=== PATIENT | female | born 1960 | race Caucasian/White ===

== ENCOUNTER 2020-12-02 10:13 | Outpatient (REF) | payer OTHER, SELFPAY ==
[2020-12-02 11:16] LABS: MANUAL DIFF FLAG NO
[2020-12-02 11:21] LABS: Basophils Percent Auto 0.8 % (0-2); Eosinophils Absolute Auto 0.1 X10*3/uL (0.0-0.4); Eosinophils Percent Auto 3.8 % (0-4); Hematocrit 44.9 % (37-47); Hemoglobin 15.1 g/dl (12.0-16.0); Imm Gran Abs Auto 0.01 X10*3/uL (0.00-0.03); Imm Gran Pct Auto 0.3 % (0.0-0.4); Lymphocytes Absolute Auto 1.6 X10*3/uL (1.2-4.9); Lymphocytes Percent Auto 44.1 % (20-40); Mean Corpuscular HGB Conc 33.6 g/dl (31.0-35.0); Mean Corpuscular Volume 95.1 fL (80-98); Mean Platelet Volume 11.2 fL (9.4-12.3); Monocytes Absolute Auto 0.4 X10*3/uL (0.1-1.2); Monocytes Percent Auto 10.8 % (2-11); Neutrophils Absolute Auto 1.5 X10*3/uL (2.0-8.3); Neutrophils Percent Auto 40.2 % (45-73); Platelet Count 206 X10*3/uL (160-400); Red Blood Count 4.72 X10*6/uL (4.20-5.50); Red Cell Distribution Width 13.2 % (11.0-16.0); White Blood Count 3.7 X10*3/uL (4.8-10.8)
[2020-12-02 11:55] LABS: Alanine Aminotransferase 20 U/L (0-31); Albumin Level 4.8 g/dL (3.5-5.0); Alkaline Phosphatase 81 U/L (39-117); Anion Gap 15 (12-20); Aspartate Amino Transferase 20 U/L (5-31); Bilirubin Total 0.3 mg/dL (0.0-1.0); Blood Urea Nitrogen 8 mg/dL (9-16); Calcium 9.4 mg/dL (8.4-10.2); Carbon Dioxide 27 mmol/L (22-29); Chloride 101 mmol/L (96-108); Cholesterol 287 mg/dL; Estimated Glomerular Filt Rate > 60; Glucose Fasting 109 mg/dL (60-99); HDL Cholesterol 95 mg/dL; LDL Cholesterol Calculated 169 mg/dl; Potassium 4.4 mmol/l (3.3-5.1); Sodium 139 mmol/L (135-145); Total Protein 7.6 g/dL (6.5-8.0); Triglycerides 116 mg/dL
== END 2020-12-02 10:14 | disposition home or self-care (01) ==
LOC: HO.HMGCLDS 10:13
PROVIDERS: PCP Internal Medicine Medical Oncology; Visit Provider Internal Medicine Medical Oncology
DX: E78.00 Pure hypercholesterolemia, unspecified (principal); E66.9 Obesity, unspecified
CPT/HCPCS: 36415; 80053; 80061; 85025

== ENCOUNTER 2021-03-20 09:17 | Outpatient (REF) | payer OTHER, SELFPAY ==
[2021-03-20 11:30] LABS: MANUAL DIFF FLAG NO
[2021-03-20 11:43] LABS: Basophils Percent Auto 0.6 % (0-2); Hematocrit 41.9 % (37-47); Hemoglobin 13.8 g/dl (12.0-16.0); Imm Gran Abs Auto 0.01 X10*3/uL (0.00-0.03); Imm Gran Pct Auto 0.3 % (0.0-0.4); Lymphocytes Absolute Auto 1.3 X10*3/uL (1.2-4.9); Lymphocytes Percent Auto 39.2 % (20-40); Mean Corpuscular HGB Conc 32.9 g/dl (31.0-35.0); Mean Corpuscular Hemoglobin 31.5 pg (27.0-33.0); Mean Corpuscular Volume 95.7 fL (80-98); Mean Platelet Volume 10.8 fL (9.4-12.3); Monocytes Absolute Auto 0.3 X10*3/uL (0.1-1.2); Monocytes Percent Auto 9.2 % (2-11); Neutrophils Absolute Auto 1.7 X10*3/uL (2.0-8.3); Neutrophils Percent Auto 50.7 % (45-73); Platelet Count 182 X10*3/uL (160-400); Red Blood Count 4.38 X10*6/uL (4.20-5.50); Red Cell Distribution Width 13.5 % (11.0-16.0); White Blood Count 3.4 X10*3/uL (4.8-10.8)
[2021-03-20 12:08] LABS: Alanine Aminotransferase 20 U/L (0-31); Albumin Level 4.1 g/dL (3.5-5.0); Alkaline Phosphatase 72 U/L (39-117); Anion Gap 15 (12-20); Aspartate Amino Transferase 19 U/L (5-31); Bilirubin Total 0.6 mg/dL (0.0-1.0); Blood Urea Nitrogen 11 mg/dL (9-16); Calcium 8.7 mg/dL (8.4-10.2); Carbon Dioxide 28 mmol/L (22-29); Chloride 101 mmol/L (96-108); Estimated Glomerular Filt Rate > 60; Glucose Fasting 94 mg/dL (60-99); Potassium 3.8 mmol/L (3.3-5.1); Sodium 140 mmol/L (135-145); Total Protein 6.8 g/dL (6.5-8.0)
== END 2021-03-20 09:18 | disposition home or self-care (01) ==
LOC: HO.HMGCLDS 09:17
PROVIDERS: PCP Internal Medicine Medical Oncology; Visit Provider Internal Medicine Medical Oncology
DX: E78.00 Pure hypercholesterolemia, unspecified (principal); I10 Essential (primary) hypertension
CPT/HCPCS: 36415; 80053; 85025

== ENCOUNTER 2021-03-26 10:29 | Outpatient (REF) | payer OTHER, SELFPAY ==
[2021-03-26 14:38] LABS: Cholesterol 267 mg/dL; HDL Cholesterol 83 mg/dL; LDL Cholesterol Calculated 163 mg/dl; Triglycerides 106 mg/dL
[2021-03-26 14:45] LABS: Free T4 (Free Thyroxine) 1.02 ng/dL (0.71-1.85); Thyroid Stimulating Hormone 1.39 uIU/mL (0.32-4.0)
== END 2021-03-26 10:30 | disposition home or self-care (01) ==
LOC: HO.10HDL 10:29
PROVIDERS: Visit Provider Internal Medicine Medical Oncology
DX: E78.00 Pure hypercholesterolemia, unspecified (principal); I10 Essential (primary) hypertension; E03.9 Hypothyroidism, unspecified; E66.9 Obesity, unspecified
CPT/HCPCS: 36415; 80061; 84439; 84443

== ENCOUNTER 2021-04-10 09:29 | Outpatient (REF) | payer OTHER, SELFPAY ==
[2021-04-10 10:59] LABS: Glucose Urine UA NEG (NEG); Leukocyte Esterase Urine TRACE (NEG); Nitrite Urine NEG (NEG); PH 6.5 (5.0-8.0); Urine Blood 1+ (NEG); Urine Ketones NEG (NEG); Urine Protein NEG (NEG-TRACE)
[2021-04-10 11:01] LABS: Appearance Urine CLEAR; Color Urine YELLOW
[2021-04-10 11:14] LABS: Bacteria Urine TRACE /LPF; Squamous Epithelial Cell Urine 2+ /LPF
== END 2021-04-10 09:30 | disposition home or self-care (01) ==
LOC: HO.LNP 09:29
PROVIDERS: Visit Provider Internal Medicine Medical Oncology
DX: N39.0 Urinary tract infection, site not specified (principal)
CPT/HCPCS: 81001; 81003; 87086

== ENCOUNTER 2021-06-27 08:48 | Outpatient (REF) | payer OTHER, SELFPAY ==
[2021-06-27 11:31] LABS: MANUAL DIFF FLAG NO
[2021-06-27 11:41] LABS: Basophils Percent Auto 0.6 % (0-2); Hematocrit 40.6 % (37-47); Hemoglobin 13.6 g/dl (12.0-16.0); Lymphocytes Absolute Auto 1.5 X10*3/uL (1.2-4.9); Lymphocytes Percent Auto 47.4 % (20-40); Mean Corpuscular HGB Conc 33.5 g/dl (31.0-35.0); Mean Corpuscular Hemoglobin 31.6 pg (27.0-33.0); Mean Corpuscular Volume 94.4 fL (80-98); Mean Platelet Volume 10.7 fL (9.4-12.3); Monocytes Absolute Auto 0.4 X10*3/uL (0.1-1.2); Monocytes Percent Auto 12.3 % (2-11); Neutrophils Absolute Auto 1.2 X10*3/uL (2.0-8.3); Neutrophils Percent Auto 39.7 % (45-73); Platelet Count 164 X10*3/uL (160-400); Red Cell Distribution Width 13.6 % (11.0-16.0); White Blood Count 3.1 X10*3/uL (4.8-10.8)
[2021-06-27 12:02] LABS: Alanine Aminotransferase 18 U/L (0-31); Albumin Level 4.1 g/dL (3.5-5.0); Alkaline Phosphatase 63 U/L (39-117); Anion Gap 13 (12-20); Aspartate Amino Transferase 17 U/L (5-31); Bilirubin Total 0.4 mg/dL (0.0-1.0); Blood Urea Nitrogen 11 mg/dL (9-16); Carbon Dioxide 27 mmol/L (22-29); Chloride 106 mmol/L (96-108); Cholesterol 249 mg/dL; Estimated Glomerular Filt Rate > 60; Glucose Fasting 99 mg/dL (60-99); HDL Cholesterol 90 mg/dL; LDL Cholesterol Calculated 144 mg/dl; Potassium 4.1 mmol/L (3.3-5.1); Sodium 142 mmol/L (135-145); Total Protein 6.6 g/dL (6.5-8.0); Triglycerides 77 mg/dL
[2021-06-27 12:12] LABS: Free T4 (Free Thyroxine) 0.89 ng/dL (0.71-1.85); Thyroid Stimulating Hormone 1.33 uIU/mL (0.32-4.0)
== END 2021-06-27 08:49 | disposition home or self-care (01) ==
LOC: HO.HMGCLDS 08:48
PROVIDERS: PCP Internal Medicine Medical Oncology; Visit Provider Internal Medicine Medical Oncology
DX: E78.00 Pure hypercholesterolemia, unspecified (principal); I10 Essential (primary) hypertension; E03.9 Hypothyroidism, unspecified; E66.9 Obesity, unspecified
CPT/HCPCS: 36415; 80053; 80061; 84439; 84443; 85025

== ENCOUNTER 2021-07-10 12:40 | Outpatient (REF) | payer OTHER, SELFPAY ==
--- NOTE | ~2021-07-10 | MM_ITS ---
EXAMINATION: MM SCREENING DIGITAL BREAST TOMOSYNTHESIS, BILATERAL CLINICAL INFORMATION: Screening. Asymptomatic. The lifetime risk of breast cancer based on the Tyrer-Cuzick Model is 16%. COMPARISON: Outside mammography: 06/29/2019, 06/27/2018, 12/07/2016 ([facility]) TECHNIQUE: Digital breast tomosynthesis is performed in both the craniocaudal and mediolateral oblique views along with computer-aided detection (CAD). Synthesized 2D images are generated from the tomosynthesis. FINDINGS: There are scattered areas of fibroglandular density (ACR BI-RADS breast composition Category b). There are no significant masses, abnormal calcifications, or other abnormalities. Parenchymal pattern is similar to prior studies. No developing density. The axilla and skin contours are unremarkable. MM/MM tomosynthesis screening BI IMPRESSION: There are no significant changes from prior study. ASSESSMENT: BI-RADS 1: Negative RECOMMENDATION: Routine annual mammography screening. This patient's information was entered into a reminder system with a target due date for their next mammogram.
== END 2021-07-10 12:41 | disposition home or self-care (01) ==
LOC: HO.MAMMO 12:40
PROVIDERS: Visit Provider Internal Medicine Medical Oncology
DX: Z12.31 Encounter for screening mammogram for malignant neoplasm of breast (principal)
CPT/HCPCS: 77063; 77067

== ENCOUNTER 2021-10-14 10:51 | Outpatient (REF) | payer OTHER, SELFPAY ==
[2021-10-14 11:45] LABS: MANUAL DIFF FLAG NO
[2021-10-14 11:52] LABS: Basophils Percent Auto 0.6 % (0-2); Hematocrit 38.9 % (37.0-47.0); Hemoglobin 12.9 g/dl (12.0-16.0); Imm Gran Abs Auto 0.01 X10*3/uL (0.00-0.03); Imm Gran Pct Auto 0.2 % (0.0-0.4); Lymphocytes Absolute Auto 1.7 X10*3/uL (1.2-4.9); Lymphocytes Percent Auto 32.3 % (20-40); Mean Corpuscular HGB Conc 33.2 g/dl (31.0-35.0); Mean Corpuscular Volume 96.5 fL (80.0-98.0); Mean Platelet Volume 9.9 fL (9.4-12.3); Monocytes Absolute Auto 0.5 X10*3/uL (0.1-1.2); Monocytes Percent Auto 9.3 % (2-11); Neutrophils Absolute Auto 3.1 x10*3/uL (2.0-8.3); Neutrophils Percent Auto 57.6 % (45-73); Platelet Count 161 X10*3/uL (160-400); Red Blood Count 4.03 X10*6/uL (4.20-5.50); Red Cell Distribution Width 13.3 % (11.0-16.0); White Blood Count 5.4 X10*3/uL (4.8-10.8)
[2021-10-14 12:28] LABS: Erythrocyte Sedimentation Rate 7 MM/HR (0-20)
== END 2021-10-14 10:52 | disposition home or self-care (01) ==
LOC: HO.10HDL 10:51
PROVIDERS: Visit Provider Internal Medicine Medical Oncology
DX: E78.00 Pure hypercholesterolemia, unspecified (principal); D72.819 Decreased white blood cell count, unspecified
CPT/HCPCS: 36415; 85025; 85652

== ENCOUNTER 2021-10-27 08:02 | Outpatient (REF) | payer OTHER, SELFPAY ==
[2021-10-27 10:06] LABS: MANUAL DIFF FLAG NO
[2021-10-27 10:08] LABS: Basophils Absolute Auto 0.1 X10*3/uL (0.0-0.2); Basophils Percent Auto 1.5 % (0-2); Hematocrit 38.7 % (37.0-47.0); Hemoglobin 12.8 g/dl (12.0-16.0); Imm Gran Abs Auto 0.01 X10*3/uL (0.00-0.03); Imm Gran Pct Auto 0.3 % (0.0-0.4); Lymphocytes Absolute Auto 1.3 X10*3/uL (1.2-4.9); Lymphocytes Percent Auto 38.3 % (20-40); Mean Corpuscular HGB Conc 33.1 g/dl (31.0-35.0); Mean Corpuscular Hemoglobin 31.8 pg (27.0-33.0); Mean Corpuscular Volume 96.3 fL (80.0-98.0); Mean Platelet Volume 10.9 fL (9.4-12.3); Monocytes Absolute Auto 0.4 X10*3/uL (0.1-1.2); Monocytes Percent Auto 11.2 % (2-11); Neutrophils Absolute Auto 1.6 x10*3/uL (2.0-8.3); Neutrophils Percent Auto 48.7 % (45-73); Platelet Count 231 X10*3/uL (160-400); Red Blood Count 4.02 X10*6/uL (4.20-5.50); Red Cell Distribution Width 13.2 % (11.0-16.0); White Blood Count 3.3 X10*3/uL (4.8-10.8)
[2021-10-27 10:24] LABS: Alanine Aminotransferase 16 U/L (0-31); Alkaline Phosphatase 69 U/L (39-117); Anion Gap 13 (12-20); Aspartate Amino Transferase 17 U/L (5-31); Bilirubin Total 0.4 mg/dL (0.0-1.0); Blood Urea Nitrogen 13 mg/dL (9-16); Carbon Dioxide 27 mmol/L (22-29); Chloride 105 mmol/L (96-108); Cholesterol 244 mg/dL; Estimated Glomerular Filt Rate > 60; Glucose Fasting 99 mg/dL (60-99); HDL Cholesterol 78 mg/dL; LDL Cholesterol Calculated 150 mg/dl; Sodium 141 mmol/L (135-145); Total Protein 6.6 g/dL (6.5-8.0); Triglycerides 84 mg/dL
[2021-10-27 10:49] LABS: Free T4 (Free Thyroxine) 0.97 ng/dL (0.71-1.85); Thyroid Stimulating Hormone 1.57 uIU/mL (0.32-4.0)
== END 2021-10-27 08:03 | disposition home or self-care (01) ==
LOC: HO.10HDL 08:02
PROVIDERS: Visit Provider Internal Medicine Medical Oncology
DX: E78.00 Pure hypercholesterolemia, unspecified (principal); E03.9 Hypothyroidism, unspecified; E66.9 Obesity, unspecified
CPT/HCPCS: 36415; 80053; 80061; 84439; 84443; 85025

== ENCOUNTER 2022-03-04 08:51 | Outpatient (REF) | payer OTHER, SELFPAY ==
[2022-03-04 10:31] LABS: MANUAL DIFF FLAG NO
[2022-03-04 10:36] LABS: Basophils Percent Auto 0.8 % (0-2); Hematocrit 40.8 % (37.0-47.0); Hemoglobin 13.5 g/dl (12.0-16.0); Imm Gran Abs Auto 0.01 X10*3/uL (0.00-0.03); Imm Gran Pct Auto 0.3 % (0.0-0.4); Lymphocytes Absolute Auto 1.3 X10*3/uL (1.2-4.9); Lymphocytes Percent Auto 36.1 % (20-40); Mean Corpuscular HGB Conc 33.1 g/dl (31.0-35.0); Mean Corpuscular Hemoglobin 31.7 pg (27.0-33.0); Mean Corpuscular Volume 95.8 fL (80.0-98.0); Mean Platelet Volume 10.9 fL (9.4-12.3); Monocytes Absolute Auto 0.4 X10*3/uL (0.1-1.2); Monocytes Percent Auto 11.8 % (2-11); Neutrophils Absolute Auto 1.9 x10*3/uL (2.0-8.3); Platelet Count 177 X10*3/uL (160-400); Red Blood Count 4.26 X10*6/uL (4.20-5.50); Red Cell Distribution Width 13.8 % (11.0-16.0); White Blood Count 3.6 X10*3/uL (4.8-10.8)
[2022-03-04 10:51] LABS: Alanine Aminotransferase 25 U/L (0-31); Albumin Level 4.2 g/dL (3.5-5.0); Alkaline Phosphatase 70 U/L (39-117); Anion Gap 11 (12-20); Aspartate Amino Transferase 21 U/L (5-31); Bilirubin Total 0.4 mg/dL (0.0-1.0); Blood Urea Nitrogen 16 mg/dL (9-16); Calcium 9.1 mg/dL (8.4-10.2); Carbon Dioxide 29 mmol/L (22-29); Chloride 105 mmol/L (96-108); Cholesterol 272 mg/dL; Estimated Glomerular Filt Rate > 60; Glucose Fasting 111 mg/dL (60-99); HDL Cholesterol 91 mg/dL; LDL Cholesterol Calculated 167 mg/dl; Potassium 4.7 mmol/L (3.3-5.1); Sodium 140 mmol/L (135-145); Total Protein 6.9 g/dL (6.5-8.0); Triglycerides 73 mg/dL
[2022-03-04 11:11] LABS: Free T4 (Free Thyroxine) 0.89 ng/dL (0.71-1.85); Thyroid Stimulating Hormone 1.77 uIU/mL (0.32-4.0)
== END 2022-03-04 08:52 | disposition home or self-care (01) ==
LOC: HO.10HDL 08:51
PROVIDERS: PCP Internal Medicine Medical Oncology; Visit Provider Internal Medicine Medical Oncology
DX: E78.00 Pure hypercholesterolemia, unspecified (principal); I10 Essential (primary) hypertension
CPT/HCPCS: 36415; 80053; 80061; 84439; 84443; 85025

== ENCOUNTER 2022-07-03 08:25 | Outpatient (REF) | payer OTHER, SELFPAY ==
[2022-07-03 11:28] LABS: MANUAL DIFF FLAG NO
[2022-07-03 11:31] LABS: Basophils Percent Auto 1.1 % (0-2); Hematocrit 41.7 % (37.0-47.0); Hemoglobin 14.4 g/dl (12.0-16.0); Imm Gran Abs Auto 0.01 X10*3/uL (0.00-0.03); Imm Gran Pct Auto 0.4 % (0.0-0.4); Lymphocytes Absolute Auto 1.3 X10*3/uL (1.2-4.9); Lymphocytes Percent Auto 47.2 % (20-40); Mean Corpuscular HGB Conc 34.5 g/dl (31.0-35.0); Mean Corpuscular Hemoglobin 32.3 pg (27.0-33.0); Mean Corpuscular Volume 93.5 fL (80.0-98.0); Monocytes Absolute Auto 0.4 X10*3/uL (0.1-1.2); Monocytes Percent Auto 13.9 % (2-11); Neutrophils Percent Auto 37.4 % (45-73); Platelet Count 174 X10*3/uL (160-400); Red Blood Count 4.46 X10*6/uL (4.20-5.50); Red Cell Distribution Width 12.9 % (11.0-16.0); White Blood Count 2.7 X10*3/uL (4.8-10.8)
[2022-07-03 12:08] LABS: Alanine Aminotransferase 22 U/L (0-31); Albumin Level 4.3 g/dL (3.5-5.0); Alkaline Phosphatase 70 U/L (39-117); Anion Gap 16 (12-20); Aspartate Amino Transferase 25 U/L (5-31); Bilirubin Total 0.5 mg/dL (0.0-1.0); Blood Urea Nitrogen 10 mg/dL (9-16); Calcium 9.2 mg/dL (8.4-10.2); Carbon Dioxide 26 mmol/L (22-29); Chloride 102 mmol/L (96-108); Cholesterol 269 mg/dL; Estimated Glomerular Filt Rate > 60; Glucose Fasting 113 mg/dL (60-99); HDL Cholesterol 82 mg/dL; LDL Cholesterol Calculated 167 mg/dl; Potassium 4.6 mmol/L (3.3-5.1); Sodium 139 mmol/L (135-145); Triglycerides 104 mg/dL
[2022-07-03 12:30] LABS: Free T4 (Free Thyroxine) 1.11 ng/dL (0.71-1.85); Thyroid Stimulating Hormone 1.25 uIU/mL (0.32-4.0)
[2022-07-03 13:08] LABS: Phenytoin Dilantin 7.2 ug/mL (10.0-20.0)
== END 2022-07-03 08:26 | disposition home or self-care (01) ==
LOC: HO.HMGCLDS 08:25
PROVIDERS: PCP Internal Medicine Medical Oncology; Visit Provider Internal Medicine Medical Oncology
DX: E78.00 Pure hypercholesterolemia, unspecified (principal); E03.9 Hypothyroidism, unspecified; I10 Essential (primary) hypertension; Z79.899 Other long term (current) drug therapy
CPT/HCPCS: 36415; 80053; 80061; 80185; 84439; 84443; 85025

== ENCOUNTER 2022-07-14 15:38 | Outpatient (REF) | payer OTHER, SELFPAY ==
--- NOTE | ~2022-07-14 | MM_ITS ---
EXAMINATION: MM SCREENING DIGITAL BREAST TOMOSYNTHESIS, BILATERAL CLINICAL INFORMATION: Screening. Asymptomatic. The lifetime risk of breast cancer based on the Tyrer-Cuzick Model is 13.2%. COMPARISON: Mammography: July 10, 2021 and studies dating back to December 07, 2016 TECHNIQUE: Digital breast tomosynthesis is performed in both the craniocaudal and mediolateral oblique views along with computer-aided detection (CAD). Synthesized 2D images are generated from the tomosynthesis. FINDINGS: There are scattered areas of fibroglandular density (ACR BI-RADS breast composition Category b). There are no significant masses, abnormal calcifications, or other abnormalities. MM/MM tomosynthesis screening BI IMPRESSION: No significant changes from prior exam. ASSESSMENT: BI-RADS 1: Negative RECOMMENDATION: Routine annual mammography screening. This patient's information was entered into a reminder system with a target due date for their next mammogram.
== END 2022-07-14 15:39 | disposition home or self-care (01) ==
LOC: HO.MAMMO 15:38
PROVIDERS: PCP Internal Medicine Medical Oncology; Visit Provider Internal Medicine Medical Oncology
DX: Z12.31 Encounter for screening mammogram for malignant neoplasm of breast (principal)
CPT/HCPCS: 77063; 77067

== ENCOUNTER 2022-08-17 08:47 | Outpatient (REF) | payer OTHER, SELFPAY ==
[2022-08-17 12:56] LABS: Phenytoin Dilantin 13.1 ug/mL (10.0-20.0); Valproate 52.1 mcg/mL (50.0-100.0)
== END 2022-08-17 08:48 | disposition home or self-care (01) ==
LOC: HO.HMGCLDS 08:47
PROVIDERS: PCP Internal Medicine Medical Oncology; Visit Provider Psychiatry & Neurology Neurology
DX: G40.909 Epilepsy, unspecified, not intractable, without status epilepticus (principal); Z79.899 Other long term (current) drug therapy
CPT/HCPCS: 36415; 80164; 80185

== ENCOUNTER 2022-09-10 08:38 | Outpatient (REF) | payer OTHER, SELFPAY ==
[2022-09-10 11:12] LABS: MANUAL DIFF FLAG NO
[2022-09-10 11:20] LABS: Basophils Percent Auto 0.7 % (0-2); Hematocrit 41.2 % (37.0-47.0); Hemoglobin 13.8 g/dl (12.0-16.0); Lymphocytes Absolute Auto 1.4 X10*3/uL (1.2-4.9); Lymphocytes Percent Auto 46.4 % (20-40); Mean Corpuscular HGB Conc 33.5 g/dl (31.0-35.0); Mean Corpuscular Hemoglobin 32.2 pg (27.0-33.0); Mean Platelet Volume 11.5 fL (9.4-12.3); Monocytes Absolute Auto 0.4 X10*3/uL (0.1-1.2); Monocytes Percent Auto 12.6 % (2-11); Neutrophils Absolute Auto 1.2 x10*3/uL (2.0-8.3); Neutrophils Percent Auto 40.3 % (45-73); Platelet Count 166 X10*3/uL (160-400); Red Blood Count 4.29 X10*6/uL (4.20-5.50); Red Cell Distribution Width 13.3 % (11.0-16.0)
[2022-09-10 11:32] LABS: Alanine Aminotransferase 21 U/L (0-31); Albumin Level 4.4 g/dL (3.5-5.0); Alkaline Phosphatase 62 U/L (39-117); Anion Gap 15 (12-20); Aspartate Amino Transferase 20 U/L (5-31); Bilirubin Total 0.4 mg/dL (0.0-1.0); Blood Urea Nitrogen 11 mg/dL (9-16); Calcium 9.2 mg/dL (8.4-10.2); Carbon Dioxide 27 mmol/L (22-29); Chloride 105 mmol/L (96-108); Estimated Glomerular Filt Rate > 60; Glucose Fasting 117 mg/dL (60-99); Potassium 4.3 mmol/L (3.3-5.1); Sodium 143 mmol/L (135-145); Total Protein 6.8 g/dL (6.5-8.0)
[2022-09-10 12:41] LABS: Phenytoin Dilantin 13.3 ug/mL (10.0-20.0)
== END 2022-09-10 08:39 | disposition home or self-care (01) ==
LOC: HO.HMGCLDS 08:38
PROVIDERS: PCP Internal Medicine Medical Oncology; Visit Provider Internal Medicine Medical Oncology
DX: Z00.00 Encounter for general adult medical examination without abnormal findings (principal); E78.00 Pure hypercholesterolemia, unspecified; G40.309 Generalized idiopathic epilepsy and epileptic syndromes, not intractable, without status epilepticus
CPT/HCPCS: 36415; 80053; 80185; 85025

== ENCOUNTER 2022-09-11 06:32 | Day surgery (SDC) | payer OTHER, SELFPAY ==
--- NOTE | 2022-09-10 12:14 | P.CONAN_ITS ---
Documented by User: Kayla Munguia NP 09/10/22 12:15 HPI - Anesthesia Eval Consult details Narrative: 62yo F for Colonoscopy FORMERLY [facility], [facility] Past Medical History Medical History Endometrial carcinoma Hypothyroidism Seizure disorder Surgical History Surgical History (Updated 09/11/22 @ 07:11 by Elidia Johnson RN) H/O: hysterectomy Hx of cholecystectomy Hx of colonoscopy Social History Social History Patient Tobacco Use Status: Never used Tobacco Are you DNR?: No Advance Directives: No Advance Directives Information Provided: Yes Nutrition Risks: No Nutritional Risk Meds Allergies Allergy/AdvReac Type Severity Reaction Status Date / Time codeine AdvReac Gastrointestinal Verified 09/11/22 07:09 Upset levetiracetam [From [facility]] AdvReac Unknown Verified 09/11/22 07:10 Home Medications Medication Instructions Recorded Confirmed Last Taken Type divalproex 500 mg tablet,extended 1 tab PO TID 09/10/22 09/10/22 09/11/22 History release 24 hr levothyroxine 100 mcg tablet 1 tab PO DAILY 09/10/22 09/10/22 Unknown History phenytoin sodium extended 100 mg cap PO 09/10/22 09/11/22 History capsule Exam Exam Date and Time: September 10, 2022 1214 Pertinent Lab Results Pertinent Lab Results: Laboratory Tests 09/10/22 09/10/22 08:44 08:44 WBC 3.0 L Hgb 13.8 Hct 41.2 Plt Count 166 Sodium 143 Potassium 4.3 Chloride 105 Carbon Dioxide 27 BUN 11 Creatinine 0.76 Assessment and Plan Assessment Anesthesia Assessment: Chart Reviewed Documented by User: Jcarlos Olguin MD 09/13/22 23:33 HPI - Anesthesia Eval Consult details Narrative: 62yo F for Colonoscopy last seizure 10 years ago FORMERLY [facility], [facility] Past Medical History Medical History Endometrial carcinoma Hypothyroidism Seizure disorder Family History Family history of problems with anesthesia: No Surgical History Surgical History (Updated 09/11/22 @ 07:11 by Elidia Johnson RN) H/O: hysterectomy Hx of cholecystectomy Hx of colonoscopy History of Problems with Anesthesia: No Social History Social History Patient Tobacco Use Status: Never used Tobacco Are you DNR?: No Advance Directives: No Advance Directives Information Provided: Yes Nutrition Risks: No Nutritional Risk Meds Allergies Allergy/AdvReac Type Severity Reaction Status Date / Time codeine AdvReac Gastrointestinal Verified 09/11/22 07:09 Upset levetiracetam [From [facility]] AdvReac Unknown Verified 09/11/22 07:10 Home Medications Medication Instructions Recorded Confirmed Last Taken Type divalproex 500 mg tablet,extended 1 tab PO TID 09/10/22 09/10/22 09/11/22 History release 24 hr levothyroxine 100 mcg tablet 1 tab PO DAILY 09/10/22 09/10/22 Unknown History phenytoin sodium extended 100 mg cap PO 09/10/22 09/11/22 History capsule Exam Airway Mallampati Class: IV TM Dist: >3cm Neck ROM: Full Loose/Missing/Broken Teeth: Yes (Fillings , front crowns ) Heart: S1,S2 Lungs: b/l breath sounds Assessment and Plan Assessment Anesthesia Assessment: Anesthesia Plan Discussed Final Anesthetic Review Family History of Problems with Anesthesia: No History of Problems with Anesthesia: No NPO: Yes ASA Class: III Final Preanesthetic Review: Meds/Allgs Chart Reviewed, Consent Obtained/Reviewed and Anes Risks/Benef Reviewed Patient Risk: Intermediate Procedure Risk: Intermediate Anesthetic Plan Anesthetic Plan: MAC: Disposition: Standard PACU
[2022-09-11 06:35] VITALS: BMI 41.8
[2022-09-11] MEDS: Lactated Ringers 1,000 ML 100 ML IVCONT (06:50)
[2022-09-11 07:02] VITALS: BP 139/70; PULSE 67; RESP 18; TEMP 36.6; O2SAT 100
[2022-09-11 08:37] VITALS: BP 90/58; PULSE 69; RESP 15; TEMP 36.4; O2SAT 97
--- NOTE | 2022-09-11 08:38 | PM.OP ---
Brief Operative Note Date of Service: 09/11/22 Pre-op diagnosis: Screening Post-op diagnosis: other (Colon polyp) Procedure: Colonoscopy to the cecum and TI with bx/removal of polyp Surgeon: Filemon Shepherd Anesthesia: MAC Was an Base Wad Operator Adjuster used for this Procedure?: No Estimated blood loss (mL): 2.0 Pathology: other (A. Polyp at 60cm) Condition: stable Disposition: PACU
[2022-09-11 08:52] VITALS: BP 126/52; PULSE 59; RESP 16; TEMP 36.2; O2SAT 99
--- NOTE | 2022-09-12 06:04 | OP_ITS ---
SURGEON: Filemon Shepherd MD INDICATIONS: The patient presents for evaluation of colorectal cancer screening. Full consent has been obtained from her for this, including risks of bleeding and perforation. PREOPERATIVE DIAGNOSIS: Colorectal cancer screening. POSTOPERATIVE DIAGNOSIS: PROCEDURE PERFORMED: Colonoscopy to the cecum and terminal ileum with biopsy and removal of polyp. ESTIMATED BLOOD LOSS: COMPLICATIONS: ANESTHESIA: Monitored anesthesia care. ASSISTANTS: SPECIMENS: POSTOPERATIVE DIAGNOSES: Colorectal cancer screening, colon polyp, diverticulosis, and internal hemorrhoids. DESCRIPTION OF PROCEDURE: The patient was placed in the left lateral decubitus position. The digital rectal exam revealed no abnormalities. The Olympus video pediatric colonoscope was entered into the rectum and advanced easily to the cecum. Once in the cecum, I did identify a normal-appearing cecal pouch with appendiceal orifice and a normal-appearing ileocecal valve. The terminal ileum was cannulated and appeared normal. The scope was withdrawn back in the colon. The entire cecum and ileocecal valve appeared normal. The scope was slowly withdrawn assessing all mucosal surfaces carefully. Preparation was excellent. At 60 cm was an approximately 4 mm polyp, which was biopsied and completely removed with a cold biopsy forceps. I did not visualize any other polyps, colitis, nor angiodysplasia. There was a mild amount of sigmoid diverticulosis. In the rectum, scope was retroflexed visualizing internal hemorrhoids, but no other pathology. The rectal mucosa appeared normal. The scope was straightened and withdrawn from the patient. She tolerated the procedure well and was returned to the recovery area in stable condition. IMPRESSION: 1. Small colon polyp. 2. Diverticulosis. 3. Internal hemorrhoids. PLAN: The results of the pathology will be checked. She will undergo a followup colonoscopy for screening in 5-10 years depending upon the pathology results. She will otherwise see me on a p.r.n. basis. MD WILLAM Hubbard/ADY / [id number]
== END 2022-09-11 10:26 | disposition home or self-care (01) ==
PROVIDERS: PCP Internal Medicine Medical Oncology; Visit Provider Internal Medicine
PROC: 0DJD8ZZ Inspection of Lower Intestinal Tract, Via Natural or Artificial Opening Endoscopic (ICD-10-PCS; CPT 45378; principal; 2022-09-11 07:30)
DX: Z12.11 Encounter for screening for malignant neoplasm of colon (principal); K63.5 Polyp of colon; K57.30 Diverticulosis of large intestine without perforation or abscess without bleeding; K64.8 Other hemorrhoids; G40.909 Epilepsy, unspecified, not intractable, without status epilepticus; E03.9 Hypothyroidism, unspecified; Z90.49 Acquired absence of other specified parts of digestive tract; Z85.42 Personal history of malignant neoplasm of other parts of uterus; Z90.710 Acquired absence of both cervix and uterus; Z79.899 Other long term (current) drug therapy
CPT/HCPCS: 45380; 88305

== ENCOUNTER 2022-12-10 14:27 | Outpatient (REF) | payer OTHER, SELFPAY | END 2022-12-10 14:28 | disposition home or self-care (01) | LOC: HO.HMGCLDS 14:27 | PROVIDERS: PCP Internal Medicine Medical Oncology; Visit Provider Internal Medicine Medical Oncology | DX: N39.0 Urinary tract infection, site not specified (principal) | CPT/HCPCS: 87086 ==

== ENCOUNTER 2022-12-25 09:16 | Outpatient (REF) | payer OTHER, SELFPAY ==
[2022-12-25 11:53] LABS: Phenytoin Dilantin 15.9 ug/mL (10.0-20.0)
[2022-12-25 12:13] LABS: Alanine Aminotransferase 20 U/L (0-31); Albumin Level 4.1 g/dL (3.5-5.0); Alkaline Phosphatase 64 U/L (39-117); Anion Gap 13 (12-20); Aspartate Amino Transferase 20 U/L (5-31); Bilirubin Total 0.5 mg/dL (0.0-1.0); Blood Urea Nitrogen 9 mg/dL (9-16); Calcium 9.1 mg/dL (8.4-10.2); Carbon Dioxide 27 mmol/L (22-29); Chloride 107 mmol/L (96-108); Cholesterol 253 mg/dL; Estimated Glomerular Filt Rate > 60; Glucose Fasting 115 mg/dL (60-99); HDL Cholesterol 81 mg/dL; LDL Cholesterol Calculated 156 mg/dl; Potassium 4.4 mmol/L (3.3-5.1); Sodium 143 mmol/L (135-145); Total Protein 6.5 g/dL (6.5-8.0); Triglycerides 84 mg/dL
[2022-12-25 12:33] LABS: Free T4 (Free Thyroxine) 0.79 ng/dL (0.71-1.85); Thyroid Stimulating Hormone 1.03 uIU/mL (0.32-4.0)
== END 2022-12-25 09:17 | disposition home or self-care (01) ==
LOC: HO.HMGCLDS 09:16
PROVIDERS: PCP Internal Medicine Medical Oncology; Visit Provider Internal Medicine Medical Oncology
DX: E03.9 Hypothyroidism, unspecified (principal); I10 Essential (primary) hypertension; K21.9 Gastro-esophageal reflux disease without esophagitis; D72.819 Decreased white blood cell count, unspecified; E66.01 Morbid (severe) obesity due to excess calories; G40.309 Generalized idiopathic epilepsy and epileptic syndromes, not intractable, without status epilepticus; Z79.899 Other long term (current) drug therapy
CPT/HCPCS: 36415; 80053; 80061; 80185; 84439; 84443

== ENCOUNTER 2023-04-24 14:34 | Outpatient (REF) | payer OTHER, SELFPAY ==
[2023-04-24 15:30] LABS: Appearance Urine Clear; Color Urine Yellow; Glucose Urine UA Negative (Negative); Leukocyte Esterase Urine Moderate (2+) (Negative); Nitrite Urine Negative (Negative); Specific Gravity - Urine 1.015 (1.005-1.025); UMIC TRIGGER UACC YES; Urine Blood Trace (Negative); Urine Ketones Negative (Negative); Urine Protein Negative (Neg-Trace)
[2023-04-24 15:35] LABS: Bacteria Urine None Seen (None Seen); Hyaline Casts Urine 0-2 /LPF (0-2); Squamous Epithelial Cell Urine 0-2 /HPF (0-2); UACC Culture Trigger YES; WBC Urine >50 /HPF (0-5)
== END 2023-04-24 14:35 | disposition home or self-care (01) ==
LOC: HO.LAB 14:34
PROVIDERS: Visit Provider Nurse Practitioner Acute Care
DX: N39.0 Urinary tract infection, site not specified (principal)
CPT/HCPCS: 81001; 87086

== ENCOUNTER 2023-07-31 09:11 | Outpatient (REF) | payer OTHER, SELFPAY ==
--- NOTE | ~2023-07-31 | MM_ITS ---
EXAMINATION: MM SCREENING DIGITAL BREAST TOMOSYNTHESIS, BILATERAL CLINICAL INFORMATION: Screening. Asymptomatic. COMPARISON: Mammography: This is a baseline examination. TECHNIQUE: Digital breast tomosynthesis is performed in both the craniocaudal and mediolateral oblique views along with computer-aided detection (CAD). Synthesized 2D images are generated from the tomosynthesis. FINDINGS: The breasts are almost entirely fatty (ACR BI-RADS breast composition Category a). There are no significant masses, abnormal calcifications, or other abnormalities. MM/MM tomosynthesis screening BI IMPRESSION: No mammographic evidence of malignancy. ASSESSMENT: BI-RADS BI-RADS 1 - Negative RECOMMENDATION: Routine annual mammography screening. 1 year F/U This examination should not preclude the clinical evaluation of a suspicious palpable abnormality. This patient's information was entered into a reminder system with a target due date for their next mammogram.
== END 2023-07-31 09:12 | disposition home or self-care (01) ==
LOC: HO.MAMMO 09:11
PROVIDERS: PCP Internal Medicine Medical Oncology; Visit Provider Internal Medicine Medical Oncology
DX: Z12.31 Encounter for screening mammogram for malignant neoplasm of breast (principal)
CPT/HCPCS: 77063; 77067

== ENCOUNTER → 2023-07-31 09:15 | Outpatient (BNV) | payer OTHER, SELFPAY | PROVIDERS: PCP Internal Medicine Medical Oncology; Visit Provider Radiology Diagnostic Radiology | DX: Z12.31 Encounter for screening mammogram for malignant neoplasm of breast (principal) | CPT/HCPCS: 77063; 77067 ==

== ENCOUNTER 2023-11-22 09:16 | Outpatient (REF) | payer OTHER, SELFPAY | END 2023-11-22 09:17 | disposition home or self-care (01) | LOC: HO.HMGCLDS 09:16 | PROVIDERS: PCP Internal Medicine Medical Oncology; Visit Provider Internal Medicine Medical Oncology | DX: E03.9 Hypothyroidism, unspecified (principal); I10 Essential (primary) hypertension; E78.00 Pure hypercholesterolemia, unspecified; E66.9 Obesity, unspecified | CPT/HCPCS: 36415; 80053; 80061; 84439; 84443; 85025 ==

== ENCOUNTER 2024-01-24 08:43 | Outpatient (REF) | payer OTHER, SELFPAY ==
[2024-01-24 11:21] LABS: MANUAL DIFF FLAG NO
[2024-01-24 11:48] LABS: Eosinophils Absolute Auto 0.2 X10*3/uL (0.0-0.4); Eosinophils Percent Auto 4.9 % (0-4); Hematocrit 42.5 % (37.0-47.0); Hemoglobin 14.2 g/dl (12.0-16.0); Imm Gran Abs Auto 0.01 X10*3/uL (0.00-0.03); Imm Gran Pct Auto 0.3 % (0.0-0.4); Lymphocytes Absolute Auto 1.7 X10*3/uL (1.2-4.9); Lymphocytes Percent Auto 43.6 % (20-40); Mean Corpuscular HGB Conc 33.4 g/dl (31.0-35.0); Mean Corpuscular Hemoglobin 31.8 pg (27.0-33.0); Mean Corpuscular Volume 95.3 fL (80.0-98.0); Mean Platelet Volume 11.1 fL (9.4-12.3); Monocytes Absolute Auto 0.4 X10*3/uL (0.1-1.2); Monocytes Percent Auto 10.8 % (2-11); Neutrophils Absolute Auto 1.5 x10*3/uL (2.0-8.3); Neutrophils Percent Auto 39.4 % (45-73); Platelet Count 162 X10*3/uL (160-400); Red Blood Count 4.46 X10*6/uL (4.20-5.50); Red Cell Distribution Width 13.4 % (11.0-16.0); White Blood Count 3.9 X10*3/uL (4.8-10.8)
[2024-01-24 13:12] LABS: Alanine Aminotransferase 19 U/L (0-31); Albumin Level 4.3 g/dL (3.5-5.0); Alkaline Phosphatase 73 U/L (39-117); Anion Gap 13 (12-20); Aspartate Amino Transferase 19 U/L (5-31); Bilirubin Total 0.4 mg/dL (0.0-1.0); Blood Urea Nitrogen 10 mg/dL (9-16); Calcium 9.3 mg/dL (8.4-10.2); Carbon Dioxide 27 mmol/L (22-29); Chloride 108 mmol/L (96-108); Cholesterol 235 mg/dL (<200); Estimated Glomerular Filt Rate > 60; Glucose Fasting 110 mg/dL (60-99); HDL Cholesterol 91 mg/dL (>40); LDL Cholesterol Calculated 127 mg/dL (<100); Potassium 4.3 mmol/L (3.3-5.1); Sodium 144 mmol/L (135-145); Total Protein 7.1 g/dL (6.5-8.0); Triglycerides 87 mg/dL (<150)
== END 2024-01-24 08:44 | disposition home or self-care (01) ==
LOC: HO.HMGCLDS 08:43
PROVIDERS: PCP Internal Medicine Medical Oncology; Visit Provider Internal Medicine Medical Oncology
DX: I10 Essential (primary) hypertension (principal); E78.00 Pure hypercholesterolemia, unspecified; D72.819 Decreased white blood cell count, unspecified
CPT/HCPCS: 36415; 80053; 80061; 85025

== ENCOUNTER 2024-04-17 09:17 | Outpatient (REF) | payer OTHER, SELFPAY ==
[2024-04-17 10:25] LABS: MANUAL DIFF FLAG NO
[2024-04-17 10:41] LABS: Basophils Percent Auto 0.8 % (0-2); Eosinophils Absolute Auto 0.3 X10*3/uL (0.0-0.4); Eosinophils Percent Auto 7.2 % (0-4); Hematocrit 40.1 % (37.0-47.0); Hemoglobin 13.5 g/dl (12.0-16.0); Imm Gran Abs Auto 0.01 X10*3/uL (0.00-0.03); Imm Gran Pct Auto 0.3 % (0.0-0.4); Lymphocytes Absolute Auto 1.4 X10*3/uL (1.2-4.9); Lymphocytes Percent Auto 37.1 % (20-40); Mean Corpuscular HGB Conc 33.7 g/dl (31.0-35.0); Mean Corpuscular Hemoglobin 32.1 pg (27.0-33.0); Mean Corpuscular Volume 95.2 fL (80.0-98.0); Mean Platelet Volume 10.8 fL (9.4-12.3); Monocytes Absolute Auto 0.5 X10*3/uL (0.1-1.2); Monocytes Percent Auto 13.1 % (2-11); Neutrophils Absolute Auto 1.6 x10*3/uL (2.0-8.3); Neutrophils Percent Auto 41.5 % (45-73); Platelet Count 167 X10*3/uL (160-400); Red Blood Count 4.21 X10*6/uL (4.20-5.50); Red Cell Distribution Width 14.6 % (11.0-16.0); White Blood Count 3.8 X10*3/uL (4.8-10.8)
[2024-04-17 11:10] LABS: Alanine Aminotransferase 25 U/L (0-31); Albumin Level 4.1 g/dL (3.5-5.0); Alkaline Phosphatase 65 U/L (39-117); Anion Gap 11 (12-20); Aspartate Amino Transferase 24 U/L (5-31); Bilirubin Total 0.2 mg/dL (0.0-1.0); Blood Urea Nitrogen 12 mg/dL (9-16); Calcium 9.4 mg/dL (8.4-10.2); Carbon Dioxide 26 mmol/L (22-29); Chloride 109 mmol/L (96-108); Cholesterol 206 mg/dL (<200); Estimated Glomerular Filt Rate > 60; Glucose Fasting 110 mg/dL (60-99); HDL Cholesterol 88 mg/dL (>40); LDL Cholesterol Calculated 103 mg/dL (<100); Potassium 4.4 mmol/L (3.3-5.1); Sodium 142 mmol/L (135-145); Total Protein 6.7 g/dL (6.5-8.0); Triglycerides 75 mg/dL (<150)
== END 2024-04-17 09:18 | disposition home or self-care (01) ==
LOC: HO.HMGCLDS 09:17
PROVIDERS: PCP Internal Medicine Medical Oncology; Visit Provider Internal Medicine Medical Oncology
DX: I10 Essential (primary) hypertension (principal); E78.00 Pure hypercholesterolemia, unspecified; D72.819 Decreased white blood cell count, unspecified
CPT/HCPCS: 36415; 80053; 80061; 85025

== ENCOUNTER 2024-05-25 11:09 | Outpatient (AMB) | payer OTHER, SELFPAY ==
[2024-05-25 11:14] VITALS: BP 122/82; PULSE 71; O2SAT 98; BMI 37.4
--- NOTE | 2024-05-25 11:14 | MHC.OFFVIS ---
Vital Signs 05/25/24 11:14 Height 5 ft 6 in Weight 232 lb BMI 37.4 BP 122/82 Blood Pressure Location Lt brachial Position Sitting Pulse 71 Pulse Source Pulse Oximeter Pulse Oximetry (%) 98 Oxygen Delivery Method Room Air Intake Visit Reasons: sleep apnea Intake Note: pt is here as a new patient for possible sleep apnea, pt did notice on her watch that her oxygen was low upon waking up. hx of covid in December 15, 2020. Producer Director Required: No Allergies nitrofurantoin [From Macrobid] Allergy (Intermediate, Verified 05/25/24 11:50) Redness of Skin codeine Adverse Reaction (Verified 05/25/24 11:50) Gastrointestinal Upset levetiracetam [From Keppra] Adverse Reaction (Verified 05/25/24 11:50) Unknown Medication List - Last Reconciled 05/25/24 by Bertin El MD atorvastatin 20 mg PO BEDTIME divalproex ER 1 tab PO TID levothyroxine 1 tab PO DAILY methenamine hippurate 1 g PO BID phenytoin sodium extended caps PO Do you need a note to return to daycare/school/sports/work: No HPI HPI sleep apnea: Details: 64 years old female is being seen for the 1st time, referred by her primary care physician, to be evaluated for sleep apnea. She is obese, her weight has been fluctuating, in the past year or so she has lost about 30 lb of weight but still remains grossly obese. She has history of loud snoring, Many members of her family also have history of snoring and have been worked up for sleep apnea. She up a few times during the night mainly to go to the bathroom, not aware of any air hunger or gasping like feeling. 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 Her wrist watch, has indicated that she has low O2 sats during the night. But she does not have any chronic pulmonary disease. This patient has history of seizure disorder diagnosed about 10-12 years ago, and is on antiepileptic agents including divalproex ER and Phentoin sodium. She also has hypothyroidism which is being treated with levothyroxine She is known to have overbite of her teeth, and has used mouth guard off and on. [facility] Medical History (Updated 05/25/24 @ 12:10 by Bertin El MD) Obesity (BMI 30-39.9) Loud snoring Hypersomnolence Endometrial carcinoma Seizure disorder Hypothyroidism Surgical History Hx of colonoscopy Hx of cholecystectomy H/O: hysterectomy Social History Patient Tobacco Use Status: Never used Tobacco Review of Systems Const All systems reviewed & are unremarkable except as noted in HPI and below Reports snoring Eyes Reports no additional complaints ENT Reports no additional complaints Card Denies chest pain, Denies syncope, Denies irregular heart rhythm and Denies leg edema Resp Reports as per HPI, Reports snoring and Denies wheezing GI Reports no additional complaints Reports other (Frequent urinary tract infection) Musc Reports no additional complaints Skin/Breast Reports system reviewed and no additional complaints, except as documented Neuro Denies syncope and Reports other (Known case of seizure disorder controlled with meds) Endo Reports other (Hypothyroidism) Robson/Lymph Reports no additional complaints Aller/Immun Reports no additional complaints and Denies wheezing Physical Exam Vital Signs: Last Vital Signs Pulse 71 05/25/24 11:14 BP 122/82 05/25/24 11:14 Pulse Ox 98 05/25/24 11:14 Oxygen Delivery Method Room Air 05/25/24 11:14 BMI result Body Mass Index 37.4 Const General: healthy appearing (Except for being overweight), comfortable, no acute distress, alert and awake Orientation/consciousness: patient oriented x3 HEENT Head: Yes normal to inspection General nose exam: No nasal polyps present and No nasal discharge present Face and sinus: Yes sinuses nontender Mouth: oropharynx abnormals (Oropharynx is narrow, Mallampati class 3) Teeth and gingiva: other (Retroganthia of the lower jaw) Throat: Yes posterior oropharynx normal Eyes General: appearance normal, both eyes and all related structures Neck Neck: Yes normal visual inspection, Yes no lymphadenopathy, Yes trachea midline and Yes no JVD Thyroid: Thyroid normal Chest Chest palpation & inspection: normal inspection of the chest, normal palpation of entire chest wall and no tenderness Resp Effort & Inspection: normal respiratory effort Auscultation: clear to auscultation bilaterally, no crackles and no wheezes Cardio Palpation: normal PMI Rate: regular rate Rhythm: regular rhythm Heart sounds: no gallops and no murmurs Peripheral pulses: Peripheral pulses 2+ throughout GI Palpation (GI): Soft to palpation, nontender, No hepatosplenomegaly present and no masses Auscultation: normal bowel sounds Back/Spine/Pelvis Thoracic/Lumbar Spine: thoracic and lumbar spine normal to inspection Skin General skin exam: no rashes or lesions noted Neuro General: patient oriented x3 and no focal motor deficits Cranial nerves: Yes CN's II-XII intact bilaterally Extrem General: Yes normal to inspection, Yes no clubbing, cyanosis or edema and Yes no calf tenderness Psych Appearance: grossly normal and well kempt Speech and movement: Normal speech and movement present Assessment & Plan Assessment & Plan (1) Hypersomnolence: Comment: This patient does have moderate degree of daytime hyper somnolence, ESS=10 Code(s): G47.10 - Hypersomnia, unspecified Category: Medical Plan: Needs to be worked up for sleep apnea After good discussion we have decided to order HOME BASED SLEEP STUDY . (2) Loud snoring: Comment: Longstanding history snoring at night, There is also family history of snoring. Code(s): R06.83 - Snoring Category: Medical Plan: Patient has used a mouth guard in the past without much improvement Explained to the patient that it is related to her obesity, retroganthia of the lower jaw and also possible obstructive sleep apnea. She would need to have screening for sleep apnea . (3) Seizure disorder: Comment: Diagnosed to have chronic seizure disorder since 10-12 years ago, Controlled with combination of Depakote and Dilantin Code(s): G40.909 - Epilepsy, unspecified, not intractable, without status epilepticus Category: Medical Plan: Continue regular follow-ups with neurologist (4) Obesity (BMI 30-39.9): Comment: Patient is grossly obese BMI37.4 This is after she has lost some weight during the past 1 and half year. Again this is a definite risk factor for obstructive sleep apnea Code(s): E66.9 - Obesity, unspecified Category: Medical Plan: She was advised to join a weight management program. Needs to reduce the calories intake. Also needs to join an exercise program. A home-based sleep study is planned Orders: Orders RT home sleep study Today E66.9 - Obesity, unspecified, G47.10 - Hypersomnia, unspecified, R06.83 - Snoring Coding Level of Care Code New Pt Level 3 (37337) Diagnoses Hypersomnolence G47.10 Loud snoring R06.83 Seizure disorder G40.909 Obesity (BMI 30-39.9) E66.9
== END 2024-05-25 11:51 | disposition home or self-care (01) ==
PROVIDERS: PCP Internal Medicine Medical Oncology; Visit Provider Internal Medicine
DX: G47.10 Hypersomnia, unspecified (principal); R06.83 Snoring; G40.909 Epilepsy, unspecified, not intractable, without status epilepticus; E66.9 Obesity, unspecified
CPT/HCPCS: 99203

== ENCOUNTER → 2024-05-25 11:09 | Outpatient (BNVA) | payer OTHER, SELFPAY | PROVIDERS: PCP Internal Medicine Medical Oncology; Visit Provider Internal Medicine ==

== ENCOUNTER → 2024-07-11 10:48 | Outpatient (REF) | payer OTHER, SELFPAY | LOC: HO.SL 10:48 | PROVIDERS: PCP Internal Medicine Medical Oncology; Visit Provider Internal Medicine | DX: E66.9 Obesity, unspecified (principal); R06.83 Snoring; G47.10 Hypersomnia, unspecified | CPT/HCPCS: 95806 ==

== ENCOUNTER → 2024-07-12 11:01 | Outpatient (BNV) | payer OTHER, SELFPAY | PROVIDERS: PCP Internal Medicine Medical Oncology; Visit Provider Internal Medicine | DX: G47.33 Obstructive sleep apnea (adult) (pediatric) (principal) | CPT/HCPCS: 95806 ==

== ENCOUNTER 2024-07-27 10:47 | Outpatient (AMB) | payer OTHER, SELFPAY ==
[2024-07-27 10:54] VITALS: BP 132/82; PULSE 61; O2SAT 100; BMI 38.9
--- NOTE | 2024-07-27 10:54 | A.OFFVIS_ITS ---
Vital Signs 07/27/24 10:54 Height 5 ft 6 in Weight 241 lb BMI 38.9 BP 132/82 Blood Pressure Location Lt brachial Position Sitting Pulse 61 Pulse Source Pulse Oximeter Pulse Oximetry (%) 100 Oxygen Delivery Method Room Air Intake Visit Reasons: Sleep apnea Intake Note: pt is here for follow up of sleep study results, she feels fine. Atlassian Administrator Required: No Allergies nitrofurantoin [From Macrobid] Allergy (Intermediate, Verified 07/27/24 11:16) Redness of Skin codeine Adverse Reaction (Verified 07/27/24 11:16) Gastrointestinal Upset levetiracetam [From Keppra] Adverse Reaction (Verified 07/27/24 11:16) Unknown Medication List - Last Reconciled 07/27/24 by Bertin El MD atorvastatin 20 mg PO BEDTIME divalproex ER 1 tab PO TID levothyroxine 1 tab PO DAILY methenamine hippurate 1 g PO BID phenytoin sodium extended caps PO Do you need a note to return to daycare/school/sports/work: No HPI HPI Sleep apnea: Details: 64 years old female, grossly obese, with symptoms of obstructive sleep apnea, comes after having a home-based sleep study. She still snores excessively, wakes up a few times during the night. Wakes up with a dry mouth. Remains tired and sleepy during the daytime. The sleep study is positive for moderately severe obstructive sleep apnea. [facility] Medical History (Updated 07/27/24 @ 11:21 by Bertin El MD) KATIE (obstructive sleep apnea) Obesity (BMI 30-39.9) Loud snoring Hypersomnolence Endometrial carcinoma Seizure disorder Hypothyroidism Surgical History Hx of colonoscopy Hx of cholecystectomy H/O: hysterectomy Social History Patient Tobacco Use Status: Never used Tobacco Review of Systems Const All systems reviewed & are unremarkable except as noted in HPI and below Reports snoring Eyes Reports no additional complaints ENT Reports no additional complaints Card Denies chest pain, Denies syncope, Denies irregular heart rhythm and Denies leg edema Resp Reports as per HPI, Reports snoring and Denies wheezing GI Reports no additional complaints Reports other (Frequent urinary tract infection) Musc Reports no additional complaints Skin/Breast Reports system reviewed and no additional complaints, except as documented Neuro Denies syncope and Reports other (Known case of seizure disorder controlled with meds) Endo Reports other (Hypothyroidism) Robson/Lymph Reports no additional complaints Aller/Immun Reports no additional complaints and Denies wheezing Physical Exam Vital Signs: Last Vital Signs Pulse 61 07/27/24 10:54 BP 132/82 07/27/24 10:54 Pulse Ox 100 07/27/24 10:54 Oxygen Delivery Method Room Air 07/27/24 10:54 BMI result Body Mass Index 38.9 Const General: healthy appearing (Except for being overweight), comfortable, no acute distress, alert and awake Orientation/consciousness: patient oriented x3 HEENT Head: Yes normal to inspection General nose exam: No nasal polyps present and No nasal discharge present Face and sinus: Yes sinuses nontender Mouth: oropharynx abnormals (Oropharynx is narrow, Mallampati class 3) Teeth and gingiva: other (Retroganthia of the lower jaw) Throat: Yes posterior oropharynx normal Eyes General: appearance normal, both eyes and all related structures Neck Neck: Yes normal visual inspection, Yes no lymphadenopathy, Yes trachea midline and Yes no JVD Thyroid: Thyroid normal Chest Chest palpation & inspection: normal inspection of the chest, normal palpation of entire chest wall and no tenderness Resp Effort & Inspection: normal respiratory effort Auscultation: clear to auscultation bilaterally, no crackles and no wheezes Cardio Palpation: normal PMI Rate: regular rate Rhythm: regular rhythm Heart sounds: no gallops and no murmurs Peripheral pulses: Peripheral pulses 2+ throughout GI Palpation (GI): Soft to palpation, nontender, No hepatosplenomegaly present and no masses Auscultation: normal bowel sounds Back/Spine/Pelvis Thoracic/Lumbar Spine: thoracic and lumbar spine normal to inspection Skin General skin exam: no rashes or lesions noted Neuro General: patient oriented x3 and no focal motor deficits Cranial nerves: Yes CN's II-XII intact bilaterally Extrem General: Yes normal to inspection, Yes no clubbing, cyanosis or edema and Yes no calf tenderness Psych Appearance: grossly normal and well kempt Speech and movement: Normal speech and movement present Results Reviewed Results Reviewed: Home-based sleep study. Total sleep time AHI 20.6 snoring for 56% of the sleep time. O2 sat average 92 below 88% for 10 minutes ( she claims that when she went to the bathroom the O2 sat probe did come off for a few minutes ) Assessment & Plan Assessment & Plan (1) Obesity (BMI 30-39.9): Comment: Patient is grossly obese BMI38.4 Code(s): E66.9 - Obesity, unspecified Category: Medical Plan: Discussed with patient she is fully aware of her being overweight. She plans to get on a weight reduction diet , and walk daily. (2) Loud snoring: Comment: Longstanding history snoring at night, There is also family history of snoring. Is confirmed by the sleep study that she was snoring for about 56% of the sleep time. Code(s): R06.83 - Snoring Category: Medical Plan: This should be taken care of by using the CPAP. (3) KATIE (obstructive sleep apnea): Comment: Sleep study positive for moderately severe obstructive sleep apnea with total sleep time AHI 20.6. Patient would benefit from using the CPAP. Had a good conversation with her and he is ready to start using the CPAP. Code(s): G47.33 - Obstructive sleep apnea (adult) (pediatric) Category: Medical Plan: CPAP with auto Pap mode pressure setting 6-20 cm, using a fullface mask, and heated humidification. Is ordered. Explained to the patient in detail about the usage of CPAP. It will be followed closely for compliance and benefits. Coding Level of Care Code Est Pt Level 3 (86212) Diagnoses Obesity (BMI 30-39.9) E66.9 Loud snoring R06.83 KATIE (obstructive sleep apnea) G47.33
== END 2024-07-27 11:15 | disposition home or self-care (01) ==
PROVIDERS: PCP Internal Medicine Medical Oncology; Visit Provider Internal Medicine
DX: E66.9 Obesity, unspecified (principal); R06.83 Snoring; G47.33 Obstructive sleep apnea (adult) (pediatric)
CPT/HCPCS: 99213

== ENCOUNTER → 2024-07-27 10:47 | Outpatient (BNVA) | payer OTHER, SELFPAY | PROVIDERS: PCP Internal Medicine Medical Oncology; Visit Provider Internal Medicine ==

== ENCOUNTER 2024-08-05 09:44 | Outpatient (REF) | payer OTHER, SELFPAY ==
--- NOTE | ~2024-08-05 | MM_ITS ---
EXAMINATION: MM SCREENING DIGITAL BREAST TOMOSYNTHESIS, BILATERAL CLINICAL INFORMATION: Screening. Asymptomatic. COMPARISON: Mammography: Comparison is made with available priors TECHNIQUE: Digital breast mammography with tomosynthesis is performed in both the craniocaudal and mediolateral oblique views along with computer-aided detection (CAD). FINDINGS: There are scattered areas of fibroglandular density (ACR BI-RADS breast composition Category b). There are no significant masses, abnormal calcifications, or other abnormalities. MM/MM tomosynthesis screening BI IMPRESSION: No mammographic evidence of malignancy. ASSESSMENT: BI-RADS BI-RADS 1 - Negative RECOMMENDATION: Routine annual mammography screening. 1 year F/U This examination should not preclude the clinical evaluation of a suspicious palpable abnormality. This patient's information was entered into a reminder system with a target due date for their next mammogram. Electronically signed by: Nila Jang DO 08/17/2024 11:08 AM EDT
== END 2024-08-05 09:45 | disposition home or self-care (01) ==
LOC: HO.MAMMO 09:44
PROVIDERS: PCP Internal Medicine Medical Oncology; Visit Provider Internal Medicine Medical Oncology
DX: Z12.31 Encounter for screening mammogram for malignant neoplasm of breast (principal)
CPT/HCPCS: 77063; 77067

== ENCOUNTER → 2024-08-05 09:45 | Outpatient (BNV) | payer OTHER, SELFPAY | PROVIDERS: PCP Internal Medicine Medical Oncology; Visit Provider Internal Medicine | DX: Z12.31 Encounter for screening mammogram for malignant neoplasm of breast (principal) | CPT/HCPCS: 77063; 77067 ==

== ENCOUNTER 2024-09-14 15:44 | Outpatient (AMB) | payer OTHER, SELFPAY ==
[2024-09-14 15:48] VITALS: BP 142/86; PULSE 69; O2SAT 100; BMI 39.3
--- NOTE | 2024-09-14 15:48 | MHC.OFFVIS ---
Vital Signs 09/14/24 15:48 Height 5 ft 6 in Weight 243 lb 9.773 oz BMI 39.3 BP 142/86 H Blood Pressure Location Rt brachial Position Sitting Pulse 69 Pulse Source Pulse Oximeter Pulse Oximetry (%) 100 Oxygen Delivery Method Room Air Intake Visit Reasons: sleep apnea Allergies nitrofurantoin [From Macrobid] Allergy (Intermediate, Verified 09/14/24 15:55) Redness of Skin codeine Adverse Reaction (Verified 09/14/24 15:55) Gastrointestinal Upset levetiracetam [From Keppra] Adverse Reaction (Verified 09/14/24 15:55) Unknown Medication List - Last Reconciled 09/14/24 by Bertin El MD atorvastatin 20 mg PO BEDTIME divalproex ER 1 tab PO TID levothyroxine 1 tab PO DAILY methenamine hippurate 1 g PO BID phenytoin sodium extended caps PO Do you need a note to return to daycare/school/sports/work: No HPI HPI sleep apnea: Details: Meghan, 64 years old female, grossly obese, is a case of obstructive sleep apnea. She just started using the CPAP in the last few weeks. And since she started using it on August 23 she has been using it every night. Some issues with the air leak or almost fixed now. She is able to use the CPAP at least for 5 hours every night and sleeps better. By now she has become quite exposure to in using CPAP. The mask does slip off during the night and there is the air leak but only minimal. She is remaining quite active and alert during the daytime. [facility] Medical History KATIE (obstructive sleep apnea) Obesity (BMI 30-39.9) Loud snoring Hypersomnolence Endometrial carcinoma Seizure disorder Hypothyroidism Surgical History Hx of colonoscopy Hx of cholecystectomy H/O: hysterectomy Social History Patient Tobacco Use Status: Never used Tobacco Review of Systems Const All systems reviewed & are unremarkable except as noted in HPI and below Reports snoring Eyes Reports no additional complaints ENT Reports no additional complaints Card Denies chest pain, Denies syncope, Denies irregular heart rhythm and Denies leg edema Resp Reports as per HPI, Reports snoring and Denies wheezing GI Reports no additional complaints Reports other (Frequent urinary tract infection) Musc Reports no additional complaints Skin/Breast Reports system reviewed and no additional complaints, except as documented Neuro Denies syncope and Reports other (Known case of seizure disorder controlled with meds) Endo Reports other (Hypothyroidism) Robson/Lymph Reports no additional complaints Aller/Immun Reports no additional complaints and Denies wheezing Physical Exam Vital Signs: Last Vital Signs Pulse 69 09/14/24 15:48 BP 142/86 H 09/14/24 15:48 Pulse Ox 100 09/14/24 15:48 Oxygen Delivery Method Room Air 09/14/24 15:48 BMI result Body Mass Index 39.3 Const General: healthy appearing (Except for being overweight), comfortable, no acute distress, alert and awake Orientation/consciousness: patient oriented x3 HEENT Head: Yes normal to inspection General nose exam: No nasal polyps present and No nasal discharge present Face and sinus: Yes sinuses nontender Mouth: oropharynx abnormals (Oropharynx is narrow, Mallampati class 3) Teeth and gingiva: other (Retroganthia of the lower jaw) Throat: Yes posterior oropharynx normal Eyes General: appearance normal, both eyes and all related structures Neck Neck: Yes normal visual inspection, Yes no lymphadenopathy, Yes trachea midline and Yes no JVD Thyroid: Thyroid normal Chest Chest palpation & inspection: normal inspection of the chest, normal palpation of entire chest wall and no tenderness Resp Effort & Inspection: normal respiratory effort Auscultation: clear to auscultation bilaterally, no crackles and no wheezes Cardio Palpation: normal PMI Rate: regular rate Rhythm: regular rhythm Heart sounds: no gallops and no murmurs Peripheral pulses: Peripheral pulses 2+ throughout GI Palpation (GI): Soft to palpation, nontender, No hepatosplenomegaly present and no masses Auscultation: normal bowel sounds Back/Spine/Pelvis Thoracic/Lumbar Spine: thoracic and lumbar spine normal to inspection Skin General skin exam: no rashes or lesions noted Neuro General: patient oriented x3 and no focal motor deficits Cranial nerves: Yes CN's II-XII intact bilaterally Extrem General: Yes normal to inspection, Yes no clubbing, cyanosis or edema and Yes no calf tenderness Psych Appearance: grossly normal and well kempt Speech and movement: Normal speech and movement present Results Reviewed Results Reviewed: Compliance report reviewed. She started using it on August 23 and since then has been using every night, 100%. Average use it per night 5 hours 11 minutes. Pressure used is 13-15 cm. .No significant air leak Residual AHI 3.6 Assessment & Plan Assessment & Plan (1) Obesity (BMI 30-39.9): Comment: Patient is grossly obese BMI 39.3 Code(s): E66.9 - Obesity, unspecified Category: Medical Plan: We had good conversation about the weight. She is aware of the fact that she has to lose weight. She is going to try to cut down the intake of calories. She is also motivated to do exercise daily and walk up to 2 miles daily. (2) KATIE (obstructive sleep apnea): Comment: Sleep study positive for moderately severe obstructive sleep apnea with total sleep time AHI 20.6. Patient is using the CPAP very regularly and is benefiting. Sleep quality much improved. She remains well motivated to use the CPAP. Code(s): G47.33 - Obstructive sleep apnea (adult) (pediatric) Category: Medical Plan: Continue using CPAP, with fullface mask, daily for at least 6 hours per night. Some questions about the air leak and humidity etc. were discussed and taken care of. Will revisit after 3 months Coding Level of Care Code Est Pt Level 3 (74831) Diagnoses Obesity (BMI 30-39.9) E66.9 KATIE (obstructive sleep apnea) G47.33
== END 2024-09-14 16:08 | disposition home or self-care (01) ==
LOC: HO.HPS 15:44
PROVIDERS: PCP Internal Medicine Medical Oncology; Visit Provider Internal Medicine
DX: E66.9 Obesity, unspecified (principal); G47.33 Obstructive sleep apnea (adult) (pediatric)
CPT/HCPCS: 99213

== ENCOUNTER → 2024-09-14 15:44 | Outpatient (BNVA) | payer OTHER, SELFPAY | PROVIDERS: PCP Internal Medicine Medical Oncology; Visit Provider Internal Medicine ==

== ENCOUNTER 2024-11-24 10:22 | Outpatient (REF) | payer OTHER, SELFPAY ==
--- OUTSIDE RECORDS SUMMARY | 2024-11-24 10:41 | XMS_ITS | Patient Health Record ---
Author Organization [facility] Address [address] [place] [address] Care Team Providers Care Chemical Analyst Name Role Phone Filemon Steward MD Primary Care Provider UnavailArtur Moreira Unavailable [phone] Allergies Allergen (clinical drug ingredient) Drug/Non Drug Allergy documented on EMR Reaction Allergy Type Onset Date Status codeine Codeine nausea Drug Allergy Active Reason For Referral No Information Medications Medication SIG (Take, Route, Frequency, Duration) Notes Start Date End Date Status clonazePAM 0.5 MG 1 tablet at bedtime Orally Once a day Active Levothyroxine Sodium 100 MCG as directed Orally Once a day Active Depakote 500 MG 3 tablet Orally once a day Active Cephalexin 500 MG 1 capsule Orally vel ry 6 hrs for 5 day(s) Not-Taking Levothyroxine Sodium 100 MCG 1 tablet in the morning on an empty stomach Orally Once a day for 30 day(s) Active Dilantin Active clonazePAM 0.5 MG 1 tablet at bedtime Orally Once a day Active Divalproex Sodium 500 MG 1 tablet Orally Twice a day for 30 day(s) Active Phenytoin 100 MG/4ML 2 ml Orally every 8 hrs for 30 day(s) Active Immunizations Vaccine Route Administration Date Status Comme nts COVID-19 Moderna Vaccine Unknown 10/18/2021 Administere d 1st 01/29/21 Social History Tobacco Use: Social History Observation Description Date Details (start date - stop date) Never Smoker NA - NA Tobacco Use/Smoking Question Answer Notes Are you a: nonsmoker Additional Findings: Tobacco Non-User Current no n-smoker Alcohol Screen Question Answer Notes Did you have a drink containing alcohol in the p ast year? No Points 0 Interpretation Negative Tobacco use other than smoking: Question Answer Notes Are you an other tobacco user? No Plan Of Treatment Pending Test Test Name Order Date 89547- Debride <25 sq cm 06/03/2021 61912 I&D ABSCESS- SIMPLE,SINGLE 021 Insurance Providers Payer Name Payer Address Payer Phone Subscriber Number Group Number Insured Name Patient Relationship to Insured Coverage Start Date Coverage End Date [facility]-[id number] [address] [address] [place] [address] [id number] Nikolay Moreno Spouse - patient is the spouse of the insured Medical (General) History Medical History History ICD Code Back,Hip,and Knee pain Broken bones Cancer Epilepsy Gall bladder problems High blood pressure thyroid Measles Mumps Chicken pox Surgical History Surgery Date(Month/Year) gall bladder 12/1984 hysterectomy 03/2016
--- OUTSIDE RECORDS SUMMARY | 2024-11-24 10:41 | XMS_ITS ---
Author Organization Filemon Steward III, MD Address [address] [address] Care Team Providers Care Bus Transportation Manager Name Role Phone Filemon Steward Primary Care Provider [phone] Allergies Allergen (clinical drug ingredient) Drug/Non Drug Allergy documented on EMR Reaction Allergy Type Onset Date Status nitrofurantoin, macrocrystals / nitrofurantoin, monohydrate Macrobid Unknown Drug Allergy Active codeine Codeine Sulfate Unknown Drug Allergy A ctive REASON FOR VISIT Nocturnal bradycardia, Leukopenia, Hypothyroid, Hypertension, Epilepsy, Arthritis left knee, GERD, Hyperlipidemia, History of endometrial cancer, Obesity Medications Medication SIG (Take, Route, Frequency, Duration) Notes Start Date End Date Status Omeprazole 20 MG 2 capsule Orally Onc e a day As needed Active Depakote 500 MG Orally Acti ve Dilantin 100 MG 3 capsule on odd day s and take 4 caps on even days Orally once a day Active Levothyroxine Sodium 100 MCG TAKE 1 TABLET BY MOUTH DAILY Active Atorvastatin Calcium 20 MG 1 tablet Oral ly Once a day 01/27/2024 Active Methenamine Hippurate 1 GM 1 tablet Oral ly Twice a day Active Social History Tobacco Use: Social History Observation Description Date Details (start date - stop date) Never Smoker NA - NA Sex Assigned At : Social History Observation Description Sex Assigned At Female Tobacco Use/Smoking Question Answer Notes Patient is a nonsmoker Additional Findings: Tobacco Non-User Aggressive non-smoker Vital Signs Temperature 96.8 degrees Fahrenheit 07/27/20 24 Blood pressure systolic 136 mm Hg 07/27/20 24 Blood pressure diastolic 78 mm Hg 024 Heart Rate 66 /min 07/27/2024 Height 67 in 07/27/2024 Weight 240 lbs 07/27/2024 BMI 37.59 kg/m2 07/27/2024 Encounters Encounter Location Date Provider Diagnosis Filemon Steward III, MD [address] [place] [address] [address], [place] [id number] 07/27/2024 Filemon Steward Hypothyroidism, unspecified type E03.9 ; Hypertension, unspecified type I10 ; Nonintractable generalized 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 She is euthyroid at this time. Current medication was continued. Her recent thyroid function test2 are in the normal ranges. No change in dosages is required. 07/27/2024 Hypertension, unspecified type (ICD-10 - I10) Her blood pressure is currently acceptable. She is going to try to lose weight and restrict sodium. 07/27/2024 Nonintractable generalized idiopathic epilepsy without status epilepticus (ICD-10 - G40.309) She is taking phenytoin and Depakote for her seizures. She has had no recent seizure activity. 07/27/2024 Leukopenia, unspecified type (ICD-10 - D72.819) A CBC is pending to evaluate the white blood cell count. She has had no recent infections or bleeding. 07/27/2024 Obesity (BMI 30-39.9 ) (ICD-10 - E66.9) She has gained 7 pounds since her last visit. We have reviewed her diet and nutrition. We made a plan to lose weight at a rate of one half of a pound per week through a diet restricted in calories fat and sodium combined with regular physical activity. 07/27/2024 Sleep apnea, unspecified (ICD-10 - G47.30) Plan Of Treatment Medication Medication Name Sig Start Date Stop Date Notes Omeprazole 20 MG 2 capsule Orally Onc e a day As needed Depakote 500 MG Orally Dilantin 100 MG 3 capsule on odd day s and take 4 caps on even days Orally once a day Levothyroxine Sodium 100 MCG TAKE 1 TABL ET BY MOUTH DAILY Atorvastatin Calcium 20 MG 1 tablet Oral ly Once a day 01/27/2024 Methenamine Hippurate 1 GM 1 tablet Oral ly Twice a day Pending Test Test Name Order Date PROFILE, FASTING (COMPREHENSIVE METABOLI C) 07/27/2024 TSH (THYROID STIMULATING HORMONE) 2023 VALPROIC ACID (VPA, DEPAKOTE) 07/27/2024 CBC w DIFF 07/27/2024 Lipid Panel 07/27/2024 Free T4 (Free Thyroxine) 07/27/2024 Phenytoin Dilantin 07/27/2024 Next Appt Details Follow Up: as scheduled , Re ason: annual exam review labs Provider Name:Filemon Steward, 11/27/2024 02:00:00 PM, [address] [place] [address] , [place] [address], [place], [address], Progress Notes * TSERING MORENO FDOB:[birth year] (64 yo F)Acc No.[id number]:07/27/2024 Progress Notes Patient:?TSERING MORENO Provider:?Filemon Steward MD :1960???Age:64 Y???Sex:Female D ate:07/27/2024 Address:[address] [place], [place] [id number] Subjective: * Chief Complaints: * ???Nocturnal bradycardiaLeuk openiaHypothyroidHypertensionEpilepsyArthritis left kneeGERDHyperlipidemiaHistory of endometrial cancerObesity * HPI: ???COVID-19 Screening:? She returns for medical management. She is seeing a rn documentation specialist for the sleep apnea and will be using CPAP. She sees a neurologist who has her on 2 separate medications for epilepsy. Her main complaint today is postnasal drip and clearing her throat. She is attending [employer] meetings. She is taking her medications properly. She seemed healthy and well today. ?Questions?Have you experienced fever, chills, cough, sore throat, shortness of breath, difficulty breathing, muscle aches, loss of taste or smell??No ?Have you been exposed to the virus within the last 10 days??No ?Have you travelled internationally in the last 10 days??No ?Have you been exposed to COVID-19 in the past??Yes * ROS:?General/Constitutional:?pain?Left knee, otherwise only normal aches and pains.?Chills?denies.?Fatigue?admits.?Fever?denies.?ENT:?Decreased hearing?denies.?Respiratory:?Cough?denies.?Cardiovascular:?Chest pain with exertion?denies.?Dyspnea on exertion?denies.?Shortness of breath?denies.?Gastrointestinal:?Constipation?occasional.?Decreased appetite?denies.?Diarrhea?denies.?Heartburn?denies.?Nausea?denies.?Rectal bleeding?denies.?Vomiting?denies.?Hematology:?bruising?denies.?petechiae?denies.?Swollen glands?none have been noted.?Genitourinary:?Frequent urination?at night.?Musculoskeletal:?Muscle aches?denies.?Painful joints?denies.?Sciatica?denies.?Weakness?denies.?Skin:?Itching?denies.?Rash?denies.?Skin lesion(s)?denies.?Neurologic:?Difficulty speaking?denies.?Dizziness?denies.?Headache?denies.?Low back pain?denies.?Psychiatric:?Depressed mood?denies.? * Medical History:? * Surgical History:?cholecyste ctomy 1985TAH/BSO Dr. Renae Gee, endometrial cancer 2016colonoscopy, [facility], Dr. Filemon Shepherd, no findings 2009colonoscopy, [facility], Dr. Filemon Shepherd, no findings 2017[place] [facility] [place] * Hospitalization/Major Diagno stic Procedure:?Denies Past Hospitalization * Family History:?Father: dece ased, Hypertension, diabetes, chronic kidney disease, prostate cancer, diagnosed with DM, Cancer, HTN.?Mother: , Hypertension, diabetes mellitus, colon cancer, endometrial cancer, diagnosed with DM, Cancer, HTN.?Paternal Grand Mother: , diagnosed with Cancer.?Maternal uncle: alive, diagnosed with CVD.?Maternal aunt: alive, diagnosed with CVD.? Her paternal grandmother had breast cancer and a maternal uncle had heart disease and stroke. A maternal aunt had a stroke and heart disease. Her mother had colon cancer. * Social History:?Tobacco Use:?Tobacco Use/Smoking?Patient is a?nonsmoker ?Additional Findings: Tobacco Non-User?Aggressive non-smoker ???She lives at home with her , Nikolay, and 2 cats . She works at a [employer], which she finds stressful. She has no children. * Medications:?TakingOmeprazol e 20 MG Capsule Delayed Release 2 capsule Orally Once a day, Notes: As neededDepakote 500 MG Tablet Delayed Release Orally Dilantin 100 MG Capsule 3 capsule on odd days and take 4 caps on even days Orally once a dayMethenamine Hippurate 1 GM Tablet 1 tablet Orally Twice a dayAtorvastatin Calcium 20 MG Tablet 1 tablet Orally Once a dayLevothyroxine Sodium 100 MCG Tablet TAKE 1 TABLET BY MOUTH DAILY Taking Omeprazole 20 MG Capsule Delayed Release 2 capsule Orally Once a day, Notes: As neededTaking Depakote 500 MG Tablet Delayed Release Orally Taking Dilantin 100 MG Capsule 3 capsule on odd days and take 4 caps on even days Orally once a dayTaking Methenamine Hippurate 1 GM Tablet 1 tablet Orally Twice a dayTaking Atorvastatin Calcium 20 MG Tablet 1 tablet Orally Once a dayTaking Levothyroxine Sodium 100 MCG Tablet TAKE 1 TABLET BY MOUTH DAILY DiscontinuedAtorvastatin Calcium 10 MG Tablet 1 tablet Orally Once a dayMedication List reviewed and reconciled with the patientDiscontinued Atorvastatin Calcium 10 MG Tablet 1 tablet Orally Once a dayMedication List reviewed and reconciled with the patient * Allergies:?Codeine SulfateMa crobidno[Allergies Verified] Objective: * Vitals:?Ht: 67, Wt: 240, BMI :37.59, BP: 136/78, HR: 66, Temp: 96.8, Wt-k.86. * Examination: ???General Examination: ?GENERAL APPEARANCE:?pleasant, well nourished, well developed, in no acute distress, calm and relaxed , obese , woman.?HEAD:?atraumatic, normocephalic.?EYES:?eomi, perrla, anicteric, conjugate.?EARS:?normal.?NOSE:?septum intact.?ORAL CAVITY:?normal, unremarkable.?NECK/THYROID:?no jugular venous distention, no carotid bruit, thyroid normal.?LYMPH NODES:?no enlarged lymph nodes,spleen normal.?SKIN:?no suspicious lesions, anicteric.?HEART:?no clicks, gallops, murmurs, or rubs, regular rhythm, S1, S2 normal, no s3, or vascular bruits.?LUNGS:?clear to auscultation .?BREASTS:?not examined.?ABDOMEN:?bowel sounds normal, no ascites, no organomegaly, no mass , centripital obesity.?RECTAL EXAM:?not examined.?MUSCULOSKELETAL:?extremities unremarkable, no clubbing, cyanosis or edema.?PERIPHERAL PULSES:?normal.?NEUROLOGIC:?alert and oriented, cranial nerves 2-12 grossly intact, deep tendon reflexes 2+ symmetrical, motor strength normal upper and lower extremities, sensory exam intact.?PSYCH:?alert, oriented.? Assessment: * Assessment: 1.?Hypothyroidism, unspecifi ed type - E03.9 (Primary), She has been compliant with her medications. She is euthyroid at this time. Current medication was continued. Her recent thyroid function test2 are in the normal ranges. No change in dosages is required.?2.?Hypertension, unspecified type - I10, Her blood pressure is currently acceptable. She is going to try to lose weight and restrict sodium.?3.?Nonintractable generalized idiopathic epilepsy without status epilepticus - G40.309, She is taking phenytoin and Depakote for her seizures. She has had no recent seizure activity.?4.?Leukopenia, unspecified type - D72.819, A CBC is pending to evaluate the white blood cell count. She has had no recent infections or bleeding.?5.?Obesity (BMI 30-39.9) - E66.9, She has gained 7 pounds since her last visit. We have reviewed her diet and nutrition. We made a plan to lose weight at a rate of one half of a pound per week through a diet restricted in calories fat and sodium combined with regular physical activity.?6.?Sleep apnea, unspecified - G47.30? Plan: * Treatment: 2.?Hypertension, unspecified type?LAB: PROFILE, FASTING (COMPREHENSIVE METABOLIC) ?LAB: TSH (THYROID STIMULATING HORMONE) ?LAB: VALPROIC ACID (VPA, DEPAKOTE) ?LAB: CBC w DIFF ?LAB: Lipid Panel ?LAB: Free T4 (Free Thyroxine) ?LAB: Phenytoin Dilantin 3.?Nonintractable generalize d idiopathic epilepsy without status epilepticus?LAB: PROFILE, FASTING (COMPREHENSIVE METABOLIC) ?LAB: TSH (THYROID STIMULATING HORMONE) ?LAB: VALPROIC ACID (VPA, DEPAKOTE) ?LAB: CBC w DIFF ?LAB: Lipid Panel ?LAB: Free T4 (Free Thyroxine) ?LAB: Phenytoin Dilantin 4.?Leukopenia, unspecified t ype?LAB: PROFILE, FASTING (COMPREHENSIVE METABOLIC) ?LAB: TSH (THYROID STIMULATING HORMONE) ?LAB: VALPROIC ACID (VPA, DEPAKOTE) ?LAB: CBC w DIFF ?LAB: Lipid Panel ?LAB: Free T4 (Free Thyroxine) ?LAB: Phenytoin Dilantin 5.?Obesity (BMI 30-39.9)?LAB: PROFILE, FASTING (COMPREHENSIVE METABOLIC) ?LAB: TSH (THYROID STIMULATING HORMONE) ?LAB: VALPROIC ACID (VPA, DEPAKOTE) ?LAB: CBC w DIFF ?LAB: Lipid Panel ?LAB: Free T4 (Free Thyroxine) ?LAB: Phenytoin Dilantin 6.?Sleep apnea, unspecified?LAB: PROFILE, FASTING (COMPREHENSIVE METABOLIC) ?LAB: TSH (THYROID STIMULATING HORMONE) ?LAB: VALPROIC ACID (VPA, DEPAKOTE) ?LAB: CBC w DIFF ?LAB: Lipid Panel ?LAB: Free T4 (Free Thyroxine) ?LAB: Phenytoin Dilantin 7.?Others? Continue Levothyroxine Sodium Tablet, 100 MCG, TAKE 1 TABLET BY MOUTH DAILY.?? * Procedure Codes:? * Preventive Medicine:? ??Counseling:?Care goal follow-up plan:?Counseling for abnormal BMI given?Yes ?Above Normal BMI Follow-up?Dietary management education, guidance, and counseling, Dietary needs education, Exercise promotion: strength training, Exercise promotion: stretching, Feeding regime, Giving encouragement to exercise, Lifestyle education regarding diet, Nutrition / feeding management, Nutrition therapy, Prescribed activity/exercise education, Prescribed diet education, Prescribed dietary intake, Special diet education, Weight monitoring , Intervention, Order not done: Medical or Other reason not done * Follow Up:?as scheduled (Noemy son: annual exam review labs ) * Images: * Sign off status: Completed true * Provider:?Filemon Steward MD Date:?07/16 Generated for Ofeliakathryn simms/Joseph/eTransmitting on:?11/24/2024 10:41 AM EST History and Physical Notes * HPI (History of Present Illness) Category Sub-Category Detail Notes COVID-19 Screening Questions Have you had any new onset fever, chills, cough, congestion, sore throat, shortness of breath, muscle aches?: No Have you been exposed to the virus withi n the last 10 days?: No Have you travelled internationally in [facility] last 10 days?: No Have you been exposed to COVID-19 in the past?: Yes Examination Category Sub-Category Detail Notes General Examination GENERAL APPEARANCE: pleasant , well nourished, well developed, in no acute distress, calm and relaxed , obese , woman HEAD: atraumatic, normocep halic EYES: eomi, perrla, anicte gerard, conjugate EARS: normal NOSE: septum intact NECK/THYROID: no jugular venous di stention, no carotid bruit, thyroid normal HEART: no clicks, gallops, murmurs, or rubs, regular rhythm, S1, S2 normal, no s3, or vascular bruits LUNGS: clear to auscultatio n ABDOMEN: bowel sounds normal, no ascites, no organomegaly, no mass , centripital obesity NEUROLOGIC: alert and oriented, cranial nerves 2-12 grossly intact, deep tendon reflexes 2+ symmetrical, motor strength normal upper and lower extremities, sensory exam intact SKIN: no suspicious lesion s, anicteric PERIPHERAL PULSES: normal BREASTS: not examined MUSCULOSKELETAL: extremities unremark able, no clubbing, cyanosis or edema LYMPH NODES: no enlarged lymph no erlinda,spleen normal RECTAL EXAM: not examined PSYCH: alert, oriented ORAL CAVITY: normal, unremarkable
--- OUTSIDE RECORDS SUMMARY | 2024-11-24 10:41 | XMS_ITS | Patient Health Record ---
Author Organization Filemon tSeward III, MD Address [address] [place] [address] Care Team Providers Care Clay Caster Name Role Phone Filemon Steward Primary Care Provider Allergies Allergen (clinical drug ingredient) Drug/Non Drug Allergy documented on EMR Reaction Allergy Type Onset Date Status nitrofurantoin, macrocrystals / nitrofurantoin, monohydrate Macrobid Unknown Drug Allergy Active codeine Codeine Sulfate Unknown Drug Allergy A ctive Results Component Value Reference Range Notes GUAIAC, SINGLE SPECIMEN Reviewed date:11/25/2023 10:28:05 AM Interpretation:Negative Performing Lab: Notes/Report: Negative GUAIAC Negative URINE DIP STICK Reviewed date:11/25/2023 11:20:41 AM Interpretation: Performing Lab: Notes/Report: SG 1.025 1.005 - 1.025 pH 5.0 5.0 - 9.0 BELKIS 70 Negative - NIT Negative Negative - PRO 30 Negative - Trace GLU Negative Negative - KET 5 Negative - UBG 0.2 0.1 - 1.8 MAYKEL Negative 0.2 - 1.3 BLD Positive Negative - Menstrating No Complete Blood Count Auto Di ff Reviewed date:01/27/2024 09:14:00 AM Interpretation: Performing Lab:[facility], [address] [place] [id number] Notes/Report: White Blood Count 3.9 4.8-10.8 X10*3/uL Red Blood Count 4.46 4.20-5.50 X10*6/uL Hemoglobin 14.2 12.0-16.0 g/dl Hematocrit 42.5 37.0-47.0 % Mean Corpuscular Volume 95.3 80.0-98.0 fL Mean Corpuscular Hemoglobin 31.8 27.0-33.0 pg Mean Corpuscular HGB Conc 33.4 31.0-35.0 g/dl Red Cell Distribution Width 13.4 11.0-16.0 % Platelet Count 162 160-400 X10*3/uL Mean Platelet Volume 11.1 9.4-12.3 fL Neutrophils Percent Auto 39.4 45-73 % Imm Gran Pct Auto 0.3 0.0-0.4 % Lymphocytes Percent Auto 43.6 20-40 % Monocytes Percent Auto 10.8 2-11 % Eosinophils Percent Auto 4.9 0-4 % Basophils Percent Auto 1.0 0-2 % NRBC Pct Auto 0.0 0.0-0.2 /100WBC Neutrophils Absolute Auto 1.5 2.0-8.3 x10*3/u L Imm Gran Abs Auto 0.01 0.00-0.03 X10*3/uL Lymphocytes Absolute Auto 1.7 1.2-4.9 X10*3/u L Monocytes Absolute Auto 0.4 0.1-1.2 X10*3/uL Eosinophils Absolute Auto 0.2 0.0-0.4 X10*3/u L Basophils Absolute Auto 0.0 0.0-0.2 X10*3/uL NRBC Abs Auto 0.000 0.0-0.012 X10*3/uL Comprehensive [place]. Panel Fa st Reviewed date:01/27/2024 09:14:00 AM Interpretation: Performing Lab:[facility], [address] [place] [phone] Notes/Report: Sodium 144 135-145 mmol/L Potassium 4.3 3.3-5.1 mmol/L Chloride 108 96-108 mmol/L Carbon Dioxide 27 22-29 mmol/L Anion Gap 13 12-20 Blood Urea Nitrogen 10 9-16 mg/dL Creatinine 0.77 0.5-1.4 mg/dL Estimated Glomerular Filt Rate > 60 NOTE: For -Danish individuals, multiply the result by 1.210. Chronic Kidney Disease: Estimated GFR < 60 mL/min/1.73m2 Severe Kidney Disease: Estimated GFR < 15 mL/min/1.73m2 Glucose Fasting 110 60-99 mg/dL A fasting glucose from 100-125 mg/dl is considered impaired (pre-diabetes). Calcium 9.3 8.4-10.2 mg/dL Bilirubin Total 0.4 0.0-1.0 mg/dL Aspartate Amino Transferase 19 5-31 U/L Alanine Aminotransferase 19 0-31 U/L Total Protein 7.1 6.5-8.0 g/dL Albumin Level 4.3 3.5-5.0 g/dL Alkaline Phosphatase 73 39-117 U/L Lipid Panel Reviewed date:01/27/2024 09:14:01 AM Interpretation: Performing Lab:[facility], [address] [place] [phone] Notes/Report: Triglycerides 87 <150 mg/dL Desirable Triglyceride: less than 150 mg/dL Borderline High Triglyceride 150-199 mg/dL High Triglyceride: 200-499 mg/dL Very High Triglyceride: greater than or equal to 5OO mg/dL Cholesterol 235 <200 mg/dL Desirable Cholesterol: less than 200 mg/dL Borderline High Cholesterol: 200-239 mg/dL High Cholesterol: greater than 239 mg/dL LDL Cholesterol Calculated 127 <100 mg/dL Desirable LDL: less than 100 mg/dL Near Optimal/Above Optimal LDL: 110-129 mg/dL Borderline High LDL: 130-159 mg/dL High LDL: 160-189 mg/dL Very High LDL: greater than or equal to 190 mg/dL HDL Cholesterol 91 >40 mg/dL Desirable HDL: greater than 40 mg/dL Note: This HDL assay may give artificially low results in patients with liver disease. Complete Blood Count Auto Di ff Reviewed date:04/20/2024 10:37:37 AM Interpretation: Performing Lab:[facility], [address] [place] [phone] Notes/Report: White Blood Count 3.8 4.8-10.8 X10*3/uL Red Blood Count 4.21 4.20-5.50 X10*6/uL Hemoglobin 13.5 12.0-16.0 g/dl Hematocrit 40.1 37.0-47.0 % Mean Corpuscular Volume 95.2 80.0-98.0 fL Mean Corpuscular Hemoglobin 32.1 27.0-33.0 pg Mean Corpuscular HGB Conc 33.7 31.0-35.0 g/dl Red Cell Distribution Width 14.6 11.0-16.0 % Platelet Count 167 160-400 X10*3/uL Mean Platelet Volume 10.8 9.4-12.3 fL Neutrophils Percent Auto 41.5 45-73 % Imm Gran Pct Auto 0.3 0.0-0.4 % Lymphocytes Percent Auto 37.1 20-40 % Monocytes Percent Auto 13.1 2-11 % Eosinophils Percent Auto 7.2 0-4 % Basophils Percent Auto 0.8 0-2 % NRBC Pct Auto 0.0 0.0-0.2 /100WBC Neutrophils Absolute Auto 1.6 2.0-8.3 x10*3/u L Imm Gran Abs Auto 0.01 0.00-0.03 X10*3/uL Lymphocytes Absolute Auto 1.4 1.2-4.9 X10*3/u L Monocytes Absolute Auto 0.5 0.1-1.2 X10*3/uL Eosinophils Absolute Auto 0.3 0.0-0.4 X10*3/u L Basophils Absolute Auto 0.0 0.0-0.2 X10*3/uL NRBC Abs Auto 0.000 0.0-0.012 X10*3/uL Comprehensive [place]. Panel Fa st Reviewed date:04/20/2024 10:37:37 AM Interpretation: Performing Lab:[facility], [address] [place] [phone] Notes/Report: Sodium 142 135-145 mmol/L Potassium 4.4 3.3-5.1 mmol/L Chloride 109 96-108 mmol/L Carbon Dioxide 26 22-29 mmol/L Anion Gap 11 12-20 Blood Urea Nitrogen 12 9-16 mg/dL Creatinine 0.76 0.5-1.4 mg/dL Estimated Glomerular Filt Rate > 60 NOTE: For -Danish individuals, multiply the result by 1.210. Chronic Kidney Disease: Estimated GFR < 60 mL/min/1.73m2 Severe Kidney Disease: Estimated GFR < 15 mL/min/1.73m2 Glucose Fasting 110 60-99 mg/dL A fasting glucose from 100-125 mg/dl is considered impaired (pre-diabetes). Calcium 9.4 8.4-10.2 mg/dL Bilirubin Total 0.2 0.0-1.0 mg/dL Aspartate Amino Transferase 24 5-31 U/L Alanine Aminotransferase 25 0-31 U/L Total Protein 6.7 6.5-8.0 g/dL Albumin Level 4.1 3.5-5.0 g/dL Alkaline Phosphatase 65 39-117 U/L Lipid Panel Reviewed date:04/20/2024 10:37:37 AM Interpretation: Performing Lab:[facility], [address] [place] [phone] Notes/Report: Triglycerides 75 <150 mg/dL Desirable Triglyceride: less than 150 mg/dL Borderline High Triglyceride 150-199 mg/dL High Triglyceride: 200-499 mg/dL Very High Triglyceride: greater than or equal to 5OO mg/dL Cholesterol 206 <200 mg/dL Desirable Cholesterol: less than 200 mg/dL Borderline High Cholesterol: 200-239 mg/dL High Cholesterol: greater than 239 mg/dL LDL Cholesterol Calculated 103 <100 mg/dL Desirable LDL: less than 100 mg/dL Near Optimal/Above Optimal LDL: 110-129 mg/dL Borderline High LDL: 130-159 mg/dL High LDL: 160-189 mg/dL Very High LDL: greater than or equal to 190 mg/dL HDL Cholesterol 88 >40 mg/dL Desirable HDL: greater than 40 mg/dL Note: This HDL assay may give artificially low results in patients with liver disease. MM tomosynthesis screening B I Reviewed date:08/28/2024 07:54:30 AM Interpretation: Performing Lab: Notes/Report: [address] [place] [address] Mammography Report Signed Patient: Tsering Moreno MR#: [id number] 2 : 1960 Acct:[id number] Age/Sex: 64 / F ADM Date: 08/05/24 Loc: HO.MAMMO Attending Dr: Filemon Steward MD Ordering Physician: Filemon Steward MD Results: 1Negativ e Date of Service: 08/05/24 Follow Up: 1 Year From Orig inal Mammogram Procedure(s): MM tomosynthesis screening BI Accession Number(s): [id number] cc: Filemon Steward MD EXAMINATION: MM SCREENING DIGITAL BREAST TOMOSYNTHESIS, BILATERAL CLINICAL INFORMATION: Screening. Asymptomatic. COMPARISON: Mammography: Comparison is made with available priors TECHNIQUE: Digital breast mammography with tomosynthesis is performed in both the craniocaudal and mediolateral oblique views along with computer-aided detection (CAD). FINDINGS: There are scattered areas of fibroglandular density (ACR BI-RADS breast composition Category b). There are no significant masses, abnormal calcifications, or other abnormalities. MM/MM tomosynthesis screening BI IMPRESSION: No mammographic evidence of malignancy. ASSESSMENT: BI-RADS BI-RADS 1 - Negative RECOMMENDATION: Routine annual mammography screening. 1 year F/U This examination should not preclude the clinical evaluation of a suspicious palpable abnormality. This patient's information was entered into a reminder system with a target due date for their next mammogram. Electronically signed by: Nila Jang DO 08/17/2024 11:08 AM EDT RP Dictated By: Nila Jang DO Signed By: <Electronically signed by Nila Jang DO in OV> 08/17/24 1108 DD/ 0947 TD/TT: 08/05/24 1001 Channeler: [facility] [address] [place] [address] Mammography Report Signed Patient: Augustine Moreno MR#: [id number] 2 : 1960 Acct:[id number] Age/Sex: 64 / F ADM Date: 08/05/24 Loc: HO.MAMMO Attending Dr: Filemon Steward MD Ordering Physician: Filemon Steward MD Results: 1Negativ e Date of Service: 08/05/24 Follow Up: 1 Year From [facility] Mammogram Procedure(s): MM tomosynthesis screening BI Accession Number(s): [id number] cc: Filemon Steward MD EXAMINATION: MM SCREENING DIGITAL BREAST TOMOSYNTHESIS, BILATERAL CLINICAL INFORMATION: Screening. Asymptomatic. COMPARISON: Mammography: Compari son is made with available priors TECHNIQUE: Digital breast mammography with tomosynthesis is performed in both the craniocaudal and mediolateral oblique views along with computer-aided detection (CAD). FINDINGS: There are scattered areas of fibroglandular density (ACR BI-RADS breast composition Category b). There are no significant masses, abnormal calcifications, or other abnormalities. MM/MM tomosynthesis screening BI IMPRESSION: No mammographic evidence of malignancy. ASSESSMENT: BI-RADS BI-RADS 1 - Negative RECOMMENDATION: Routine annual mammography screening. 1 year F/U This examination samira uld not preclude the clinical evaluation of a suspicious palpable abnormality. This patient's information was entered into a reminder system with a target due date for their next mammogram. Electronically mirza d by: Nila Jang DO 08/17/2024 11:08 AM EDT RP Dictated By: Nila Jang DO Signed By: <Electronically signed by Nila Jang DO in OV> 08/17/24 1108 DD/ 0947 TD/TT: 08/05/24 1001 Channeler: Reason For Referral Reason Consult and Treatmen t for Sleep Apnea Needs Sleep Study Desaturation to 88% at night Diagnosis 1 Sleep apnea, unspeci fied (G47.30) Diagnosis 2 Snoring (R06.83) Referral Organization Filemon Steward III, MD Referring Provider First Name Filemon Referring Provider Last Name Bin Referring Provider Speciality Internal M edicine Referred Provider DARIEN NERI Referred Provider Specialty Pulmonary Di seases General Notes Stacey Brown 2023 03:30:38 PM EDT > Referral faxed with progress note Referral Priority Routine Referral Appointment Date 05/25/2024 Medications Medication SIG (Take, Route, Frequency, Duration) Notes Start Date End Date Status Atorvastatin Calcium 20 MG TAKE 1 TABLET BY MOUTH ONCE DAILY for 90 Active Atorvastatin Calcium 20 MG 1 tablet Oral ly Once a day for 90 days 11/23/2024 Active Omeprazole 20 MG 2 capsule Orally Onc e a day As needed Active Depakote 500 MG Orally Acti ve Dilantin 100 MG 3 capsule on odd day s and take 4 caps on even days Orally once a day Active Methenamine Hippurate 1 GM 1 tablet Oral ly Twice a day Active Levothyroxine Sodium 100 MCG TAKE 1 TABLET BY MOUTH DAILY Active Atorvastatin Calcium 20 MG 1 tablet Oral ly Once a day 01/27/2024 Active Immunizations Vaccine Route Administration Date Status Comme nts Influenza no Preserv 3 and > Unknown 08/19/2020 Adminis tered COVID- 19 Vaccine Unknown 01/29/2021 Administered COVID- 19 Vaccine Unknown 02/26/2021 Administered COVID 19 Moderna Unknown 10/18/2021 Administered COVID-19 Moderna SPIKEVAX Unknown 10/15/2023 Administer ed COVID Moderna Bivalent Unknown 08/23/2022 Administered Influenza, quad Unknown 10/15/2023 Administered Influenza no Preserv 3 and > Unknown 09/15/2017 Adminis tered Influenza, quad Unknown 09/18/2022 Administered Influenza, quad Unknown 08/14/2021 Administered Influenza no Preserv 3 and > Unknown 09/19/2014 Adminis tered Social History Tobacco Use: Social History Observation Description Date Details (start date - stop date) Never Smoker NA - NA Sex Assigned At : Social History Observation Description Sex Assigned At Female Tobacco Use/Smoking Question Answer Notes Patient is a nonsmoker Additional Findings: Tobacco Non-User Aggressive non-smoker Problems Problem Type SNOMED Code ICD Code Onset Dates Problem Status W/U Status Risk Notes Problem Sleep apnea (13988303) Sleep apnea, unspecified (G47.30) Active confirmed He has been snoring and having episodes of apnea and bradycardia. Sleep study will be done to see if this entity is present. Problem 655202723 GERD without esophagitis (K21.9) Active confirmed Occasional heartburn is well-controlled with her current regimen and no changes necessary. Problem 965387840 Obesity (BMI 30-39.9) (E66.9) Active confirmed She has gained 7 pounds since her last visit. We have reviewed her diet and nutrition. We made a plan to lose weight at a rate of one half of a pound per week through a diet restricted in calories fat and sodium combined with regular physical activity. Problem 94991918 Leukopenia, unspecified type (D72.819) Active confirmed A CBC is pend ing to evaluate the white blood cell count. She has had no recent infections or bleeding. Problem 622090133 History of endometrial cancer (Z85.42) Active confirmed There is no sign of recurrent endometrial cancer today. Problem 888515546 Pure hypercholestero lemia (E78.00) Active confirmed Her total cholesterol has dropped from 270-235. On her last visit the atrial lovastatin was increased from 10 mg daily to 20 mg daily. Will continue her efforts at weight loss. If necessary Z atorvastatin will be increased to 40 mg. Problem Essential hypertension (39439359) Hypertension, unspecified type (I10) Active confirmed Her blood pressure is currently acceptable. She is going to try to lose weight and restrict sodium. Problem Hypothyroidism (54246868) Hypothyroidism, unspecified type (E03.9) Active confirmed She has been compliant with her medications. She is euthyroid at this time. Current medication was continued. Her recent thyroid function test2 are in the normal ranges. No change in dosages is required. Problem [id number] Arthritis of left knee (M17.12) Active confirmed She will continue on her current regimen without change. There is no contraindication to ibuprofen or naproxen. Problem 28272080523970445 Bilateral carpal tunnel syndrome (G56.03) Active confirmed This discomfort has resolved and she will be observed at this time. Problem 22229368 Nonintractable generalized idiopathic epilepsy without status epilepticus (G40.309) Active confirmed She is taking phenytoin and Depakote for her seizures. She has had no recent seizure activity. Vital Signs Heart Rate 66 /min 07/27/2024 Temperature 96.8 degrees Fahrenheit 07/27/2024 Blood pressure diastolic 78 mm Hg 07/27/2024 Height 67 in 07/27/2024 Blood pressure systolic 136 mm Hg 07/27/2024 Weight 240 lbs 07/27/2024 BMI 37.59 kg/m2 07/27/2024 Encounters Encounter Location Date Provider Diagnosis Filemon Steward III, MD [address] [place] [address] [place] [phone] 11/25/2023 Filemon Steward Hypothyroidism, unsp ecified type E03.9 ; Colon cancer screening Z12.11 ; Hypertension, unspecified type I10 ; Pure hypercholesterolemia E78.00 and Leukopenia, unspecified type D72.819 Filemon Steward III, MD [address] [place] [address] [place] [phone] 01/27/2024 Filemon Steward Hypothyroidism, unsp ecified type E03.9 ; Hypertension, unspecified type I10 ; Pure hypercholesterolemia E78.00 ; Leukopenia, unspecified type D72.819 ; Nonintractable generalized idiopathic epilepsy without status epilepticus G40.309 ; Bilateral carpal tunnel syndrome G56.03 ; Arthritis of left knee M17.12 ; GERD without esophagitis K21.9 and History of endometrial cancer Z85.42 Filemon Steward III, MD [address] [place] [address] [place] [phone] 04/20/2024 Filemon Steward Hypothyroidism, unsp ecified type E03.9 ; Sleep apnea, unspecified G47.30 ; Nonintractable generalized idiopathic epilepsy without status epilepticus G40.309 ; Hypertension, unspecified type I10 ; Arthritis of left knee M17.12 ; History of endometrial cancer Z85.42 ; GERD without esophagitis K21.9 and Pure hypercholesterolemia E78.00 Filemon Steward III, MD [address] [place] [address] [place] [address] 07/27/2024 Filemon Steward Hypothyroidism, unsp ecified type E03.9 ; Hypertension, unspecified type I10 ; Nonintractable generalized idiopathic epilepsy without status epilepticus G40.309 ; Leukopenia, unspecified type D72.819 ; Obesity (BMI 30-39.9) E66.9 and Sleep apnea, unspecified G47.30 Filemon Steward III, MD [address] [place] [address] [place] [address] 11/23/2024 Filemon Steward Assessments Encounter Date Diagnosis (ICD Code) Assessment Notes T reatment Notes Treatment Clinical Notes 11/25/2023 Hypothyroidism, unspecified type (ICD-10 - E03.9) She has been compliant with her medications. She is euthyroid at this time. Current medication was continued. Her recent thyroid function test2 are in the normal ranges. No change in dosages is required. 11/25/2023 Colon cancer screeni ng (ICD-10 - Z12.11) She is not due for a colonoscopy. A rectal examination was unremarkable today and her stool was guaiac negative. 01/27/2024 Hypertension, unspec ified type (ICD-10 - I10) Her blood pressure today is 136/74. No change in her regimen was necessary. 01/27/2024 Hypothyroidism, unspecified type (ICD-10 - E03.9) She has been compliant with her medications. She is euthyroid at this time. Current medication was continued. Her recent thyroid function test2 are in the normal ranges. No change in dosages is required. 04/20/2024 Sleep apnea, unspeci fied (ICD-10 - G47.30) He has been snoring and having episodes of apnea and bradycardia. Sleep study will be done to see if this entity is present. 04/20/2024 Hypothyroidism, unspecified type (ICD-10 - E03.9) She has been compliant with her medications. She is euthyroid at this time. Current medication was continued. Her recent thyroid function test2 are in the normal ranges. No change in dosages is required. 07/27/2024 Hypertension, unspec ified type (ICD-10 - I10) Her blood pressure is currently acceptable. She is going to try to lose weight and restrict sodium. 07/27/2024 Hypothyroidism, unspecified type (ICD-10 - E03.9) She has been compliant with her medications. She is euthyroid at this time. Current medication was continued. Her recent thyroid function test2 are in the normal ranges. No change in dosages is required. 11/25/2023 Hypertension, unspec ified type (ICD-10 - I10) Her blood pressure is normal at 130/80. No change in her regimen was needed. I recommended aggressive weight loss and sodium restriction. 01/27/2024 Pure hypercholestero lemia (ICD-10 - E78.00) Her total cholesterol has dropped from 270-235. On her last visit the atrial lovastatin was increased from 10 mg daily to 20 mg daily. Will continue her efforts at weight loss. If necessary Z atorvastatin will be increased to 40 mg. 04/20/2024 Nonintractable generalized idiopathic epilepsy without status epilepticus (ICD-10 - G40.309) She has had no seizures since her last visit in current therapy was continued. Her Dilantin level is in the therapeutic range and no change in her dose was needed. 07/27/2024 Nonintractable generalized idiopathic epilepsy without status epilepticus (ICD-10 - G40.309) She is taking phenytoin and Depakote for her seizures. She has had no recent seizure activity. 11/25/2023 Pure hypercholestero lemia (ICD-10 - E78.00) Her triglycerides are normal. The total cholesterol is 270 with an ACL of 161. The HDL is 91. He agreed to a trial of 10 mg of atorvastatin today,, which was prescribed. 01/27/2024 Leukopenia, unspecif ied type (ICD-10 - D72.819) Her white blood cell count recently was again 3900. There were 39% nneutrophils and 44% lymphocytes.. She had 1500 total neutrophils within normal being 2000 or greater. 04/20/2024 Hypertension, unspec ified type (ICD-10 - I10) Her blood pressure today is normal today.. No change in her regimen was necessary. 07/27/2024 Leukopenia, unspecif ied type (ICD-10 - D72.819) A CBC is pending to evaluate the white blood cell count. She has had no recent infections or bleeding. 11/25/2023 Leukopenia, unspecif ied type (ICD-10 - D72.819) Her white blood cell count has increased from 8052-1700. She has had no infections. This value will be observed. 01/27/2024 Nonintractable generalized idiopathic epilepsy without status epilepticus (ICD-10 - G40.309) She has had no seizures since her last visit in current therapy was continued. Her Dilantin level is in the therapeutic range and no change in her dose was needed. 04/20/2024 Arthritis of left kn ee (ICD-10 - M17.12) She will continue on her current regimen without change. There is no contraindication to ibuprofen or naproxen. 07/27/2024 Obesity (BMI 30-39.9 ) (ICD-10 - E66.9) She has gained 7 pounds since her last visit. We have reviewed her diet and nutrition. We made a plan to lose weight at a rate of one half of a pound per week through a diet restricted in calories fat and sodium combined with regular physical activity. 01/27/2024 Bilateral carpal mary kate dhruv syndrome (ICD-10 - G56.03) This discomfort has resolved and she will be observed at this time. 04/20/2024 History of endometri al cancer (ICD-10 - Z85.42) There is no sign of recurrent endometrial cancer today. 07/27/2024 Sleep apnea, unspeci fied (ICD-10 - G47.30) 01/27/2024 Arthritis of left kn ee (ICD-10 - M17.12) She will continue on her current regimen without change. There is no contraindication to ibuprofen or naproxen. 04/20/2024 GERD without esophag itis (ICD-10 - K21.9) Occasional heartburn is well-controlled with her current regimen and no changes necessary. 01/27/2024 GERD without esophag itis (ICD-10 - K21.9) Occasional heartburn is well-controlled with her current regimen and no changes necessary. 04/20/2024 Pure hypercholestero lemia (ICD-10 - E78.00) Her total cholesterol has dropped from 270-235. On her last visit the atrial lovastatin was increased from 10 mg daily to 20 mg daily. Will continue her efforts at weight loss. If necessary Z atorvastatin will be increased to 40 mg. 01/27/2024 History of endometri al cancer (ICD-10 - Z85.42) There is no sign of recurrent endometrial cancer today. Plan Of Treatment Pending Test Test Name Order Date URINE DIP STICK 07/06/2022 PROFILE, FASTING (COMPREHENSIVE METABOLI C) 12/14/2018 PROFILE, FASTING (COMPREHENSIVE METABOLI C) 03/26/2021 PROFILE, FASTING (COMPREHENSIVE METABOLI C) 10/25/2020 PROFILE, FASTING (COMPREHENSIVE METABOLI C) 07/06/2022 PROFILE, FASTING (COMPREHENSIVE METABOLI C) 06/14/2018 PROFILE, FASTING (COMPREHENSIVE METABOLI C) 07/01/2021 PROFILE, FASTING (COMPREHENSIVE METABOLI C) 09/14/2022 PROFILE, FASTING (COMPREHENSIVE METABOLI C) 12/06/2020 PROFILE, FASTING (COMPREHENSIVE METABOLI C) 07/27/2024 PROFILE, FASTING (COMPREHENSIVE METABOLI C) 03/16/2023 PROFILE, FASTING (COMPREHENSIVE METABOLI C) 03/09/2022 PROFILE, FASTING (COMPREHENSIVE METABOLI C) 09/26/2018 PROFILE, FASTING (COMPREHENSIVE METABOLI C) 07/03/2019 PROFILE, FASTING (COMPREHENSIVE METABOLI C) 10/31/2021 PROFILE, RANDOM (COMPREHENSIVE METABOLIC ) 12/26/2019 LIPID PANEL 03/16/2023 LIPID PANEL 12/26/2019 LIPID PANEL 09/26/2018 LIPID PANEL 07/03/2019 LIPID PANEL 10/31/2021 LIPID PANEL 12/14/2018 LIPID PANEL 03/26/2021 LIPID PANEL 10/25/2020 LIPID PANEL 06/14/2018 LIPID PANEL 07/01/2021 LIPID PANEL 09/14/2022 FREE T4 (FT4) 03/09/2022 FREE T4 (FT4) 09/14/2022 FREE T4 (FT4) 03/16/2023 FREE T4 (FT4) 12/26/2019 FREE T4 (FT4) 09/26/2018 FREE T4 (FT4) 07/03/2019 FREE T4 (FT4) 12/14/2018 FREE T4 (FT4) 03/26/2021 FREE T4 (FT4) 12/29/2021 FREE T4 (FT4) 06/14/2018 FREE T4 (FT4) 07/01/2021 TSH (THYROID STIMULATING HORMONE) 2023 TSH (THYROID STIMULATING HORMONE) 2020 TSH (THYROID STIMULATING HORMONE) 2021 TSH (THYROID STIMULATING HORMONE) 2021 TSH (THYROID STIMULATING HORMONE) 2022 TSH (THYROID STIMULATING HORMONE) 2019 TSH (THYROID STIMULATING HORMONE) 2017 TSH (THYROID STIMULATING HORMONE) 2018 TSH (THYROID STIMULATING HORMONE) 2018 TSH (THYROID STIMULATING HORMONE) 2020 TSH (THYROID STIMULATING HORMONE) 2021 TSH (THYROID STIMULATING HORMONE) 2017 DILANTIN (PHENYTOIN) 07/06/2022 DILANTIN (PHENYTOIN) 09/14/2022 DILANTIN (PHENYTOIN) 12/26/2019 VALPROIC ACID (VPA, DEPAKOTE) 07/27/2024 VALPROIC ACID (VPA, DEPAKOTE) 12/26/2019 CBC w DIFF 12/26/2019 CBC w DIFF 06/14/2018 CBC w DIFF 07/01/2021 CBC w DIFF 07/27/2024 CBC w DIFF 10/31/2021 CBC w DIFF 03/09/2022 CBC w DIFF 07/06/2022 CBC w DIFF 10/25/2020 CBC w DIFF 10/14/2021 CBC w DIFF 03/16/2023 CBC w DIFF 09/26/2018 CBC w DIFF 09/14/2022 CBC w DIFF 07/03/2019 CBC w DIFF 12/14/2018 CBC w DIFF 03/26/2021 CBC w DIFF 12/06/2020 SED RATE (ESR) 10/14/2021 SED RATE (ESR) 09/26/2018 URINALYSIS (UA) 04/10/2021 URINALYSIS (UA) 06/14/2018 URINALYSIS (UA) 12/10/2022 URINE CULTURE 04/10/2021 URINE CULTURE 06/14/2018 URINE CULTURE 12/10/2022 MAMMOGRAM DIGITAL BILATERAL SCREEN 05/23 MAMMOGRAM DIGITAL BILATERAL SCREEN 07/01 MAMMOGRAM DIGITAL BILATERAL SCREEN 06/14 Echocardiogram 05/23/2019 Lipid Panel 07/27/2024 Lipid Panel 03/09/2022 Free T4 (Free Thyroxine) 07/27/2024 Phenytoin Dilantin 07/27/2024 Phenytoin Dilantin 03/09/2022 Next Appt Details Provider Name:Filemon Bin, 11/27/2024 02:00:00 PM, [address] [place] [address] [address], [place], [address], Insurance Providers Payer Name Payer Address Payer Phone Subscriber Number Group Number Insured Name Patient Relationship to Insured Coverage Start Date Coverage End Date [facility] [address] [place] [phone] [id number] MORENO TSERING Self - patient is the insured 2 Medical (General) History Medical History History ICD Code Bilateral carpal tunnel syndrome G56.03 Hypothyroidism, unspecified type E03.9 Hypertension, unspecified type I10 Obesity, unspecified E66.9 seizure disorder, Dr. Andrade arthritis left knee history of TMJ syndrome cholecystitis, 1985 endometrial cancer. 2016 aleksandr ated surgically in remission, FREDY/BSO, Dr. Huy Arroyo M.D. GERD compression fracture at L1 by CT scan Fe bruary 2016 hemorrhoids 2005 normal bone density right arm medial epicondylitis environmental allergies Surgical History Surgery Date(Month/Year) [place] [facility] [place]oscopy, [facility], Dr. Filemon Shepherd, no findings 2016 colonoscopy, [facility], Dr. Filemon Shepherd, no findings 2008 FREDY/BSO Dr. Renae Gee, endometrial c ancer 2016 cholecystectomy 1985
--- OUTSIDE RECORDS SUMMARY | 2024-11-24 10:41 | XMS_ITS ---
Author Organization Filemon Steward III, MD Address [address] [place] [address] Care Team Providers Care Hydro Mechanic Name Role Phone Filemon Steward Primary Care Provider [phone] Allergies Allergen (clinical drug ingredient) Drug/Non Drug Allergy documented on EMR Reaction Allergy Type Onset Date Status nitrofurantoin, macrocrystals / nitrofurantoin, monohydrate Macrobid Unknown Drug Allergy Active codeine Codeine Sulfate Unknown Drug Allergy A ctive Reason For Referral Reason Consult and Treatmen t for Sleep Apnea Needs Sleep Study Desaturation to 88% at night Diagnosis 1 Sleep apnea, unspeci fied (G47.30) Diagnosis 2 Snoring (R06.83) Referral Organization Filemon Steward III, MD Referring Provider First Name Filemon Referring Provider Last Name Bin Referring Provider Speciality Internal M edicine Referred Provider DARIEN NERI Referred Provider Specialty Pulmonary Di seas General Notes Stacey Brown 2023 03:30:38 PM EDT > Referral faxed with progress note Referral Priority Routine Referral Appointment Date 05/25/2024 REASON FOR VISIT low heart rate, Hypertension, Hypothyroidism, Epilepsy, History of endometrial cancer, Obesity Medications Medication SIG (Take, Route, Frequency, Duration) Notes Start Date End Date Status Levothyroxine Sodium 100 MCG TAKE 1 TABLET BY MOUTH DAILY Active Depakote 500 MG Orally Acti ve Omeprazole 20 MG 2 capsule Orally Onc e a day As needed Active Atorvastatin Calcium 20 MG 1 tablet Oral ly Once a day 01/27/2024 Active Methenamine Hippurate 1 GM 1 tablet Oral ly Twice a day Active Dilantin 100 MG 3 capsule on odd day s and take 4 caps on even days Orally once a day Active Atorvastatin Calcium 10 MG 1 tablet Oral ly Once a day 11/25/2023 Active Social History Tobacco Use: Social History [...] W/U Status Risk Notes Problem Sleep apnea (09614187) Sleep apnea, unspecified (G47.30) Active confirmed He has been snoring and having episodes of apnea and bradycardia. Sleep study will be done to see if this entity is present. Vital Signs Temperature 97.8 degrees Fahrenheit 04/20/20 24 Blood pressure systolic 128 mm Hg 04/20/20 24 Blood pressure diastolic 78 mm Hg 024 Heart Rate 73 /min 04/20/2024 Height 67 in 04/20/2024 Weight 233 lbs 04/20/2024 BMI 36.49 kg/m2 04/20/2024 Encounters Encounter Location Date Provider Diagnosis Filemon Steward III, MD [address] [place] [address] [place] [address] 04/20/2024 Filemon Steward Hypothyroidism, unsp ecified type E03.9 ; Sleep apnea, unspecified G47.30 ; Nonintractable generalized idiopathic epilepsy without status epilepticus G40.309 ; Hypertension, unspecified type I10 ; Arthritis of left knee M17.12 ; History of endometrial cancer Z85.42 ; GERD without esophagitis K21.9 and Pure hypercholesterolemia E78.00 Assessments Encounter Date Diagnosis (ICD Code) Assessment Notes T reatment Notes Treatment Clinical Notes 04/20/2024 Hypothyroidism, unspecified type (ICD-10 - E03.9) [...] see if this entity is present. 04/20/2024 Nonintractable generalized idiopathic epilepsy without status epilepticus (ICD-10 - G40.309) She has had no seizures since her last visit in current therapy was continued. Her Dilantin level is in the therapeutic range and no change in her dose was needed. 04/20/2024 Hypertension, unspec ified type (ICD-10 - I10) Her blood pressure today is normal today.. No change in her regimen was necessary. 04/20/2024 Arthritis of left kn ee (ICD-10 - M17.12) She will continue on her current regimen without change. There is no contraindication to ibuprofen or naproxen. 04/20/2024 History of endometri al cancer (ICD-10 - Z85.42) There is no sign of recurrent endometrial cancer today. 04/20/2024 GERD without esophag itis (ICD-10 - [...] atorvastatin will be increased to 40 mg. Plan Of Treatment Medication Medication Name Sig Start Date Stop Date Notes Levothyroxine Sodium 100 MCG TAKE 1 TABL ET BY MOUTH DAILY Depakote 500 MG Orally Omeprazole 20 MG 2 capsule Orally Onc e a day As needed Atorvastatin Calcium 20 MG 1 tablet Oral ly Once a day 01/27/2024 Methenamine Hippurate 1 GM 1 tablet Oral ly Twice a day Dilantin 100 MG 3 capsule on odd day s and take 4 caps on even days Orally once a day Atorvastatin Calcium 10 MG 1 tablet Oral ly Once a day 11/25/2023 Referrals Referral Date Details 04/20/2024 04/20/2024, Consult and Treatment for Sleep Apnea Needs Sleep Study Desaturation to 88% at night, DARIEN NERI Next Appt Details Follow Up: 3 Months, Reason: OV Provider Name:Filemon Steward, 11/27/2024 02:00:00 PM, [address] [place] [address] , [address], [place], [address], Progress Notes * TSERING MORENO FDOB:[birth year] (64 yo F)Acc No.[id number]:04/20/2024 Progress Notes Patient:TSERING DURAN Provider:?Filemon Setward MD :1960???Age:64 Y???Sex:Female D ate:04/20/2024 Address:[address] [place] [address] [id number] Subjective: * Chief Complaints: * ???Low heart rateHypertensio nHypothyroidismEpilepsyHistory of endometrial cancerObesity * HPI: ???COVID-19 Screening:? She returns to the office for a scheduled visit to manage her numerous metabolic issues. A new problem is that her smart watch his telling her that she is bradycardic at night and has apnea. I have ordered a sleep study for her to assess this problem and we have discussed the entity of sleep apnea at length today. She is trying to lose weight. Her heartburn is well controlled. Arthritis in her left knee is unchanged. She has had no seizures. Her blood pressure was well controlled today. ?Questions?Have you experienced fever, chills, cough, sore throat, shortness of breath, difficulty breathing, muscle aches, loss of taste or smell??No ?Have you been exposed to the virus within the last 10 days??No ?Have you travelled internationally in the last 10 days??No ?Have you been exposed to COVID-19 in the past??Yes * ROS:?General/Constitutional:?pain?only normal aches and pains.?Chills?denies.?Fatigue?admits.?Fever?denies.?ENT:?Decreased hearing?denies.?Respiratory:?Cough?denies.?Cardiovascular:?Chest pain with exertion?denies.?Dyspnea on exertion?denies.?Shortness of breath?denies.?Gastrointestinal:?Constipation?occasional.?Decreased appetite?denies.?Diarrhea?denies.?Heartburn?denies.?Nausea?denies.?Rectal bleeding?denies.?Vomiting?denies.?Hematology:?bruising?denies.?petechiae?denies.?Swollen glands?none have been noted.?Genitourinary:?Frequent urination?at night.?Musculoskeletal:?Muscle aches?denies.?Painful joints?denies.?Sciatica?denies.?Weakness?denies.?Skin:?Itching?denies.?Rash?denies.?Skin lesion(s)?denies.?Neurologic:?Difficulty speaking?denies.?Dizziness?denies.?Headache?denies.?Low back pain?denies.?Psychiatric:?Depressed mood?denies.? * Medical History:? * Surgical History:?cholecyste ctomy 1985TAH/BSO Dr. Renae Gee, endometrial cancer 2015colonoscopy, [facility], Dr. Filemon Shepherd, no findings 2008colonoscopy, [facility], Dr. Filemon Shepherd, no findings 2017Colonoscopy [facility] [place]/2022 * Hospitalization/Major Diagno stic Procedure:?Denies Past Hospitalization * Family History:?Father: dece ased, Hypertension, diabetes, chronic kidney disease, prostate cancer, diagnosed with Cancer, HTN, DM.?Mother: , Hypertension, diabetes mellitus, colon cancer, endometrial [...] 2 cats . She works at a local [employer], which she finds stressful. She has no children. * Medications:?TakingLevothyro xine Sodium 100 MCG Tablet TAKE 1 TABLET BY MOUTH DAILY Omeprazole 20 MG Capsule Delayed Release 2 [...] MG Tablet 1 tablet Orally Once a dayDiscontinuedAtorvastatin Calcium 10 MG Tablet 1 tablet Orally Once a dayMedication List reviewed and reconciled with the patientDiscontinued Atorvastatin Calcium 10 MG Tablet 1 tablet Orally Once a dayMedication List reviewed and reconciled with the patient * Allergies:?Codeine SulfateMa crobidno[Allergies Verified] Objective: * Vitals:?Ht: 67, Wt: 233, BMI :36.49, BP: 128/78, HR: 73, Temp: 97.8, Wt-k.69. * ???Past Orders: Lab:Lipid Panel * Order Date 04/17/2024 01/24/2024 11/22/2023 12/25/2022 Triglycerides 75 (Ref Range: <150 mg/dL) 87 (Ref Range: <150 mg/dL) 93 (Ref Range: <150 mg/dL) 84 (Ref Range: mg/dL) Cholesterol 206?H (Ref Range: <200 mg/dL) 235?H (Ref Range: <200 mg/dL) 270?H (Ref Range: <200 mg/dL) 253 (Ref Range: mg/dL) LDL Cholesterol Calculated 103?H (Ref Range: <100 mg/dL) 127?H (Ref Range: <100 mg/dL) 161?H (Ref Range: <100 mg/dL) 156 (Ref Range: mg/dl) HDL Cholesterol 88 (Ref Range: >40 mg/dL) 91 (Ref Range: >40 mg/dL) 91 (Ref Range: >40 mg/dL) 81 (Ref Range: mg/dL) * Lab:Complete Blood Count Aut o Diff * Order Date 04/17/2024 01/24/2024 11/22/2023 09/10/2022 White Blood Count 3.8?L (Ref Range: 4.8-10.8 X10*3/uL) 3.9?L (Ref Range: 4.8-10.8 X10*3/uL) 3.9?L (Ref Range: 4.8-10.8 X10*3/uL) 3.0?L (Ref Range: 4.8-10.8 X10*3/uL) Red Blood Count 4.21 (Ref Range: 4.20-5.50 X10*6/uL) 4.46 (Ref Range: 4.20-5.50 X10*6/uL) 4.30 (Ref Range: 4.20-5.50 X10*6/uL) 4.29 (Ref Range: 4.20-5.50 X10*6/uL) Hemoglobin 13.5 (Ref Range: 12.0-16.0 g/dl) 14.2 (Ref Range: 12.0-16.0 g/dl) 13.6 (Ref Range: 12.0-16.0 g/dl) 13.8 (Ref Range: 12.0-16.0 g/dl) Hematocrit 40.1 (Ref Range: 37.0-47.0 %) 42.5 (Ref Range: 37.0-47.0 %) 40.7 (Ref Range: 37.0-47.0 %) 41.2 (Ref Range: 37.0-47.0 %) Mean Corpuscular Volume 95.2 (Ref Range: 80.0-98.0 fL) 95.3 (Ref Range: 80.0-98.0 fL) 94.7 (Ref Range: 80.0-98.0 fL) 96.0 (Ref Range: 80.0-98.0 fL) Mean Corpuscular Hemoglobin 32.1 (Ref Range: 27.0-33.0 pg) 31.8 (Ref Range: 27.0-33.0 pg) 31.6 (Ref Range: 27.0-33.0 pg) 32.2 (Ref Range: 27.0-33.0 pg) Mean Corpuscular HGB Conc 33.7 (Ref Range: 31.0-35.0 g/dl) 33.4 (Ref Range: 31.0-35.0 g/dl) 33.4 (Ref Range: 31.0-35.0 g/dl) 33.5 (Ref Range: 31.0-35.0 g/dl) Red Cell Distribution Width 14.6 (Ref Range: 11.0-16.0 %) 13.4 (Ref Range: 11.0-16.0 %) 13.5 (Ref Range: 11.0-16.0 %) 13.3 (Ref Range: 11.0-16.0 %) Platelet Count 167 (Ref Range: 160-400 X10*3/uL) 162 (Ref Range: 160-400 X10*3/uL) 180 (Ref Range: 160-400 X10*3/uL) 166 (Ref Range: 160-400 X10*3/uL) Mean Platelet Volume 10.8 (Ref Range: 9.4-12.3 fL) 11.1 (Ref Range: 9.4-12.3 fL) 10.9 (Ref Range: 9.4-12.3 fL) 11.5 (Ref Range: 9.4-12.3 fL) Neutrophils Percent Auto 41.5?L (Ref Range: 45-73 %) 39.4?L (Ref Range: 45-73 %) 53.0 (Ref Range: 45-73 %) 40.3?L (Ref Range: 45-73 %) Imm Gran Pct Auto 0.3 (Ref Range: 0.0-0.4 %) 0.3 (Ref Range: 0.0-0.4 %) 0.3 (Ref Range: 0.0-0.4 %) 0.0 (Ref Range: 0.0-0.4 %) Lymphocytes Percent Auto 37.1 (Ref Range: 20-40 %) 43.6?H (Ref Range: 20-40 %) 34.5 (Ref Range: 20-40 %) 46.4?H (Ref Range: 20-40 %) Monocytes Percent Auto 13.1?H (Ref Range: 2-11 %) 10.8 (Ref Range: 2-11 %) 9.4 (Ref Range: 2-11 %) 12.6?H (Ref Range: 2-11 %) Eosinophils Percent Auto 7.2?H (Ref Range: 0-4 %) 4.9?H (Ref Range: 0-4 %) 1.8 (Ref Range: 0-4 %) 0.0 (Ref Range: 0-4 %) Basophils Percent Auto 0.8 (Ref Range: 0-2 %) 1.0 (Ref Range: 0-2 %) 1.0 (Ref Range: 0-2 %) 0.7 (Ref Range: 0-2 %) NRBC Pct Auto 0.0 (Ref Range: 0.0-0.2 /100WBC) 0.0 (Ref Range: 0.0-0.2 /100WBC) 0.0 (Ref Range: 0.0-0.2 /100WBC) 0.0 (Ref Range: 0.0-0.2 /100WBC) Neutrophils Absolute Auto 1.6?L (Ref Range: 2.0-8.3 x10*3/uL) 1.5?L (Ref Range: 2.0-8.3 x10*3/uL) 2.1 (Ref Range: 2.0-8.3 x10*3/uL) 1.2?L (Ref Range: 2.0-8.3 x10*3/uL) Imm Gran Abs Auto 0.01 (Ref Range: 0.00-0.03 X10*3/uL) 0.01 (Ref Range: 0.00-0.03 X10*3/uL) 0.01 (Ref Range: 0.00-0.03 X10*3/uL) 0.00 (Ref Range: 0.00-0.03 X10*3/uL) Lymphocytes Absolute Auto 1.4 (Ref Range: 1.2-4.9 X10*3/uL) 1.7 (Ref Range: 1.2-4.9 X10*3/uL) 1.4 (Ref Range: 1.2-4.9 X10*3/uL) 1.4 (Ref Range: 1.2-4.9 X10*3/uL) Monocytes Absolute Auto 0.5 (Ref Range: 0.1-1.2 X10*3/uL) 0.4 (Ref Range: 0.1-1.2 X10*3/uL) 0.4 (Ref Range: 0.1-1.2 X10*3/uL) 0.4 (Ref Range: 0.1-1.2 X10*3/uL) Eosinophils Absolute Auto 0.3 (Ref Range: 0.0-0.4 X10*3/uL) 0.2 (Ref Range: 0.0-0.4 X10*3/uL) 0.1 (Ref Range: 0.0-0.4 X10*3/uL) 0.0 (Ref Range: 0.0-0.4 X10*3/uL) Basophils Absolute Auto 0.0 (Ref Range: 0.0-0.2 X10*3/uL) 0.0 (Ref Range: 0.0-0.2 X10*3/uL) 0.0 (Ref Range: 0.0-0.2 X10*3/uL) 0.0 (Ref Range: 0.0-0.2 X10*3/uL) NRBC Abs Auto 0.000 (Ref Range: 0.0-0.012 X10*3/uL) 0.000 (Ref Range: 0.0-0.012 X10*3/uL) 0.000 (Ref Range: 0.0-0.012 X10*3/uL) 0.000 (Ref Range: 0.0-0.012 X10*3/uL) * Lab:[facility]. Hussein l Fast * Order Date 04/17/2024 01/24/2024 11/22/2023 12/25/2022 Sodium 142 (Ref Range: 135-145 mmol/L) 144 (Ref Range: 135-145 mmol/L) 144 (Ref Range: 135-145 mmol/L) 143 (Ref Range: 135-145 mmol/L) Bilirubin Total 0.2 (Ref Range: 0.0-1.0 mg/dL) 0.4 (Ref Range: 0.0-1.0 mg/dL) 0.4 (Ref Range: 0.0-1.0 mg/dL) 0.5 (Ref Range: 0.0-1.0 mg/dL) Aspartate Amino Transferase 24 (Ref Range: 5-31 U/L) 19 (Ref Range: 5-31 U/L) 20 (Ref Range: 5-31 U/L) 20 (Ref Range: 5-31 U/L) Alanine Aminotransferase 25 (Ref Range: 0-31 U/L) 19 (Ref Range: 0-31 U/L) 24 (Ref Range: 0-31 U/L) 20 (Ref Range: 0-31 U/L) Total Protein 6.7 (Ref Range: 6.5-8.0 g/dL) 7.1 (Ref Range: 6.5-8.0 g/dL) 6.9 (Ref Range: 6.5-8.0 g/dL) 6.5 (Ref Range: 6.5-8.0 g/dL) Albumin Level 4.1 (Ref Range: 3.5-5.0 g/dL) 4.3 (Ref Range: 3.5-5.0 g/dL) 4.1 (Ref Range: 3.5-5.0 g/dL) 4.1 (Ref Range: 3.5-5.0 g/dL) Alkaline Phosphatase 65 (Ref Range: 39-117 U/L) 73 (Ref Range: 39-117 U/L) 68 (Ref Range: 39-117 U/L) 64 (Ref Range: 39-117 U/L) Potassium 4.4 (Ref Range: 3.3-5.1 mmol/L) 4.3 (Ref Range: 3.3-5.1 mmol/L) 4.0 (Ref Range: 3.3-5.1 mmol/L) 4.4 (Ref Range: 3.3-5.1 mmol/L) Chloride 109?H (Ref Range: 96-108 mmol/L) 108 (Ref Range: 96-108 mmol/L) 106 (Ref Range: 96-108 mmol/L) 107 (Ref Range: 96-108 mmol/L) Carbon Dioxide 26 (Ref Range: 22-29 mmol/L) 27 (Ref Range: 22-29 mmol/L) 24 (Ref Range: 22-29 mmol/L) 27 (Ref Range: 22-29 mmol/L) Anion Gap 11?L (Ref Range: 12-20) 13 (Ref Range: 12-20) 18 (Ref Range: 12-20) 13 (Ref Range: 12-20) Blood Urea Nitrogen 12 (Ref Range: 9-16 mg/dL) 10 (Ref Range: 9-16 mg/dL) 14 (Ref Range: 9-16 mg/dL) 9 (Ref Range: 9-16 mg/dL) Creatinine 0.76 (Ref Range: 0.5-1.4 mg/dL) 0.77 (Ref Range: 0.5-1.4 mg/dL) 0.83 (Ref Range: 0.5-1.4 mg/dL) 0.72 (Ref Range: 0.5-1.4 mg/dL) Estimated Glomerular Filt Rate > 60 > 60 > 60 > 60 Glucose Fasting 110?H (Ref Range: 60-99 mg/dL) 110?H (Ref Range: 60-99 mg/dL) 105?H (Ref Range: 60-99 mg/dL) 115?H (Ref Range: 60-99 mg/dL) Calcium 9.4 (Ref Range: 8.4-10.2 mg/dL) 9.3 (Ref Range: 8.4-10.2 mg/dL) 9.1 (Ref Range: 8.4-10.2 mg/dL) 9.1 (Ref Range: 8.4-10.2 mg/dL) * Examination: ???General Examination: ?GENERAL APPEARANCE:?pleasant, well [...] normal ranges. No change in dosages is required.?2.?Sleep apnea, unspecified - G47.30, He has been snoring and having episodes of apnea and bradycardia. Sleep study will be done to see if this entity is present.?3.?Nonintractable generalized idiopathic epilepsy without status epilepticus - G40.309, She has had no seizures since her last visit in current therapy was continued. Her Dilantin level is in the therapeutic range and no change in her dose was needed.?4.?Hypertension, unspecified type - I10, Her blood pressure today is normal today.. No change in her regimen was necessary.?5.?Arthritis of left knee - M17.12, She will continue on her current regimen without change. There is no contraindication to ibuprofen or naproxen.?6. History of endometrial cancer - Z85.42, There is no sign of recurrent endometrial cancer today.?7.?GERD without esophagitis - K21.9, Occasional heartburn is well-controlled with her current regimen and no changes necessary.?8.?Pure hypercholesterolemia - E78.00, Her total cholesterol has dropped from 270-235. On her last visit the atrial lovastatin was increased from 10 mg daily to 20 mg daily. Will continue her efforts at weight loss. If necessary Z atorvastatin will be increased to 40 mg.? Plan: * Treatment: 2.?Sleep apnea, unspecified? Referral To:DARIEN NERI??Pulmonary Diseases ?Reason:Consult and Treatment for Sleep Apnea ? Sleep Study Desaturation to 88% at night 3.?Others? Continue Levothyroxine Sodium Tablet, 100 MCG, TAKE 1 TABLET BY MOUTH DAILY.? Referral To:DARIEN NERI??Pulmonary Diseases ?Reason:Consult and Treatment for Sleep Apnea ? Sleep Study Desaturation to 88% at night * Procedure Codes:? * Preventive Medicine:? ??Counseling:?Care [...] or Other reason not done * Follow Up:?3 Months (Reason: OV) * Images: * Sign off status: Completed true * Provider:?Filemon Steward MD Date:?04/2024 Generated for Printi ng/Farandyg/eTransmitting on:?11/24/2024 10:41 AM EST History and Physical Notes * HPI (History of Present Illness) Category Sub-Category Detail Notes COVID-19 Screening Questions Have you had any new onset fever, chills, cough, congestion, sore throat, shortness of breath, muscle aches?: No Have you been exposed to the virus withi n the last 10 days?: No Have you travelled internationally in [facility] last 10 days?: No Have you been [...] PSYCH: alert, oriented ORAL CAVITY: normal, unremarkable Consultation Request Notes Referral Date Referring Provider Referred Provider Not es 04/20/2024 Filemon Steward MIGUEL Consult a nd Treatment for Sleep Apnea Needs Sleep Study Desaturation to 88% at night
--- OUTSIDE RECORDS SUMMARY | 2024-11-24 10:41 | XMS_ITS ---
Author Organization Filemon Steward III, MD Address [address] [place] [address] [address] [facility] [address] [place] [address] Care Team Providers Care Nurse Advocate Name Role Phone Filemon Steward Primary Care Provider [phone] Medications Medication SIG (Take, Route, Frequency, Duration) Notes Start Date End Date Status Atorvastatin Calcium 20 MG 1 tablet Oral ly Once a day for 90 days 11/23/2024 Active Social History Sex Assigned At : Social History Observation Description Sex Assigned At Female Encounters Encounter Location Date Provider Diagnosis Filemon Steward III, MD [address] [place] [address] [place] [address] 11/23/2024 Filemon Steward Plan Of Treatment Medication Medication Name Sig Start Date Stop Date Notes Atorvastatin Calcium 20 MG 1 tablet Oral ly Once a day for 90 days 11/23/2024 Next Appt Details Provider Name:Filemon Steward, 11/27/2024 02:00:00 PM, [address] [place] [address] [place], [address], Progress Notes * TSERING MORENO FDOB:[birth year] (64 yo F)Acc No.[id number]:11/23/2024 Patient:?TSERING MORENO :1960???Age:64 Y???Sex:Female Address:[address] [place], [place] [address], * Refills? Start Atorvastatin Calcium Tablet, 20 MG, Orally, 90 Tablet, 1 tablet, Once a day, 90 days, Refills=3 * true * Date:? Generated for Kamron simms/Joseph/Elmo on:?11/24/2024 10:40 AM EST
--- OUTSIDE RECORDS SUMMARY | 2024-11-24 10:42 | XMS_ITS | Patient Health Record ---
Author Organization [facility] Address [address] [place] [address] Care Team Providers Care Office Services Associate Name Role Phone Filemon Steward MD Primary Care Provider Unavailab Filemon Cruz Unavailable [phone] ALLERGIES Allergen (clinical drug ingredient) Drug/Non Drug Allergy documented on EMR Reaction Allergy Type Onset Date Status Codeine Phosphate Unknown Drug Allergy Active REASON FOR REFERRAL No Information MEDICATIONS Medication SIG (Take, Route, Frequency, Duration) Notes Start Date End Date Status Dilantin 100 MG 1 capsule Orally every 6 hrs Active Depakote 500 MG 1 tablet Orally three a day Active Levoxyl 100 MCG Orally Acti ve Omeprazole 20 MG 1 capsule Orally Once a day prn GI upset from Depakote as needed-uses infrequently Active IMMUNIZATIONS Vaccine Route Administration Date Status Comme nts Influenza Unknown 10/07/2021 Administered SOCIAL HISTORY Sex Assigned At : Social History Observation Description Sex Assigned At Unknown PROBLEMS Problem Type ICD Code Onset Dates Problem Status W/U Status Risk SNOMED Code Notes Problem Encounter for screening for malignant neoplasm of colon (Z12.11) Active confirmed 828449364 Problem Encounter for screening for malignant neoplasm of rectum (Z12.12) Active confirmed Screening fo r malignant neoplasm of rectum (746823940) Problem Family history of colon cancer (Z80.0) Active confirmed 880402807 Problem Preprocedural examination (Z01.818) Active confirmed 12032390 Problem Colon cancer screening (Z12.11) Active confirmed Colon cancer screening (747051282) Problem Diverticulosis of sigmoid colon (K57.30) Active confirmed Diverticulosis of sigmoid colon (312624552) PLAN OF TREATMENT Pending Test Test Name Order Date Pathology 09/11/2022 Future Test Test Name Order Date COLONOSCOPY 11/17/2016 COLONOSCOPY 07/15/2022 Insurance Providers Payer Name Payer Address Payer Phone Subscriber Number Group Number Insured Name Patient Relationship to Insured Coverage Start Date Coverage End Date [facility] [address] [place] [address] [id number] TSERING MORENO Self - patient is the insured MEDICAL (GENERAL) HISTORY Medical History History ICD Code 7-14-2008 colonoscopy--no polyps, small internal hemorrhoids Denies MT,DM,CVA,Lung disease,renal dise ase Hypothyroidism Seizure disorder Endometrial carcinoma stage one-hysterec mike as below--2015 Negative colonoscopy in 03/2017 Surgical History Surgery Date(Month/Year) Cholecystectomy FREDY 03/2016
[2024-11-24 12:58] LABS: MANUAL DIFF FLAG NO
[2024-11-24 13:02] LABS: Eosinophils Absolute Auto 0.2 X10*3/uL (0.0-0.4); Eosinophils Percent Auto 4.9 % (0-4); Hematocrit 41.7 % (37.0-47.0); Hemoglobin 14.1 g/dl (12.0-16.0); Imm Gran Abs Auto 0.01 X10*3/uL (0.00-0.03); Imm Gran Pct Auto 0.3 % (0.0-0.4); Lymphocytes Absolute Auto 1.2 X10*3/uL (1.2-4.9); Lymphocytes Percent Auto 39.3 % (20-40); Mean Corpuscular HGB Conc 33.8 g/dl (31.0-35.0); Mean Corpuscular Hemoglobin 32.3 pg (27.0-33.0); Mean Corpuscular Volume 95.6 fL (80.0-98.0); Mean Platelet Volume 10.8 fL (9.4-12.3); Monocytes Absolute Auto 0.4 X10*3/uL (0.1-1.2); Neutrophils Absolute Auto 1.3 x10*3/uL (2.0-8.3); Neutrophils Percent Auto 42.5 % (45-73); Platelet Count 161 X10*3/uL (160-400); Red Blood Count 4.36 X10*6/uL (4.20-5.50); Red Cell Distribution Width 13.6 % (11.0-16.0); White Blood Count 3.1 X10*3/uL (4.8-10.8)
[2024-11-24 13:29] LABS: Alanine Aminotransferase 34 U/L (0-31); Albumin Level 4.3 g/dL (3.5-5.0); Alkaline Phosphatase 68 U/L (39-117); Anion Gap 12 (12-20); Aspartate Amino Transferase 29 U/L (5-31); Bilirubin Total 0.4 mg/dL (0.0-1.0); Blood Urea Nitrogen 10 mg/dL (9-16); Carbon Dioxide 29 mmol/L (22-29); Chloride 107 mmol/L (96-108); Cholesterol 229 mg/dL (<200); Estimated Glomerular Filt Rate > 60; Glucose Fasting 103 mg/dL (60-99); HDL Cholesterol 89 mg/dL (>40); LDL Cholesterol Calculated 124 mg/dL (<100); Potassium 4.5 mmol/L (3.3-5.1); Sodium 143 mmol/L (135-145); Triglycerides 80 mg/dL (<150)
[2024-11-24 13:46] LABS: Thyroid Stimulating Hormone 0.81 uIU/mL (0.32-4.0)
[2024-11-24 14:01] LABS: Phenytoin Dilantin 21.2 ug/mL (10.0-20.0)
== END 2024-11-24 10:23 | disposition home or self-care (01) ==
LOC: HO.HMGCLDS 10:22
PROVIDERS: PCP Internal Medicine Medical Oncology; Visit Provider Internal Medicine Medical Oncology
DX: E03.9 Hypothyroidism, unspecified (principal); I11.0 Hypertensive heart disease with heart failure; G40.309 Generalized idiopathic epilepsy and epileptic syndromes, not intractable, without status epilepticus; D72.819 Decreased white blood cell count, unspecified; E66.9 Obesity, unspecified; G47.30 Sleep apnea, unspecified
CPT/HCPCS: 36415; 80053; 80061; 80164; 80185; 84439; 84443; 85025

== ENCOUNTER 2024-12-14 13:39 | Outpatient (AMB) | payer OTHER, SELFPAY ==
[2024-12-14 13:40] VITALS: BP 148/76; PULSE 62; O2SAT 100; BMI 39.3
--- NOTE | 2024-12-14 13:40 | MHC.OFFVIS ---
Vital Signs 12/14/24 13:40 Height 5 ft 6 in Weight 243 lb 9.773 oz BMI 39.3 BP 148/76 H Blood Pressure Location Rt brachial Position Sitting Pulse 62 Pulse Source Pulse Oximeter Pulse Oximetry (%) 100 Oxygen Delivery Method Room Air Intake Visit Reasons: sleep apnea Allergies nitrofurantoin [From Macrobid] Allergy (Intermediate, Verified 12/14/24 14:09) Redness of Skin codeine Adverse Reaction (Verified 12/14/24 14:09) Gastrointestinal Upset levetiracetam [From Keppra] Adverse Reaction (Verified 12/14/24 14:09) Unknown Medication List - Last Reconciled 12/14/24 by Bertin El MD atorvastatin 20 mg PO BEDTIME divalproex ER 1 tab PO TID levothyroxine 1 tab PO DAILY methenamine hippurate 1 g PO BID phenytoin sodium extended caps PO Do you need a note to return to daycare/school/sports/work: No HPI HPI sleep apnea: Details: This 64 years old female is here for follow-up for her sleep apnea and use of CPAP. She has been using her CPAP very regularly every night, at least for 6 hours per night. She has been sleeping better, She does have a few issues related to the mask and humidification. She is using a fullface mask ( dream wear ) which fits well. The humidity sometime builds up at night, and the temperature in the tube goes up to 76. Then towards the morning hours she feels somewhat dry in the throat . She also feels that at times the pressure builds up little more than usual. In spite of all these minor issues she has been able to use the CPAP regularly every night. Her sleep quality has definitely improved. [facility] Medical History KATIE (obstructive sleep apnea) Obesity (BMI 30-39.9) Loud snoring Hypersomnolence Endometrial carcinoma Seizure disorder Hypothyroidism Surgical History Hx of colonoscopy Hx of cholecystectomy H/O: hysterectomy Social History Patient Tobacco Use Status: Never used Tobacco Review of Systems Const All systems reviewed & are unremarkable except as noted in HPI and below Reports snoring Eyes Reports no additional complaints ENT Reports no additional complaints Card Denies chest pain, Denies syncope, Denies irregular heart rhythm and Denies leg edema Resp Reports as per HPI, Reports snoring and Denies wheezing GI Reports no additional complaints Reports other (Frequent urinary tract infection) Musc Reports no additional complaints Skin/Breast Reports system reviewed and no additional complaints, except as documented Neuro Denies syncope and Reports other (Known case of seizure disorder controlled with meds) Endo Reports other (Hypothyroidism) Robson/Lymph Reports no additional complaints Aller/Immun Reports no additional complaints and Denies wheezing Physical Exam Vital Signs: Last Vital Signs Pulse 62 12/14/24 13:40 BP 148/76 H 12/14/24 13:40 Pulse Ox 100 12/14/24 13:40 Oxygen Delivery Method Room Air 12/14/24 13:40 BMI result Body Mass Index 39.3 Const General: healthy appearing (Except for being overweight), comfortable, no acute distress, alert and awake Orientation/consciousness: patient oriented x3 HEENT Head: Yes normal to inspection General nose exam: No nasal polyps present and No nasal discharge present Face and sinus: Yes sinuses nontender Mouth: oropharynx abnormals (Oropharynx is narrow, Mallampati class 3) Teeth and gingiva: other (Retroganthia of the lower jaw) Throat: Yes posterior oropharynx normal Eyes General: appearance normal, both eyes and all related structures Neck Neck: Yes normal visual inspection, Yes no lymphadenopathy, Yes trachea midline and Yes no JVD Thyroid: Thyroid normal Chest Chest palpation & inspection: normal inspection of the chest, normal palpation of entire chest wall and no tenderness Resp Effort & Inspection: normal respiratory effort Auscultation: clear to auscultation bilaterally, no crackles and no wheezes Cardio Palpation: normal PMI Rate: regular rate Rhythm: regular rhythm Heart sounds: no gallops and no murmurs Peripheral pulses: Peripheral pulses 2+ throughout GI Palpation (GI): Soft to palpation, nontender, No hepatosplenomegaly present and no masses Auscultation: normal bowel sounds Back/Spine/Pelvis Thoracic/Lumbar Spine: thoracic and lumbar spine normal to inspection Skin General skin exam: no rashes or lesions noted Neuro General: patient oriented x3 and no focal motor deficits Cranial nerves: Yes CN's II-XII intact bilaterally Extrem General: Yes normal to inspection, Yes no clubbing, cyanosis or edema and Yes no calf tenderness Psych Appearance: grossly normal and well kempt Speech and movement: Normal speech and movement present Results Reviewed Results Reviewed: Compliance report is reviewed and she has used 30/30 nights., 100% average use it per night, 6 hours 53 minutes which is much improved Pressure used mostly 8-14 cm. No air leak noted. Residual AHI 2.1 Assessment & Plan Assessment & Plan (1) Obesity (BMI 30-39.9): Comment: Patient is grossly obese BMI 39.3 She has not lost much weight. Code(s): E66.9 - Obesity, unspecified Category: Medical Plan: Again talked to her about the weight reduction, By restricting calories intake and by increasing the amount of daily exercise/activity. (2) KATIE (obstructive sleep apnea): Comment: Sleep study positive for moderately severe obstructive sleep apnea with total sleep time AHI 20.6. Patient is using the CPAP very regularly and is benefiting. Sleep quality much improved. She remains well motivated to use the CPAP. Has minor issues related to humidification, and mucus in her throat. Code(s): G47.33 - Obstructive sleep apnea (adult) (pediatric) Category: Medical Plan: Commended for good compliance and advised to continue using the CPAP. Discussed about the optimal level of humidification. Discussed about need to lose about 5-10 lb of weight. Plan * patient would be traveling to [place] in [place], where she has her house , just for 1 week vacation. Note is given to her to carry the CPAP with her when she goes. Coding Level of Care Code Est Pt Level 3 (95393) Diagnoses Obesity (BMI 30-39.9) E66.9 KATIE (obstructive sleep apnea) G47.33
--- OUTSIDE RECORDS SUMMARY | 2024-12-14 17:31 | XMS_ITS | Patient Health Record ---
Author Organization Filemon Steward III, MD Address [address] [place] [address] Care Team Providers Care Rn Documentation Specialist Name Role Phone Filemon Steward Primary Care Provider Allergies Allergen (clinical drug ingredient) Drug/Non Drug Allergy documented on EMR Reaction Allergy Type Onset Date Status nitrofurantoin, macrocrystals / nitrofurantoin, monohydrate Macrobid Unknown Drug Allergy Active codeine Codeine Sulfate Unknown Drug Allergy A ctive Results Component Value Reference Range Notes Complete Blood Count Auto Di ff Reviewed date:01/27/2024 09:14:00 AM Interpretation: Performing Lab:[facility], [address] [place] [phone] Notes/Report: White Blood Count 3.9 4.8-10.8 X10*3/uL [...] NRBC Abs Auto 0.000 0.0-0.012 X10*3/uL Comprehensive Darby. Panel Fa st Reviewed date:01/27/2024 09:14:00 AM Interpretation: Performing Lab:[facility], [address] [place] [phone] Notes/Report: Sodium 144 135-145 mmol/L Potassium 4.3 3.3-5.1 mmol/L Chloride 108 96-108 mmol/L Carbon Dioxide 27 22-29 mmol/L Anion Gap 13 12-20 Blood Urea Nitrogen 10 9-16 mg/dL Creatinine 0.77 0.5-1.4 mg/dL Estimated Glomerular Filt Rate > 60 NOTE: For -Maltese individuals, multiply the result by 1.210. Chronic [...] Panel Reviewed date:01/27/2024 09:14:01 AM Interpretation: Performing Lab:[facility], [address] [place] [phone] Notes/Report: Triglycerides 87 <150 mg/dL Desirable Triglyceride: [...] ff Reviewed date:04/20/2024 10:37:37 AM Interpretation: Performing Lab:[facility], [address] [place] [phone] Notes/Report: White Blood Count 3.8 4.8-10.8 X10*3/uL [...] NRBC Abs Auto 0.000 0.0-0.012 X10*3/uL Comprehensive Darby. Panel Fa st Reviewed date:04/20/2024 10:37:37 AM Interpretation: Performing Lab:[facility], [address] [place] [phone] Notes/Report: Sodium 142 135-145 mmol/L Potassium 4.4 3.3-5.1 mmol/L Chloride 109 96-108 mmol/L Carbon Dioxide 26 22-29 mmol/L Anion Gap 11 12-20 Blood Urea Nitrogen 12 9-16 mg/dL Creatinine 0.76 0.5-1.4 mg/dL Estimated Glomerular Filt Rate > 60 NOTE: For -Maltese individuals, multiply the result by 1.210. Chronic [...] Panel Reviewed date:04/20/2024 10:37:37 AM Interpretation: Performing Lab:[facility], [address] [place] [phone] Notes/Report: Triglycerides 75 <150 mg/dL Desirable Triglyceride: [...] date:08/28/2024 07:54:30 AM Interpretation: Performing Lab: Notes/Report: [address] [place] [address] Mammography Report Signed Patient: Tsering Moreno MR#: [id number] 2 : 1960 Acct:[id number] Age/Sex: 64 / F ADM Date: 08/05/24 Loc: HO.MAMMO Attending Dr: Filemon Steward MD Ordering Physician: Filemon Steward MD Results: 1Negativ e Date of Service: 08/05/24 Follow Up: 1 Year From [facility] Mammogram Procedure(s): MM tomosynthesis screening BI Accession Number(s): [id number] cc: Filemon Steward MD EXAMINATION: MM SCREENING [...] Nila Jang DO 08/17/2024 11:08 AM EDT Dictated By: Nila Jang DO Signed By: <Electronically signed by Nila Jang DO in OV> 08/17/24 1108 DD/ 0947 TD/TT: 08/05/24 1001 [employer]: [facility] [address] [place] [address] Dr. Christensen, [place] [address] Mammography Report Signed Patient: Augustine Moreno MR#: [id number] 2 : 1960 Acct:[id number] Age/Sex: 64 / F ADM Date: 08/05/24 Loc: HO.MAMMO Attending Dr: Filemon Steward MD Ordering Physician: Filemon Steward MD Results: 1Negativ e Date of Service: 08/05/24 Follow Up: 1 Year From Orig ina Mammogram Procedure(s): MM tomosynthesis screening BI Accession Number(s): [id number] cc: Filemon Steward MD EXAMINATION: MM SCREENING [...] 08/17/24 1108 DD/ 0947 TD/TT: 08/05/24 1001 [employer]: Complete Blood Count Auto Di ff Reviewed date:11/25/2024 08:40:28 PM Interpretation: Performing Lab:[facility], [address] [place] [phone] Notes/Report: White Blood Count 3.1 4.8-10.8 X10*3/uL Red Blood Count 4.36 4.20-5.50 X10*6/uL Hemoglobin 14.1 12.0-16.0 g/dl Hematocrit 41.7 37.0-47.0 % Mean Corpuscular Volume 95.6 80.0-98.0 fL Mean Corpuscular Hemoglobin 32.3 27.0-33.0 pg Mean Corpuscular HGB Conc 33.8 31.0-35.0 g/dl Red Cell Distribution Width 13.6 11.0-16.0 % Platelet Count 161 160-400 X10*3/uL Mean Platelet Volume 10.8 9.4-12.3 fL Neutrophils Percent Auto 42.5 45-73 % Imm Gran Pct Auto 0.3 0.0-0.4 % Lymphocytes Percent Auto 39.3 20-40 % Monocytes Percent Auto 12.0 2-11 % Eosinophils Percent Auto 4.9 0-4 % Basophils Percent Auto 1.0 0-2 % NRBC Pct Auto 0.0 0.0-0.2 /100WBC Neutrophils Absolute Auto 1.3 2.0-8.3 x10*3/u L Imm Gran Abs Auto 0.01 0.00-0.03 X10*3/uL Lymphocytes Absolute Auto 1.2 1.2-4.9 X10*3/u L Monocytes Absolute Auto 0.4 0.1-1.2 X10*3/uL Eosinophils Absolute Auto 0.2 0.0-0.4 X10*3/u L Basophils Absolute Auto 0.0 0.0-0.2 X10*3/uL NRBC Abs Auto 0.000 0.0-0.012 X10*3/uL Comprehensive Darby. Panel Fa Reviewed date:11/25/2024 08:40:28 PM Interpretation: Performing Lab:[facility], [address] [place] [phone] Notes/Report: Sodium 143 135-145 mmol/L Potassium 4.5 3.3-5.1 mmol/L Chloride 107 96-108 mmol/L Carbon Dioxide 29 22-29 mmol/L Anion Gap 12 12-20 Blood Urea Nitrogen 10 9-16 mg/dL Creatinine 0.75 0.5-1.4 mg/dL Estimated Glomerular Filt Rate > 60 Chronic Kidney Disease: Estimated GFR < 60 mL/min/1.73m2 Severe Kidney Disease: Estimated GFR < 15 mL/min/1.73m2 Glucose Fasting 103 60-99 mg/dL A fasting glucose from 100-125 mg/dl is considered impaired (pre-diabetes). Calcium 9.0 8.4-10.2 mg/dL Bilirubin Total 0.4 0.0-1.0 mg/dL Aspartate Amino Transferase 29 5-31 U/L Alanine Aminotransferase 34 0-31 U/L Total Protein 7.0 6.5-8.0 g/dL Albumin Level 4.3 3.5-5.0 g/dL Alkaline Phosphatase 68 39-117 U/L Lipid Panel Reviewed date:11/25/2024 08:40:28 PM Interpretation: Performing Lab:[facility], [address] [place] [phone] Notes/Report: Triglycerides 80 <150 mg/dL Desirable Triglyceride: less than 150 mg/dL Borderline High Triglyceride 150-199 mg/dL High Triglyceride: 200-499 mg/dL Very High Triglyceride: greater than or equal to 5OO mg/dL Cholesterol 229 <200 mg/dL Desirable Cholesterol: less than 200 mg/dL Borderline High Cholesterol: 200-239 mg/dL High Cholesterol: greater than 239 mg/dL LDL Cholesterol Calculated 124 <100 mg/dL Desirable LDL: less than 100 mg/dL Near Optimal/Above Optimal LDL: 110-129 mg/dL Borderline High LDL: 130-159 mg/dL High LDL: 160-189 mg/dL Very High LDL: greater than or equal to 190 mg/dL HDL Cholesterol 89 >40 mg/dL Desirable HDL: greater than 40 mg/dL Note: This HDL assay may give artificially low results in patients with liver disease. Free T4 (Free Thyroxine) Reviewed date:11/25/2024 08:40:28 PM Interpretation: Performing Lab:[facility], [address] [place] [phone] Notes/Report: Free T4 (Free Thyroxine) 0.90 0.71-1.85 ng/dL Thyroid Stimulating Hormone Reviewed date:11/25/2024 08:40:28 PM Interpretation: Performing Lab:[facility], [address] [place] [phone] Notes/Report: Thyroid Stimulating Hormone 0.81 0.32-4.0 uIU/mL TSH 3rd Generation ([facility]) Phenytoin Dilantin Reviewed date:11/25/2024 08:40:28 PM Interpretation: Performing Lab:[address] [phone] Notes/Report: Phenytoin Dilantin 21.2 10.0-20.0 ug/mL Valproate Reviewed date:11/25/2024 08:40:28 PM Interpretation: Performing Lab:[facility], [address] [place] [phone] Notes/Report: Valproate 49.0 50.0-100.0 mcg/mL Reason For Referral Reason Consult and Treatmen [...] Date End Date Status Dilantin 100 MG 3 capsule on odd day s and take 4 caps on even days Orally once a day Active Methenamine Hippurate 1 GM 1 tablet Oral ly Twice a day Active Levothyroxine Sodium 100 MCG TAKE 1 TABLET BY MOUTH DAILY Active Omeprazole 20 MG 2 capsule Orally Onc e a day As needed Active Depakote 500 MG Orally Acti ve Atorvastatin Calcium 20 MG 1 tablet Oral ly Once a day 01/27/2024 Active Atorvastatin Calcium 20 MG 1 tablet Oral ly Once a day 11/23/2024 Active Immunizations Vaccine Route Administration Date Status [...] nonsmoker Additional Findings: Tobacco Non-User Aggressive non-smoker Alcohol Screen Question Answer Notes Did you have a drink containing alcohol in the p ast year? No Points 0 Interpretation Negative Problems Problem Type SNOMED Code ICD Code Onset Dates Problem Status W/U Status Risk Notes Problem Sleep apnea (76704100) Sleep apnea, unspecified (G47.30) Active confirmed He has been snoring and having episodes of apnea and bradycardia. Sleep study will be done to see if this entity is present. Problem 270896292 GERD without esophagitis (K21.9) Active confirmed Occasional heartburn is well-controlled with her current regimen and no changes necessary. Problem 824127961 Obesity (BMI 30-39.9) (E66.9) Active confirmed She has gained 7 pounds since her last visit. We have reviewed her diet and nutrition. We made a plan to lose weight at a rate of one half of a pound per week through a diet restricted in calories fat and sodium combined with regular physical activity. Problem 71592691 Leukopenia, unspecified type (D72.819) Active confirmed A CBC is pend ing to evaluate the white blood cell count. She has had no recent infections or bleeding. Problem 061036022 History of endometrial cancer (Z85.42) Active confirmed There is no sign of recurrent endometrial cancer today. Problem 449670278 Pure hypercholestero lemia (E78.00) Active confirmed Her total cholesterol has dropped from 270-235. On her last visit the atrial lovastatin was increased from 10 mg daily to 20 mg daily. Will continue her efforts at weight loss. If necessary Z atorvastatin will be increased to 40 mg. Problem Essential hypertension (35491708) Hypertension, unspecified type (I10) Active confirmed Her blood pressure is currently acceptable. She is going to try to lose weight and restrict sodium. Problem Hypothyroidism (15132708) Hypothyroidism, unspecified type (E03.9) Active confirmed She has been compliant with her medications. She is euthyroid at this time. Current medication was continued. Her recent thyroid function test2 are in the normal ranges. No change in dosages is required. Problem 9660634007344025 Arthritis of left knee (M17.12) Active confirmed She will continue on her current regimen without change. There is no contraindication to ibuprofen or naproxen. Problem 61662247142442994 Bilateral carpal tunnel syndrome (G56.03) Active confirmed This discomfort has resolved and she will be observed at this time. Problem 36121913 Nonintractable generalized idiopathic epilepsy without status epilepticus [...] Date Provider Diagnosis Filemon Steward III, MD [address] [place] [address] [place] [address] 01/27/2024 Filemon Steward Hypothyroidism, unsp ecified type E03.9 ; Hypertension, unspecified type I10 ; Pure hypercholesterolemia E78.00 ; Leukopenia, unspecified type D72.819 ; Nonintractable generalized idiopathic epilepsy without status epilepticus G40.309 ; Bilateral carpal tunnel syndrome G56.03 ; Arthritis of left knee M17.12 ; GERD without esophagitis K21.9 and History of endometrial cancer Z85.42 Filemon Steward III, MD [address] [place] [address] [place] [address] 04/20/2024 Filemon Steward Hypothyroidism, unsp ecified type E03.9 ; Sleep apnea, unspecified G47.30 ; Nonintractable generalized idiopathic epilepsy without status epilepticus G40.309 ; Hypertension, unspecified type I10 ; Arthritis of left knee M17.12 ; History of endometrial cancer Z85.42 ; GERD without esophagitis K21.9 and Pure hypercholesterolemia E78.00 Filemon Steward III, MD [address] [place] [address] [place] [address] 07/27/2024 Filemon Steward Hypothyroidism, unsp ecified type E03.9 ; Hypertension, unspecified type I10 ; Nonintractable generalized idiopathic epilepsy without status epilepticus G40.309 ; Leukopenia, unspecified type D72.819 ; Obesity (BMI 30-39.9) E66.9 and Sleep apnea, unspecified G47.30 Filemon Steward III, MD [address] [place] [address] [place] [address] 11/23/2024 Filemon Steward Assessments Encounter Date Diagnosis (ICD Code) Assessment Notes T reatment Notes Treatment Clinical Notes 01/27/2024 Hypertension, unspec ified type (ICD-10 - [...] ranges. No change in dosages is required. 01/27/2024 Pure hypercholestero lemia (ICD-10 - E78.00) [...] She has had no recent seizure activity. 01/27/2024 Leukopenia, unspecif ied type (ICD-10 - [...] has had no recent infections or bleeding. 01/27/2024 Nonintractable generalized idiopathic epilepsy without status [...] CBC w DIFF 07/01/2021 CBC w DIFF 10/31/2021 CBC w DIFF 03/09/2022 CBC w DIFF 07/06/2022 CBC w DIFF 10/25/2020 CBC w DIFF 10/14/2021 CBC w DIFF 03/16/2023 CBC w DIFF 07/27/2024 CBC w DIFF 09/26/2018 CBC w DIFF 09/14/2022 CBC w DIFF 07/03/2019 CBC w DIFF 12/14/2018 CBC w DIFF 03/26/2021 CBC w DIFF 12/06/2020 SED RATE (ESR) 10/14/2021 SED RATE (ESR) 09/26/2018 URINALYSIS (UA) 04/10/2021 URINALYSIS (UA) 06/14/2018 URINALYSIS (UA) 12/10/2022 URINE CULTURE 04/10/2021 URINE CULTURE 06/14/2018 URINE CULTURE 12/10/2022 MAMMOGRAM DIGITAL BILATERAL SCREEN 07/01 MAMMOGRAM DIGITAL BILATERAL SCREEN 05/23 MAMMOGRAM DIGITAL BILATERAL SCREEN 06/14 Echocardiogram 05/23/2019 Lipid Panel 03/09/2022 Lipid Panel 07/27/2024 Free T4 (Free Thyroxine) 07/27/2024 Phenytoin Dilantin 07/27/2024 Phenytoin Dilantin 03/09/2022 Next Appt Details Provider Name:Filemon Steward, 02/22/2025 09:45:00 AM, [address] [place] [address] [address] [place], [place], [address], Insurance Providers Payer Name Payer Address Payer Phone Subscriber Number Group Number Insured Name Patient Relationship to Insured Coverage Start Date Coverage End Date [facility] [address] [place] [address] [phone] [id number] TSERING MORENO Self - patient is the insured 2 [...] by CT scan Fe bruary 2016 hemorrhoids 2004 normal bone density right arm medial epicondylitis environmental allergies Surgical History Surgery Date(Month/Year) Colonoscopy [facility] 08/2022 colonoscopy, [facility], Dr. Filemon Shepherd, no findings 2016 colonoscopy, [facility], Dr. Filemon Shepherd, no findings 2008 FREDY/BSO Dr. Renae Gee, endometrial c ancer 2016 cholecystectomy 1985
--- OUTSIDE RECORDS SUMMARY | 2024-12-14 17:31 | XMS_ITS | Patient Health Record ---
Author Organization [facility] Address [address] [place] [address] Care Team Providers Care Business Intelligence Analyst Name Role Phone Filemon Steward MD Primary Care Provider UnavailArtur Moreira Unavailable [phone] Allergies Allergen (clinical drug ingredient) Drug/Non Drug [...] Treatment Pending Test Test Name Order Date 16811- Debride <25 sq cm 06/03/2021 12723 I&D ABSCESS- SIMPLE,SINGLE 021 Insurance Providers Payer Name Payer Address Payer Phone Subscriber Number Group Number Insured Name Patient Relationship to Insured Coverage Start Date Coverage End Date [facility] [address] [address] [place] [address] [id number] Nikolay Moreno Spouse - patient is the spouse of the insured Medical (General) History Medical History History ICD Code Back,Hip,and Knee pain Broken bones Cancer Epilepsy Gall bladder problems High blood pressure thyroid Measles Mumps Chicken pox Surgical History Surgery Date(Month/Year) gall bladder 12/1984 hysterectomy 03/2016
--- OUTSIDE RECORDS SUMMARY | 2024-12-14 17:31 | XMS_ITS ---
Author Organization Filemon Steward III, MD Address [address] [place] [address] [address] [facility] [facility] [place] [address] Care Team Providers Care Mysql Dba Name Role Phone Filemon Steward Primary Care Provider [phone] Medications Medication SIG (Take, Route, Frequency, Duration) Notes Start Date End Date Status Atorvastatin Calcium 20 MG 1 tablet Oral ly Once a day for 90 days 11/23/2024 Active Social History Sex Assigned At : Social History Observation Description Sex Assigned At Female Encounters Encounter Location Date Provider Diagnosis Filemon Steward III, MD [address] [place] [address] [place] [address] 11/23/2024 Filemon Steward Plan Of Treatment Medication Medication Name Sig Start Date Stop Date Notes Atorvastatin Calcium 20 MG 1 tablet Oral ly Once a day for 90 days 11/23/2024 Next Appt Details Provider Name:Filemon Steward, 02/22/2025 09:45:00 AM, [address] [place] [address] [place], [address], Progress Notes * TSERING MORENO FDOB:[birth year] (64 yo F)Acc No.[id number]:11/23/2024 Patient:?TSERING MORENO :1960???Age:64 Y???Sex:Female Address:[address] [place], [place] [address], * Refills? Start Atorvastatin Calcium Tablet, 20 MG, Orally, 90 Tablet, 1 tablet, Once a day, 90 days, Refills=3 * true * Date:? Generated for Kamron simms/Joseph/Elmo on:?12/14/2024 05:31 PM EST
--- OUTSIDE RECORDS SUMMARY | 2024-12-14 17:31 | XMS_ITS ---
Author Organization Filemon Steward III, MD Address [address] [place] [address] Care Team Providers Care Tile Setter Apprentice Name Role Phone Filemon Steward Primary Care Provider Allergies Allergen (clinical drug ingredient) Drug/Non Drug Allergy documented on EMR Reaction Allergy Type Onset Date Status Macrobid Unknown Drug Allergy Active Codeine Sulfate Unknown Drug Allergy A ctive [...] Date Provider Diagnosis Filemon Steward III, MD [address] [place] [address] DR [place], [place] [address] 07/27/2024 Filemon Steward Hypothyroidism, unspecified type E03.9 [...] annual exam review labs Provider Name:Filemon Steward, 02/22/2025 09:45:00 AM, [address] [place] [address] , [facility] Darci, [place], [address], Progress Notes * SHELBY MORENOECCA FDOB:[birth year] (64 yo F)Acc No.[id number]:07/27/2024 Progress Notes Patient:?TSERING MORENO Provider:?Filemon Steward MD :1960???Age:64 Y???Sex:Female D ate:07/27/2024 Address:[address] [place] [address] [id number] Subjective: * Chief Complaints: * ???Nocturnal bradycardiaLeuk openiaHypothyroidHypertensionEpilepsyArthritis left kneeGERDHyperlipidemiaHistory of endometrial cancerObesity * HPI: ???COVID-19 Screening:? She returns for medical management. She is seeing a oil program compliance specialist for the sleep apnea and will [...] 1985TAH/BSO Dr. Renae Gee, endometrial cancer 2016colonoscopy, [facility], Dr. Filemon Shepherd, no findings 2008colonoscopy, [facility], Dr. Filemon Shepherd, no findings 2017Colonoscopy [facility] 08/2022 * Hospitalization/Major Diagno stic Procedure:?Denies Past [...] cats . She works at a local [employer], which she finds stressful. She has no [...] * Provider:?Filemon Steward MD Date:?07/16 Generated for Printi ng/Joseph/eTransmitting on:?12/14/2024 05:31 PM EST History and Physical Notes * HPI (History of Present Illness) Category Sub-Category Detail Notes COVID-19 Screening Questions Have you had any new onset fever, chills, cough, congestion, sore throat, shortness of breath, muscle aches?: No Have you been exposed to the virus withi n the last 10 days?: No Have you travelled internationally in [facility] last 10 days?: No Have you been [...]
--- OUTSIDE RECORDS SUMMARY | 2024-12-14 17:31 | XMS_ITS ---
Author Organization Filemon Steward III, MD Address [address] [place] [address] Care Team Providers Care Application Systems Engineer Name Role Phone Filemon Steward Primary Care Provider [phone] Allergies Allergen (clinical drug ingredient) Drug/Non Drug Allergy documented on EMR Reaction Allergy Type Onset Date Status nitrofurantoin, macrocrystals / nitrofurantoin, monohydrate Macrobid Unknown Drug Allergy Active codeine Codeine Sulfate Unknown Drug Allergy A ctive REASON FOR VISIT annual exam Medications Medication SIG (Take, Route, Frequency, Duration) [...] Oral ly Once a day 11/23/2024 Active Social History Tobacco Use: Social History Observation Description Date Details (start date - stop date) Never Smoker NA - NA Sex Assigned At : Social History Observation Description Sex Assigned At Female Tobacco Use/Smoking Question Answer Notes Patient is a nonsmoker Additional Findings: Tobacco Non-User Aggressive non-smoker Encounters Encounter Location Date Provider Diagnosis Filemon Steward III, MD [address] [place] [address] [place] [address] 11/27/2024 Filemon Steward Hypothyroidism, unspecified type E03.9 Assessments Encounter Date Diagnosis (ICD Code) Assessment Notes Treat ment Notes Treatment Clinical Notes 11/27/2024 Hypothyroidism, unspecified type (ICD-10 - E03.9) Plan Of Treatment Medication Medication Name Sig Start Date Stop Date Notes Dilantin 100 MG 3 capsule on odd day s and take 4 caps on even days Orally once a day Methenamine Hippurate 1 GM 1 tablet Oral ly Twice a day Levothyroxine Sodium 100 MCG TAKE 1 TABL ET BY MOUTH DAILY Omeprazole 20 MG 2 capsule Orally Onc e a day As needed Depakote 500 MG Orally Atorvastatin Calcium 20 MG 1 tablet Oral ly Once a day 11/23/2024 Next Appt Details Provider Name:Filemon Steward, 02/22/2025 09:45:00 AM, [address] [place] [address] , [facility] [place], [place], [address], Progress Notes * TSERING MORENO FDOB:[birth year] (64 yo F)Acc No.[id number]:11/27/2024 Progress Notes Patient:?MARIEL MORENOCA Brian Provider:?Filemon Steward MD :1960???Age:64 Y???Sex:Female D ate:11/27/2024 Address:[address] [place] [address] [id number] Subjective: * Chief Complaints: * ???1. Annual exam. * HPI: ???COVID-19 Screening:?Questions?Have you had any new onset fever, chills, cough, congestion, sore throat, shortness of breath, muscle aches??No * ROS:?General/Constitutional:?pain?only normal aches and pains.?Chills?denies.?Fatigue?admits.?Fever?denies.?ENT:?Decreased hearing?denies.?Respiratory:?Cough?denies.?Cardiovascular:?Chest pain with exertion?denies.?Dyspnea on exertion?denies.?Shortness of breath?denies.?Gastrointestinal:?Constipation?denies.?Decreased appetite?denies.?Diarrhea?denies.?Heartburn?denies.?Nausea?denies.?Rectal bleeding?denies.?Vomiting?denies.?Hematology:?bruising?denies.?petechiae?denies.?Swollen glands?none have been noted.?Genitourinary:?Frequent urination?denies.?Musculoskeletal:?Muscle aches?denies.?Painful joints?denies.?Sciatica?denies.?Weakness?denies.?Skin:?Itching?denies.?Rash?denies.?Skin lesion(s)?denies.?Neurologic:?Difficulty speaking?denies.?Dizziness?denies.?Headache?denies.?Low back pain?denies.?Psychiatric:?Depressed mood?denies.? * Medical History:?Bilateral c arpal tunnel syndrome, Hypothyroidism, unspecified type, Hypertension, unspecified type, Obesity, unspecified, seizure disorder, Dr. Andrade, Arthritis left knee, history of TMJ syndrome, Cholecystitis, 1984, endometrial cancer. 2016 treated surgically in remission, [facility]/BSO, Dr. Huy Arroyo M.D., GERD, compression fracture at L1 by CT scan December 2015, Hemorrhoids, 2005 normal bone density, Right arm medial epicondylitis, Environmental allergies. * Surgical History:?cholecyste ctomy 1984, [facility]/BSO Dr. Renae Gee, endometrial cancer 2015, colonoscopy, [facility], Dr. Filemon Shepherd, no findings 2008, colonoscopy, [facility], Dr. Filemon Shepherd, no findings 2016, Colonoscopy [facility] 08/2022. * Hospitalization/Major Diagno stic Procedure:?Denies Past Hospitalization. * Family History:?Father: dece ased, Hypertension, diabetes, chronic kidney disease, prostate cancer, diagnosed with Cancer, HTN, DM.?Mother: , Hypertension, diabetes mellitus, colon cancer, endometrial cancer, diagnosed with Cancer, HTN, DM.?Paternal Grand Mother: , diagnosed with Cancer.?Maternal uncle: [...] 2 cats . She works at a [employer], which she finds stressful. She has no children. * Medications:?Taking Levothyr oxine Sodium 100 MCG Tablet TAKE 1 TABLET BY MOUTH DAILY , Taking Omeprazole 20 MG Capsule Delayed Release 2 capsule Orally Once a day , Notes to Pharmacist: As needed, Taking Depakote 500 MG Tablet Delayed Release Orally , Taking Dilantin 100 MG Capsule 3 capsule on odd days and take 4 caps on even days Orally once a day , Taking Methenamine Hippurate 1 GM Tablet 1 tablet Orally Twice a day , Taking Atorvastatin Calcium 20 MG Tablet 1 tablet Orally Once a day , Discontinued Atorvastatin Calcium 20 MG Tablet 1 tablet Orally Once a day , Discontinued Atorvastatin Calcium 20 MG Tablet TAKE 1 TABLET BY MOUTH ONCE DAILY , Medication List reviewed and reconciled with the patient * Allergies:?Codeine Sulfate, Macrobid. Objective: * Vitals:? * Examination: ???General Examination: ?GENERAL APPEARANCE:?pleasant, well nourished, well developed, in no acute distress, calm and relaxed.?HEAD:?atraumatic, normocephalic.?EYES:?eomi, perrla, anicteric, conjugate.?EARS:?normal.?NOSE:?septum intact.?ORAL CAVITY:?normal, unremarkable.?NECK/THYROID:?no jugular venous distention, no carotid bruit, thyroid normal.?LYMPH NODES:?no enlarged lymph nodes,spleen normal.?SKIN:?no suspicious lesions, anicteric.?HEART:?no clicks, gallops, murmurs, or rubs, regular rhythm, S1, S2 normal, no s3, or vascular bruits.?LUNGS:?clear to auscultation .?BREASTS:??no masses palpable bilaterally.?ABDOMEN:?bowel sounds normal, no ascites, no organomegaly, no mass.?RECTAL EXAM:?not examined.?MUSCULOSKELETAL:?extremities unremarkable, no clubbing, cyanosis or edema.?PERIPHERAL PULSES:?normal.?NEUROLOGIC:?alert and oriented, cranial nerves 2-12 grossly intact, deep tendon reflexes 2+ symmetrical, motor strength normal upper and lower extremities, sensory exam intact.?PSYCH:?alert, oriented.? Assessment: * Assessment: 1.?Hypothyroidism, unspecifi ed type - E03.9??? Plan: * Treatment: 2.?Others? Continue Atorvastatin Calcium Tablet, 20 MG, 1 tablet, Orally, Once a day;?Continue Levothyroxine Sodium Tablet, 100 MCG, TAKE 1 TABLET BY MOUTH DAILY.?? * Images: * The named appointment provid er may or may not be the originator of this progress note, and it is not deemed complete until electronically signed by the appointment provider. Sign off status: Pending * Provider:?Filemon Steward MD Date:?11/15 Generated for Kamron simms/Joseph/eTransmitting on:?12/14/2024 05:31 PM EST History and Physical Notes * HPI (History of Present Illness) Category Sub-Category Detail Notes COVID-19 Screening Questions Have you had any new onset fever, chills, cough, congestion, sore throat, shortness of breath, muscle aches?: No Examination Category Sub-Category Detail Notes General Examination GENERAL APPEARANCE: pleasant , well nourished, well developed, in no acute distress, calm and relaxed HEAD: atraumatic, normocep halic EYES: eomi, perrla, anicte gerard, conjugate EARS: normal NOSE: septum intact NECK/THYROID: no jugular venous di stention, no carotid bruit, thyroid normal HEART: no clicks, gallops, murmurs, or rubs, regular rhythm, S1, S2 normal, no s3, or vascular bruits LUNGS: clear to auscultatio n ABDOMEN: bowel sounds normal, no ascites, no organomegaly, no mass NEUROLOGIC: alert and oriented, cranial nerves 2-12 grossly intact, deep tendon reflexes 2+ symmetrical, motor strength normal upper and lower extremities, sensory exam intact SKIN: no suspicious lesion s, anicteric PERIPHERAL PULSES: normal BREASTS: no masses palpable b ilaterally MUSCULOSKELETAL: extremities unremark able, no clubbing, cyanosis or edema LYMPH NODES: no enlarged lymph no erlinda,spleen normal RECTAL EXAM: not examined PSYCH: alert, oriented ORAL CAVITY: normal, unremarkable
--- OUTSIDE RECORDS SUMMARY | 2024-12-14 17:32 | XMS_ITS | Patient Health Record ---
Author Organization [facility] Address [address] [place] [address] Care Team Providers Care Foil Spinner Name Role Phone Filemon Steward MD Primary Care Provider Unavailab Filemon Cruz Unavailable [phone] ALLERGIES Allergen (clinical drug ingredient) Drug/Non Drug [...] malignant neoplasm of colon (Z12.11) Active confirmed 910936721 Problem Encounter for screening for malignant neoplasm of rectum (Z12.12) Active confirmed Screening fo r malignant neoplasm of rectum (952491677) Problem Family history of colon cancer (Z80.0) Active confirmed 280403919 Problem Preprocedural examination (Z01.818) Active confirmed 86929545 Problem Colon cancer screening (Z12.11) Active confirmed Colon cancer screening (399943982) Problem Diverticulosis of sigmoid colon (K57.30) Active confirmed Diverticulosis of sigmoid colon (997215587) PLAN OF TREATMENT Pending Test Test Name Order Date Pathology 09/11/2022 Future Test Test Name Order Date COLONOSCOPY 11/17/2016 COLONOSCOPY 07/15/2022 Insurance Providers Payer Name Payer Address Payer Phone Subscriber Number Group Number Insured Name Patient Relationship to Insured Coverage Start Date Coverage End Date [facility] [id number] [place] [address] [id number] TSERING MORENO Self - patient is the insured MEDICAL (GENERAL) HISTORY Medical History History ICD Code 7-14-2008 colonoscopy--no polyps, small internal hemorrhoids Denies MS,DM,CVA,Lung disease,renal dise ase Hypothyroidism Seizure disorder Endometrial carcinoma stage one-hysterec mike as below--2015 Negative colonoscopy in 03/2017 Surgical History Surgery Date(Month/Year) Cholecystectomy [facility] 03/2016
== END 2024-12-14 14:10 | disposition home or self-care (01) ==
PROVIDERS: PCP Internal Medicine Medical Oncology; Visit Provider Internal Medicine
DX: E66.9 Obesity, unspecified (principal); G47.33 Obstructive sleep apnea (adult) (pediatric)
CPT/HCPCS: 99213

== ENCOUNTER 2025-03-29 13:46 | Outpatient (REF) | payer OTHER, SELFPAY ==
--- NOTE | ~2025-03-29 | MM_ITS ---
EXAMINATION: DXA BONE DENSITY AXIAL HISTORY: Z78.0 MENOPAUSAL STATE TECHNIQUE: [email or web address] Dual energy absorptiometry (DEXA) of the lumbar spine, total left hip, and femoral neck was performed. COMPARISON: Comparison is made with the prior examination dated 01/03/2019. FINDINGS: The bone mineral density of the lumbar spine is 0.824 with a T-score of -3.1, and a Z-score of -2.8. This is indicative of osteoporosis. This represents a BMD change of -11.0% compared to the prior exam. This is statistically significant. The bone mineral density of the left total hip is 0.755 with a T-score of -2.0, and a Z-score of -1.7. This is indicative of osteopenia. This represents a BMD change of -3.1% compared to the prior exam. This is not statistically significant. The bone mineral density of the left femoral neck is 0.753 with a T-score of -2.0, and a Z-score of -1.4. This is indicative of osteopenia. This represents a BMD change of 5.2% compared to the prior exam. MM/XR DEXA axial skeleton IMPRESSION: Based on bone mineral density, and according to World Health Organization (WHO) criteria, the diagnosis is consistent with osteoporosis. All bone density values are in grams per centimeter squared (g/cm2). Statistically, 68% of repeat scans fall within 1 SD (+/- 0.010 g/cm2 for AP spine L1-L4) and 1 SD (+/- 0.012 g/cm2 for femur total) [employer] is a trademark of the [employer]'s [place] [facility] Met[employer] Disease, a World Health Organization (WHO) Collaborating Center. Electronically signed by: Filemon Heller MD 03/29/2025 02:25 PM EDT
--- OUTSIDE RECORDS SUMMARY | 2025-03-29 14:26 | XMS_ITS | Patient Health Record ---
Author Organization [facility] Address [address] [place] [address] Care Team Providers Care Operations Lieutenant Name Role Phone Filemon Steward MD Primary Care Provider Unavailab Filemon Cruz Unavailable [phone] Allergies Allergen (clinical drug ingredient) Drug/Non Drug Allergy documented on EMR Reaction Allergy Type Onset Date Status Codeine Phosphate Unknown Drug Allergy Active Reason For Referral No [...] upset from Depakote as needed-uses infrequently Active Immunizations Vaccine Route Administration Date Status Comme nts Influenza Unknown 10/07/2021 Administered Problems Problem Type SNOMED Code ICD Code Onset Dates Problem Status W/U Status Risk Notes Problem Colon cancer screening (076457511) Colon cancer screening (Z12.11) Active confirmed Problem 809919497 Encounter for screening for malignant neoplasm of colon (Z12.11) Active confirmed Problem Screening for malignant neoplasm of rectum (679973214) Encounter for screening for malignant neoplasm of rectum (Z12.12) Active confirmed Problem 14212815 Preprocedural examination (Z01.818) Active confirmed Problem 378648361 Family history o f colon cancer (Z80.0) Active confirmed Problem Diverticulosis of sigmoid colon (107363626) Diverticulosis of sigmoid colon (K57.30) Active confirmed Plan Of Treatment Pending Test Test Name Order Date Pathology 09/11/2022 Future Test Test Name Order Date COLONOSCOPY 11/17/2016 COLONOSCOPY 07/15/2022 Insurance Providers Payer Name Payer Address Payer Phone Subscriber Number Group Number Insured Name Patient Relationship to Insured Coverage Start Date Coverage End Date [facility] [address] [place] [address] [id number] TSERING MORENO Self - patient is the insured Medical (General) History Medical History History ICD Code 7-14-2008 colonoscopy--no polyps, small internal hemorrhoids Denies MS,DM,CVA,Lung disease,renal dise ase Hypothyroidism Seizure disorder Endometrial carcinoma stage one-hysterec mike as below--2015 Negative colonoscopy in 03/2017 Surgical History Surgery Date(Month/Year) Cholecystectomy FREDY 03/2016
--- OUTSIDE RECORDS SUMMARY | 2025-03-29 14:26 | XMS_ITS ---
Author Organization Filemon Steward III, MD Address [address] [place] [address] [place] [address] Care Team Providers Care Repairer Recreational Vehicle Name Role Phone Filemon Steward Primary Care Provider Medications Medication SIG (Take, Route, Frequency, Duration) Notes Start Date End Date Status Atorvastatin Calcium 20 MG 1 tablet Oral ly Once a day for 90 days 11/23/2024 Active Social History Sex Assigned At : Social History Observation Description Sex Assigned At Female Encounters Encounter Location Date Provider Diagnosis Filemon Steward III, MD [address] [place] [address] [place] [address] 11/23/2024 Filemon Steward Plan Of Treatment Medication Medication Name Sig Start Date Stop Date Notes Atorvastatin Calcium 20 MG 1 tablet Oral ly Once a day for 90 days 11/23/2024 Next Appt Details Provider Name:Filemon Steward, 05/24/2025 09:30:00 AM, [address] [place] [address] [place], [address], Provider Name:Filemon Steward, 02/28/2026 09:30:00 AM, [address] [place] [address] [place], [address], Progress Notes * TSERING MORENO FDOB:[birth year] (64 yo F)Acc No.[id number]:11/23/2024 Patient:?TSERING MORENO Brian :1960???Age:64 Y???Sex:Female Address:[address] [place] [address] [place], [address] * Refills? Start Atorvastatin Calcium Tablet, 20 MG, Orally, 90 Tablet, 1 tablet, Once a day, 90 days, Refills=3 * true * Date:? Generated for Kamron simms/Joseph/Elmo on:?03/29/2025 02:26 PM EDT
--- OUTSIDE RECORDS SUMMARY | 2025-03-29 14:26 | XMS_ITS ---
Author Organization Filemon Steward III, MD Address [address] [place] [place] [address] Care Team Providers Care Interlibrary Loan Specialist Name Role Phone Filemon Steward Primary [...] Date Provider Diagnosis Filemon Steward III, MD [address] [place] [address] [place] [address] 02/22/2025 Filemon Steward Hypothyroidism, unsp ecified type [...] 3 Months, Reason: OV Provider Name:Filemon Steward, 05/24/2025 09:30:00 AM, [address] [place] [address] [place], [place], [address], Provider Name:Filemon Steward, 02/28/2026 09:30:00 AM, [address] [place] [address] [place], [place], [address], Progress Notes * TSERING MORENO FDOB:[birth year] (64 yo F)Acc No.[id number]:02/22/2025 Progress Notes Patient:TSERING DURAN Provider:?Filemon Steward MD :1960???Age:64 Y???Sex:Female D ate:02/22/2025 Address:[address] [place] [address] [id number] Subjective: * Chief Complaints: * ???Annual exam * HPI: ???Depression Screening:?She returns to the office at the age of 64 for her annual physical examination.She had a mammogram last July, which was normal.? She had a colonoscopy in 2021 and has 1@5 year intervals.She has sleep apnea and uses CPAP every night but finds it difficult to use and that it wakes her up and gives her a dry mouth.? In recent years.? She has not had a senior outside sales representative for a bone density.? A bone study was ordered.? She does not think a senior outside sales representative as necessary she has had a hysterectomy.? Her Dilantin level was 21 which is slightly elevated.? He has been taking 400 mg tablets daily and we reduce this to 300 mg alternating every other day with 400.? She denies any chest pain or shortness of breath.? She is compliant with all of her medications. Her blood pressure was stable today.? She has had no further seizures.? She remains in remission from the endometrial cancer.? She has had no serious infections.? She is trying to lose weight and consume a healthy diet. ?PHQ-9?Little interest or pleasure in doing things?Not at all ?Feeling down, depressed, or hopeless?Not at all ?Trouble falling or staying asleep, or sleeping too much?Not at all ?Feeling tired or having little energy?Several days ?Poor appetite or overeating?Several days ?Feeling bad about yourself or that you are a failure, or have let yourself or your family down?Not at all ?Trouble concentrating on things, such as reading the newspaper or watching television?Not at all ?Moving or speaking so slowly that other people could have noticed; or the opposite, being so fidgety or restless that you have been moving around a lot more than usual?Not at all ?Thoughts that you would be better off or of hurting yourself in some way?Not at all ?Total Score?2 ?Interpretation?Minimal Depression ???COVID-19 Screening:?Questions?Have you had any new onset fever, chills, cough, congestion, sore throat, shortness of breath, muscle aches??No ???SDOH Questions:?SDOH Questions?In the past year have you been worried about losing your housing??No ?In the past year have you or any family members you live with been unable to get any of the following when it was really needed? Check all that apply:?None * ROS:?General/Constitutional:?pain?only normal aches and pains.?Chills?denies.?Fatigue?admits.?Fever?denies.?ENT:?Decreased hearing?denies.?Respiratory:?Cough?denies.?Cardiovascular:?Chest pain with exertion?denies.?Dyspnea on exertion?denies.?Shortness of breath?denies.?Gastrointestinal:?Constipation?occasional.?Decreased appetite?denies.?Diarrhea?denies.?Heartburn?occasional.?Nausea?denies.?Rectal bleeding?denies.?Vomiting?denies.?Hematology:?bruising?denies.?petechiae?denies.?Swollen glands?none have been noted.?Genitourinary:?Frequent urination?at night.?Musculoskeletal:?Muscle aches?denies.?Painful joints?Left knee.?Sciatica?denies.?Weakness?denies.?Skin:?Itching?denies.?Rash?denies.?Skin lesion(s)?denies.?Neurologic:?Difficulty speaking?denies.?Dizziness?denies.?Headache?denies.?Low back pain?denies.?Psychiatric:?Depressed mood?denies.? * Medical History:? * Surgical History:?cholecyste ctomy 1985TAH/BSO Dr. Renae Gee, endometrial cancer 2016colonoscopy, [facility], Dr. Filemon Shepherd, no findings 2008colonoscopy, [facility], Dr. Filemon Shepherd, no findings 2016Colonoscopy [facility] 08/2022 * Hospitalization/Major Diagno stic Procedure:?Denies Past [...] had colon cancer. * Social History:?Tobacco Use:?Tobacco Control (Standard)?Tobacco use:?Nonsmoker ?Additional Findings: Tobacco non-user?Aggressive nonsmoker ???Drugs/Alcohol:?Drugs?Have you used drugs other than those for medical reasons in the past 12 months??No ???Drug/Alcohol:?AUDIT-C (Standard)?Did you have a drink containing alcohol in the past year??No ?Points?0 ?Interpretation?Negative ???She lives at home with her , Nikolay, and 2 cats . She works at a [employer], which she finds stressful. She has no children. * Medications:?TakingAtorvasta tin Calcium 20 MG Tablet 1 tablet Orally [...] crobidno[Allergies Verified] Objective: * Vitals:?Ht: 67, Wt: 246, BMI :38.52, BP: 129/71, HR: 64, Temp: 97.2, Wt-k.58. Oh.? Your he. * ???Past Orders: Lab:Phenytoin Dilantin * Collection Date 11/24/2024 12/25/2022 09/10/2022 Collection Time 10:28 AM 09:25 AM 08:44 AM Order Date 11/24/2024 12/25/2022 09/10/2022 Phenytoin Dilantin 21.2?H (Ref Range: 10.0-20.0 ug/mL) 15.9 (Ref Range: 10.0-20.0 ug/mL) 13.3 (Ref Range: 10.0-20.0 ug/mL) * Lab:Complete Blood Count Aut o Diff * Collection Date 11/24/2024 04/17/2024 01/24/2024 Collection Time 10:28 AM 09:22 AM 08:47 AM Order Date 11/24/2024 04/17/2024 01/24/2024 White Blood Count 3.1?L (Ref Range: 4.8-10.8 X10*3/uL) 3.8?L (Ref Range: 4.8-10.8 X10*3/uL) 3.9?L (Ref Range: 4.8-10.8 X10*3/uL) Red Blood Count [...] (Ref Range: 9.4-12.3 fL) Neutrophils Percent Auto 42.5?L (Ref Range: 45-73 %) 41.5?L (Ref Range: 45-73 %) 39.4?L (Ref Range: 45-73 %) Imm Gran Pct Auto 0.3 (Ref Range: 0.0-0.4 %) 0.3 (Ref Range: 0.0-0.4 %) 0.3 (Ref Range: 0.0-0.4 %) Lymphocytes Percent Auto 39.3 (Ref Range: 20-40 %) 37.1 (Ref Range: 20-40 %) 43.6?H (Ref Range: 20-40 %) Monocytes Percent Auto 12.0?H (Ref Range: 2-11 %) 13.1?H (Ref Range: 2-11 %) 10.8 (Ref Range: 2-11 %) Eosinophils Percent Auto 4.9?H (Ref Range: 0-4 %) 7.2?H (Ref Range: 0-4 %) 4.9?H (Ref Range: 0-4 %) Basophils Percent Auto 1.0 (Ref Range: 0-2 %) 0.8 (Ref Range: 0-2 %) 1.0 (Ref Range: 0-2 %) NRBC Pct Auto 0.0 (Ref Range: 0.0-0.2 /100WBC) 0.0 (Ref Range: 0.0-0.2 /100WBC) 0.0 (Ref Range: 0.0-0.2 /100WBC) Neutrophils Absolute Auto 1.3?L (Ref Range: 2.0-8.3 x10*3/uL) 1.6?L (Ref Range: 2.0-8.3 x10*3/uL) 1.5?L (Ref Range: 2.0-8.3 x10*3/uL) Imm Gran Abs [...] Date & Time - 11/24/2024 10:28 AM)?ValueReference Range?[place]et97.0L50.0-100.0 - mcg/mL * Lab:[facility] [place]. Pane l Fast * Collection Date 11/24/2024 [...] 19 (Ref Range: 5-31 U/L) Alanine Aminotransferase 34?H (Ref Range: 0-31 U/L) 25 (Ref Range: [...] mmol/L) Chloride 107 (Ref Range: 96-108 mmol/L) 109?H (Ref Range: 96-108 mmol/L) 108 (Ref Range: 96-108 mmol/L) Carbon Dioxide 29 (Ref Range: 22-29 mmol/L) 26 (Ref Range: 22-29 mmol/L) 27 (Ref Range: 22-29 mmol/L) Anion Gap 12 (Ref Range: 12-20) 11?L (Ref Range: 12-20) 13 (Ref Range: 12-20) Blood Urea Nitrogen 10 (Ref Range: 9-16 mg/dL) 12 (Ref Range: 9-16 mg/dL) 10 (Ref Range: 9-16 mg/dL) Creatinine 0.75 (Ref Range: 0.5-1.4 mg/dL) 0.76 (Ref Range: 0.5-1.4 mg/dL) 0.77 (Ref Range: 0.5-1.4 mg/dL) Estimated Glomerular Filt Rate > 60 > 60 > 60 Glucose Fasting 103?H (Ref Range: 60-99 mg/dL) 110?H (Ref Range: 60-99 mg/dL) 110?H (Ref Range: 60-99 mg/dL) Calcium 9.0 (Ref Range: 8.4-10.2 mg/dL) 9.4 (Ref Range: 8.4-10.2 mg/dL) 9.3 (Ref Range: 8.4-10.2 mg/dL) * Lab:Lipid Panel * Collection Date 11/24/2024 04/17/2024 01/24/2024 Collection Time 10:28 AM 09:22 AM 08:47 AM Order Date 11/24/2024 04/17/2024 01/24/2024 Triglycerides 80 (Ref Range: <150 mg/dL) 75 (Ref Range: <150 mg/dL) 87 (Ref Range: <150 mg/dL) Cholesterol 229?H (Ref Range: <200 mg/dL) 206?H (Ref Range: <200 mg/dL) 235?H (Ref Range: <200 mg/dL) LDL Cholesterol Calculated 124?H (Ref Range: <100 mg/dL) 103?H (Ref Range: <100 mg/dL) 127?H (Ref Range: <100 mg/dL) HDL Cholesterol 89 [...] 1.03 (Ref Range: 0.32-4.0 uIU/mL) * Examination: ???General Examination: ?GENERAL APPEARANCE:?pleasant, well nourished, well developed, in no acute distress, calm and relaxed, obese, woman.?HEAD:?atraumatic, normocephalic.?EYES:?eomi, perrla, anicteric, conjugate.?EARS:?normal.?NOSE:?septum intact.?ORAL CAVITY:?normal, unremarkable.?NECK/THYROID:?no jugular venous distention, no carotid bruit, thyroid normal.?LYMPH NODES:?no enlarged lymph nodes,spleen normal.?SKIN:?no suspicious lesions, anicteric.?HEART:?no clicks, gallops, murmurs, or rubs, regular rhythm, S1, S2 normal, no s3, or vascular bruits.?LUNGS:?clear to auscultation .?BREASTS:?Not examined.?ABDOMEN:?bowel sounds normal, no ascites, no organomegaly, no mass, centripital obesity.?RECTAL EXAM:?not examined.?MUSCULOSKELETAL:?extremities unremarkable, no clubbing, cyanosis or edemaMild pain to range of motion left knee.?PERIPHERAL PULSES:?normal.?NEUROLOGIC:?alert and oriented, cranial nerves 2-12 grossly intact, deep tendon reflexes 2+ symmetrical, motor strength normal upper and lower extremities, sensory exam intact.?PSYCH:?alert, oriented, cognitive function intact.? 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 Her she needs to remove was 21.200 dose of 400 mg daily.? This was reduced to 300 mg every other day alternating with 400 mg.? A repeat level will be done in 8 weeks.???2.?Hypothyroidism, unspecified type - E03.9???Notes :Her thyroid function tests are normal and she is euthyroid.? No change in her regimen was made.???3.?Postmenopausal - Z78.0???Notes :She is currently asymptomatic.? A bone density test is pending.? She has undergone hysterectomy.???4.?Encounter for screening for osteoporosis - Z13.820???Notes :A bone density test was ordered today.???5.?Pure hypercholesterolemia - E78.00???Notes :Her cholesterol level is 229.? All are in 8 weeks.? No change in her regimen was made today.???6.?Bilateral carpal tunnel syndrome - G56.03???Notes :This discomfort has resolved and she will be observed at this time.???7.?Arthritis of left knee - M17.12???Notes :She will continue on her current regimen without change. There is no contraindication to ibuprofen or naproxen.???8.?History of endometrial cancer - Z85.42???Notes :There is no sign of recurrent endometrial cancer today.???9.?GERD without esophagitis - K21.9???Notes :Occasional heartburn is well-controlled with her current regimen and no changes necessary.???10.?Sleep apnea, unspecified - G47.30???Notes :She continues to use his CPAP although she finds it uncomfortable..??? Plan: * Treatment: 2.?Hypothyroidism, unspecifi ed type? Continue Omeprazole Capsule Delayed Release, 20 MG, 2 capsule, Orally, Once a day, Notes to Pharmacist: As needed;?Continue Depakote Tablet Delayed Release, 500 MG, Orally;?Continue Dilantin Capsule, 100 MG, 3 capsule on odd days and take 4 caps on even days, Orally, once a day;?Continue Methenamine Hippurate Tablet, 1 GM, 1 tablet, Orally, Twice a day;?Continue Atorvastatin Calcium Tablet, 20 MG, 1 tablet, Orally, Once a day.?LAB: PROFILE, RANDOM (COMPREHENSIVE METABOLIC) ?LAB: CBC w DIFF ?LAB: Phenytoin, Free/Unbound 3.?Postmenopausal?Imaging: BONE DENSITY DEXA 4.?Encounter for screening f or osteoporosis?Imaging: BONE DENSITY DEXA 5.?Others? Continue Atorvastatin Calcium Tablet, 20 MG, 1 tablet, Orally, Once a day;?Continue Levothyroxine Sodium Tablet, 100 MCG, TAKE 1 TABLET BY MOUTH DAILY.?? * Labs:? * ?Lab: URINE DIP STICK (C ollection Date & Time - 02/22/2025) ? Value Reference Range ?SG 1.020 1.005 - 1.025 * ?pH 5.0 5.0 - 9.0 * ?BELKIS 70 Negative - * ?NIT Negative Negative - * ?PRO 30 Negative - Trac e * ?GLU Negative Negative - * ?KET 5 Negative - * ?UBG 0.2 0.1 - 1.8 * ?MAYKEL Negative 0.2 - 1.3 * ?BLD ++ Negative - * ?Menstrating No * Procedure Codes:?47638 URINE -NO MICRO * Preventive Medicine:? ??Counseling:?Care goal follow-up plan:?Counseling [...] status: Completed true * Provider:?Filemon Steward MD Date:?02/13 Generated for Kamron simms/Joseph/eTransmitting on:?03/29/2025 02:26 PM EDT History and Physical Notes * HPI (History [...]
--- OUTSIDE RECORDS SUMMARY | 2025-03-29 14:26 | XMS_ITS | Patient Health Record ---
Author Organization [facility] Address [address] [place] [address] Care Team Providers Care Restoration Technician Name Role Phone Filemon Steward MD Primary Care Provider UnavailArtur Moreira Unavailable [phone] Allergies Allergen (clinical drug ingredient) Drug/Non Drug [...] Treatment Pending Test Test Name Order Date 61290- Debride <25 sq cm 06/03/2021 51037 I&D ABSCESS- SIMPLE,SINGLE 021 Insurance Providers Payer Name Payer Address Payer Phone Subscriber Number Group Number Insured Name Patient Relationship to Insured Coverage Start Date Coverage End Date [id number] [address] [address] [place] [address] [id number] Nikolay Moreno Spouse - patient is the spouse of the insured Medical (General) History Medical History History ICD Code Back,Hip,and Knee pain Broken bones Cancer Epilepsy Gall bladder problems High blood pressure thyroid Measles Mumps Chicken pox Surgical History Surgery Date(Month/Year) gall bladder 12/1984 hysterectomy 03/2016
--- OUTSIDE RECORDS SUMMARY | 2025-03-29 14:26 | XMS_ITS | Patient Health Record ---
Author Organization Filemon Steward III, MD Address [address] [place] [address] Care Team Providers Care Tank Tester Name Role Phone Filemon Steward Primary Care Provider [phone] Allergies Allergen (clinical drug ingredient) Drug/Non Drug [...] 1.3 BLD ++ Negative - Menstrating No Complete Blood Count Auto Di ff Reviewed date:04/20/2024 10:37:37 AM Interpretation: Performing Lab:[facility], [address] [place] [phone] Notes/Report: White Blood Count 3.8 4.8-10.8 X10*3/uL [...] NRBC Abs Auto 0.000 0.0-0.012 X10*3/uL Comprehensive [place]. Panel Fa st Reviewed date:04/20/2024 10:37:37 AM Interpretation: Performing Lab:[facility], [address] [place] [phone] Notes/Report: Sodium 142 135-145 mmol/L Potassium 4.4 3.3-5.1 mmol/L Chloride 109 96-108 mmol/L Carbon Dioxide 26 22-29 mmol/L Anion Gap 11 12-20 Blood Urea Nitrogen 12 9-16 mg/dL Creatinine 0.76 0.5-1.4 mg/dL Estimated Glomerular Filt Rate > 60 NOTE: For -[place] individuals, multiply the result by 1.210. Chronic [...] Panel Reviewed date:04/20/2024 10:37:37 AM Interpretation: Performing Lab:[facility], [address] [place] [phone] Notes/Report: Triglycerides 75 <150 mg/dL Desirable Triglyceride: [...] date:08/28/2024 07:54:30 AM Interpretation: Performing Lab: Notes/Report: [facility] [address] [place] [address] Mammography Report Signed Patient: Tsering Moreno MR#: [id number] 2 : 1960 Acct:[id number] Age/Sex: 64 / F ADM Date: 08/05/24 Loc: FRANK.MAMMO Attending Dr: Filemon Steward MD Ordering Physician: Filemon Steward MD Results: 1Negativ e Date of Service: 08/05/24 Follow Up: 1 Year From Orig inal Mammogram Procedure(s): MM tomosynthesis screening BI Accession Number(s): [id number] cc: Filemon Steward MD EXAMINATION: MM SCREENING [...] 08/17/24 1108 DD/ 0947 TD/TT: 08/05/24 1001 Picc Nurse: [place] [facility] [address] [place] [address] Mammography Report Signed Patient: Mariel Moreno MR#: [id number] 2 : 1960 Acct:[id number] Age/Sex: 64 / F ADM Date: 08/05/24 Loc: HO.MAMMO Attending Dr: Filemon Steward MD Ordering Physician: Filemon Steward MD Results: 1Negativ e Date of Service: 08/05/24 Follow Up: 1 Year From Orig ina Mammogram Procedure(s): MM tomosynthesis screening BI Accession Number(s): [id number] cc: Filemon Steward MD EXAMINATION: MM SCREENING [...] 08/17/24 1108 DD/ 0947 TD/TT: 08/05/24 1001 Picc Nurse: Complete Blood Count Auto Di ff Reviewed date:11/25/2024 08:40:28 PM Interpretation: Performing Lab:[facility], [address] [place] [phone] Notes/Report: White Blood Count 3.1 4.8-10.8 X10*3/uL [...] NRBC Abs Auto 0.000 0.0-0.012 X10*3/uL Comprehensive [place]. Panel Fa st Reviewed date:11/25/2024 08:40:28 PM Interpretation: Performing Lab:[address] [address] Notes/Report: Sodium 143 135-145 mmol/L Potassium 4.5 [...] Panel Reviewed date:11/25/2024 08:40:28 PM Interpretation: Performing Lab:[address] [phone] Notes/Report: Triglycerides 80 <150 mg/dL Desirable Triglyceride: [...] Thyroxine) Reviewed date:11/25/2024 08:40:28 PM Interpretation: Performing Lab:[facility], [address] [place] [phone] Notes/Report: Free T4 (Free Thyroxine) 0.90 0.71-1.85 ng/dL Thyroid Stimulating Hormone Reviewed date:11/25/2024 08:40:28 PM Interpretation: Performing Lab:[facility], [address] [place] [phone] Notes/Report: Thyroid Stimulating Hormone 0.81 0.32-4.0 uIU/mL TSH 3rd Generation ([facility]) Phenytoin Dilantin Reviewed date:11/25/2024 08:40:28 PM Interpretation: Performing Lab:[facility], [address] [place] [phone] Notes/Report: Phenytoin Dilantin 21.2 10.0-20.0 ug/mL Valproate Reviewed date:11/25/2024 08:40:28 PM Interpretation: Performing Lab:[facility], [address] [place] [phone] Notes/Report: Valproate 49.0 50.0-100.0 mcg/mL Reason For [...] Provider DARIEN NERI Referred Provider Specialty Pulmonary [facility] General Notes Stacye Brown 2023 03:30:38 PM EDT > Referral [...] Oral ly Once a day 11/23/2024 Active Depakote 500 MG Orally Acti ve Immunizations Vaccine Route Administration Date Status Comme [...] W/U Status Risk Notes Problem Sleep apnea (10516109) Sleep apnea, unspecified (G47.30) Active confirmed She continues t o use his CPAP although she finds it uncomfortable.. Problem 455715752 GERD without esophagitis (K21.9) Active confirmed Occasional heartburn is well-controlled with her current regimen and no changes necessary. Problem 007155307 Obesity (BMI 30-39.9) (E66.9) Active confirmed She has gained 7 pounds since her last visit. We have reviewed her diet and nutrition. We made a plan to lose weight at a rate of one half of a pound per week through a diet restricted in calories fat and sodium combined with regular physical activity. Problem 00536119 Leukopenia, unspecified type (D72.819) Active confirmed A CBC is pend ing to evaluate the white blood cell count. She has had no recent infections or bleeding. Problem 515277117 History of endometrial cancer (Z85.42) Active confirmed There is no sign of recurrent endometrial cancer today. Problem 548914489 Pure hypercholestero lemia (E78.00) Active confirmed Her cholester ol level is 229. All are in 8 weeks. No change in her regimen was made today. Problem Essential hypertension (87995298) Hypertension, unspecified type (I10) Active confirmed Her blood pressure is currently acceptable. She is going to try to lose weight and restrict sodium. Problem Hypothyroidism (15324966) Hypothyroidism, unspecified type (E03.9) Active confirmed Her thyroid function tests are normal and she is euthyroid. No change in her regimen was made. Problem 1904394967593754 Arthritis of left knee (M17.12) Active confirmed She will continue on her current regimen without change. There is no contraindication to ibuprofen or naproxen. Problem 70470922073757295 Bilateral carpal tunnel syndrome (G56.03) Active confirmed This discomfort has resolved and she will be observed at this time. 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 Her she needs to remove was 21.200 dose of 400 mg daily. This was reduced to 300 mg every other day alternating with 400 mg. A repeat level will be done in 8 weeks. Vital Signs Heart Rate 64 /min 02/22/2025 Oh. Your he Temperature 97.2 degrees Fahrenheit 02/22/2025 Oh. Your he Blood pressure diastolic 71 mm Hg 02/22/2025 Oh. Your he Height 67 in 02/22/2025 Oh. Your he Blood pressure systolic 129 mm Hg 02/22/2025 Oh. Your he Weight 246 lbs 02/22/2025 Oh. Your he BMI 38.52 kg/m2 02/22/2025 Oh. Your he Encounters Encounter Location Date Provider Diagnosis Filemon Steward III, MD [address] [place] [address] [place] [address] 04/20/2024 Filemon Steward Hypothyroidism, unsp ecified type E03.9 ; Sleep apnea, unspecified G47.30 ; Nonintractable generalized idiopathic epilepsy without status epilepticus G40.309 ; Hypertension, unspecified type I10 ; Arthritis of left knee M17.12 ; History of endometrial cancer Z85.42 ; GERD without esophagitis K21.9 and Pure hypercholesterolemia E78.00 Filemon Steward III, MD [address] [place] [address] [place] [address] 07/27/2024 Filemon Steward Hypothyroidism, unsp ecified type E03.9 ; Hypertension, unspecified type I10 ; Nonintractable generalized idiopathic epilepsy without status epilepticus G40.309 ; Leukopenia, unspecified type D72.819 ; Obesity (BMI 30-39.9) E66.9 and Sleep apnea, unspecified G47.30 Filemno Steward III, MD [address] [place] [address] [place] [address] 02/22/2025 Filemon Steward Hypothyroidism, unsp ecified type E03.9 ; Nonintractable generalized idiopathic epilepsy without status epilepticus G40.309 ; Postmenopausal Z78.0 ; Encounter for screening for osteoporosis Z13.820 ; Pure hypercholesterolemia E78.00 ; Bilateral carpal tunnel syndrome G56.03 ; Arthritis of left knee M17.12 ; History of endometrial cancer Z85.42 ; GERD without esophagitis K21.9 and Sleep apnea, unspecified G47.30 Filemon Steward III, MD [address] [place] [address] [place] [address] 11/23/2024 Filemon Steward Assessments Encounter Date Diagnosis (ICD Code) Assessment Notes T reatment Notes Treatment Clinical Notes 04/20/2024 Sleep apnea, unspeci fied (ICD-10 - [...] ranges. No change in dosages is required. 02/22/2025 Hypothyroidism, unspecified type (ICD-10 - E03.9) [...] level will be done in 8 weeks. 04/20/2024 Nonintractable generalized idiopathic epilepsy without status [...] She has had no recent seizure activity. 02/22/2025 Postmenopausal (ICD- 10 - Z78.0) She is currently asymptomatic. A bone density test is pending. She has undergone hysterectomy. 04/20/2024 Hypertension, unspec ified type (ICD-10 - I10) Her blood pressure today is normal today.. No change in her regimen was necessary. 07/27/2024 Leukopenia, unspecif ied type (ICD-10 - D72.819) A CBC is pending to evaluate the white blood cell count. She has had no recent infections or bleeding. 02/22/2025 Encounter for screen ing for osteoporosis (ICD-10 - Z13.820) A bone density test was ordered today. 04/20/2024 Arthritis of left kn ee (ICD-10 [...] and sodium combined with regular physical activity. 02/22/2025 Pure hypercholestero lemia (ICD-10 - E78.00) Her cholesterol level is 229. All are in 8 weeks. No change in her regimen was made today. 04/20/2024 History of endometri al cancer (ICD-10 - Z85.42) There is no sign of recurrent endometrial cancer today. 07/27/2024 Sleep apnea, unspeci fied (ICD-10 - G47.30) 02/22/2025 Bilateral carpal mary kate dhruv syndrome (ICD-10 - G56.03) This discomfort has resolved and she will be observed at this time. 04/20/2024 GERD without esophag itis (ICD-10 - K21.9) Occasional heartburn is well-controlled with her current regimen and no changes necessary. 02/22/2025 Arthritis of left kn ee (ICD-10 - M17.12) She will continue on her current regimen without change. There is no contraindication to ibuprofen or naproxen. 04/20/2024 Pure hypercholestero lemia (ICD-10 - E78.00) Her total cholesterol has dropped from 270-235. On her last visit the atrial lovastatin was increased from 10 mg daily to 20 mg daily. Will continue her efforts at weight loss. If necessary Z atorvastatin will be increased to 40 mg. 02/22/2025 History of endometri al cancer (ICD-10 - Z85.42) There is no sign of recurrent endometrial cancer today. 02/22/2025 GERD without esophag itis (ICD-10 - K21.9) Occasional heartburn is well-controlled with her current regimen and no changes necessary. 02/22/2025 Sleep apnea, unspeci fied (ICD-10 - G47.30) She continues to use his CPAP although she finds it uncomfortable.. Plan Of Treatment Pending Test Test Name Order Date URINE DIP STICK 07/06/2022 PROFILE, FASTING (COMPREHENSIVE METABOLI C) 03/26/2021 PROFILE, FASTING (COMPREHENSIVE METABOLI C) 07/06/2022 PROFILE, FASTING (COMPREHENSIVE METABOLI C) 10/25/2020 PROFILE, FASTING (COMPREHENSIVE METABOLI C) 06/14/2018 PROFILE, FASTING (COMPREHENSIVE METABOLI C) 07/01/2021 PROFILE, FASTING (COMPREHENSIVE METABOLI C) 09/14/2022 PROFILE, FASTING (COMPREHENSIVE METABOLI C) 12/06/2020 PROFILE, FASTING (COMPREHENSIVE METABOLI C) 07/27/2024 PROFILE, FASTING (COMPREHENSIVE METABOLI C) 03/16/2023 PROFILE, FASTING (COMPREHENSIVE METABOLI C) 03/09/2022 PROFILE, FASTING (COMPREHENSIVE METABOLI C) 09/26/2018 PROFILE, FASTING (COMPREHENSIVE METABOLI C) 07/03/2019 PROFILE, FASTING (COMPREHENSIVE METABOLI C) 10/31/2021 PROFILE, FASTING (COMPREHENSIVE METABOLI C) 12/14/2018 PROFILE, RANDOM (COMPREHENSIVE METABOLIC ) 02/22/2025 PROFILE, RANDOM (COMPREHENSIVE METABOLIC ) 12/26/2019 LIPID PANEL 07/03/2019 LIPID PANEL 10/31/2021 LIPID PANEL 12/14/2018 LIPID PANEL 03/26/2021 LIPID PANEL 10/25/2020 LIPID PANEL 06/14/2018 LIPID PANEL 07/01/2021 LIPID PANEL 09/14/2022 LIPID PANEL 03/16/2023 LIPID PANEL 12/26/2019 LIPID PANEL 09/26/2018 FREE T4 (FT4) 09/14/2022 FREE T4 (FT4) 03/16/2023 FREE T4 (FT4) 12/26/2019 FREE T4 (FT4) 09/26/2018 FREE T4 (FT4) 07/03/2019 FREE T4 (FT4) 12/14/2018 FREE T4 (FT4) 03/26/2021 FREE T4 (FT4) 12/29/2021 FREE T4 (FT4) 06/14/2018 FREE T4 (FT4) 07/01/2021 FREE T4 (FT4) 03/09/2022 TSH (THYROID STIMULATING HORMONE) 2021 TSH (THYROID STIMULATING HORMONE) 2021 TSH (THYROID STIMULATING HORMONE) 2022 TSH (THYROID STIMULATING HORMONE) 2019 TSH (THYROID STIMULATING HORMONE) 2017 TSH (THYROID STIMULATING HORMONE) 2018 TSH (THYROID STIMULATING HORMONE) 2018 TSH (THYROID STIMULATING HORMONE) 2020 TSH (THYROID STIMULATING HORMONE) 2021 TSH (THYROID STIMULATING HORMONE) 2017 TSH (THYROID STIMULATING HORMONE) 2023 TSH (THYROID STIMULATING HORMONE) 2020 DILANTIN (PHENYTOIN) 07/06/2022 DILANTIN (PHENYTOIN) 09/14/2022 DILANTIN (PHENYTOIN) 12/26/2019 VALPROIC ACID (VPA, DEPAKOTE) 07/27/2024 VALPROIC ACID (VPA, DEPAKOTE) 12/26/2019 CBC w DIFF 06/14/2018 CBC w DIFF 07/01/2021 CBC w DIFF 10/31/2021 CBC w DIFF 03/09/2022 CBC w DIFF 07/06/2022 CBC w DIFF 10/25/2020 CBC w DIFF 02/22/2025 CBC w DIFF 10/14/2021 CBC w DIFF 03/16/2023 CBC w DIFF 07/27/2024 CBC w DIFF 09/26/2018 CBC w DIFF 09/14/2022 CBC w DIFF 07/03/2019 CBC w DIFF 12/14/2018 CBC w DIFF 03/26/2021 CBC w DIFF 12/06/2020 CBC w DIFF 12/26/2019 SED RATE (ESR) 10/14/2021 SED RATE (ESR) 09/26/2018 URINALYSIS (UA) 06/14/2018 URINALYSIS (UA) 12/10/2022 URINALYSIS (UA) 04/10/2021 URINE CULTURE 04/10/2021 URINE CULTURE 06/14/2018 URINE CULTURE 12/10/2022 BONE DENSITY DEXA 02/22/2025 MAMMOGRAM DIGITAL BILATERAL SCREEN 05/23 MAMMOGRAM DIGITAL BILATERAL SCREEN 07/01 MAMMOGRAM DIGITAL BILATERAL SCREEN 06/14 Echocardiogram 05/23/2019 Lipid Panel 03/09/2022 Lipid Panel 07/27/2024 Free T4 (Free Thyroxine) 07/27/2024 Phenytoin Dilantin 07/27/2024 Phenytoin Dilantin 03/09/2022 Phenytoin, Free/Unbound 02/22/2025 Next Appt Details Provider Name:Filemon Steward, 05/24/2025 09:30:00 AM, [address] [place] [address] [address], [place], [address], Provider Name:Filemon Garzonne, 02/28/2026 09:30:00 AM, [address] [place] [address] [address], [place], [address], Insurance Providers Payer Name Payer Address Payer Phone Subscriber Number Group Number Insured Name Patient Relationship to Insured Coverage Start Date Coverage End Date [facility] [address] [place] [phone] [id number] MORENOMARIEL [id number] Self - patient is the insured 2 [...] environmental allergies Surgical History Surgery Date(Month/Year) Colonoscopy [facility] [place] 08/2022 colonoscopy, [facility], Dr. Filemon Shepherd, no findings 2016 colonoscopy, [facility], Dr. Filemon Shepherd, no findings 2008 FREDY/BSO Dr. Renae Gee, endometrial c ancer 2016 cholecystectomy 1985
--- OUTSIDE RECORDS SUMMARY | 2025-03-29 14:26 | XMS_ITS ---
Author Organization Filemon Steward III, MD Address [address] [place] [address] Care Team Providers Care Residential Leasing Agent Name Role Phone Filemon Steward Primary Care Provider [phone] Allergies Allergen (clinical drug ingredient) Drug/Non Drug [...] Provider Diagnosis Filemon Steward III, MD [address] [place] [address] [place] [address] 11/27/2024 Filemon Steward Hypothyroidism, unspecified type E03.9 [...] Details Provider Name:Filemon Steward, 05/24/2025 09:30:00 AM, [address] [place] [address] [address], [place], [phone], Provider Name:Filemon Steward, 02/28/2026 09:30:00 AM, [address] [place] [address] [address], [place], [phone], Progress Notes * TSERING MORENO FDOB:[birth year] (65 yo F)Acc No.[id number]:11/27/2024 Progress Notes Patient:?ASHLEY TSERING Brian Provider:?Filemon Steward MD :1960???Age:64 Y???Sex:Female D ate:11/27/2024 Address:[address] [place], [place] [id number] Subjective: * Chief Complaints: * ???1. Annual [...] of TMJ syndrome, Cholecystitis, 1984, endometrial cancer. 2015 treated surgically in remission, [facility], Dr. Huy Arroyo M.D., GERD, compression fracture at L1 by CT scan December 2015, Hemorrhoids, 2004 normal bone density, Right arm medial epicondylitis, Environmental allergies. * Surgical History:?cholecyste ctomy 1984, [facility]/BSO Dr. Renae Gee, endometrial cancer 2015, colonoscopy, [facility], Dr. Filemon Shepherd, no findings 2008, colonoscopy, [facility], Dr. Filemon Shepherd, no findings 2016, [place] [facility]. * Hospitalization/Major Diagno stic Procedure:?Denies Past [...] cats . She works at a local [employer], which she finds stressful. She has no [...] Provider:?Filemon Steward MD Date:?11/15 Generated for Kamron simms/Joseph/Nayeitting on:?03/29/2025 02:26 PM EDT History and Physical [...]
== END 2025-03-29 13:47 | disposition home or self-care (01) ==
LOC: HO.MAMMO 13:46
PROVIDERS: PCP Internal Medicine Medical Oncology; Visit Provider Internal Medicine Medical Oncology
DX: Z13.820 Encounter for screening for osteoporosis (principal); Z78.0 Asymptomatic menopausal state
CPT/HCPCS: 77080

== ENCOUNTER → 2025-03-29 14:00 | Outpatient (BNV) | payer OTHER, SELFPAY | PROVIDERS: PCP Internal Medicine Medical Oncology; Visit Provider Radiology Diagnostic Radiology | DX: E28.39 Other primary ovarian failure (principal) | CPT/HCPCS: 77080 ==

== ENCOUNTER 2025-05-23 09:35 | Outpatient (REF) | payer OTHER, SELFPAY ==
--- OUTSIDE RECORDS SUMMARY | 2025-05-17 05:44 | XMS_ITS ---
Author Organization Filemon Steward III, MD Address [address] [place] [address] Care Team Providers Care Vinyl Hanger Name Role Phone Filemon Steward Primary Care Provider [phone] REASON FOR VISIT update on her shingles Social History Sex Assigned At : Social History Observation Description Sex Assigned At Female Encounters Encounter Location Date Provider Diagnosis Filemon Steward III, MD [address] [place] [address] [place] [address] 05/17/2025 Filemon Steward Plan Of Treatment Next Appt Details Provider Name:Filemon Steward, 05/24/2025 09:30:00 AM, [address] [place] [address] [place], [address], Provider Name:Filemon Steward, 02/28/2026 09:30:00 AM, [address] [place] [address] [place], [address], Progress Notes * TSERING MORENO FDOB:[birth year] (65 yo F)Acc No.[id number]:05/17/2025 Patient: TSERING HERNANDEZ :1960 A ge:65 Y S ex:Female Address:[address] [place], [place] [address], * true * Date: Generated for Printi ng/Faxing/eTransmitting on: 0 05/23/2025 10:03 AM EDT
--- OUTSIDE RECORDS SUMMARY | 2025-05-23 10:04 | XMS_ITS | Patient Health Record ---
Author Organization [facility] Address [address] [place] [address] Care Team Providers Care Supervisor Tree Trimming Name Role Phone Filemon Steward MD Primary Care Provider Unavailab Filemon Cruz Unavailable [phone] Allergies Allergen (clinical drug ingredient) Drug/Non Drug [...] Status Risk Notes Problem Colon cancer screening (013559836) Colon cancer screening (Z12.11) Active confirmed Problem 417425088 Encounter for screening for malignant neoplasm of colon (Z12.11) Active confirmed Problem Screening for malignant neoplasm of rectum (923822432) Encounter for screening for malignant neoplasm of rectum (Z12.12) Active confirmed Problem 63872695 Preprocedural examination (Z01.818) Active confirmed Problem 468852308 Family history o f colon cancer (Z80.0) Active confirmed Problem Diverticulosis of sigmoid colon (603390078) Diverticulosis of sigmoid colon (K57.30) Active confirmed Plan Of Treatment Pending Test Test Name Order Date Pathology 09/11/2022 Future Test Test Name Order Date COLONOSCOPY 11/17/2016 COLONOSCOPY 07/15/2022 Insurance Providers Payer Name Payer Address Payer Phone Subscriber Number Group Number Insured Name Patient Relationship to Insured Coverage Start Date Coverage End Date [facility] [address] [place] [address] [id number] TSERING MORENO Self - patient is the insured Medical (General) History Medical History History ICD Code 7-14-2008 colonoscopy--no polyps, small internal hemorrhoids Denies IN,DM,CVA,Lung disease,renal dise ase Hypothyroidism Seizure disorder Endometrial carcinoma stage one-hysterec mike as below--2015 Negative colonoscopy in 03/2017 Surgical History Surgery Date(Month/Year) Cholecystectomy FREDY 03/2016
--- OUTSIDE RECORDS SUMMARY | 2025-05-23 10:04 | XMS_ITS | Patient Health Record ---
Author Organization [facility] Address [address] [place] [address] Care Team Providers Care Cold Molding Press Operator Name Role Phone Filemon Steward MD Primary Care Provider UnavailArtur Moreira Unavailable [phone] Allergies Allergen (clinical drug ingredient) Drug/Non Drug [...] MG 1 capsule Orally vel ry 6 hrs; Duration: 5 day(s) Not-Taking Levothyroxine Sodium 100 MCG 1 tablet in the morning on an empty stomach Orally Once a day; Duration: 30 day(s) Active Dilantin Active clonazePAM 0.5 MG 1 tablet at bedtime Orally Once a day Active Divalproex Sodium 500 MG 1 tablet Orally Twice a day; Duration: 30 day(s) Active Phenytoin 100 MG/4ML 2 ml Orally every 8 hrs; Duration: 30 day(s) Active Immunizations Vaccine Route Administration [...] Treatment Pending Test Test Name Order Date 68466- Debride <25 sq cm 06/03/2021 69485 I&D ABSCESS- SIMPLE,SINGLE 021 Insurance Providers Payer Name Payer Address Payer Phone Subscriber Number Group Number Insured Name Patient Relationship to Insured Coverage Start Date Coverage End Date [facility] [id number] [address] [address] [place] [address] [id number] Nikolay Moreno Spouse - patient is the spouse of the insured Medical (General) History Medical History History ICD Code Back,Hip,and Knee pain Broken bones Cancer Epilepsy Gall bladder problems High blood pressure thyroid Measles Mumps Chicken pox Surgical History Surgery Date(Month/Year) gall bladder 12/1984 hysterectomy 03/2016
[2025-05-23 10:31] LABS: MANUAL DIFF FLAG NO
[2025-05-23 10:41] LABS: Hematocrit 41.0 % (37.0-47.0); Hemoglobin 13.9 g/dl (12.0-16.0); Imm Gran Abs Auto 0.02 X10*3/uL (0.00-0.03); Imm Gran Pct Auto 0.4 % (0.0-0.4); Lymphocytes Absolute Auto 2.6 X10*3/uL (1.2-4.9); Mean Corpuscular HGB Conc 33.9 g/dl (31.0-35.0); Mean Corpuscular Hemoglobin 32.1 pg (27.0-33.0); Mean Corpuscular Volume 94.7 fL (80.0-98.0); NRBC Abs Auto 0.000 X10*3/uL (0.0-0.012); NRBC Pct Auto 0.0 /100WBC (0.0-0.2); Platelet Count 223 X10*3/uL (160-400); Red Blood Count 4.33 X10*6/uL (4.20-5.50); White Blood Count 5.2 X10*3/uL (4.8-10.8)
[2025-05-23 11:02] LABS: Alanine Aminotransferase 30 U/L (0-31); Albumin Level 4.1 g/dL (3.5-5.0); Alkaline Phosphatase 60 U/L (39-117); Anion Gap 14 (12-20); Aspartate Amino Transferase 23 U/L (5-31); Blood Urea Nitrogen 13 mg/dL (9-16); Calcium 9.2 mg/dL (8.4-10.2); Carbon Dioxide 27 mmol/L (22-29); Chloride 104 mmol/L (96-108); Estimated Glomerular Filt Rate > 60; Potassium 4.1 mmol/L (3.3-5.1); Sodium 141 mmol/L (135-145); Total Protein 6.3 g/dL (6.5-8.0)
[2025-05-24 13:23] LABS: Phenytoin, Free/Unbound 1.0 mg/L (1.0-2.0)
== END 2025-05-23 09:36 | disposition home or self-care (01) ==
LOC: HO.HMGCLDS 09:35
PROVIDERS: PCP Internal Medicine Medical Oncology; Visit Provider Internal Medicine Medical Oncology
DX: Z00.00 Encounter for general adult medical examination without abnormal findings (principal); E03.9 Hypothyroidism, unspecified; G40.309 Generalized idiopathic epilepsy and epileptic syndromes, not intractable, without status epilepticus
CPT/HCPCS: 36415; 80053; 80186; 85025

== ENCOUNTER 2025-06-14 13:20 | Outpatient (AMB) | payer OTHER, SELFPAY ==
--- OUTSIDE RECORDS SUMMARY | 2025-05-17 05:44 | XMS_ITS ---
Author Organization Filemon Steward III, MD Address [address] [place] [address] Care Team Providers Care Creel Clerk Name Role Phone Filemon Steward Primary Care Provider [phone] REASON FOR VISIT update on her shingles Social History Sex Assigned At : Social History Observation Description Sex Assigned At Female Encounters Encounter Location Date Provider Diagnosis Filemon Steward III, MD [address] [place] [address] [place] [address] 05/17/2025 Filemon Steward Plan Of Treatment Next Appt Details Provider Name:Filemon Steward, 08/16/2025 10:45:00 AM, [address] [place] [address] [place], [address], Provider Name:Filemon Steward, 02/28/2026 09:30:00 AM, [address] [place] [address] [place], [address], Progress Notes * TSERING MORENO FDOB:[birth year] (65 yo F)Acc No.[id number]:05/17/2025 Patient: TSERING HERNANDEZ :1960 A ge:65 Y S ex:Female Address:[address] [place], [place] [address], * true * Date: Generated for Printi ng/Faxing/eTransmitting on: 0 06/14/2025 01:33 PM EDT
[2025-06-14 13:31] VITALS: BP 128/80; PULSE 67; O2SAT 97; BMI 40.6
--- NOTE | 2025-06-14 13:31 | MHC.OFFVIS ---
Vital Signs 06/14/25 13:31 Height 5 ft 6 in Weight 251 lb 5.231 oz BMI 40.6 BP 128/80 Blood Pressure Location Lt brachial Position Sitting Pulse 67 Pulse Source Pulse Oximeter Pulse Oximetry (%) 97 Oxygen Delivery Method Room Air Intake Visit Reasons: sleep apnea Intake Note: pt is here for follow up and states she is still stuggling with cpap usage due to shingles on the head Insurance Customer Service Specialist Required: No Allergies nitrofurantoin (From Macrobid) Allergy (Intermediate, Verified 06/14/25 13:37) Redness of Skin codeine Adverse Reaction (Verified 06/14/25 13:37) Gastrointestinal Upset levetiracetam (From Keppra) Adverse Reaction (Verified 06/14/25 13:37) Unknown Medication List - Last Reconciled 06/14/25 by Bertin El MD atorvastatin 20 mg PO BEDTIME divalproex ER 1 tab PO TID levothyroxine 1 tab PO DAILY methenamine hippurate 1 g PO BID phenytoin sodium extended 400 mg (4 x 100 mg) PO DAILY 90 days Do you need a note to return to daycare/school/sports/work: No HPI HPI sleep apnea: Details: THIS 65 YEARS OLD FEMALE WITH MORBID OBESITY AND DIAGNOSIS OF OBSTRUCTIVE SLEEP APNEA HAS BEEN A VERY REGULAR USER OF CPAP, SLEEPING WELL. HOWEVER SINCE LAST MONTH SHE HAS HAD HERPES ZOSTER ERUPTION ON THE LEFT SIDE OF HER HEAD. THE ACUTE ERUPTION HAS RESOLVED, BUT SHE CONTINUES TO HAVE DISCOMFORT IN THAT AREA AND GET THIS GETS IRRITATED BY CPAP STRAPS. SO FOR THE LAST 4 WEEKS SHE HAS NOT BEEN ABLE TO USE THE CPAP. SHE TRIES TO SLEEP ON THE RIGHT SIDE BUT SOON SHE TURNS TO THE LEFT SIDE SHE IS AWAKENED BY PAIN/DISCOMFORT . SHE HAS TRY TO USE MOTRIN, TYLENOL, TRAMADOL, WITHOUT MUCH RELIEF, DURING THIS TIME SHE HAS NOT BEEN ABLE TO WALK AND HAS PUT ON SOME WEIGHT. [facility] Medical History (Updated 06/14/25 @ 14:04 by Bertin El MD) Post herpetic neuralgia KATIE (obstructive sleep apnea) Obesity (BMI 30-39.9) Loud snoring Hypersomnolence Endometrial carcinoma Seizure disorder Hypothyroidism Surgical History Hx of colonoscopy Hx of cholecystectomy H/O: hysterectomy Social History Patient Tobacco Use Status: Never used Tobacco Review of Systems Const All systems reviewed & are unremarkable except as noted in HPI and below Reports snoring Eyes Reports no additional complaints ENT Reports no additional complaints Card Denies chest pain, Denies syncope, Denies irregular heart rhythm and Denies leg edema Resp Reports as per HPI, Reports snoring and Denies wheezing GI Reports no additional complaints Reports other (Frequent urinary tract infection) Musc Reports no additional complaints Skin/Breast Reports system reviewed and no additional complaints, except as documented Neuro Denies syncope, Reports paresthesias (HAS RESIDUAL, NEURALGIC PAIN IN THE LEFT SIDE OF SCALP.) and Reports other (Known case of seizure disorder controlled with meds) Psych Reports no additional complaints Endo Reports other (Hypothyroidism) Robson/Lymph Reports no additional complaints Aller/Immun Reports no additional complaints and Denies wheezing Physical Exam Vital Signs: Last Vital Signs Pulse 67 06/14/25 13:31 BP 128/80 06/14/25 13:31 Pulse Ox 97 06/14/25 13:31 Oxygen Delivery Method Room Air 06/14/25 13:31 BMI result Body Mass Index 40.6 Const General: healthy appearing (Except for being overweight), comfortable, no acute distress, alert and awake Orientation/consciousness: patient oriented x3 HEENT Head: Yes normal to inspection and Yes scalp tenderness (LEFT SIDE OF THE HEAD IS HYPERSENSITIVE TO TOUCH) General nose exam: No nasal polyps present and No nasal discharge present Face and sinus: Yes sinuses nontender Mouth: oropharynx abnormals (Oropharynx is narrow, Mallampati class 3) Teeth and gingiva: other (Retroganthia of the lower jaw) Throat: Yes posterior oropharynx normal Eyes General: appearance normal, both eyes and all related structures Neck Neck: Yes normal visual inspection, Yes no lymphadenopathy, Yes trachea midline and Yes no JVD Thyroid: Thyroid normal Chest Chest palpation & inspection: normal inspection of the chest, normal palpation of entire chest wall and no tenderness Resp Effort & Inspection: normal respiratory effort Auscultation: clear to auscultation bilaterally, no crackles and no wheezes Cardio Palpation: normal PMI Rate: regular rate Rhythm: regular rhythm Heart sounds: no gallops and no murmurs Peripheral pulses: Peripheral pulses 2+ throughout GI Palpation (GI): Soft to palpation, nontender, No hepatosplenomegaly present and no masses Auscultation: normal bowel sounds Back/Spine/Pelvis Thoracic/Lumbar Spine: thoracic and lumbar spine normal to inspection Skin General skin exam: no rashes or lesions noted Neuro General: patient oriented x3 and no focal motor deficits Cranial nerves: Yes CN's II-XII intact bilaterally Extrem General: Yes normal to inspection, Yes no clubbing, cyanosis or edema and Yes no calf tenderness Psych Appearance: grossly normal and well kempt Speech and movement: Normal speech and movement present Results Reviewed Results Reviewed: COMPLIANCE REPORT FOR THE LAST MONTH SHOWS THAT SHE HAS USED ONLY 1 DAY AFTER THAT HAS NOT USE THE CPAP Assessment & Plan Assessment & Plan (1) KATIE (obstructive sleep apnea): Comment: PATIENT IS KNOWN CASE OF MODERATELY SEVERE KATIE (AHI 20.6.) Patient is using the CPAP very regularly and is benefiting. Sleep quality much improved. She remains well motivated to use the CPAP. Has not been able to use the CPAP during past 4 weeks due to presence of post herpes neuralgia of the left side of the head. Her skin is sensitive to the strap . She is trying to go back to using CPAP but slowly. Code(s): G47.33 - Obstructive sleep apnea (adult) (pediatric) Category: Medical Plan: Encouraged to start using the CPAP even for a short period and gradually increase the hours do 6 her 7 per night. Discussed about using gabapentin in small doze to overcome post her piece neuralgia but she is already on Depakote as well as Dilantin for seizure control. The best thing is to take either Tylenol or Advil for relief of pain. (2) Obesity (BMI 30-39.9): Comment: Patient is grossly obese BMI 40.6 She has not lost much weight. And now after having herpes zoster she has not been able to walk much and has put on about 8 lb of weight. Code(s): E66.9 - Obesity, unspecified Category: Medical Plan: Talked about this. Encouraged her to start walking daily again. And start watching her diet more carefully. (3) Post herpetic neuralgia: Comment: She is left with hypersensitive skin after having herpes zoster on the left side of the head. She has tried pain meds without much relief. Code(s): B02.29 - Other postherpetic nervous system involvement Category: Medical Plan: She is on antiepileptic drugs so I would not consider giving her gabapentin She is going to try to put on the CPAP for an hour or so and then gradually increased to her usual duration of 6-7 hours per night. Coding Level of Care Code Est Pt Level 3 (61549) Diagnoses KATIE (obstructive sleep apnea) G47.33 Obesity (BMI 30-39.9) E66.9 Post herpetic neuralgia B02.29
--- OUTSIDE RECORDS SUMMARY | 2025-06-14 13:33 | XMS_ITS | Clinical Summary ---
Author Organization [address] Address [address] [place] [address] Phone Care Team Providers Care Facial Operator Name Role Phone Ze Mann MD Primary Care Provider [phone] Encounters Date Type Department Care Team Description 05/29/2025 Lab Requisition [facility] - Main Lab [address] [facility] [place] [address] Saba Mercer PA Dysuria from Last 3 Months Social History Tobacco Use Types Packs/Day Years Used Date Smoking Tobacco: Never Smokeless Tobacco: Never Alcohol Use Standard Drinks/Week Comments Not Asked 0 (1 standard drink = 0.6 oz pur e alcohol) Comments Unknown Sex and Gender Information Value Date Recorded Sex Assigned at Not on file Legal Sex Female 6:01 PM EST Gender Identity Not on file Sexual Orientation Not on file Obstetrics History Plan of Treatment Health Maintenance Due Date Last Done Comments DTaP,Tdap,and Td Vaccines (1 - Tdap) 1980 Cervical Cancer Screening: P ap Smear 1982 Pneumococcal Vaccine: 50+ Years (1 of 1 - PCV) 2011 Zoster Vaccines (1 of 2) 2011 Breast Cancer Screening 06/29/2021 06/29/20 19, 06/27/2018 COVID-19 Vaccine ( - 2023-2 5 season) 2024 Depression Screening 11/15/2024 Colorectal Cancer Screening: Colonoscopy 05/29/2025 HIV Screening 05/29/2025 Hepatitis C Screening 05/29/2025 Social Influencers of Health Screening 05/29/2025 Influenza Vaccine (#1) 2025 RSV Immunization Adult Patients (1 - 1-dose 75+ series) 2036 HIB Vaccines Aged Out No longer eligi ble based on patient's age to complete this topic HPV Vaccines Aged Out No longer eligi ble based on patient's age to complete this topic Hepatitis A Vaccines Aged Out No long er eligible based on patient's age to complete this topic Hepatitis B Vaccines Aged Out No long er eligible based on patient's age to complete this topic IPV Vaccines Aged Out No longer eligi ble based on patient's age to complete this topic MMR Vaccines Aged Out No longer eligi ble based on patient's age to complete this topic Meningococcal ACWY Vaccine Aged Out N o longer eligible based on patient's age to complete this topic Meningococcal B Vaccine Aged Out No l onger eligible based on patient's age to complete this topic RSV Immunization Patients Under 20 months Aged Out No longer eligible b ased on patient's age to complete this topic Varicella Vaccines Aged Out No longer eligible based on patient's age to complete this topic Procedures Procedure Name Priority Date/Time Associated Diagnosis Comments BACTERIAL IDENTIFICATION AND SUSCEPTIBILITY, AEROBIC Routine 05/28/2025 12:00 AM EDT Dysuria JOHN SCREENING DIGITAL Routine 06/29/2019 4:50 PM EDT Encounter for screening mammogram for malignant neoplasm of breast from Last 3 Months or Most Recently Relevant to Health Maintenance Results * (ABNORMAL) Bacterial identification and susceptibility, aerobic (05/28/2025 12:00 AM EDT) Culture, Bacterial ID and Sensitivity Klebsiella oxytoca ESBL(A) ALIYA 06/01/2025 8:25 AM EDT [facility] Comment: THIS ORGANISM IS POSITIVE FOR EXTENDED SPECTRUM BETA-LACTAMASE (ESBL). EXTENDED SPECTRUM BETA-LACTAMASE PRODUCING ORGANISMS DEMONSTRATE DECREASED ACTIVITY WITH PENICILLINS, CEPHALOSPORINS AND AZTREONAM. This is an edited result. Previous organism was Gram negative bacilli on 05/30/2025 at 0755 EDT. Edited result: Previously reported as Klebsiella oxytoca on 05/31/2025 at 0837 EDT. Culture, Bacterial ID and Sensitivity Escherichia coli(A) ALIYA 06/01/2025 8:25 AM EDT [facility] Comment: The organism value for this result has been updated. These results have been appended to the previously preliminary verified report. Other Urine specimen from urethra / Unknown 05/28/2025 05/29/2025 9:45 AM EDT [facility] - 06/01/2025 8:25 AM EDT Additional colony types present in insignificant amounts. Organism Antibiotic Method Susceptibility Klebsiella oxytoca ESBL Amoxicillin/Clavulanate ALIYA 4 ug/ml: Susceptible Klebsiella oxytoca ESBL Ampicillin/Sulbactam ALIYA 16 ug/ml: Intermediate Klebsiella oxytoca ESBL Cefoxitin ALIYA <=4 ug/ml: Susceptible Klebsiella oxytoca ESBL Ceftazidime ALIYA <=0.5 ug/ml: Susceptible Klebsiella oxytoca ESBL Ceftriaxone ALIYA <=0.25 ug/ml: Susceptible Klebsiella oxytoca ESBL Cefepime ALIYA <=0.12 ug/ml: Susceptible Klebsiella oxytoca ESBL Meropenem ALIYA <=0.25 ug/ml: Susceptible Klebsiella oxytoca ESBL Amikacin ALIYA 2 ug/ml: Susceptible Klebsiella oxytoca ESBL Gentamicin ALIYA <=1 ug/ml: Susceptible Klebsiella oxytoca ESBL Ciprofloxacin ALIYA <=0.06 ug/ml: Susceptible Klebsiella oxytoca ESBL Levofloxacin ALIYA <=0.12 ug/ml: Susceptible Klebsiella oxytoca ESBL Nitrofurantoin ALIYA 32 ug/ml: Susceptible Klebsiella oxytoca ESBL Trimethoprim/Sul famethoxazo le ALIYA <=20 ug/ml: Susceptible Escherichia coli Amoxicillin/Clavulanate ALIYA <=2 ug/ml: Susceptible Escherichia coli Ampicillin/Sulbactam ALIYA <=2 ug/ml: Susceptible Escherichia coli Piperacillin/Tazobactam ALIYA <=4 ug/ml: Susceptible Escherichia coli Cefazolin (Urine) ALIYA 2 ug/ml: Susceptible Escherichia coli Cefoxitin ALIYA <=4 ug/ml: Susceptible Escherichia coli Ceftazidime ALIYA <=0.5 ug/ml: Susceptible Escherichia coli Ceftriaxone ALIYA <=0.25 ug/ml: Susceptible Escherichia coli Cefepime ALIYA <=0.12 ug/ml: Susceptible Escherichia coli Meropenem ALIYA <=0.25 ug/ml: Susceptible Escherichia coli Amikacin ALIYA 2 ug/ml: Susceptible Escherichia coli Gentamicin ALIYA <=1 ug/ml: Susceptible Escherichia coli Ciprofloxacin ALIYA <=0.06 ug/ml: Susceptible Escherichia coli Levofloxacin ALIYA <=0.12 ug/ml: Susceptible Escherichia coli Nitrofurantoin ALIYA <=16 ug/ml: Susceptible Escherichia coli Trimethoprim/Sulfame thoxazo le ALIYA <=20 ug/ml: Susceptible Saba [facility] MICROBIOLOGY - GENERAL ORDER LICHA Final Result [facility] LAB [address] [place] [address], * JONH SCREENING DIGITAL (06/29/2019 4:50 PM EDT) Anatomical Region Laterality Modality Mammography 06/29/2019 3:24 PM EDT Narrative 06/29/2019 4:50 PM EDT [facility] Diagnostic Imaging Department [address] [place] [address] Patient: SHELBY MORENOMG Torres /Age/Sex: 1960 - 59 - F Unit#: [id number] [facility] Mn[facility]onic[facility]Ordering Site[facility] Ordering Physician: JONI STEWARD MD John Screening Digital - 06/29/191549 History: Bilateral breast cancer screening. Technique: Bilateral digital mammography. Conventional CC and MLO projections with tomosynthesis MLO views and computer aided detection. Findings: Comparison: [facility] 06/17/2018, dating back to 09/26/2007. Breast tissue is mostly fatty replaced (category a density) bilaterally. There are benign calcifications bilaterally. There is no suspicious group of microcalcification, no suspicious mass, architectural distortion or suspicious asymmetry. Impression: No evidence of malignancy. BIRADS category 2, benign findings, 3342F 42535, [address]6839 Note: Patient information entered into a reminder system with a target due date for the next mammogram; PQRI II 7057H Dictating Physician: MOISE HUERTA MD Electronically Signed by: MOISE HUERTA MD Dic Date/Time: 06/29/19 164 Sign date/Time: 06/29/19 165 Procedure Note Moise Huerta - 11/04/2022 [facility] Diagnostic Imaging Department [address] [place] [id number] Patient: TSERING MORENO Brian /Age/Sex: 1960 - 59 - F Unit#: [id number] Location/Status: [facility] Mnemonic/Ordering Site: [facility] Ordering Physician: JONI STEWARD MD John Screening Digital - 06/29/19 - 1550 History: Bilateral breast cancer screening. Technique: Bilateral digital mammography. Conventional CC and MLOprojections with tomosynthesis MLO views and computer aided detection. Findings: Comparison: [facility] 06/17/2018, dating back to 09/26/2007. Breast tissue is mostly fatty replaced (category a density) bilaterally.There are benign calcifications bilaterally. There is no suspicious group of microcalcification, no suspicious mass, architectural distortion orsuspicious asymmetry. Impression: No evidence of malignancy. BIRADS category 2, benign findings, 3342F 93719, 27025 Note: Patient information entered into a reminder system with a targetdue date for the next mammogram; PQRI II 7025F Dictating Physician: MOISE HUERTA MD Electronically Signed by: MOISE HUERTA MD Dic Date/Time: 06/29/19 164 Sign date/Time: 06/29/19 165 Joni Steward MD IMG BI PROCEDURES Final Result from Last 3 Months or Most Recently Relevant to Health Maintenance Additional Health Concerns Infection Onset Date Last Indicated ESBL 05/28/2025 05/28/2025 Insurance [facility] Care Teams Facial Operator Relationship Specialty Start Date End Date Ze Mann MD [address] PCP - General Pediatrics 01/23/13
--- OUTSIDE RECORDS SUMMARY | 2025-06-14 13:33 | XMS_ITS | Patient Health Record ---
[facility] Organization [facility] Address [address] [place] [address] Care Team Providers Care Layout Man Name Role Phone Filemon Steward MD Primary Care Provider UnavailArtur Moreira Unavailable [phone] Allergies Allergen (clinical drug ingredient) Drug/Non Drug [...] Treatment Pending Test Test Name Order Date 37212- Debride <25 sq cm 06/03/2021 58439 I&D ABSCESS- SIMPLE,SINGLE 021 Insurance Providers Payer Name Payer Address Payer Phone Subscriber Number Group Number Insured Name Patient Relationship to Insured Coverage Start Date Coverage End Date [facility] [id number] [address] [address] [place] [address] [id number] Nikolay Moreno Spouse - patient is the spouse of the insured Medical (General) History Medical History History ICD Code Back,Hip,and Knee pain Broken bones Cancer Epilepsy Gall bladder problems High blood pressure thyroid Measles Mumps Chicken pox Surgical History Surgery Date(Month/Year) gall bladder 12/1984 hysterectomy 03/2016
== END 2025-06-14 13:48 | disposition home or self-care (01) ==
LOC: HO.HPS 13:20
PROVIDERS: PCP Internal Medicine Medical Oncology; Visit Provider Internal Medicine
DX: G47.33 Obstructive sleep apnea (adult) (pediatric) (principal); E66.9 Obesity, unspecified; B02.29 Other postherpetic nervous system involvement
CPT/HCPCS: 99213

== ENCOUNTER 2025-08-09 09:40 | Outpatient (REF) | payer OTHER, SELFPAY ==
--- OUTSIDE RECORDS SUMMARY | 2025-05-16 09:30 | XMS_ITS ---
Author Organization Filemon Steward III, MD Address [address] [place] [address] Care Team Providers Care Caseworker Name Role Phone Dr. Filemon Steward III Primary Care Provider [phone] Allergies Allergen (clinical drug ingredient) Drug/Non Drug [...] Date Provider Diagnosis Filemon Steward III, MD [address] [place] [address] [place] [address] 05/16/2025 Filemon Steward Hypothyroidism, unspecified type E03.9 [...] v review labs Provider Name:Filemon Steward , 08/16/2025 10:45:00 AM, [address] [place] [address] [address], [place], [address], Provider Name:Filemon Steward , 02/28/2026 09:30:00 AM, [address] [place] [address] [address], [place], [address], Progress Notes * TSERING MORENO FDOB:[birth year] (65 yo F)Acc No.[id number]:05/16/2025 Progress Notes Patient: TSERING HERNANDEZ Provider: Yaya Steward MD :1960 A ge:65 Y S ex:Female Date:05/16/2025 Address:[address] [place] [address] [place], [id number] Subjective: * Chief Complaints: * H erpes [...] 1984TAH/BSO Dr. Renae Gee, endometrial cancer 2015colonoscopy, [facility], Dr. Filemon Shepherd, no findings 2008colonoscopy, [facility], Dr. Filemon Shepherd, no findings 2016[place] [facility] [place] * Hospitalization/Major Diagno stic Procedure: D [...] 2 cats . She works at a [employer], which she finds stressful. She has no [...] 0 05/16/2025 Generated for Kamron simms/Joseph/Elmo on: 08/09/2025 11:23 AM EDT History and Physical Notes * HPI [...]
--- OUTSIDE RECORDS SUMMARY | 2025-05-16 10:58 | XMS_ITS ---
Author Organization Filemon Steward III, MD Address [address] [place] [address] Care Team Providers Care Caul Puller Name Role Phone Dr. Filemon Steward III Primary Care Provider REASON FOR VISIT RX sent to incorrect pharmacy Social History Sex Assigned At : Social History Observation Description Sex Assigned At Female Encounters Encounter Location Date Provider Diagnosis Filemon Steward III, MD [address] [place] [address] [place] [address] 05/16/2025 Filemon Steward Plan Of Treatment Next Appt Details Provider Name:Filemon Steward , 08/16/2025 10:45:00 AM, [address] [place] [address] [place], [address], Provider Name:Filemon Steward , 02/28/2026 09:30:00 AM, [address] [place] [address] [place], [address], Progress Notes * TSERING MORENO FDOB:[birth year] (65 yo F)Acc No.[id number]:05/16/2025 Patient: TSERING HERNANDEZ :1960 A ge:65 Y S ex:Female Address:[address] [place], [place] [address], * true * Date: Generated for Printi ng/Faxing/eTransmitting on: 0 08/09/2025 11:24 AM EDT
--- OUTSIDE RECORDS SUMMARY | 2025-05-16 11:16 | XMS_ITS ---
Author Organization Filemon Steward III, MD Address [address] [place] [place] [address] Care Team Providers Care Rn Maternity Name Role Phone Dr. Filemon Steward III Primary Care Provider [phone] REASON FOR VISIT regarding letter for work Social History Sex Assigned At : Social History Observation Description Sex Assigned At Female Encounters Encounter Location Date Provider Diagnosis Filemon Steward III, MD [address] [place] [address] [place] [address] 05/16/2025 Filemon Steward Plan Of Treatment Next Appt Details Provider Name:Filemon Steward , 08/16/2025 10:45:00 AM, [address] [place] [address] [place], [address], Provider Name:Filemon Steward , 02/28/2026 09:30:00 AM, [address] [place] [address] [place], [address], Progress Notes * TSERING MORENO FDOB:[birth year] (65 yo F)Acc No.[id number]:05/16/2025 Patient: TSERING HERNANDEZ :1960 A ge:65 Y S ex:Female Address:[address] [place], [place] [address], * true * Date: Generated for Printi ng/Faxing/eTransmitting on: 0 08/09/2025 11:24 AM EDT
--- OUTSIDE RECORDS SUMMARY | 2025-05-17 05:44 | XMS_ITS ---
Author Organization Filemon Steward III, MD Address [address] [place] [address] [place] [address] Care Team Providers Care Yoke Presser Name Role Phone Dr. Filemon Steward III Primary Care Provider [phone] REASON FOR VISIT update on her shingles Social History Sex Assigned At : Social History Observation Description Sex Assigned At Female Encounters Encounter Location Date Provider Diagnosis Filemon Steward III, MD [address] [place] [address] [place] [address] 05/17/2025 Filemon Steward Plan Of Treatment Next Appt Details Provider Name:Filemon Steward , 08/16/2025 10:45:00 AM, [address] [place] [address] [place], [address], Provider Name:Filemon Steward , 02/28/2026 09:30:00 AM, [address] [place] [address] [place], [address], Progress Notes * TSERING MORENO FDOB:[birth year] (65 yo F)Acc No.[id number]:05/17/2025 Patient: TSERING HERNANDEZ :1960 A ge:65 Y S ex:Female Address:[address] [place], [place] [address], * true * Date: Generated for Printi ng/Faxing/eTransmitting on: 0 08/09/2025 11:23 AM EDT
--- OUTSIDE RECORDS SUMMARY | 2025-05-24 05:30 | XMS_ITS ---
Author Organization Filemon Steward III, MD Address [address] [place] [address] Care Team Providers Care Drafter Mechanical Name Role Phone Dr. Filemon Steward III [...] Date Provider Diagnosis Filemon Steward III, MD [address] [place] [address] [place] [address] 05/24/2025 Filemon Steward Hypothyroidism, unspecified type E03.9 [...] ov review labs Provider Name:Filemon Steward , 08/16/2025 10:45:00 AM, [address] [place] [address] [address], [place], [address], Provider Name:Filemon Steward , 02/28/2026 09:30:00 AM, [address] [place] [address] [address], [place], [address], Progress Notes * SHELBY MORENOECCA FDOB:[birth year] (65 yo F)Acc No.[id number]:05/24/2025 Progress Notes Patient: TSERING HERNANDEZ Provider: Yaya Steward MD :1960 A ge:65 Y S ex:Female Date:05/24/2025 Address:[address] [place] [address] [id number] Subjective: * Chief Complaints: * H erpes [...] 1984TAH/BSO Dr. Renae Gee, endometrial cancer 2015colonoscopy, [facility], Dr. Filemon Shepherd, no findings 2008colonoscopy, [facility], Dr. Filemon Shepherd, no findings 2017Colonoscopy [facility] [place] 08/2022 * Hospitalization/Major Diagno stic Procedure: D [...] cats . She works at a local [employer], which she finds stressful. She has no [...] true * Provider: Yaya Steward MD Date: 05/24/2025 Generated for Ofeliai ng/Joseph/eTransmitting on: 08/09/2025 11:23 AM EDT History and [...]
--- NOTE | ~2025-08-09 | MM_ITS ---
EXAMINATION: MM SCREENING DIGITAL BREAST TOMOSYNTHESIS, BILATERAL CLINICAL INFORMATION: Screening. Asymptomatic. COMPARISON: Comparison made to multiple prior, most recent August 05, 2024, and most remote December 07, 2016. TECHNIQUE: Digital breast tomosynthesis is performed in mediolateral oblique and craniocaudal views along with computer-aided detection (CAD). Synthesized 2D images are generated from the tomosynthesis. FINDINGS: BREAST COMPOSITION: There are scattered areas of fibroglandular density. BILATERAL BREASTS: No significant masses, suspicious calcifications or other abnormalities are seen in either breast. MM/MM tomosynthesis screening BI IMPRESSION: BILATERAL BREASTS: Negative, no mammographic evidence of malignancy. Normal interval follow-up is recommended in 12 months. ASSESSMENT: BI-RADS: Category 1: Negative RECOMMENDATION: Routine annual mammography screening. FOLLOW-UP: 1 year F/U This examination should not preclude the clinical evaluation of a suspicious palpable abnormality. This patient's information was entered into a reminder system with a target due date for their next mammogram. Electronically signed by: Christina Bhatti MD 08/10/2025 07:56 PM EDT
--- OUTSIDE RECORDS SUMMARY | 2025-08-09 11:24 | XMS_ITS | Patient Health Record ---
Author Organization [facility] Address [address] [place] [address] Care Team Providers Care Or Rn Name Role Phone Filemon Steward MD Primary Care Provider Unavailab Filemon Cruz Unavailable [phone] Allergies Allergen (clinical drug ingredient) Drug/Non Drug [...] Status Risk Notes Problem Colon cancer screening (601877801) Colon cancer screening (Z12.11) Active confirmed Problem 252028982 Encounter for screening for malignant neoplasm of colon (Z12.11) Active confirmed Problem Screening for malignant neoplasm of rectum (565674689) Encounter for screening for malignant neoplasm of rectum (Z12.12) Active confirmed Problem 47631174 Preprocedural examination (Z01.818) Active confirmed Problem 212688825 Family history o f colon cancer (Z80.0) Active confirmed Problem Diverticulosis of sigmoid colon (154615883) Diverticulosis of sigmoid colon (K57.30) Active confirmed Plan Of Treatment Pending Test Test Name Order Date Pathology 09/11/2022 Future Test Test Name Order Date COLONOSCOPY 11/17/2016 COLONOSCOPY 07/15/2022 Insurance Providers Payer Name Payer Address Payer Phone Subscriber Number Group Number Insured Name Patient Relationship to Insured Coverage Start Date Coverage End Date [facility] [address] [place] [address] [id number] TSERING MORENO Self - patient is the insured Medical (General) History Medical History History ICD Code 7-14-2008 colonoscopy--no polyps, small internal hemorrhoids Denies ME,DM,CVA,Lung disease,renal dise ase Hypothyroidism Seizure disorder Endometrial carcinoma stage one-hysterec mike as below--2015 Negative colonoscopy in 03/2017 Surgical History Surgery Date(Month/Year) Cholecystectomy FREDY 03/2016
--- OUTSIDE RECORDS SUMMARY | 2025-08-09 11:24 | XMS_ITS | Encounter Summary ---
Author Organization [facility] Address [address] [place] [address] Care Team Providers Care Horse Exerciser Name Role Phone Ze Mann MD Primary Care Provider Encounter Details Date Type Department Care Team (Late st Contact Info) Description 05/29/2025 Lab Requisition [facility] - Main Lab [address] [place] [id number] Saba Mercer, [place] [address] [facility] [address] [place] [address] Dysuria Social History Tobacco Use Types Packs/Day Years Used Date Smoking Tobacco: Never Smokeless Tobacco: Never Alcohol Use Standard Drinks/Week Comments Not Asked 0 (1 standard drink = 0.6 oz pur e alcohol) Comments Unknown Sex and Gender Information Value Date Recorded Sex Assigned at Not on file Legal Sex Female 6:01 PM EST Gender Identity Not on file Sexual Orientation Not on file documented as of this encounter Plan of Treatment Not on file documented as of this encounter Procedures Procedure Name Priority Date/Time Associated Diagnosis Comments BACTERIAL IDENTIFICATION AND SUSCEPTIBILITY, AEROBIC Routine 05/28/2025 12:00 AM EDT Dysuria documented in this encounter Results * (ABNORMAL) Bacterial identification and susceptibility, aerobic (05/28/2025 12:00 AM EDT) Culture, Bacterial ID and Sensitivity Klebsiella oxytoca ESBL(A) ALIYA 06/01/2025 8:25 AM EDT [facility] Comment: THIS ORGANISM IS POSITIVE FOR [...] Escherichia coli(A) ALIYA 06/01/2025 8:25 AM EDT [facility] Comment: The organism value for this result has been updated. These results have been appended to the previously preliminary verified report. Other Urine specimen from urethra / Unknown 05/28/2025 05/29/2025 9:45 AM EDT Narrative [facility] - 06/01/2025 8:25 AM EDT Additional [...] Trimethoprim/Sulfame thoxazo le ALIYA <=20 ug/ml: Susceptible us Saba [facility] MICROBIOLOGY - GENERAL ORDER LICHA Final Result [facility] [address] [place] [address], documented in this encounter Visit Diagnoses Diagnosis Dysuria documented in this encounter Additional Health Concerns Infection Onset Date Last Indicated Resolved Time ESBL 05/28/2025 05/28/2025 documented as of this encounter Care Teams Horse Exerciser Relationship Specialty Start Date End Date Ze Mann MD [address] PCP - General Pediatrics 01/23/13 documented as of this encounter
--- OUTSIDE RECORDS SUMMARY | 2025-08-09 11:24 | XMS_ITS | Clinical Summary ---
Author Organization [address] Address [address] [place] [address] Phone Care Team Providers Care Molder Sweep Name Role Phone Ze Mann MD Primary Care Provider Encounters Date Type Department Care Team Description 05/29/2025 Lab Requisition [facility] - Main Lab [address] [facility] [place] [address] Saba Mercer PA Dysuria from [...] Breast Cancer Screening 06/29/2021 06/29/20 19, 06/27/2018 Depression Screening 11/15/2024 Colorectal Cancer Screening: Colonoscopy 05/29/2025 HIV Screening 05/29/2025 Hepatitis C Screening 05/29/2025 Social Influencers of Health Screening 05/29/2025 COVID-19 Vaccine ( - 2023-2 5 season) 2025 Influenza Vaccine (#1) 2025 RSV Immunization Adult [...] oxytoca ESBL(A) ALIYA 06/01/2025 8:25 AM EDT [facility] Comment: THIS ORGANISM IS POSITIVE [...] Escherichia coli(A) ALIYA 06/01/2025 8:25 AM EDT [facility] Comment: The organism value for this result has been updated. These results have been appended to the previously preliminary verified report. Other Urine specimen from urethra / Unknown 05/28/2025 05/29/2025 9:45 AM EDT Narrative [facility] - 06/01/2025 8:25 [...] MICROBIOLOGY - GENERAL ORDER LICHA Final Result [facility] [address] [place] [address], * JOHN SCREENING DIGITAL (06/29/2019 4:50 PM EDT) Anatomical Region Laterality Modality Mammography 06/29/2019 3:24 PM EDT Narrative 06/29/2019 4:50 PM EDT [facility] Diagnostic Imaging Department [address] [place] [address] Patient: SHELBY MORENOMG Torres /Age/Sex: 1960 - 59 - F Unit#: [id number] [facility] Ordering Physician: JONI STEWARD MD John Screening Digital - 06/29/191549 History: Bilateral breast cancer screening. Technique: Bilateral digital mammography. Conventional CC and MLO projections with tomosynthesis MLO views and computer aided detection. Findings: Comparison: [facility] 06/17/2018, dating back to 09/26/2007. Breast tissue is mostly fatty replaced (category a density) bilaterally. There are benign calcifications bilaterally. There is no suspicious group of microcalcification, no suspicious mass, architectural distortion or suspicious asymmetry. Impression: No evidence of malignancy. BIRADS category 2, benign findings, 3342F 06895, [address] Note: Patient information entered into a reminder system with a target due date for the next mammogram; PQRI II 7066L Dictating Physician: MOISE HUERTA MD Electronically Signed by: MOISE HUERTA MD Dic Date/Time: 06/29/19 1644 Sign date/Time: 06/29/19 165 Procedure Note Moise Huerta - 11/04/2022 [facility] Diagnostic Imaging Department [address] [place] [address] Patient: TSERING MORENO Brian /Age/Sex: 1960 - 59 - F Unit#: [id number] Location/Status: [facility] Mnemonic/Ordering Site: [facility] Ordering Physician: JONI STEWARD MD John Screening Digital - 06/29/19 - 1550 History: Bilateral breast cancer screening. Technique: Bilateral digital mammography. Conventional CC and MLOprojections with tomosynthesis MLO views and computer aided detection. Findings: Comparison: [facility] 06/17/2018, dating back to 09/26/2007. Breast tissue is mostly fatty replaced (category a density) bilaterally.There are benign calcifications bilaterally. There is no suspicious group of microcalcification, no suspicious mass, architectural distortion orsuspicious asymmetry. Impression: No evidence of malignancy. BIRADS category 2, benign findings, 3342F 16419, [address] Note: Patient information entered into a reminder [...] Date Last Indicated ESBL 05/28/2025 05/28/2025 Insurance [facility] Care Teams Molder Sweep Relationship Specialty Start Date End Date Ze Mann MD [address] PCP - General Pediatrics 01/23/13
--- OUTSIDE RECORDS SUMMARY | 2025-08-09 11:24 | XMS_ITS | Patient Health Record ---
Author Organization Filemon Steward III, MD Address [address] [place] [address] Care Team Providers Care Servicing Rep Name Role Phone Dr. Filemon Steward III [...] ff Reviewed date:11/25/2024 08:40:28 PM Interpretation: Performing Lab:[facility], [address] [place] [phone] Notes/Report: White Blood Count 3.1 4.8-10.8 X10*3/uL [...] NRBC Abs Auto 0.000 0.0-0.012 X10*3/uL Comprehensive [place]. Panel Fa st Reviewed date:11/25/2024 08:40:28 PM Interpretation: Performing Lab:[facility], [address] [place] [phone] Notes/Report: Sodium 143 135-145 mmol/L Potassium 4.5 [...] Panel Reviewed date:11/25/2024 08:40:28 PM Interpretation: Performing Lab:[address] [address] Notes/Report: Triglycerides 80 <150 mg/dL Desirable Triglyceride: [...] Thyroxine) Reviewed date:11/25/2024 08:40:28 PM Interpretation: Performing Lab:[address] [address] Notes/Report: Free T4 (Free Thyroxine) 0.90 0.71-1.85 ng/dL Thyroid Stimulating Hormone Reviewed date:11/25/2024 08:40:28 PM Interpretation: Performing Lab:[address] [address] Notes/Report: Thyroid Stimulating Hormone 0.81 0.32-4.0 uIU/mL TSH 3rd Generation ([facility]) Phenytoin Dilantin Reviewed date:11/25/2024 08:40:28 PM Interpretation: Performing Lab:[address] [address] Notes/Report: Phenytoin Dilantin 21.2 10.0-20.0 ug/mL Valproate Reviewed date:11/25/2024 08:40:28 PM Interpretation: Performing Lab:[facility], [address] [place] [address] Notes/Report: Valproate 49.0 50.0-100.0 mcg/mL XR DEXA axial skeleton Reviewed date:05/24/2025 03:48:10 PM Interpretation: Performing Lab: Notes/Report: [facility]'s [address] [place] [address] Mammography Report Signed Patient: Tsering Moreno MR#: [id number] 2 : 1960 Acct:[id number] Age/Sex: 65 / F ADM Date: 03/29/25 Loc: HO.MAMMO Attending Dr: Filemon Steward MD Ordering Physician: Filemon Steward MD Results: Date of Service: 03/29/25 Follow Up: Procedure(s): XR DEXA axial skeleton Accession Number(s): [id number] cc: Filemon Steward MD EXAMINATION: DXA BONE DENSITY AXIAL HISTORY: Z78.0 MENOPAUSAL STATE TECHNIQUE: The Dodo Dual energy absorptiometry (DEXA) of the lumbar spine, total left hip, and femoral neck was performed. COMPARISON: Comparison is made with the prior examination dated 01/03/2019. FINDINGS: The bone mineral density of the lumbar spine is 0.824 with a T-score of -3.1, and a Z-score of -2.8. This is indicative of osteoporosis. This represents a BMD change of -11.0% compared to the prior exam. This is statistically significant. The bone mineral density of the left total hip is 0.755 with a T-score of -2.0, and a Z-score of -1.7. This is indicative of osteopenia. This represents a BMD change of -3.1% compared to the prior exam. This is not statistically significant. The bone mineral density of the left femoral neck is 0.753 with a T-score of -2.0, and a Z-score of -1.4. This is indicative of osteopenia. This represents a BMD change of 5.2% compared to the prior exam. MM/XR DEXA axial skeleton IMPRESSION: Based on bone mineral density, and according to World Health Organization (WHO) criteria, the diagnosis is consistent with osteoporosis. All bone density values are in grams per centimeter squared (g/cm2). Statistically, 68% of repeat scans fall within 1 SD (+/- 0.010 g/cm2 for AP spine L1-L4) and 1 SD (+/- 0.012 g/cm2 for femur total) FRAX is a trademark of the [employer] Metabolic Bone Disease, a World Health Organization (WHO) Collaborating Center. Electronically signed by: Filemon Heller MD 03/29/2025 02:25 PM EDT RP Dictated By: Filemon Heller MD Signed By: <Electronically signed by Filemon Heller MD in OV> 03/29/25 1425 DD/ 1400 TD/TT: 03/29/25 1416 Mechanical Maintenance Supervisor: [facility] [address] [place] [address] Mammography Report Signed Patient: Augustine Moreno MR#: [id number] 2 : 1960 Acct:[id number] Age/Sex: 65 / F ADM Date: 03/29/25 Loc: HO.MAMMO Attending Dr: Filemon Steward MD Ordering Physician: Filemon Steward MD Results: Date of Service: 03/29/25 Follow Up: Procedure(s): XR DEX A axial skeleton Accession Number(s): [id number] cc: Filemon Steward MD EXAMINATION: DXA BON E DENSITY AXIAL HISTORY: Z78.0 MENOPAUSAL STATE TECHNIQUE: The Dodo Dual energy absorptiometry (DEXA) of the lumbar spine, total left hip, and femoral neck was performed. COMPARISON: Comparis on is made with the prior examination dated 01/03/2019. FINDINGS: The bone mineral density of the lumbar spine is 0.824 with a T-score of -3.1, and a Z-score of -2.8. This is indicative of osteoporosis. This represents a BM D change of -11.0% compared to the prior exam. This is statisticall y significant. The bone mineral density of the left total hip is 0.755 with a T-score of -2.0, and a Z-sco re of -1.7. This is indicative of osteopenia. This represents a BM D change of -3.1% compared to the prior exam. This is not statistically significant. The bone mineral density of the left femoral neck is 0.753 with a T-score of -2.0, and a Z-score of -1.4. This is indicative of osteopenia. This represents a BM D change of 5.2% compared to the prior exam. ___ MM/XR DEXA axial skeleton IMPRESSION: Based on bone minera l density, and according to World Health Organization (WHO) criteria, the diagnosis is consistent with osteoporosis. All bone density monet ues are in grams per centimeter squared (g/cm2). Statistically, 68% o f repeat scans fall within 1 SD (+/- 0.010 g/cm2 for AP spine L1-L4) and 1 SD (+/- 0.012 g/cm2 for femur total) FRAX is a trademark of the [employer] Metabolic Bone Disease, a World Health Organization (WHO) Collaborating Center. Electronically mirza d by: Filemon Heller MD 03/29/2025 02:25 PM EDT Dictated By: Filemon Heller MD Signed By: <Electronically signed by Filemon Heller MD in OV> 03/29/25 1425 DD/ 1400 TD/TT: 03/29/25 1416 Mechanical Maintenance Supervisor: Complete Blood Count Auto Di ff Reviewed date:05/24/2025 03:48:10 PM Interpretation: Performing Lab:[facility], [address] [place] [phone] Notes/Report: White Blood Count 5.2 4.8-10.8 X10*3/uL Red Blood Count 4.33 4.20-5.50 X10*6/uL Hemoglobin 13.9 12.0-16.0 g/dl Hematocrit 41.0 37.0-47.0 % Mean Corpuscular Volume 94.7 80.0-98.0 fL Mean Corpuscular Hemoglobin 32.1 27.0-33.0 pg Mean Corpuscular HGB Conc 33.9 31.0-35.0 g/dl Red Cell Distribution Width 13.8 11.0-16.0 % Platelet Count 223 160-400 X10*3/uL Mean Platelet Volume 9.7 9.4-12.3 fL Neutrophils Percent Auto 33.4 45-73 % Imm Gran Pct Auto 0.4 0.0-0.4 % Lymphocytes Percent Auto 50.2 20-40 % Monocytes Percent Auto 8.1 2-11 % Eosinophils Percent Auto 7.1 0-4 % Basophils Percent Auto 0.8 0-2 % NRBC Pct Auto 0.0 0.0-0.2 /100WBC Neutrophils Absolute Auto 1.7 2.0-8.3 x10*3/u L Imm Gran Abs Auto 0.02 0.00-0.03 X10*3/uL Lymphocytes Absolute Auto 2.6 1.2-4.9 X10*3/u L Monocytes Absolute Auto 0.4 0.1-1.2 X10*3/uL Eosinophils Absolute Auto 0.4 0.0-0.4 X10*3/u L Basophils Absolute Auto 0.0 0.0-0.2 X10*3/uL NRBC Abs Auto 0.000 0.0-0.012 X10*3/uL Comprehensive Met. Panel Reviewed date:05/24/2025 03:48:10 PM Interpretation: Performing Lab:[facility], [address] [place] [phone] Notes/Report: Sodium 141 135-145 mmol/L Potassium 4.1 3.3-5.1 mmol/L Chloride 104 96-108 mmol/L Carbon Dioxide 27 22-29 mmol/L Anion Gap 14 12-20 Blood Urea Nitrogen 13 9-16 mg/dL Creatinine 0.68 0.5-1.4 mg/dL Estimated Glomerular Filt Rate > 60 Chronic Kidney Disease: Estimated GFR < 60 mL/min/1.73m2 Severe Kidney Disease: Estimated GFR < 15 mL/min/1.73m2 Glucose Random 91 60-115 mg/dL Calcium 9.2 8.4-10.2 mg/dL Bilirubin Total 0.4 0.0-1.0 mg/dL Aspartate Amino Transferase 23 5-31 U/L Alanine Aminotransferase 30 0-31 U/L Total Protein 6.3 6.5-8.0 g/dL Albumin Level 4.1 3.5-5.0 g/dL Alkaline Phosphatase 60 39-117 U/L Phenytoin, Free/Unbound Reviewed date:05/24/2025 03:48:10 PM Interpretation: Performing Lab:[facility], [address] [place] [phone] Notes/Report: Phenytoin, Free/Unbound 1.0 1.0-2.0 mg/L THIS TEST WAS PERFORMED AT: [facility] [address] [place] [phone] MARCELINO FERRER MD Reason For Referral No Information Medications Medication SIG (Take, Route, Frequency, Duration) Notes Start Date End Date Status traMADol HCl 50 MG 1 tablet if needed Orally every 6 hours 05/16/2025 Active Atorvastatin Calcium 20 MG 1 tablet [...] th ree times a day 05/15/2025 Active Amoxicillin-Pot Clavulanate 875-125 MG 1 tablet Orally every 12 hrs 05/14/2025 Active Immunizations Vaccine Route Administration Date Status [...] W/U Status Risk Notes Problem Sleep apnea (95448763) Sleep apnea, unspecified (G47.30) Active confirmed She continues t o use his CPAP although she finds it uncomfortable.. Problem 742717501 GERD without esophagitis (K21.9) Active confirmed Occasional heartburn is well-controlled with her current regimen and no changes necessary. Problem 934641882 Obesity (BMI 30-39.9) (E66.9) Active confirmed Her body mass index is 38.. We have reviewed her diet and nutrition. We made a plan to lose weight at a rate of one half of a pound per week through a diet restricted in calories fat and sodium combined with regular physical activity. Problem 8691798 Herpes zoster without complication (B02.9) Active confirmed A herpetic infection is resolving and the pain is less. Finished the medication and then follow-up. SShe will continue to avoid women and unvaccinated people. Problem 38875804 Leukopenia, unspecified type (D72.819) Active confirmed Comprehensive blood work will be done periodically in the white count will be assessed. No treatment is currently necessary. Problem 769236362 History of endometrial cancer (Z85.42) Active confirmed There is no sign of recurrent endometrial cancer today. Problem 693073779 Pure hypercholestero lemia (E78.00) Active confirmed Her cholester ol level is 229. All are in 8 weeks. No change in her regimen was made today. Problem Essential hypertension (94174321) Hypertension, unspecified type (I10) Active confirmed Her blood pressure is currently stable and no change in her regimen was necessary. Problem Hypothyroidism (75739679) Hypothyroidism, unspecified type (E03.9) Active confirmed Her thyroid function tests are normal and she is euthyroid. No change in her regimen was made. Problem [id number] Arthritis of left knee (M17.12) Active confirmed She will continue on her current regimen without change. There is no contraindication to ibuprofen or naproxen. Problem [id number] Bilateral carpal tunnel syndrome (G56.03) Active confirmed This discomfort has resolved and she will be observed at this time. 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 Problem 232491349 Acute folliculitis (L73.9) Active confirmed This is a diagnosis from her description over the phone. I have prescribed amoxicillin. She was seen in followup tomorrow. Vital Signs Heart Rate 66 /min 05/24/2025 Temperature 97.2 degrees Fahrenheit 05/24/2025 Blood pressure diastolic 80 mm Hg 05/24/2025 Height 67 in 05/24/2025 Blood pressure systolic 137 mm Hg 05/24/2025 Weight 247 lbs 05/24/2025 BMI 38.68 kg/m2 05/24/2025 Encounters Encounter Location Date Provider Diagnosis Filemon Steward III, MD [address] [place] [address] [place] [address] 02/22/2025 Filemon Steward Hypothyroidism, unsp ecified type E03.9 ; Nonintractable generalized idiopathic epilepsy without status epilepticus G40.309 ; Postmenopausal Z78.0 ; Encounter for screening for osteoporosis Z13.820 ; Pure hypercholesterolemia E78.00 ; Bilateral carpal tunnel syndrome G56.03 ; Arthritis of left knee M17.12 ; History of endometrial cancer Z85.42 ; GERD without esophagitis K21.9 and Sleep apnea, unspecified G47.30 Filemon Steward III, MD [address] [place] [address] [place] [address] 05/14/2025 Filemon Steward Acute folliculitis L 73.9 ; Hypothyroidism, unspecified type E03.9 ; Nonintractable generalized idiopathic epilepsy without status epilepticus G40.309 ; Bilateral carpal tunnel syndrome G56.03 ; Arthritis of left knee M17.12 ; Leukopenia, unspecified type D72.819 ; GERD without esophagitis K21.9 ; History of endometrial cancer Z85.42 and Obesity (BMI 30-39.9) E66.9 Filemon Steward III, MD [address] [place] [address] [place] [address] 05/15/2025 Filemon Steward Hypothyroidism, unsp ecified type E03.9 ; Herpes zoster without complication B02.9 ; Hypertension, unspecified type I10 ; Nonintractable generalized idiopathic epilepsy without status epilepticus G40.309 ; Arthritis of left knee M17.12 ; GERD without esophagitis K21.9 ; Sleep apnea, unspecified G47.30 and Obesity (BMI 30-39.9) E66.9 Filemon Steward III, MD [address] [place] [address] [place] [address] 05/16/2025 Filemon Steward Hypothyroidism, unsp ecified type E03.9 ; Herpes zoster without complication B02.9 ; Hypertension, unspecified type I10 ; Arthritis of left knee M17.12 ; Bilateral carpal tunnel syndrome G56.03 and Nonintractable generalized idiopathic epilepsy without status epilepticus G40.309 Filemon Steward III, MD [address] [place] [address] [place] [address] 05/24/2025 Filemon Steward Hypothyroidism, unsp ecified type E03.9 ; Herpes zoster without complication B02.9 ; Hypertension, unspecified type I10 ; Nonintractable generalized idiopathic epilepsy without status epilepticus G40.309 ; Leukopenia, unspecified type D72.819 and Obesity (BMI 30-39.9) E66.9 Filemon Steward III, MD [address] [place] [address] [place] [address] 11/23/2024 Filemon Steward III, MD [address] [place] [address] [place] [address] 05/15/2025 Filemon Steward III, MD [address] [place] [address] [place] [address] 05/16/2025 Filemon Steward III, MD [address] [place] [address] [place] [address] 05/16/2025 Filemon Steward III, MD [address] [place] [address] [address] [place] [address] 05/17/2025 Filemon Steward Assessments Encounter Date Diagnosis (ICD [...] will be done in 8 weeks. 05/14/2025 Acute folliculitis (ICD-10 - L73.9) This is a diagnosis from her description over the phone. I have prescribed amoxicillin. She was seen in followup tomorrow. 05/15/2025 Herpes zoster withou t complication (ICD-10 - B02.9) This appears to be early shingles. She has been treated for it. The pain is characteristic. Blisters have not yet formed. 05/15/2025 Hypothyroidism, unspecified type (ICD-10 - E03.9) Her thyroid function tests are normal and she is euthyroid. No change in her regimen was made. 05/16/2025 Herpes zoster withou t complication (ICD-10 - B02.9) The pain is unchanged. I am able to see a few blisters beginning to form. The diagnosis of herpes zoster remains intact. Observation will continue while she is on the valacyclovir and prednisone. There is no involvement of the ear canal on the anterior face or eyes. 05/16/2025 Hypothyroidism, unspecified type (ICD-10 - E03.9) Her thyroid function tests are normal and she is euthyroid. No change in her regimen was made. 05/24/2025 Herpes zoster withou t complication (ICD-10 - B02.9) A herpetic infection is resolving and the pain is less. Finished the medication and then follow-up. SShe will continue to avoid women and unvaccinated people. 05/24/2025 Hypothyroidism, unspecified type (ICD-10 - E03.9) Her thyroid function tests are normal and she is euthyroid. No change in her regimen was made. 02/22/2025 Postmenopausal (ICD- 10 - Z78.0) She is currently asymptomatic. A bone density test is pending. She has undergone hysterectomy. 05/14/2025 Hypothyroidism, unspecified type (ICD-10 - E03.9) [...] will be done in 8 weeks. 05/15/2025 Hypertension, unspec ified type (ICD-10 - I10) Her blood pressure is currently acceptable. She is going to try to lose weight and restrict sodium. 05/16/2025 Hypertension, unspec ified type (ICD-10 - I10) Her blood pressure is currently 144/82. She is in a moderate amount of discomfort. She is going to try to lose weight and restrict sodium. 05/24/2025 Hypertension, unspec ified type (ICD-10 - I10) Her blood pressure is currently stable and no change in her regimen was necessary. 02/22/2025 Encounter for screen ing for osteoporosis (ICD-10 - Z13.820) A bone density test was ordered today. 05/14/2025 Bilateral carpal mary kate dhruv syndrome (ICD-10 - G56.03) This discomfort has resolved and she will be observed at this time. 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 Her she needs to remove was 21.200 dose of 400 mg daily. This was reduced to 300 mg every other day alternating with 400 mg. A repeat level will be done in 8 weeks. 05/16/2025 Arthritis of left kn ee (ICD-10 - M17.12) She will continue on her current regimen without change. There is no contraindication to ibuprofen or naproxen. 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 02/22/2025 Pure hypercholestero lemia (ICD-10 - E78.00) Her cholesterol level is 229. All are in 8 weeks. No change in her regimen was made today. 05/14/2025 Arthritis of left kn ee (ICD-10 - M17.12) She will continue on her current regimen without change. There is no contraindication to ibuprofen or naproxen. 05/15/2025 Arthritis of left kn ee (ICD-10 - M17.12) She will continue on her current regimen without change. There is no contraindication to ibuprofen or naproxen. 05/16/2025 Bilateral carpal mary kate dhruv syndrome (ICD-10 - G56.03) This discomfort has resolved and she will be observed at this time. 05/24/2025 Leukopenia, unspecif ied type (ICD-10 - D72.819) Comprehensive blood work will be done periodically in the white count will be assessed. No treatment is currently necessary. 02/22/2025 Bilateral carpal mary kate dhruv syndrome (ICD-10 - G56.03) This discomfort has resolved and she will be observed at this time. 05/14/2025 Leukopenia, unspecif ied type (ICD-10 - D72.819) A CBC is pending to evaluate the white blood cell count. She has had no recent infections or bleeding. 05/15/2025 GERD without esophag itis (ICD-10 - K21.9) Occasional heartburn is well-controlled with her current regimen and no changes necessary. 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 Her she needs to remove was 21.200 dose of 400 mg daily. This was reduced to 300 mg every other day alternating with 400 mg. A repeat level will be done in 8 weeks. 05/24/2025 Obesity (BMI 30-39.9 ) (ICD-10 - E66.9) 02/22/2025 Arthritis of left kn ee (ICD-10 - M17.12) She will continue on her current regimen without change. There is no contraindication to ibuprofen or naproxen. 05/14/2025 GERD without esophag itis (ICD-10 - K21.9) Occasional heartburn is well-controlled with her current regimen and no changes necessary. 05/15/2025 Sleep apnea, unspeci fied (ICD-10 - G47.30) She continues to use his CPAP although she finds it uncomfortable.. 02/22/2025 History of endometri al cancer (ICD-10 - Z85.42) There is no sign of recurrent endometrial cancer today. 05/14/2025 History of endometri al cancer (ICD-10 - Z85.42) There is no sign of recurrent endometrial cancer today. 05/15/2025 Obesity (BMI 30-39.9 ) (ICD-10 - E66.9) Her body mass index is 38.. We have reviewed her diet and nutrition. We made a plan to lose weight at a rate of one half of a pound per week through a diet restricted in calories fat and sodium combined with regular physical activity. 02/22/2025 GERD without esophag itis (ICD-10 - K21.9) Occasional heartburn is well-controlled with her current regimen and no changes necessary. 05/14/2025 Obesity (BMI 30-39.9 ) (ICD-10 - E66.9) She has gained 7 pounds since her last visit. We have reviewed her diet and nutrition. We made a plan to lose weight at a rate of one half of a pound per week through a diet restricted in calories fat and sodium combined with regular physical activity. 02/22/2025 Sleep apnea, unspeci fied (ICD-10 - [...] C) 07/01/2021 PROFILE, FASTING (COMPREHENSIVE METABOLI C) 12/06/2020 PROFILE, FASTING (COMPREHENSIVE METABOLI C) 09/14/2022 PROFILE, FASTING (COMPREHENSIVE METABOLI C) 07/27/2024 PROFILE, FASTING (COMPREHENSIVE METABOLI C) 03/16/2023 PROFILE, FASTING (COMPREHENSIVE METABOLI C) 03/09/2022 PROFILE, FASTING (COMPREHENSIVE METABOLI C) 09/26/2018 PROFILE, FASTING (COMPREHENSIVE METABOLI C) 10/31/2021 PROFILE, FASTING (COMPREHENSIVE METABOLI C) 07/03/2019 PROFILE, FASTING (COMPREHENSIVE METABOLI C) 05/24/2025 PROFILE, FASTING (COMPREHENSIVE METABOLI C) 12/14/2018 PROFILE, RANDOM (COMPREHENSIVE METABOLIC ) 02/22/2025 PROFILE, RANDOM (COMPREHENSIVE METABOLIC ) 12/26/2019 LIPID PANEL 10/31/2021 LIPID PANEL 07/03/2019 LIPID PANEL 12/14/2018 LIPID PANEL 03/26/2021 LIPID [...] T4 (FT4) 03/09/2022 TSH (THYROID STIMULATING HORMONE) 2024 TSH (THYROID STIMULATING HORMONE) 2021 TSH (THYROID STIMULATING HORMONE) 2021 TSH (THYROID STIMULATING HORMONE) 2022 TSH (THYROID STIMULATING HORMONE) 2019 TSH (THYROID STIMULATING HORMONE) 2017 TSH (THYROID STIMULATING HORMONE) 2018 TSH (THYROID STIMULATING HORMONE) 2018 TSH (THYROID STIMULATING HORMONE) 2020 TSH (THYROID STIMULATING HORMONE) 2021 TSH (THYROID STIMULATING HORMONE) 2017 TSH (THYROID STIMULATING HORMONE) 2023 TSH (THYROID STIMULATING HORMONE) 2020 DILANTIN (PHENYTOIN) 05/24/2025 DILANTIN (PHENYTOIN) 07/06/2022 DILANTIN (PHENYTOIN) 09/14/2022 DILANTIN (PHENYTOIN) 12/26/2019 VALPROIC ACID (VPA, DEPAKOTE) 07/27/2024 VALPROIC ACID (VPA, DEPAKOTE) 12/26/2019 CBC w DIFF 06/14/2018 CBC w DIFF 07/01/2021 CBC w DIFF 10/31/2021 CBC w DIFF 02/22/2025 CBC w DIFF 03/09/2022 CBC w DIFF 07/27/2024 CBC w DIFF 10/25/2020 CBC w DIFF 10/14/2021 CBC w DIFF 05/24/2025 CBC w DIFF 07/06/2022 CBC w DIFF 03/16/2023 CBC w DIFF [...] 05/23/2019 Lipid Panel 03/09/2022 Lipid Panel 07/27/2024 Lipid Panel 05/24/2025 Free T4 (Free Thyroxine) 07/27/2024 Free T4 (Free Thyroxine) 05/24/2025 Phenytoin Dilantin 03/09/2022 Phenytoin Dilantin 07/27/2024 Phenytoin, Free/Unbound 02/22/2025 Next Appt Details Provider Name:Filemon Steward , 08/16/2025 10:45:00 AM, [address] [place] [address] [place], [address], Provider Name:Filemon Steward , 02/28/2026 09:30:00 AM, [address] [place] [address] [address], [place], [address], Insurance Providers Payer Name Payer Address Payer Phone Subscriber Number Group Number Insured Name Patient Relationship to Insured Coverage Start Date Coverage End Date [facility] [address] [place] [phone] [id number] TSERING MORENO Self - patient is the [...] environmental allergies Surgical History Surgery Date(Month/Year) Colonoscopy [facility] 08/2022 colonoscopy, [facility], Dr. Filemon Shepherd, no findings 2016 colonoscopy, [facility], Dr. Filemon Shepherd, no findings 2008 FREDY/BSO Dr. Renae Gee, endometrial c ancer 2016 cholecystectomy 1985
--- OUTSIDE RECORDS SUMMARY | 2025-08-09 11:24 | XMS_ITS | Patient Health Record ---
[facility] Address [address] [place] [address] Care Team Providers Care Cuprous Chloride Operator Name Role Phone Filemon Steward MD Primary Care Provider UnavailArtur Moreira Unavailable [phone] Allergies Allergen (clinical drug ingredient) Drug/Non Drug [...] Treatment Pending Test Test Name Order Date 62477- Debride <25 sq cm 06/03/2021 83377 I&D ABSCESS- SIMPLE,SINGLE 021 Insurance Providers Payer Name Payer Address Payer Phone Subscriber Number Group Number Insured Name Patient Relationship to Insured Coverage Start Date Coverage End Date [employer] [id number] [address] [address] [place] [address] [id number] Nikolay Moreno Spouse - patient is the spouse of the insured Medical (General) History Medical History History ICD Code Back,Hip,and Knee pain Broken bones Cancer Epilepsy Gall bladder problems High blood pressure thyroid Measles Mumps Chicken pox Surgical History Surgery Date(Month/Year) gall bladder 12/1984 hysterectomy 03/2016
== END 2025-08-09 09:41 | disposition home or self-care (01) ==
LOC: HO.MAMMO 09:40
PROVIDERS: PCP Internal Medicine Medical Oncology; Visit Provider Internal Medicine Medical Oncology
DX: Z12.31 Encounter for screening mammogram for malignant neoplasm of breast (principal)
CPT/HCPCS: 77063; 77067

== ENCOUNTER → 2025-08-09 09:45 | Outpatient (BNV) | payer OTHER, SELFPAY | PROVIDERS: PCP Internal Medicine Medical Oncology; Visit Provider Radiology Body Imaging | DX: Z12.31 Encounter for screening mammogram for malignant neoplasm of breast (principal) | CPT/HCPCS: 77063; 77067 ==

== ENCOUNTER 2025-09-21 11:14 | Outpatient (REF) | payer OTHER, SELFPAY ==
--- OUTSIDE RECORDS SUMMARY | 2025-02-22 04:45 | XMS_ITS ---
Author Organization Filemon Steward III, MD Address [address] [place] [address] Care Team Providers Care Personal Lines Sales Executive Name Role Phone Dr. Filemon Steward III Primary Care Provider Allergies Allergen (clinical drug ingredient) Drug/Non Drug Allergy documented on EMR Reaction Allergy Type Onset Date Status nitrofurantoin, macrocrystals / nitrofurantoin, monohydrate Macrobid Unknown Drug Allergy Active codeine Codeine Sulfate Unknown Drug Allergy A ctive Results Component Value Reference Range Notes URINE DIP STICK Reviewed date:02/22/2025 04:46:17 PM Interpretation: Performing Lab: Notes/Report: SG 1.020 1.005 - 1.025 pH 5.0 5.0 - 9.0 BELKIS 70 Negative - NIT Negative Negative - PRO 30 Negative - Trace GLU Negative Negative - KET 5 Negative - UBG 0.2 0.1 - 1.8 MAYKEL Negative 0.2 - 1.3 BLD ++ Negative - Menstrating No REASON FOR VISIT annual exam Medications Medication SIG (Take, Route, Frequency, Duration) Notes Start Date End Date Status Methenamine Hippurate 1 GM 1 tablet Oral ly Twice a day Active Atorvastatin Calcium 20 MG 1 tablet Oral ly Once a day 01/27/2024 Active Levothyroxine Sodium 100 MCG TAKE 1 TABLET BY MOUTH DAILY Active Atorvastatin Calcium 20 MG 1 tablet Oral ly Once a day 11/23/2024 Active Dilantin 100 MG 3 capsule on odd day s and take 4 caps on even days Orally once a day Active Omeprazole 20 MG 2 capsule Orally Onc e a day As needed Active Depakote 500 MG Orally Acti ve Social History Tobacco Use: Social History Observation Description Date Details (start date - stop date) Never Smoker NA - NA Sex Assigned At : Social History Observation Description Sex Assigned At Female Tobacco Control (Standard) Question Answer Notes Tobacco use: Nonsmoker Additional Findings: Tobacco non-user Aggressive nonsmoker AUDIT-C (Standard) Question Answer Notes Did you have a drink containing alcohol in the p ast year? No Points 0 Interpretation Negative Vital Signs Temperature 97.2 degrees Fahrenheit 02/23/20 25 Blood pressure systolic 129 mm Hg 02/23/20 25 Blood pressure diastolic 71 mm Hg 025 Heart Rate 64 /min 02/22/2025 Height 67 in 02/22/2025 Weight 246 lbs 02/22/2025 BMI 38.52 kg/m2 02/22/2025 Oh. 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 No change in her regimen was made. 02/22/2025 Nonintractable generalized idiopathic epilepsy without status epilepticus (ICD-10 - G40.309) She used to seizures. Her she needs to remove was 21.200 dose of 400 mg daily. This was reduced to 300 mg every other day alternating with 400 mg. A repeat level will be done in 8 weeks. 02/22/2025 Postmenopausal (ICD- 10 - Z78.0) She is currently asymptomatic. A bone density test is pending. She has undergone hysterectomy. 02/22/2025 Encounter for screen ing for osteoporosis (ICD-10 - Z13.820) A bone density test was ordered today. 02/22/2025 Pure hypercholestero lemia (ICD-10 - E78.00) Her cholesterol level is 229. All are in 8 weeks. No change in her regimen was made today. 02/22/2025 Bilateral carpal mary kate dhruv syndrome (ICD-10 - G56.03) This discomfort has resolved and she will be observed at this time. 02/22/2025 Arthritis of left kn ee (ICD-10 - M17.12) She will continue on her current regimen without change. There is no contraindication to ibuprofen or naproxen. 02/22/2025 History of endometri al cancer (ICD-10 - Z85.42) There is no sign of recurrent endometrial cancer today. 02/22/2025 GERD without esophag itis (ICD-10 - K21.9) Occasional heartburn is well-controlled with her current regimen and no changes necessary. 02/22/2025 Sleep apnea, unspeci fied (ICD-10 - G47.30) She continues to use his CPAP although she finds it uncomfortable.. Plan Of Treatment Medication Medication Name Sig Start Date Stop Date Notes Methenamine Hippurate 1 GM 1 tablet Oral ly Twice a day Atorvastatin Calcium 20 MG 1 tablet Oral ly Once a day 01/27/2024 Levothyroxine Sodium 100 MCG TAKE 1 TABL ET BY MOUTH DAILY Atorvastatin Calcium 20 MG 1 tablet Oral ly Once a day 11/23/2024 Dilantin 100 MG 3 capsule on odd day s and take 4 caps on even days Orally once a day Omeprazole 20 MG 2 capsule Orally Onc e a day As needed Depakote 500 MG Orally Pending Test Test Name Order Date PROFILE, RANDOM (COMPREHENSIVE METABOLIC ) 02/22/2025 CBC w DIFF 02/22/2025 BONE DENSITY DEXA 02/22/2025 Phenytoin, Free/Unbound 02/22/2025 Next Appt Details Follow Up: 3 Months, Reason: OV Provider Name:Filemon Steward , 09/25/2025 09:00:00 AM, [address] [place] [address] [place], [place], [address], Provider Name:Filemon Steward , 02/28/2026 09:30:[address] [place], [address], Progress Notes * TSERING MORENO FDOB:[birth year] (64 yo F)Acc No.[id number]:02/22/2025 Progress Notes Patient: TSERING HERNANDEZ Provider: Yaya Steward MD :1960 A ge:64 Y S ex:Female Date:02/22/2025 Address:[address] [place] [address] [id number] Subjective: * Chief Complaints: * A nnual exam * HPI: D epression Screening: She returns to the office at the age of 64 for her annual physical examination.She had a mammogram last July, which was normal. She had a colonoscopy in 2021 and has 1@5 year intervals.She has sleep apnea and uses CPAP every night but finds it difficult to use and that it wakes her up and gives her a dry mouth. In recent years. She has not had a research subject for a bone density. A bone study was ordered. She does not think a research subject as necessary she has had a hysterectomy. Her Dilantin level was 21 which is slightly elevated. He has been taking 400 mg tablets daily and we reduce this to 300 mg alternating every other day with 400. She denies any chest pain or shortness of breath. She is compliant with all of her medications. Her blood pressure was stable today. She has had no further seizures. She remains in remission from the endometrial cancer. She has had no serious infections. She is trying to lose weight and consume a healthy diet. PHQ-9 L ittle interest or pleasure in doing things?Not at all F eeling down, depressed, or hopeless N ot at all T rouble falling or staying asleep, or sleeping too much N ot at all F eeling tired or having little energy S everal days P oor appetite or overeating S everal days F eeling bad about yourself or that you are a failure, or have let yourself or your family down N ot at all T rouble concentrating on things, such as reading the newspaper or watching television N ot at all M oving or speaking so slowly that other people could have noticed; or the opposite, being so fidgety or restless that you have been moving around a lot more than usual N ot at all T houghts that you would be better off or of hurting yourself in some way N ot at all T otal Score 2 I nterpretation M inimal Depression C OVID-19 Screening: Questions H ave you had any new onset fever, chills, cough, congestion, sore throat, shortness of breath, muscle aches? N o S JORGE Questions: SDOH Questions I n the past year have you been worried about losing your housing? N o I n the past year have you or any family members you live with been unable to get any of the following when it was really needed? Check all that apply: N one * ROS: G eneral/Constitutional: pain o nly normal aches and pains. C hills d enies.?Fatigue a dmits. F ever d enies. E NT: Decreased hearing d enies. R espiratory: Cough d enies. C ardiovascular: Chest pain with exertion d enies. D yspnea on exertion?denies. S hortness of breath d enies. G astrointestinal: Constipation o ccasional. D ecreased appetite d enies. D iarrhea d enies. H eartburn o ccasional. N ausea d enies. R ectal bleeding d enies. V omiting d enies. H ematology: bruising d enies. p etechiae d enies. S wollen glands n one have been noted. G enitourinary: Frequent urination a t night. M usculoskeletal: Muscle aches d enies. P ainful joints L eft knee.?Sciatica d enies. W eakness d enies. S kin: Itching d enies. R vinh d enies. S kin lesion(s)?denies. N eurologic: Difficulty speaking d enies. D izziness d enies.?Headache d enies. L ow back pain d enies. P sychiatric: Depressed mood d enies. * Medical History: * Surgical History: c holecystectomy 1984TAH/BSO Dr. Renae Gee, endometrial cancer 2016colonoscopy, [facility], Dr. Filemon Shepherd, no findings 2008colonoscopy, [facility], Dr. Filemon Shepherd, no findings 2016Colonoscopy [facility] 08/2022 * Hospitalization/Major Diagno stic Procedure: D enies Past Hospitalization * Family History: F ather: , Hypertension, diabetes, chronic kidney disease, prostate cancer, diagnosed with Cancer, HTN, DM. M other: , Hypertension, diabetes mellitus, colon cancer, endometrial cancer, diagnosed with Cancer, HTN, DM. P aternal Grand Mother: , diagnosed with Cancer. M aternal uncle: alive, diagnosed with CVD. M aternal aunt: alive, diagnosed with CVD.? Her paternal grandmother had breast cancer and a maternal uncle had heart disease and stroke. A maternal aunt had a stroke and heart disease. Her mother had colon cancer. * Social History: T obacco Use: T obacco Control (Standard) T obacco use: N onsmoker A dditional Findings: Tobacco non-user A ggressive nonsmoker D rugs/Alcohol: D rugs H ave you used drugs other than those for medical reasons in the past 12 months? N o D rug/Alcohol: A RENZO-C (Standard) D id you have a drink containing alcohol in the past year? N o P oints 0 I nterpretation N egative S he lives at home with her , Nikolay, and 2 cats . 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 She has no children. * Medications: T akingAtorvastatin Calcium 20 MG Tablet 1 tablet Orally Once a day Levothyroxine Sodium 100 MCG Tablet TAKE 1 TABLET BY MOUTH DAILY Omeprazole 20 MG Capsule Delayed Release 2 capsule Orally Once a day , Notes to Pharmacist: As neededDepakote 500 MG Tablet Delayed Release Orally Dilantin 100 MG Capsule 3 capsule on odd days and take 4 caps on even days Orally once a day Methenamine Hippurate 1 GM Tablet 1 tablet Orally Twice a day Taking Atorvastatin Calcium 20 MG Tablet 1 tablet Orally Once a day Taking Levothyroxine Sodium 100 MCG Tablet TAKE 1 TABLET BY MOUTH DAILY Taking Omeprazole 20 MG Capsule Delayed Release 2 capsule Orally Once a day , Notes to Pharmacist: As neededTaking Depakote 500 MG Tablet Delayed Release Orally Taking Dilantin 100 MG Capsule 3 capsule on odd days and take 4 caps on even days Orally once a day Taking Methenamine Hippurate 1 GM Tablet 1 tablet Orally Twice a day DiscontinuedAtorvastatin Calcium 20 MG Tablet 1 tablet Orally Once a day Medication List reviewed and reconciled with the patientDiscontinued Atorvastatin Calcium 20 MG Tablet 1 tablet Orally Once a day Medication List reviewed and reconciled with the patient * Allergies: C odeine SulfateMacrobidno[Allergies Verified] Objective: * Vitals: H t: 67, Wt: 246, BMI:38.52, BP: 129/71, HR: 64, Temp: 97.2, Wt-k.58. Oh. Your he. * P ast Orders: Lab:Phenytoin Dilantin * Collection Date 11/24/2024 12/25/2022 09/10/2022 Collection Time 10:28 AM 09:25 AM 08:44 AM Order Date 11/24/2024 12/25/2022 09/10/2022 Phenytoin Dilantin 21.2 H (Ref Range: 10.0-20.0 ug/mL) 15.9 (Ref Range: 10.0-20.0 ug/mL) 13.3 (Ref Range: 10.0-20.0 ug/mL) * Lab:Complete Blood Count Aut o Diff * Collection Date 11/24/2024 04/17/2024 01/24/2024 Collection Time 10:28 AM 09:22 AM 08:47 AM Order Date 11/24/2024 04/17/2024 01/24/2024 White Blood Count 3.1 L (Ref Range: 4.8-10.8 X10*3/uL) 3.8 L (Ref Range: 4.8-10.8 X10*3/uL) 3.9 L (Ref Range: 4.8-10.8 X10*3/uL) Red Blood Count 4.36 (Ref Range: 4.20-5.50 X10*6/uL) 4.21 (Ref Range: 4.20-5.50 X10*6/uL) 4.46 (Ref Range: 4.20-5.50 X10*6/uL) Hemoglobin 14.1 (Ref Range: 12.0-16.0 g/dl) 13.5 (Ref Range: 12.0-16.0 g/dl) 14.2 (Ref Range: 12.0-16.0 g/dl) Hematocrit 41.7 (Ref Range: 37.0-47.0 %) 40.1 (Ref Range: 37.0-47.0 %) 42.5 (Ref Range: 37.0-47.0 %) Mean Corpuscular Volume 95.6 (Ref Range: 80.0-98.0 fL) 95.2 (Ref Range: 80.0-98.0 fL) 95.3 (Ref Range: 80.0-98.0 fL) Mean Corpuscular Hemoglobin 32.3 (Ref Range: 27.0-33.0 pg) 32.1 (Ref Range: 27.0-33.0 pg) 31.8 (Ref Range: 27.0-33.0 pg) Mean Corpuscular HGB Conc 33.8 (Ref Range: 31.0-35.0 g/dl) 33.7 (Ref Range: 31.0-35.0 g/dl) 33.4 (Ref Range: 31.0-35.0 g/dl) Red Cell Distribution Width 13.6 (Ref Range: 11.0-16.0 %) 14.6 (Ref Range: 11.0-16.0 %) 13.4 (Ref Range: 11.0-16.0 %) Platelet Count 161 (Ref Range: 160-400 X10*3/uL) 167 (Ref Range: 160-400 X10*3/uL) 162 (Ref Range: 160-400 X10*3/uL) Mean Platelet Volume 10.8 (Ref Range: 9.4-12.3 fL) 10.8 (Ref Range: 9.4-12.3 fL) 11.1 (Ref Range: 9.4-12.3 fL) Neutrophils Percent Auto 42.5 L (Ref Range: 45-73 %) 41.5 L (Ref Range: 45-73 %) 39.4 L (Ref Range: 45-73 %) Imm Gran Pct Auto 0.3 (Ref Range: 0.0-0.4 %) 0.3 (Ref Range: 0.0-0.4 %) 0.3 (Ref Range: 0.0-0.4 %) Lymphocytes Percent Auto 39.3 (Ref Range: 20-40 %) 37.1 (Ref Range: 20-40 %) 43.6 H (Ref Range: 20-40 %) Monocytes Percent Auto 12.0 H (Ref Range: 2-11 %) 13.1 H (Ref Range: 2-11 %) 10.8 (Ref Range: 2-11 %) Eosinophils Percent Auto 4.9 H (Ref Range: 0-4 %) 7.2 H (Ref Range: 0-4 %) 4.9 H (Ref Range: 0-4 %) Basophils Percent Auto 1.0 (Ref Range: 0-2 %) 0.8 (Ref Range: 0-2 %) 1.0 (Ref Range: 0-2 %) NRBC Pct Auto 0.0 (Ref Range: 0.0-0.2 /100WBC) 0.0 (Ref Range: 0.0-0.2 /100WBC) 0.0 (Ref Range: 0.0-0.2 /100WBC) Neutrophils Absolute Auto 1.3 L (Ref Range: 2.0-8.3 x10*3/uL) 1.6 L (Ref Range: 2.0-8.3 x10*3/uL) 1.5 L (Ref Range: 2.0-8.3 x10*3/uL) Imm Gran Abs Auto 0.01 (Ref Range: 0.00-0.03 X10*3/uL) 0.01 (Ref Range: 0.00-0.03 X10*3/uL) 0.01 (Ref Range: 0.00-0.03 X10*3/uL) Lymphocytes Absolute Auto 1.2 (Ref Range: 1.2-4.9 X10*3/uL) 1.4 (Ref Range: 1.2-4.9 X10*3/uL) 1.7 (Ref Range: 1.2-4.9 X10*3/uL) Monocytes Absolute Auto 0.4 (Ref Range: 0.1-1.2 X10*3/uL) 0.5 (Ref Range: 0.1-1.2 X10*3/uL) 0.4 (Ref Range: 0.1-1.2 X10*3/uL) Eosinophils Absolute Auto 0.2 (Ref Range: 0.0-0.4 X10*3/uL) 0.3 (Ref Range: 0.0-0.4 X10*3/uL) 0.2 (Ref Range: 0.0-0.4 X10*3/uL) Basophils Absolute Auto 0.0 (Ref Range: 0.0-0.2 X10*3/uL) 0.0 (Ref Range: 0.0-0.2 X10*3/uL) 0.0 (Ref Range: 0.0-0.2 X10*3/uL) NRBC Abs Auto 0.000 (Ref Range: 0.0-0.012 X10*3/uL) 0.000 (Ref Range: 0.0-0.012 X10*3/uL) 0.000 (Ref Range: 0.0-0.012 X10*3/uL) ???Lab:Valproate (Order Date - 11/24/2024) (Collection Date & Time - 11/24/2024 10:28 AM)?ValueReference Range?Rbdfdauyh00.0L50.0-100.0 - mcg/mL * Lab:Comprehensive Cameron. Pane l Fast * Collection Date 11/24/2024 04/17/2024 01/24/2024 Collection Time 10:28 AM 09:22 AM 08:47 AM Order Date 11/24/2024 04/17/2024 01/24/2024 Sodium 143 (Ref Range: 135-145 mmol/L) 142 (Ref Range: 135-145 mmol/L) 144 (Ref Range: 135-145 mmol/L) Bilirubin Total 0.4 (Ref Range: 0.0-1.0 mg/dL) 0.2 (Ref Range: 0.0-1.0 mg/dL) 0.4 (Ref Range: 0.0-1.0 mg/dL) Aspartate Amino Transferase 29 (Ref Range: 5-31 U/L) 24 (Ref Range: 5-31 U/L) 19 (Ref Range: 5-31 U/L) Alanine Aminotransferase 34 H (Ref Range: 0-31 U/L) 25 (Ref Range: 0-31 U/L) 19 (Ref Range: 0-31 U/L) Total Protein 7.0 (Ref Range: 6.5-8.0 g/dL) 6.7 (Ref Range: 6.5-8.0 g/dL) 7.1 (Ref Range: 6.5-8.0 g/dL) Albumin Level 4.3 (Ref Range: 3.5-5.0 g/dL) 4.1 (Ref Range: 3.5-5.0 g/dL) 4.3 (Ref Range: 3.5-5.0 g/dL) Alkaline Phosphatase 68 (Ref Range: 39-117 U/L) 65 (Ref Range: 39-117 U/L) 73 (Ref Range: 39-117 U/L) Potassium 4.5 (Ref Range: 3.3-5.1 mmol/L) 4.4 (Ref Range: 3.3-5.1 mmol/L) 4.3 (Ref Range: 3.3-5.1 mmol/L) Chloride 107 (Ref Range: 96-108 mmol/L) 109 H (Ref Range: 96-108 mmol/L) 108 (Ref Range: 96-108 mmol/L) Carbon Dioxide 29 (Ref Range: 22-29 mmol/L) 26 (Ref Range: 22-29 mmol/L) 27 (Ref Range: 22-29 mmol/L) Anion Gap 12 (Ref Range: 12-20) 11 L (Ref Range: 12-20) 13 (Ref Range: 12-20) Blood Urea Nitrogen 10 (Ref Range: 9-16 mg/dL) 12 (Ref Range: 9-16 mg/dL) 10 (Ref Range: 9-16 mg/dL) Creatinine 0.75 (Ref Range: 0.5-1.4 mg/dL) 0.76 (Ref Range: 0.5-1.4 mg/dL) 0.77 (Ref Range: 0.5-1.4 mg/dL) Estimated Glomerular Filt Rate > 60 > 60 > 60 Glucose Fasting 103 H (Ref Range: 60-99 mg/dL) 110 H (Ref Range: 60-99 mg/dL) 110 H (Ref Range: 60-99 mg/dL) Calcium 9.0 (Ref Range: 8.4-10.2 mg/dL) 9.4 (Ref Range: 8.4-10.2 mg/dL) 9.3 (Ref Range: 8.4-10.2 mg/dL) * Lab:Lipid Panel * Collection Date 11/24/2024 04/17/2024 01/24/2024 Collection Time 10:28 AM 09:22 AM 08:47 AM Order Date 11/24/2024 04/17/2024 01/24/2024 Triglycerides 80 (Ref Range: <150 mg/dL) 75 (Ref Range: <150 mg/dL) 87 (Ref Range: <150 mg/dL) Cholesterol 229 H (Ref Range: <200 mg/dL) 206 H (Ref Range: <200 mg/dL) 235 H (Ref Range: <200 mg/dL) LDL Cholesterol Calculated 124 H (Ref Range: <100 mg/dL) 103 H (Ref Range: <100 mg/dL) 127 H (Ref Range: <100 mg/dL) HDL Cholesterol 89 (Ref Range: >40 mg/dL) 88 (Ref Range: >40 mg/dL) 91 (Ref Range: >40 mg/dL) * Lab:Free T4 (Free Thyroxine) * Collection Date 11/24/2024 11/22/2023 12/25/2022 Collection Time 10:28 AM 09:23 AM 09:25 AM Order Date 11/24/2024 11/22/2023 12/25/2022 Free T4 (Free Thyroxine) 0.90 (Ref Range: 0.71-1.85 ng/dL) 0.81 (Ref Range: 0.71-1.85 ng/dL) 0.79 (Ref Range: 0.71-1.85 ng/dL) * Lab:Thyroid Stimulating Horm one * Collection Date 11/24/2024 11/22/2023 12/25/2022 Collection Time 10:28 AM 09:23 AM 09:25 AM Order Date 11/24/2024 11/22/2023 12/25/2022 Thyroid Stimulating Hormone 0.81 (Ref Range: 0.32-4.0 uIU/mL) 1.36 (Ref Range: 0.32-4.0 uIU/mL) 1.03 (Ref Range: 0.32-4.0 uIU/mL) * Examination: G eneral Examination: GENERAL APPEARANCE: p leasant, well nourished, well developed, in no acute distress, calm and relaxed, obese, woman. HEAD: a traumatic, normocephalic. EYES: e celestina, perrla, anicteric, conjugate. EARS: n ormal. NOSE: s eptum intact. ORAL CAVITY: n ormal, unremarkable. NECK/THYROID: n o jugular venous distention, no carotid bruit, thyroid normal. LYMPH NODES: n o enlarged lymph nodes,spleen normal. SKIN: n o suspicious lesions, anicteric. HEART: n o clicks, gallops, murmurs, or rubs, regular rhythm, S1, S2 normal, no s3, or vascular bruits. LUNGS: c lear to auscultation . BREASTS: N ot examined. ABDOMEN: b owel sounds normal, no ascites, no organomegaly, no mass, centripital obesity. RECTAL EXAM: n ot examined. MUSCULOSKELETAL: e xtremities unremarkable, no clubbing, cyanosis or edemaMild pain to range of motion left knee. PERIPHERAL PULSES: n ormal. NEUROLOGIC: a lert and oriented, cranial nerves 2-12 grossly intact, deep tendon reflexes 2+ symmetrical, motor strength normal upper and lower extremities, sensory exam intact. PSYCH: a lert, oriented, cognitive function intact. ? Assessment: * Assessment: 1. N onintractable generalized idiopathic epilepsy without status epilepticus - G40.309 (Primary) N otes :She used to seizures. Her she needs to remove was 21.200 dose of 400 mg daily. This was reduced to 300 mg every other day alternating with 400 mg. A repeat level will be done in 8 weeks. 2 . H ypothyroidism, unspecified type - E03.9 N otes :Her thyroid function tests are normal and she is euthyroid. No change in her regimen was made. 3 . P ostmenopausal - Z78.0 N otes :She is currently asymptomatic. A bone density test is pending. She has undergone hysterectomy. 4 . E ncounter for screening for osteoporosis - Z13.820 N otes :A bone density test was ordered today. 5 . P ure hypercholesterolemia - E78.00 N otes :Her cholesterol level is 229. All are in 8 weeks. No change in her regimen was made today. 6 . B ilateral carpal tunnel syndrome - G56.03 N otes :This discomfort has resolved and she will be observed at this time. 7 . A rthritis of left knee - M17.12 N otes :She will continue on her current regimen without change. There is no contraindication to ibuprofen or naproxen. 8 . H istory of endometrial cancer - Z85.42 N otes :There is no sign of recurrent endometrial cancer today. 9 . G ERD without esophagitis - K21.9 N otes :Occasional heartburn is well-controlled with her current regimen and no changes necessary. 1 0. S leep apnea, unspecified - G47.30 N otes :She continues to use his CPAP although she finds it uncomfortable.. Plan: * Treatment: 2. H ypothyroidism, unspecified type Continue Omeprazole Capsule Delayed Release, 20 MG, 2 capsule, Orally, Once a day, Notes to Pharmacist: As needed; C ontinue Depakote Tablet Delayed Release, 500 MG, Orally; C ontinue Dilantin Capsule, 100 MG, 3 capsule on odd days and take 4 caps on even days, Orally, once a day; C ontinue Methenamine Hippurate Tablet, 1 GM, 1 tablet, Orally, Twice a day; C ontinue Atorvastatin Calcium Tablet, 20 MG, 1 tablet, Orally, Once a day. L AB: PROFILE, RANDOM (COMPREHENSIVE METABOLIC) L AB: CBC w DIFF L AB: Phenytoin, Free/Unbound 3. P ostmenopausal I maging: BONE DENSITY DEXA 4. E ncounter for screening for osteoporosis I maging: BONE DENSITY DEXA 5. O thers Continue Atorvastatin Calcium Tablet, 20 MG, 1 tablet, Orally, Once a day; C ontinue Levothyroxine Sodium Tablet, 100 MCG, TAKE 1 TABLET BY MOUTH DAILY. * Labs: * L ab: URINE DIP STICK (Collection Date & Time - 02/22/2025) Value Reference Range S G 1.020 1.005 - 1.025 * p H 5.0 5.0 - 9.0 * L EU 70 Negative - * N IT Negative Negative - * P RO 30 Negative - Trace * G CAROL Negative Negative - * K ET 5 Negative - * U BG 0.2 0.1 - 1.8 * B IL Negative 0.2 - 1.3 * B LD ++ Negative - * M enstrating No * Procedure Codes: 8 1002 URINE-NO MICRO * Preventive Medicine: Counseling: C are goal follow-up plan: Counseling for abnormal BMI given Y es Above Normal BMI Follow-up D ietary management education, guidance, and counseling, Dietary needs education, Exercise promotion: strength training, Exercise promotion: stretching, Feeding regime, Giving encouragement to exercise, Lifestyle education regarding diet, Nutrition / feeding management, Nutrition therapy, Prescribed activity/exercise education, Prescribed diet education, Prescribed dietary intake, Special diet education, Weight monitoring , Intervention, Order not done: Medical or Other reason not done * Follow Up: 3 Months (Reason: OV) * Images: * Sign off status: Completed true * Provider: Yaya Steward MD Date: 0 02/22/2025 Generated for Kamron simms/Joseph/Elmo on: 11/21/2024 01:38 PM EST History and Physical Notes * HPI (History of Present Illness) Category Sub-Category Detail Notes Depression Screening PHQ-9 Little inte rest or pleasure in doing things: Not at all Feeling down, depressed, or hopeless: No t at all Trouble falling or staying asleep, or sl eeping too much: Not at all Feeling tired or having little energy: S everal days Poor appetite or overeating: Several day s Feeling bad about yourself o r that you are a failure, or have let yourself or your family down: Not at all Trouble concentrating on thi ngs, such as reading the newspaper or watching television: Not at all Moving or speaking so slowly that other people could have noticed; or the opposite, being so fidgety or restless that you have been moving around a lot more than usual: Not at all Thoughts that you would be b gaby off or of hurting yourself in some way: Not at all Total Score: 2 Interpretation: Minimal Depression COVID-19 Screening Questions Have you had any new onset fever, chills, cough, congestion, sore throat, shortness of breath, muscle aches?: No SDOH Questions SDOH Questions In the past year have you been worried about losing your housing?: No In the past year have you or any family members you live with been unable to get any of the following when it was really needed? Check all that apply:: None Examination Category Sub-Category Detail Notes General Examination GENERAL APPEARANCE: pleasant , well nourished, well developed, in no acute distress, calm and relaxed, obese, woman HEAD: atraumatic, normocep halic EYES: eomi, perrla, anicte gerard, conjugate EARS: normal NOSE: septum intact NECK/THYROID: no jugular venous di stention, no carotid bruit, thyroid normal HEART: no clicks, gallops, murmurs, or rubs, regular rhythm, S1, S2 normal, no s3, or vascular bruits LUNGS: clear to auscultatio n ABDOMEN: bowel sounds normal, no ascites, no organomegaly, no mass, centripital obesity NEUROLOGIC: alert and oriented, cranial nerves 2-12 grossly intact, deep tendon reflexes 2+ symmetrical, motor strength normal upper and lower extremities, sensory exam intact SKIN: no suspicious lesion s, anicteric PERIPHERAL PULSES: normal BREASTS: Not examined MUSCULOSKELETAL: extremities unremark able, no clubbing, cyanosis or edemaMild pain to range of motion left knee LYMPH NODES: no enlarged lymph no erlinda,spleen normal RECTAL EXAM: not examined PSYCH: alert, oriented, cog nitive function intact ORAL CAVITY: normal, unremarkable
--- OUTSIDE RECORDS SUMMARY | 2025-05-14 08:15 | XMS_ITS ---
Author Organization Filemon Steward III, MD Address [address] [place] [address] Care Team Providers Care Nylon Machine Operator Name Role Phone Dr. Filemon Steward III Primary Care Provider Allergies Allergen (clinical drug ingredient) Drug/Non Drug Allergy documented on EMR Reaction Allergy Type Onset Date Status nitrofurantoin, macrocrystals / nitrofurantoin, monohydrate Macrobid Unknown Drug Allergy Active codeine Codeine Sulfate Unknown Drug Allergy A ctive REASON FOR VISIT Left ear pain, Left face and neck pain Medications Medication SIG (Take, Route, Frequency, Duration) Notes Start Date End Date Status Atorvastatin Calcium 20 MG 1 tablet Orally Once a day 11/23/2024 Active Levothyroxine Sodium 100 MCG TAKE 1 TABLET BY MOUTH DAILY Active Amoxicillin-Pot Clavulanate 875-125 MG 1 tablet Orally every 12 hrs for 7 days 05/14/2025 05/21/2025 Active valACYclovir HCl 1 GM 1 tablet Orally th ree times a day 05/15/2025 Active predniSONE 20 MG 1 tablet with food o r milk Orally Once a day 05/15/2025 Active Depakote 500 MG Orally Acti ve Omeprazole 20 MG 2 capsule Orally Onc e a day As needed Active Atorvastatin Calcium 20 MG 1 tablet Orally Once a day 01/27/2024 Active Methenamine Hippurate 1 GM 1 tablet Orally Twice a day Active Dilantin 100 MG 3 capsule on odd day s and take 4 caps on even days Orally once a day Active Social History Tobacco Use: Social History Observation Description Date Details (start date - stop date) Never Smoker NA - NA Sex Assigned At : Social History Observation Description Sex Assigned At Female Tobacco Control (Standard) Question Answer Notes Tobacco use: Nonsmoker Additional Findings: Tobacco non-user Aggressive nonsmoker Problems Problem Type SNOMED Code ICD Code Onset Dates Problem Status W/U Status Risk Notes Problem [id number] Acute folliculitis (L73.9) Active confirmed This is a diagnosis from her description over the phone. I have prescribed amoxicillin. She was seen in followup tomorrow. Vital Signs Height 67 in 05/14/2025 Weight 246 lbs 05/14/2025 BMI 38.52 kg/m2 05/14/2025 Encounters Encounter Location Date Provider Diagnosis Filemon Steward III, MD [address] [place] [address] [place], [place] [address] 05/14/2025 Filemon Steward Acute folliculitis L 73.9 ; Hypothyroidism, unspecified type E03.9 ; Nonintractable generalized idiopathic epilepsy without status epilepticus G40.309 ; Bilateral carpal tunnel syndrome G56.03 ; Arthritis of left knee M17.12 ; Leukopenia, unspecified type D72.819 ; GERD without esophagitis K21.9 ; History of endometrial cancer Z85.42 and Obesity (BMI 30-39.9) E66.9 Assessments Encounter Date Diagnosis (ICD Code) Assessment Notes T reatment Notes Treatment Clinical Notes 05/14/2025 Acute folliculitis (ICD-10 - L73.9) This is a diagnosis from her description over the phone. I have prescribed amoxicillin. She was seen in followup tomorrow. 05/14/2025 Hypothyroidism, unspecified type (ICD-10 - E03.9) Her thyroid function tests are normal and she is euthyroid. No change in her regimen was made. 05/14/2025 Nonintractable generalized idiopathic epilepsy without status epilepticus (ICD-10 - G40.309) She used to seizures. Her she needs to remove was 21.200 dose of 400 mg daily. This was reduced to 300 mg every other day alternating with 400 mg. A repeat level will be done in 8 weeks. 05/14/2025 Bilateral carpal tunnel syndrome (ICD-10 - G56.03) This discomfort has resolved and she will be observed at this time. 05/14/2025 Arthritis of left knee (ICD-10 - M17.12) She will continue on her current regimen without change. There is no contraindication to ibuprofen or naproxen. 05/14/2025 Leukopenia, unspecified type (ICD-10 - D72.819) A CBC is pending to evaluate the white blood cell count. She has had no recent infections or bleeding. 05/14/2025 GERD without esophagitis (ICD-10 - K21.9) Occasional heartburn is well-controlled with her current regimen and no changes necessary. 05/14/2025 History of endometrial cancer (ICD-10 - Z85.42) There is no sign of recurrent endometrial cancer today. 05/14/2025 Obesity (BMI 30-39.9) (ICD-10 - E66.9) She has gained 7 pounds since her last visit. We have reviewed her diet and nutrition. We made a plan to lose weight at a rate of one half of a pound per week through a diet restricted in calories fat and sodium combined with regular physical activity. Plan Of Treatment Medication Medication Name Sig Start Date Stop Date Notes Atorvastatin Calcium 20 MG 1 tablet Oral ly Once a day 11/23/2024 Levothyroxine Sodium 100 MCG TAKE 1 TABL ET BY MOUTH DAILY Amoxicillin-Pot Clavulanate 875-125 MG 1 tablet Orally every 12 hrs for 7 days 05/14/2025 05/21/2025 valACYclovir HCl 1 GM 1 tablet Orally th ree times a day 05/15/2025 predniSONE 20 MG 1 tablet with food o r milk Orally Once a day 05/15/2025 Depakote 500 MG Orally Omeprazole 20 MG 2 capsule Orally Onc e a day As needed Atorvastatin Calcium 20 MG 1 tablet Oral ly Once a day 01/27/2024 Methenamine Hippurate 1 GM 1 tablet Oral ly Twice a day Dilantin 100 MG 3 capsule on odd day s and take 4 caps on even days Orally once a day Next Appt Details Follow Up: as scheduled, Noemy son: ov Provider Name:Filemon Steward , 09/25/2025 09:00:00 AM, [address] [place] [address] [place] [address], [address], Provider Name:Filemon Steward , 02/28/2026 09:30:00 AM, [address] [place] [address] [place] [address], [phone], Progress Notes * TSERING MORENO FDOB:[birth year] (65 yo F)Acc No.[id number]:05/14/2025 Patient: TSERING HERNANDEZ Provider: Yaya Steward MD :1960 A ge:65 Y S ex:Female Date:05/14/2025 Address:[address] [place] [address] [id number] Subjective: * Chief Complaints: * L eft ear painLeft face and neck pain * HPI: * : T his telehealth visit took place over 15 min. with the patient at home and me in my office.? She gave consent for billing. On May 10, 2025. She began to feel discomfort in her left ear and then her neck and posterior scalp. She developed some dizziness.. She has had no fever but did have 2 episodes of vertigo.She says she feels some lumps in the scalp that are painful. The skin of the left side of her head is unremarkable. I have given her a prescription for amoxicillin for folliculitis. She will come to the office on May 15, 2025 to be examined. Telehealth L ocation of provider rendering services: { ...} [address] [facility] [address] L ocation of patient: a ddress listed in demographics for today's visit P atient identification confirmed using: DAVE Spaulding ame T elehealth method: T elephone only. Patient not visible to care provider. C onsent: P atient verbally consented to treatment, Patient verbally consented to billing insurance company, Patient informed of any privacy concerns related to method of visit T otal time spent with patient (mins) 1 5 * ROS: G eneral/Constitutional: pain S calp, left ear, left neck. C hills d enies.?Fatigue a dmits. F ever d enies. E NT: Decreased hearing d enies. R espiratory: Cough d enies. C ardiovascular: Chest pain with exertion d enies. D yspnea on exertion?denies. S hortness of breath d enies. G astrointestinal: Constipation o ccasional. D ecreased appetite d enies. D iarrhea d enies. H eartburn d enies. N ausea d enies. R ectal bleeding d enies. V omiting d enies. H ematology: bruising d enies. p etechiae d enies. S wollen glands n one have been noted. G enitourinary: Frequent urination d enies. M usculoskeletal: Muscle aches d enies. P ainful joints d enies. S ciatica d enies. W eakness d enies. S kin: Itching d enies. R vinh d enies. S kin lesion(s)?denies. N eurologic: Difficulty speaking d enies. D izziness d enies.?Headache d enies. L ow back pain d enies. P sychiatric: Depressed mood d enies. * Medical History: * Surgical History: c holecystectomy 1984TAH/BSO Dr. Renae Gee, endometrial cancer 2015colonoscopy, [facility], Dr. Filemon Shepherd, no findings 2008colonoscopy, [facility], Dr. Filemon Shepherd, no findings 2016Colonoscopy [facility] [place]/2022 * Hospitalization/Major Diagno stic Procedure: N o Hospitalization History. * Family History: F ather: , Hypertension, [...] dditional Findings: Tobacco non-user A ggressive nonsmoker S he lives at home with her , Nikolay, and 2 cats . She works at a [employer], which she finds stressful. She has no children. * Medications: T akingAtorvastatin Calcium 20 MG Tablet 1 tablet Orally Once a day Omeprazole 20 MG Capsule Delayed Release 2 capsule Orally Once a day , Notes to Pharmacist: As neededDepakote 500 MG Tablet Delayed Release Orally Dilantin 100 MG Capsule 3 capsule on odd days and take 4 caps on even days Orally once a day Methenamine Hippurate 1 GM Tablet 1 tablet Orally Twice a day Atorvastatin Calcium 20 MG Tablet 1 tablet Orally Once a day Levothyroxine Sodium 100 MCG Tablet TAKE 1 TABLET BY MOUTH DAILY Medication List reviewed and reconciled with the patientTaking Atorvastatin Calcium 20 MG Tablet 1 tablet Orally Once a day Taking Omeprazole 20 MG Capsule Delayed Release [...] Tablet TAKE 1 TABLET BY MOUTH DAILY Medication List reviewed and reconciled with the patient * Allergies: C odeine SulfateMacrobidno[Allergies Verified] Objective: * Vitals: H t: 67, Wt: 246, BMI:38.52, Wt-k.58. Assessment: * Assessment: 1. A cute folliculitis - L73.9 (Primary) N otes :This is a diagnosis from her description over the phone. I have prescribed amoxicillin. She was seen in followup tomorrow. 2 . N onintractable generalized idiopathic epilepsy without status epilepticus - G40.309 N otes :She used to seizures. Her she needs to remove was 21.200 dose of 400 mg daily. This was reduced to 300 mg every other day alternating with 400 mg. A repeat level will be done in 8 weeks. 3 . H ypothyroidism, unspecified type - E03.9 N otes :Her thyroid function tests are normal and she is euthyroid. No change in her regimen was made. 4 . B ilateral carpal tunnel syndrome - G56.03 N otes :This discomfort has resolved and she will be observed at this time. 5 . A rthritis of left knee - M17.12 N otes :She will continue on her current regimen without change. There is no contraindication to ibuprofen or naproxen. 6 . L eukopenia, unspecified type - D72.819 N otes :A CBC is pending to evaluate the white blood cell count. She has had no recent infections or bleeding. 7 . G ERD without esophagitis - K21.9 N otes :Occasional heartburn is well-controlled with her current regimen and no changes necessary. 8 . H istory of endometrial cancer - Z85.42 N otes :There is no sign of recurrent endometrial cancer today. 9 . O besity (BMI 30-39.9) - E66.9 N otes :She has gained 7 pounds since her last visit. We have reviewed her diet and nutrition. We made a plan to lose weight at a rate of one half of a pound per week through a diet restricted in calories fat and sodium combined with regular physical activity. Plan: * Treatment: 2. H ypothyroidism, unspecified [...] MG, 1 tablet, Orally, Once a day; S tart Amoxicillin-Pot Clavulanate Tablet, 875-125 MG, 1 tablet, Orally, every 12 hrs, 7 days, 14 Tablet, Refills 0. 3. O thers Continue Atorvastatin Calcium Tablet, 20 MG, 1 tablet, Orally, Once a day; C ontinue Levothyroxine Sodium Tablet, 100 MCG, TAKE 1 TABLET BY MOUTH DAILY. * Procedure Codes: 9 8012 SYNCH AUDIO-ONLY EST SF 10 * Preventive Medicine: Counseling: C are goal [...] done: Medical or Other reason not done DM Care Plan: P atient Lifestyle Goals P atient wants to be able to manage diabetes without too much effort. * Follow Up: a s scheduled (Reason: ov) * Images: * Sign off status: Completed true * Provider: Yaya Steward MD Date: 0 05/14/2025 Generated for Kamron simms/Joseph/Robertosmitting on: 11/21/2024 01:37 PM EST History and Physical Notes * HPI (History of Present Illness) Category Sub-Category Detail Notes Telehealth Location of [facility] rendering services:: {...} [address] [place] [address] [place], [place] [id number] Location of patient:: address listed in demographics for today's visit Patient identification confirmed using:: Name, Telehealth method:: Telephone only. Alicia ent not visible to care provider. Consent:: Patient verbally c onsented to treatment, Patient verbally consented to billing insurance company, Patient informed of any privacy concerns related to method of visit Total time spent with patient (mins): 15
--- OUTSIDE RECORDS SUMMARY | 2025-05-15 04:17 | XMS_ITS ---
Author Organization Filemon Steward III, MD Address [address] [place] [address] [place] [address] Care Team Providers Care Carpet Inspector Finished Name Role Phone Dr. Filemon Steward III Primary Care Provider REASON FOR VISIT wants appt for today Social History Sex Assigned At : Social History Observation Description Sex Assigned At Female Encounters Encounter Location Date Provider Diagnosis Filemon tSeward III, MD [address] [place] [address] [place] [address] 05/15/2025 Filemon Steward Plan Of Treatment Next Appt Details Provider Name:Filemon Steward , 09/25/2025 09:00:00 AM, [address] [place] [address] [place], [address], Provider Name:Filemon Steward , 02/28/2026 09:30:00 AM, [address] [place] [address] [place], [address], Progress Notes * TSERING MORENO FDOB:[birth year] (65 yo F)Acc No.[id number]:05/15/2025 Patient: TSERING HERNANDEZ :1960 A ge:65 Y S ex:Female Address:[address] [place], [place] [address], * true * Date: Generated for Printi ng/Faxing/eTransmitting on: 11/21/2024 01:38 PM EST
--- OUTSIDE RECORDS SUMMARY | 2025-05-15 08:45 | XMS_ITS ---
Author Organization Filemon Steward III, MD Address [address] [place] [address] Care Team Providers Care Finishing Machine Tender Name Role Phone Dr. Filemon Steward III Primary Care Provider Allergies Allergen (clinical drug ingredient) Drug/Non Drug Allergy documented on EMR Reaction Allergy Type Onset Date Status nitrofurantoin, macrocrystals / nitrofurantoin, monohydrate Macrobid Unknown Drug Allergy Active codeine Codeine Sulfate Unknown Drug Allergy A ctive REASON FOR VISIT scalp pain, Herpes zoster Medications Medication SIG (Take, Route, Frequency, Duration) Notes Start Date End Date Status Levothyroxine Sodium 100 MCG TAKE 1 TABLET BY MOUTH DAILY Active Methenamine Hippurate 1 GM 1 tablet Orally Twice a day Active Dilantin 100 MG 3 capsule on odd day s and take 4 caps on even days Orally once a day Active Depakote 500 MG Orally Acti ve Omeprazole 20 MG 2 capsule Orally Onc e a day As needed Active predniSONE 20 MG 1 tablet with food o r milk Orally Once a day for 10 days 05/15/2025 05/25/2025 Active Atorvastatin Calcium 20 MG 1 tablet Orally Once a day 01/27/2024 Active traMADol HCl 50 MG 1 tablet if needed Orally every 6 hours 05/16/2025 Active Amoxicillin-Pot Clavulanate 875-125 MG 1 tablet Orally every 12 hrs 05/14/2025 Active Atorvastatin Calcium 20 MG 1 tablet Orally Once a day 11/23/2024 Active valACYclovir HCl 1 GM 1 tablet Orally th ree times a day for 10 days 05/15/2025 05/25/2025 Active Social History Tobacco Use: Social History [...] Problem Status W/U Status Risk Notes Problem [id number] Herpes zoster without complication (B02.9) Active confirmed A herpetic infection is resolving and the pain is less. Finished the medication and then follow-up. SShe will continue to avoid women and unvaccinated people. Vital Signs Temperature 99.3 degrees Fahrenheit 05/15/20 25 Blood pressure systolic 140 mm Hg 05/15/20 25 Blood pressure diastolic 82 mm Hg 025 Heart Rate 74 /min 05/15/2025 Height 67 in 05/15/2025 Weight 248 lbs 05/15/2025 BMI 38.84 kg/m2 05/15/2025 Encounters Encounter Location Date Provider Diagnosis Filemon Steward III, MD [address] [place] [address] [place] [address] 05/15/2025 Filemon Steward Hypothyroidism, unspecified type E03.9 ; Herpes zoster without complication B02.9 ; Hypertension, unspecified type I10 ; Nonintractable generalized idiopathic epilepsy without status epilepticus G40.309 ; Arthritis of left knee M17.12 ; GERD without esophagitis K21.9 ; Sleep apnea, unspecified G47.30 and Obesity (BMI 30-39.9) E66.9 Assessments Encounter Date Diagnosis (ICD Code) Assessment Notes T reatment Notes Treatment Clinical Notes 05/15/2025 Hypothyroidism, unspecified type (ICD-10 - E03.9) Her thyroid function tests are normal and she is euthyroid. No change in her regimen was made. 05/15/2025 Herpes zoster without complication (ICD-10 - B02.9) This appears to be early shingles. She has been treated for it. The pain is characteristic. Blisters have not yet formed. 05/15/2025 Hypertension, unspecified type (ICD-10 - I10) Her blood pressure is currently acceptable. She is going to try to lose weight and restrict sodium. 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 Her she needs to remove was 21.200 dose of 400 mg daily. This was reduced to 300 mg every other day alternating with 400 mg. A repeat level will be done in 8 weeks. 05/15/2025 Arthritis of left knee (ICD-10 - M17.12) She will continue on her current regimen without change. There is no contraindication to ibuprofen or naproxen. 05/15/2025 GERD without esophagitis (ICD-10 - K21.9) Occasional heartburn is well-controlled with her current regimen and no changes necessary. 05/15/2025 Sleep apnea, unspecified (ICD-10 - G47.30) She continues to use his CPAP although she finds it uncomfortable.. 05/15/2025 Obesity (BMI 30-39.9) (ICD-10 - E66.9) Her body mass index is 38.. We have reviewed her diet and nutrition. We made a plan to lose weight at a rate of one half of a pound per week through a diet restricted in calories fat and sodium combined with regular physical activity. Plan Of Treatment Medication Medication Name Sig Start Date Stop Date Notes Levothyroxine Sodium 100 MCG TAKE 1 TABL ET BY MOUTH DAILY Methenamine Hippurate 1 GM 1 tablet Oral ly Twice a day Dilantin 100 MG 3 capsule on odd day s and take 4 caps on even days Orally once a day Depakote 500 MG Orally Omeprazole 20 MG 2 capsule Orally Onc e a day As needed predniSONE 20 MG 1 tablet with food o r milk Orally Once a day for 10 days 05/15/2025 05/25/2025 Atorvastatin Calcium 20 MG 1 tablet Oral ly Once a day 01/27/2024 traMADol HCl 50 MG 1 tablet if needed Orally every 6 hours 05/16/2025 Amoxicillin-Pot Clavulanate 875-125 MG 1 tablet Orally every 12 hrs 05/14/2025 Atorvastatin Calcium 20 MG 1 tablet Oral ly Once a day 11/23/2024 valACYclovir HCl 1 GM 1 tablet Orally th ree times a day for 10 days 05/15/2025 05/25/2025 Next Appt Details Follow Up: 1 Day, Reason: OV Provider Name:Filemon Steward , 09/25/2025 09:00:00 AM, [address] [place] [address] [address], [place], [id number], Provider Name:Filemon Steward , 02/28/2026 09:30:00 AM, [address] [facility] [address], [place], [address], Progress Notes * TSERING MORENO FDOB:[birth year] (65 yo F)Acc No.[id number]:05/15/2025 Patient: TSERING HERNANDEZ Provider: Yaya Steward MD :1960 A ge:65 Y S ex:Female Date:05/15/2025 Address:[address] [place] [address] [id number] Subjective: * Chief Complaints: * S calp painHerpes zoster * HPI: C OVID-19 Screening: She comes in today with complaints of pain in the back of her head and around her left ear and a rash in the scalp. Her vision is unaffected. Her face is unaffected. Upon examination there was a large area of erythematous skin with apparent early blister formation the occipital scalp and the skin of the scalp a high in the left ear. She was begun on prednisone and valacyclovir will be seen tomorrow to confirm the diagnosis. Questions H ave you had any new onset fever, chills, cough, congestion, sore throat, shortness of breath, muscle aches? Y es Sore Throat * ROS: G eneral/Constitutional: pain P osterior and left scalp and left ear. C hills?denies. F atigue a dmits. F ever d enies. E [...] S kin: Itching d enies. R vinh P osterior and left scalp.?Skin lesion(s) d enies. N eurologic: Difficulty speaking d enies. D izziness d enies.?Headache d enies. L ow back pain d enies. P sychiatric: Depressed mood d enies. * Medical History: * Surgical History: c holecystectomy 1984TAH/BSO Dr. Renae Gee, endometrial cancer 2015colonoscopy, [facility], Dr. Filemon Shepherd, no findings 2008colonoscopy, [facility], Dr. Filemon Shepherd, no findings 2016Colonoscopy [facility] 08/2022 * Hospitalization/Major Diagno stic Procedure: D [...] cats . She works at a local [employer], which she finds stressful. She has no [...] Tablet TAKE 1 TABLET BY MOUTH DAILY Amoxicillin-Pot Clavulanate 875-125 MG Tablet 1 tablet Orally every 12 hrs , stop date 05/21/2025Medication List reviewed and reconciled with the patientTaking [...] TAKE 1 TABLET BY MOUTH DAILY Taking Amoxicillin-Pot Clavulanate 875-125 MG Tablet 1 tablet Orally every 12 hrs , stop date 05/21/2025Medication List reviewed and reconciled with the patient * Allergies: C odeinjackson SulfateMacrobidno[Allergies Verified] Objective: * Vitals: H t: 67, Wt: 248, BMI:38.84, BP: 140/82, HR: 74, Temp: 99.3, Wt-k.49. * Examination: G eneral Examination: GENERAL APPEARANCE: [...] nodes,spleen normal. SKIN: n o suspicious lesions, anicteric, Round rash in the hair of the posterior and left scalp. HEART: n o clicks, gallops, murmurs, or rubs, regular rhythm, S1, S2 normal, no s3, or vascular bruits. LUNGS: c lear to auscultation . BREASTS: N ot examined. ABDOMEN: b owel sounds normal, no ascites, no organomegaly, no mass, centripital obesity. RECTAL EXAM: n ot examined. MUSCULOSKELETAL: e xtremities unremarkable, no clubbing, cyanosis or edema. PERIPHERAL PULSES: n ormal. NEUROLOGIC: a lert and oriented, cranial nerves 2-12 grossly intact, deep tendon reflexes 2+ symmetrical, motor strength normal upper and lower extremities, sensory exam intact. PSYCH: a lert, oriented. Assessment: * Assessment: 1. H erpes zoster without complication - B02.9 (Primary) N otes :This appears to be early shingles. She has been treated for it. The pain is characteristic. Blisters have not yet formed. 2 . H ypothyroidism, unspecified type - E03.9 N otes :Her thyroid function tests are normal and she is euthyroid. No change in her regimen was made. 3 . H ypertension, unspecified type - I10 N otes :Her blood pressure is currently acceptable. She is going to try to lose weight and restrict sodium. 4 . N onintractable generalized idiopathic epilepsy without status epilepticus - G40.309 N otes :She used to seizures. Her she needs to remove was 21.200 dose of 400 mg daily. This was reduced to 300 mg every other day alternating with 400 mg. A repeat level will be done in 8 weeks. 5 . A rthritis of left knee - M17.12 N otes :She will continue on her current regimen without change. There is no contraindication to ibuprofen or naproxen. 6 . G ERD without esophagitis - K21.9 N otes :Occasional heartburn is well-controlled with her current regimen and no changes necessary. 7 . S leep apnea, unspecified - G47.30 N otes :She continues to use his CPAP although she finds it uncomfortable.. 8 . O besity (BMI 30-39.9) - E66.9 N otes :Her body mass index is 38.. We have reviewed her diet and nutrition. [...] GM, 1 tablet, Orally, Twice a day; S tart predniSONE Tablet, 20 MG, 1 tablet with food or milk, Orally, Once a day, 10 days, 10 Tablet, Refills 0; S tart valACYclovir HCl Tablet, 1 GM, 1 tablet, Orally, three times a day, 10 days, 30 Tablet, Refills 0.? 3. O thers Continue Atorvastatin Calcium Tablet, 20 MG, 1 tablet, Orally, Once a day; C ontinue Levothyroxine Sodium Tablet, 100 MCG, TAKE 1 TABLET BY MOUTH DAILY. * Procedure Codes: * Preventive Medicine: Counseling: C are goal [...] Other reason not done * Follow Up: 1 Day (Reason: OV) * Images: * Sign off status: Completed true * Provider: Yaya Steward MD Date: 0 05/15/2025 Generated for Kamron simms/Joseph/Nayeitting on: 11/21/2024 01:37 PM EST History and Physical Notes * HPI (History of Present Illness) Category Sub-Category Detail Notes COVID-19 Screening Questions Have you had any new onset fever, chills, cough, congestion, sore throat, shortness of breath, muscle aches?: Yes Sore Throat Examination Category Sub-Category Detail Notes General Examination [...] exam intact SKIN: no suspicious lesion s, anicteric, Round rash in the hair of the posterior and left scalp PERIPHERAL PULSES: normal BREASTS: Not examined MUSCULOSKELETAL: extremities unremark able, no clubbing, cyanosis or edema LYMPH NODES: no enlarged lymph no erlinda,spleen normal RECTAL EXAM: not examined PSYCH: alert, oriented ORAL CAVITY: normal, unremarkable
--- OUTSIDE RECORDS SUMMARY | 2025-05-16 08:30 | XMS_ITS ---
Author Organization Filemon Steward III, MD Address [address] [place] [address] Care Team Providers Care Cigar Packer And Shader Name Role Phone Dr. Filemon Steward III Primary Care Provider Allergies Allergen (clinical drug ingredient) Drug/Non Drug Allergy documented on EMR Reaction Allergy Type Onset Date Status nitrofurantoin, macrocrystals / nitrofurantoin, monohydrate Macrobid Unknown Drug Allergy Active codeine Codeine Sulfate Unknown Drug Allergy A ctive REASON FOR VISIT Herpes zoster left scalp anterior, Pain left scalp and ear, Hypothyroid, Epilepsy, Hypertension, Arthritis left knee, Leukopenia, Hyperlipidemia, Obesity, GERD Medications Medication SIG (Take, Route, Frequency, Duration) Notes Start Date End Date Status predniSONE 20 MG 1 tablet with food o r milk Orally Once a day 05/15/2025 Active traMADol HCl 50 MG 1 tablet if needed Orally every 6 hours for 7 days 05/16/2025 06/13/2025 Active Amoxicillin-Pot Clavulanate 875-125 MG 1 tablet Orally every 12 hrs 05/14/2025 Active valACYclovir HCl 1 GM 1 tablet Orally th ree times a day 05/15/2025 Active traMADol HCl 50 MG 1 tablet Orally ever y 4 hours if needed for 7 days 05/16/2025 05/30/2025 Active Levothyroxine Sodium 100 MCG TAKE 1 [...] tablet Orally Once a day 01/27/2024 Active Atorvastatin Calcium 20 MG 1 tablet Orally Once a day 11/23/2024 Active Social History Tobacco Use: Social History Observation Description Date Details (start date - stop date) Never Smoker NA - NA Sex Assigned At : Social History Observation Description Sex Assigned At Female Tobacco Control (Standard) Question Answer Notes Tobacco use: Nonsmoker Additional Findings: Tobacco non-user Aggressive nonsmoker Vital Signs Temperature 97.2 degrees Fahrenheit 05/16/20 25 Blood pressure systolic 144 mm Hg 05/16/20 25 Blood pressure diastolic 82 mm Hg 025 Heart Rate 70 /min 05/16/2025 Height 67 in 05/16/2025 Weight 248 lbs 05/16/2025 BMI 38.84 kg/m2 05/16/2025 Encounters Encounter Location Date Provider Diagnosis Filemon Steward III, MD [address] [place] [address] [place] [address] 05/16/2025 Filemon Steward Hypothyroidism, unspecified type E03.9 ; Herpes zoster without complication B02.9 ; Hypertension, unspecified type I10 ; Arthritis of left knee M17.12 ; Bilateral carpal tunnel syndrome G56.03 and Nonintractable generalized 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 No change in her regimen was made. 05/16/2025 Herpes zoster without complication (ICD-10 - B02.9) The pain is unchanged. I am able to see a few blisters beginning to form. The diagnosis of herpes zoster remains intact. Observation will continue while she is on the valacyclovir and prednisone. There is no involvement of the ear canal on the anterior face or eyes. 05/16/2025 Hypertension, unspecified type (ICD-10 - I10) Her blood pressure is currently 144/82. She is in a moderate amount of discomfort. She is going to try to lose weight and restrict sodium. 05/16/2025 Arthritis of left knee (ICD-10 - M17.12) She will continue on her current regimen without change. There is no contraindication to ibuprofen or naproxen. 05/16/2025 Bilateral carpal tunnel syndrome (ICD-10 - G56.03) This discomfort has resolved and she will be observed at this time. 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 Her she needs to remove was 21.200 dose of 400 mg daily. This was reduced to 300 mg every other day alternating with 400 mg. A repeat level will be done in 8 weeks. Plan Of Treatment Medication Medication Name Sig Start Date Stop Date Notes predniSONE 20 MG 1 tablet with food o r milk Orally Once a day 05/15/2025 traMADol HCl 50 MG 1 tablet if needed Orally every 6 hours for 7 days 05/16/2025 06/13/2025 Amoxicillin-Pot Clavulanate 875-125 MG 1 tablet Orally every 12 hrs 05/14/2025 valACYclovir HCl 1 GM 1 tablet Orally th ree times a day 05/15/2025 traMADol HCl 50 MG 1 tablet Orally ever y 4 hours if needed for 7 days 05/16/2025 05/30/2025 Levothyroxine Sodium 100 MCG TAKE 1 TABL [...] tablet Oral ly Once a day 01/27/2024 Atorvastatin Calcium 20 MG 1 tablet Oral ly Once a day 11/23/2024 Next Appt Details Follow Up: 1 Week, Reason: o v review labs Provider Name:Filemon Steward , 09/25/2025 09:00:00 AM, [address] [place] [address] [address], [place], [address], Provider Name:Filemon Steward , 02/28/2026 09:30:00 AM, [address] [place] [address] [address], [place], [address], Progress Notes * TSERING MORENO FDOB:[birth year] (65 yo F)Acc No.[id number]:05/16/2025 Progress Notes Patient: TSERING HERNANDEZ Provider: Yaya Steward MD :1960 A ge:65 Y S ex:Female Date:05/16/2025 Address:[address] [place] [address] [place], [id number] Subjective: * Chief Complaints: * H erpes zoster left scalp anteriorPain left scalp and earHypothyroidEpilepsyHypertensionArthritis left kneeLeukopeniaHyperlipidemiaObesityGERD * HPI: C OVID-19 Screening: She returns for inspection of the rash on the posterior scalp and left side of her head. The pain continues to be severe but to tramadol is helping. She is combining with acetaminophen and ibuprofen. Upon inspection today a few blisters are seen to be forming and there are a few more red spots without blistering behind her left ear on the skin of her neck outside of the hair. Inside of the hair left side of her scalp blisters are forming. She has been compliant taking the prednisone and valacyclovir. She will be followed carefully. Questions H ave you had any new onset fever, chills, cough, congestion, sore throat, shortness of breath, muscle aches? N o * ROS: G eneral/Constitutional: pain S calp left side of head and left ear. C hills?denies. F atigue a dmits. F ever d enies. E NT: Decreased hearing d enies. R espiratory: Cough d enies. C ardiovascular: Chest pain with exertion d enies. D yspnea on exertion?denies. S hortness of breath d enies. G astrointestinal: Constipation d enies. D ecreased appetite d enies.?Diarrhea d enies. H eartburn d enies. N ausea d enies. R ectal bleeding?denies. V omiting d enies. H ematology: bruising d enies. p etechiae d enies. S wollen glands n one have been noted. G enitourinary: Frequent urination d enies. M usculoskeletal: Muscle aches d enies. P ainful joints d enies. S ciatica d enies. W eakness d enies. S kin: Itching d enies. R vinh P resent in scalp on the left side. S kin lesion(s) d enies. N eurologic: Difficulty speaking d enies. D izziness d enies.?Headache d enies. L ow back pain d enies. P sychiatric: Depressed mood d enies. * Medical History: * Surgical History: c holecystectomy 1984TAH/BSO Dr. Renae Gee, endometrial cancer 2015colonoscopy, [facility], Dr. Filemon Shepherd, no findings 2008colonoscopy, [facility], Dr. Filemon Shepherd, no findings 2016Colonoscopy [facility] [place] 08/2022 * Hospitalization/Major Diagno stic Procedure: D [...] 2 cats . She works at a [employer], which she finds stressful. She has no children. * Medications: T akingAtorvastatin Calcium 20 MG Tablet 1 tablet Orally Once a day Amoxicillin- Pot Clavulanate 875-125 MG Tablet 1 tablet Orally every 12 hrs , stop date 05/21/2025torvastatin Calcium 20 MG Tablet 1 tablet Orally [...] Tablet 1 tablet Orally Twice a day Levothyroxine Sodium 100 MCG Tablet TAKE 1 TABLET BY MOUTH DAILY predniSONE 20 MG Tablet 1 tablet with food or milk Orally Once a day , stop date 05/25/2025valACYclovir HCl 1 GM Tablet 1 tablet Orally three times a day , stop date 05/25/2025Medication List reviewed and reconciled with the patientTaking Atorvastatin Calcium 20 MG Tablet 1 tablet Orally Once a day Taking Amoxicillin- Pot Clavulanate 875-125 MG Tablet 1 tablet Orally every 12 hrs , stop date 05/21/2025Taking Atorvastatin Calcium 20 MG Tablet 1 tablet [...] 1 tablet Orally Twice a day Taking Levothyroxine Sodium 100 MCG Tablet TAKE 1 TABLET BY MOUTH DAILY Taking predniSONE 20 MG Tablet 1 tablet with food or milk Orally Once a day , stop date 05/25/2025Taking valACYclovir HCl 1 GM Tablet 1 tablet Orally three times a day , stop date 05/25/2025Medication List reviewed and reconciled with the patient * Allergies: C odeine SulfateMacrobidno[Allergies Verified] Objective: * Vitals: H t: 67, Wt: 248, BMI:38.84, BP: 144/82, HR: 70, Temp: 97.2, Wt-k.49. * Examination: G eneral Examination: GENERAL [...] normal. SKIN: n o suspicious lesions, anicteric, Vesicular eruption of the scalp posteriorly and in the left side of her head within the hairline behind the left ear. A few small red spots now present on the left pinna and behind the ear and the skin of the neck. Pain is unchanged. HEART: n o clicks, gallops, murmurs, or rubs, regular rhythm, S1, S2 normal, no s3, or vascular bruits. LUNGS: c lear to auscultation . BREASTS: no masses palpable bilaterally. ABDOMEN: b owel sounds normal, no ascites, [...] without complication - B02.9 (Primary) N otes :The pain is unchanged. I am able to see a few blisters beginning to form. The diagnosis of herpes zoster remains intact. Observation will continue while she is on the valacyclovir and prednisone. There is no involvement of the ear canal on the anterior face or eyes. 2 . H ypothyroidism, unspecified type - E03.9 N otes :Her thyroid function tests are normal and she is euthyroid. No change in her regimen was made. 3 . H ypertension, unspecified type - I10 N otes :Her blood pressure is currently 144/82. She is in a moderate amount of discomfort. She is going to try to lose weight and restrict sodium. 4 . A rthritis of left knee - M17.12 N otes :She will continue on her current regimen without change. There is no contraindication to ibuprofen or naproxen. 5 . B ilateral carpal tunnel syndrome - G56.03 N otes :This discomfort has resolved and she will be observed at this time. 6 . N onintractable generalized idiopathic epilepsy without status epilepticus - G40.309 N otes :She used to seizures. Her she needs to remove was 21.200 dose of 400 mg daily. This was reduced to 300 mg every other day alternating with 400 mg. A repeat level will be done in 8 weeks. Plan: * Treatment: 2. H ypothyroidism, unspecified [...] tablet, Orally, Twice a day; C ontinue predniSONE Tablet, 20 MG, 1 tablet with food or milk, Orally, Once a day; C ontinue valACYclovir HCl Tablet, 1 GM, 1 tablet, Orally, three times a day; C ontinue Amoxicillin-Pot Clavulanate Tablet, 875-125 MG, 1 tablet, Orally, every 12 hrs; S tart traMADol HCl Tablet, 50 MG, 1 tablet, Orally, every 4 hours if needed, 7 days, 28 Tablet, Refills 1; S tart traMADol HCl Tablet, 50 MG, 1 tablet if needed, Orally, every 6 hours, 7 days, 28 Tablet, Refills 3. 3. O thers Continue Atorvastatin Calcium Tablet, [...] reason not done * Follow Up: 1 Week (Reason: ov review labs) * Images: * Sign off status: Completed true * Provider: Yaya Steward MD Date: 0 05/16/2025 Generated for Kamron simms/Joseph/Elmo on: 11/21/2024 01:37 PM EST History and [...] intact SKIN: no suspicious lesion s, anicteric, Vesicular eruption of the scalp posteriorly and in the left side of her head within the hairline behind the left ear. A few small red spots now present on the left pinna and behind the ear and the skin of the neck. Pain is unchanged PERIPHERAL PULSES: normal BREASTS: no masses palpable b ilaterally MUSCULOSKELETAL: extremities unremark able, no clubbing, cyanosis or edema LYMPH NODES: no enlarged lymph no erlinda,spleen normal RECTAL EXAM: not examined PSYCH: alert, oriented ORAL CAVITY: normal, unremarkable
--- OUTSIDE RECORDS SUMMARY | 2025-05-16 09:58 | XMS_ITS ---
Author Organization Filemon Steward III, MD Address [address] [place] [address] Care Team Providers Care Systems Manager Name Role Phone Dr. Filemon Steward III Primary Care Provider REASON FOR VISIT RX sent to incorrect pharmacy Social History Sex Assigned At : Social History Observation Description Sex Assigned At Female Encounters Encounter Location Date Provider Diagnosis Filemon Steward III, MD [address] [place] [address] [place] [address] 05/16/2025 Filemon Steward Plan Of Treatment Next Appt Details Provider Name:Filemon Steward , 09/25/2025 09:00:00 AM, [address] [place] [address] [place], [address], Provider Name:Filemon Steward , 02/28/2026 09:30:00 AM, [address] [place] [address] [place], [address], Progress Notes * TSERING MORENO FDOB:[birth year] (65 yo F)Acc No.[id number]:05/16/2025 Patient: TSERING HERNANDEZ :1960 A ge:65 Y S ex:Female Address:[address] [place], [place] [address], * true * Date: Generated for Printi ng/Faxing/eTransmitting on: 11/21/2024 01:38 PM EST
--- OUTSIDE RECORDS SUMMARY | 2025-05-16 10:16 | XMS_ITS ---
Author Organization Filemon Steward III, MD Address [address] [place] [address] Care Team Providers Care Magneto Repairer Name Role Phone Dr. Filemon Steward III Primary Care Provider REASON FOR VISIT regarding letter for work Social History Sex Assigned At : Social History Observation Description Sex Assigned At Female Encounters Encounter Location Date Provider Diagnosis Filemon Steward III, MD [address] [place] [address] [place] [address] 05/16/2025 Filemon Steward Plan Of Treatment Next Appt Details Provider Name:Filemon Steward , 09/25/2025 09:00:00 AM, [address] [place] [address] [place], [address], Provider Name:Filemon Steward , 02/28/2026 09:30:00 AM, [address] [place] [address] [place], [address], Progress Notes * TSERING MORENO FDOB:[birth year] (65 yo F)Acc No.[id number]:05/16/2025 Patient: TSERING HERNANDEZ :1960 A ge:65 Y S ex:Female Address:[address] [place], [place] [address], * true * Date: Generated for Printi ng/Faxing/eTransmitting on: 11/21/2024 01:38 PM EST
--- OUTSIDE RECORDS SUMMARY | 2025-05-17 04:44 | XMS_ITS ---
Author Organization Filemon Steward III, MD Address [address] [place] [address] [place] [address] Care Team Providers Care Gas Appliance Repairer Name Role Phone Dr. Filemon Steward III Primary Care Provider [phone] REASON FOR VISIT update on her shingles Social History Sex Assigned At : Social History Observation Description Sex Assigned At Female Encounters Encounter Location Date Provider Diagnosis Filemon Stweard III, MD [address] [place] [address] [place] [address] 05/17/2025 Filemon Steward Plan Of Treatment Next Appt Details Provider Name:Filemon Steward , 09/25/2025 09:00:00 AM, [address] [place] [address] [place], [address], Provider Name:Filemon Steward , 02/28/2026 09:30:00 AM, [address] [place] [address] [place], [address], Progress Notes * TSERING MORENO FDOB:[birth year] (65 yo F)Acc No.[id number]:05/17/2025 Patient: TSERING HERNANDEZ :1960 A ge:65 Y S ex:Female Address:[address] [place], [place] [address], * true * Date: Generated for Printi ng/Faxing/eTransmitting on: 11/21/2024 01:37 PM EST
--- OUTSIDE RECORDS SUMMARY | 2025-05-24 04:30 | XMS_ITS ---
Author Organization Filemon Steward III, MD Address [address] [address] Care Team Providers Care Lead Java Programmer Name Role Phone Dr. Filemon Steward III Primary Care Provider Allergies Allergen (clinical drug ingredient) Drug/Non Drug Allergy documented on EMR Reaction Allergy Type Onset Date Status nitrofurantoin, macrocrystals / nitrofurantoin, monohydrate Macrobid Unknown Drug Allergy Active codeine Codeine Sulfate Unknown Drug Allergy A ctive REASON FOR VISIT Herpes zoster occipital and left temporal scalp and neck, Hypothyroid, Hypertension, Epilepsy, History of endometrial cancer Medications Medication SIG (Take, Route, Frequency, Duration) Notes Start Date End Date Status Dilantin 100 MG 3 capsule on odd day s and take 4 caps on even days Orally once a day Active Methenamine Hippurate 1 GM 1 tablet Oral ly Twice a day Active Levothyroxine Sodium 100 MCG TAKE 1 TABLET BY MOUTH DAILY Active predniSONE 20 MG 1 tablet with food o r milk Orally Once a day 05/15/2025 Active valACYclovir HCl 1 GM 1 tablet Orally th ree times a day 05/15/2025 Active Atorvastatin Calcium 20 MG 1 tablet Oral ly Once a day 11/23/2024 Active Omeprazole 20 MG 2 capsule Orally Onc e a day As needed Active Depakote 500 MG Orally Acti ve Amoxicillin-Pot Clavulanate 875-125 MG 1 tablet Orally every 12 hrs 05/14/2025 Active traMADol HCl 50 MG 1 tablet if needed Orally every 6 hours 05/16/2025 Active Social History Tobacco Use: Social History Observation Description Date Details (start date - stop date) Never Smoker NA - NA Sex Assigned At : Social History Observation Description Sex Assigned At Female Tobacco Control (Standard) Question Answer Notes Tobacco use: Nonsmoker Additional Findings: Tobacco non-user Aggressive nonsmoker Vital Signs Temperature 97.2 degrees Fahrenheit 05/24/20 25 Blood pressure systolic 137 mm Hg 05/24/20 25 Blood pressure diastolic 80 mm Hg 025 Heart Rate 66 /min 05/24/2025 Height 67 in 05/24/2025 Weight 247 lbs 05/24/2025 BMI 38.68 kg/m2 05/24/2025 Encounters Encounter Location Date Provider Diagnosis Filemon Steward III, MD [address] [place] [address] [place] [address] 05/24/2025 Filemon Steward Hypothyroidism, unspecified type E03.9 ; Herpes zoster without complication B02.9 ; Hypertension, unspecified type I10 ; Nonintractable generalized idiopathic epilepsy without status epilepticus G40.309 ; Leukopenia, unspecified type D72.819 and Obesity (BMI 30-39.9) E66.9 Assessments Encounter Date Diagnosis (ICD Code) Assessment Notes Treat ment Notes Treatment Clinical Notes 05/24/2025 Hypothyroidism, unspecified type (ICD-10 - E03.9) Her thyroid function tests are normal and she is euthyroid. No change in her regimen was made. 05/24/2025 Herpes zoster withou t complication (ICD-10 - B02.9) A herpetic infection is resolving and the pain is less. Finished the medication and then follow-up. SShe will continue to avoid women and unvaccinated people. 05/24/2025 Hypertension, unspecified type (ICD-10 - I10) Her blood pressure is currently stable and no change in her regimen was necessary. 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 05/24/2025 Leukopenia, unspecified type (ICD-10 - D72.819) Comprehensive blood work will be done periodically in the white count will be assessed. No treatment is currently necessary. 05/24/2025 Obesity (BMI 30-39.9 ) (ICD-10 - E66.9) Plan Of Treatment Medication Medication Name Sig Start Date Stop Date Notes Dilantin 100 MG 3 capsule on odd day s and take 4 caps on even days Orally once a day Methenamine Hippurate 1 GM 1 tablet Oral ly Twice a day Levothyroxine Sodium 100 MCG TAKE 1 TABL ET BY MOUTH DAILY predniSONE 20 MG 1 tablet with food o r milk Orally Once a day 05/15/2025 valACYclovir HCl 1 GM 1 tablet Orally th ree times a day 05/15/2025 Atorvastatin Calcium 20 MG 1 tablet Oral ly Once a day 11/23/2024 Omeprazole 20 MG 2 capsule Orally Onc e a day As needed Depakote 500 MG Orally Amoxicillin-Pot Clavulanate 875-125 MG 1 tablet Orally every 12 hrs 05/14/2025 traMADol HCl 50 MG 1 tablet if needed Orally every 6 hours 05/16/2025 Pending Test Test Name Order Date PROFILE, FASTING (COMPREHENSIVE METABOLI C) 05/24/2025 TSH (THYROID STIMULATING HORMONE) 2024 DILANTIN (PHENYTOIN) 05/24/2025 CBC w DIFF 05/24/2025 Lipid Panel 05/24/2025 Free T4 (Free Thyroxine) 05/24/2025 Next Appt Details Follow Up: 3 Months, Reason: ov review labs Provider Name:Filemon Steward , 09/25/2025 09:00:00 AM, [address] [place] [address] [address], [place], [address], Provider Name:Filemon Steward , 02/28/2026 09:30:00 AM, [address] [place] [address] [address], [place], [address], Progress Notes * SHELBY MORENOECCA FDOB:[birth year] (65 yo F)Acc No.[id number]:05/24/2025 Progress Notes Patient: TSERING HERNANDEZ Provider: Yaya Steward MD :1960 A ge:65 Y S ex:Female Date:05/24/2025 Address:[address] [place] [address] [id number] Subjective: * Chief Complaints: * H erpes zoster occipital and left temporal scalp and neckHypothyroidHypertensionEpilepsyHistory of endometrial cancer * HPI: C OVID-19 Screening: She has been compliant with the dexamethasone and valacyclovir. She reports that the herpetic rash is much improved and the pain is over 50% reduced. She has no fever. On examination today the herpetic eruption was resolving. There were no new lesions in the blisters have healed. Questions H ave you had any new onset fever, chills, cough, congestion, sore throat, shortness of breath, muscle aches? N o * ROS: G eneral/Constitutional: pain S calp and left neck. C hills d enies. F atigue a dmits. F ever d [...] enies. R vinh d enies. S kin lesion(s)?Herpes zoster is resolving. N eurologic: Difficulty speaking d enies. D izziness d enies.?Headache d enies. L ow back pain d enies. P sychiatric: Depressed mood d enies. * Medical History: * Surgical History: c holecystectomy 1984TAH/BSO Dr. Renae Gee, endometrial cancer 2015colonoscopy, [facility], Dr. Filemon Shepherd, no findings 2008colonoscopy, [facility], Dr. Filemon Shepherd, no findings 2017Colonoscopy [facility] [place] [facility] 08/2022 * Hospitalization/Major Diagno stic Procedure: D enharesh Past Hospitalization * Family History: F ather: [...] cats . She works at a local [employer], which she finds stressful. She has no [...] TAKE 1 TABLET BY MOUTH DAILY Taking Atorvastatin Calcium 20 MG Tablet 1 [...] Tablet TAKE 1 TABLET BY MOUTH DAILY Not-Taking/PRNpredniSONE 20 MG Tablet 1 tablet with food or milk Orally Once a day valACYclovir HCl 1 GM Tablet 1 tablet Orally three times a day Amoxicillin-Pot Clavulanate 875-125 MG Tablet 1 tablet Orally every 12 hrs traMADol HCl 50 MG Tablet 1 tablet if needed Orally every 6 hours , stop date 06/13/2025Not-Taking/PRN predniSONE 20 MG Tablet 1 tablet with food or milk Orally Once a day Not- Taking/PRN valACYclovir HCl 1 GM Tablet 1 tablet Orally three times a day Not-Taking/PRN Amoxicillin-Pot Clavulanate 875-125 MG Tablet 1 tablet Orally every 12 hrs Not-Taking/PRN traMADol HCl 50 MG Tablet 1 tablet if needed Orally every 6 hours , stop date 06/13/2025DiscontinuedAtorvastatin Calcium 20 MG Tablet 1 tablet Orally Once a day Medication List reviewed and reconciled with the patientDiscontinued Atorvastatin Calcium 20 MG Tablet 1 tablet Orally Once a day Medication List reviewed and reconciled with the patient * Allergies: C odeine SulfateMacrobidno[Allergies Verified] Objective: * Vitals: H t: 67, Wt: 247, BMI:38.68, BP: 137/80, HR: 66, Temp: 97.2, Wt-k.04. * Examination: G eneral Examination: GENERAL APPEARANCE: [...] normal. SKIN: n o suspicious lesions, anicteric, The herpetic rash on the posterior scalp left temporal scalp and upper left neck behind the ear is resolving. No new lesions are seen.. HEART: n o clicks, gallops, murmurs, or [...] without complication - B02.9 (Primary) N otes :A herpetic infection is resolving and the pain is less. Finished the medication and then follow-up. SShe will continue to avoid women and unvaccinated people. 2 . H ypothyroidism, unspecified type - E03.9 N otes :Her thyroid function tests are normal and she is euthyroid. No change in her regimen was made. 3 . H ypertension, unspecified type - I10 N otes :Her blood pressure is currently stable and no change in her regimen was necessary. 4 . N onintractable generalized idiopathic epilepsy without status epilepticus - G40.309 N otes :He has had no seizures for a prolonged period of time. 5 . L eukopenia, unspecified type - D72.819 N otes :Comprehensive blood work will be done periodically in the white count will be assessed. No treatment is currently necessary. 6 . O besity (BMI 30-39.9) - E66.9 Plan: * Treatment: 2. H ypothyroidism, unspecified [...] Orally, three times a day; C ontinue traMADol HCl Tablet, 50 MG, 1 tablet if needed, Orally, every 6 hours; C ontinue Amoxicillin-Pot Clavulanate Tablet, 875-125 MG, 1 tablet, Orally, every 12 hrs. L AB: PROFILE, FASTING (COMPREHENSIVE METABOLIC) L AB: TSH (THYROID STIMULATING HORMONE) L AB: DILANTIN (PHENYTOIN) L AB: CBC w DIFF L AB: Lipid Panel L AB: Free T4 (Free Thyroxine) 3. H ypertension, unspecified type L AB: PROFILE, FASTING (COMPREHENSIVE METABOLIC) L AB: TSH (THYROID STIMULATING HORMONE) L AB: DILANTIN (PHENYTOIN) L AB: CBC w DIFF L AB: Lipid Panel L AB: Free T4 (Free Thyroxine) 4. N onintractable generalized idiopathic epilepsy without status epilepticus L AB: PROFILE, FASTING (COMPREHENSIVE METABOLIC) L AB: TSH (THYROID STIMULATING HORMONE) L AB: DILANTIN (PHENYTOIN) L AB: CBC w DIFF L AB: Lipid Panel L AB: Free T4 (Free Thyroxine) 5. L eukopenia, unspecified type L AB: PROFILE, FASTING (COMPREHENSIVE METABOLIC) L AB: TSH (THYROID STIMULATING HORMONE) L AB: DILANTIN (PHENYTOIN) L AB: CBC w DIFF L AB: Lipid Panel L AB: Free T4 (Free Thyroxine) 6. O besity (BMI 30-39.9) L AB: PROFILE, FASTING (COMPREHENSIVE METABOLIC) L AB: TSH (THYROID STIMULATING HORMONE) L AB: DILANTIN (PHENYTOIN) L AB: CBC w DIFF L AB: Lipid Panel L AB: Free T4 (Free Thyroxine) 7. O thers Continue Atorvastatin Calcium Tablet, 20 [...] done * Follow Up: 3 Months (Reason: ov review labs) * Images: * Sign off status: Completed true * Provider: Yaya Steward MD Date: 0 05/24/2025 Generated for Kamron simms/Joseph/eTcarltonitting on: 11/21/2024 01:37 PM EST History and [...] intact SKIN: no suspicious lesion s, anicteric, The herpetic rash on the posterior scalp left temporal scalp and upper left neck behind the ear is resolving. No new lesions are seen. PERIPHERAL PULSES: normal BREASTS: Not examined MUSCULOSKELETAL: extremities unremark able, no clubbing, cyanosis or edema LYMPH NODES: no enlarged lymph no erlinda,spleen normal RECTAL EXAM: not examined PSYCH: alert, oriented ORAL CAVITY: normal, unremarkable
--- OUTSIDE RECORDS SUMMARY | 2025-08-16 12:00 | XMS_ITS ---
Author Organization Filemon Steward III, MD Address [address] [place] [address] [place] [address] Care Team Providers Care Meteorological Engineer Name Role Phone Dr. Filemon Steward III Primary Care Provider REASON FOR VISIT Follow up Social History Sex Assigned At : Social History Observation Description Sex Assigned At Female Encounters Encounter Location Date Provider Diagnosis Filemon Steward III, MD [address] [place] [address] [place] [address] 08/16/2025 Filemon Steward Plan Of Treatment Next Appt Details Provider Name:Filemon Steward , 09/25/2025 09:00:00 AM, [address] [place] [address] [place], [address], Provider Name:Filemon Steward , 02/28/2026 09:30:00 AM, [address] [place] [address] [place], [address], Progress Notes * TSERING MORENO FDOB:[birth year] (65 yo F)Acc No.[id number]:08/16/2025 Progress Notes Patient: TSERING HERNANDEZ Provider: Yaya Steward MD :1960 A ge:65 Y S ex:Female Date:08/16/2025 Address:[address] [place], [place] [address] [id number] Subjective: * Chief Complaints: * 1 . Follow up. * Medical History: Objective: * Vitals: Assessment: Plan: * Treatment: * Images: * The named appointment provid er may or may not be the originator of this progress note, and it is not deemed complete until electronically signed by the appointment provider. Sign off status: Pending * Provider: Yaya Steward MD Date: Generated for Kamron simms/Joseph/Elmo on: 11/21/2024 01:38 PM EST
[2025-09-21 13:16] LABS: MANUAL DIFF FLAG NO
[2025-09-21 13:28] LABS: Hematocrit 40.1 % (37.0-47.0); Hemoglobin 13.2 g/dl (12.0-16.0); Imm Gran Abs Auto 0.01 X10*3/uL (0.00-0.03); Imm Gran Pct Auto 0.3 % (0.0-0.4); Lymphocytes Absolute Auto 1.4 X10*3/uL (1.2-4.9); Mean Corpuscular HGB Conc 32.9 g/dl (31.0-35.0); Mean Corpuscular Hemoglobin 32.0 pg (27.0-33.0); Mean Corpuscular Volume 97.3 fL (80.0-98.0); NRBC Abs Auto 0.000 X10*3/uL (0.0-0.012); NRBC Pct Auto 0.0 /100WBC (0.0-0.2); Platelet Count 179 X10*3/uL (160-400); Red Blood Count 4.12 X10*6/uL (4.20-5.50); White Blood Count 3.7 X10*3/uL (4.8-10.8)
--- OUTSIDE RECORDS SUMMARY | 2025-09-21 13:37 | XMS_ITS | Clinical Summary ---
Author Organization [address] [facility] Address [address] [place] [address] Phone Care Team Providers Care Verse Writer Name Role Phone Ze Mann MD Primary Care Provider Social History Tobacco Use Types Packs/Day Years [...] Health Maintenance Due Date Last Done Comments Colorectal Cancer Screening: Colonoscopy 1961 DTaP,Tdap,and Td Vaccines (1 - Tdap) 1980 Cervical Cancer Screening: P ap Smear 1982 Pneumococcal Vaccine: 50+ Years (1 of 1 - PCV) 2011 Zoster Vaccines (1 of 2) 2011 Breast Cancer Screening 06/29/2021 06/29/20 19, 06/27/2018 Depression Screening 11/15/2024 HIV Screening 05/29/2025 Hepatitis C Screening 05/29/2025 Social Influencers of Health Screening 05/29/2025 COVID-19 Vaccine (2023-2 5 season) 2025 Influenza Vaccine (#1) 2025 [...] Procedure Name Priority Date/Time Associated Diagnosis Comments [facility] SCREENING DIGITAL Routine 06/29/2019 4:50 PM EDT Encounter for screening mammogram for malignant neoplasm of breast from Last 3 Months or Most Recently Relevant to Health Maintenance Results * [facility] SCREENING DIGITAL (06/29/2019 4:50 PM EDT) Anatomical Region Laterality Modality Mammography 06/29/2019 3:24 PM EDT Narrative 06/29/2019 4:50 PM EDT [facility] Diagnostic Imaging Department [address] [place] [address] Patient: TSERING MORENO Brian /Age/Sex: 1960 - 59 - F Unit#: [id number] Location/Status: [facility] Mnemonic/Ordering Site: [facility] Ordering Physician: JONI STEWARD MD John Screening Digital - 06/29/191549 History: Bilateral breast cancer screening. Technique: Bilateral digital mammography. Conventional CC and MLO projections with tomosynthesis MLO views and computer aided detection. Findings: Comparison: [facility] 06/17/2018, dating back to 09/26/2007. Breast tissue is mostly fatty replaced (category a density) bilaterally. There are benign calcifications bilaterally. There is no suspicious group of microcalcification, no suspicious mass, architectural distortion or suspicious asymmetry. Impression: No evidence of malignancy. BIRADS category 2, benign findings, 3342F 87345, 29333 Note: Patient information entered into a reminder system with a target due date for the next mammogram; PQRI II 7044F Dictating Physician: MOISE HUERTA MD Electronically Signed by: MOISE HUERTA MD Dic Date/Time: 06/29/19 1649 Sign date/Time: 06/29/19 165 Procedure Note Moise Huerta - 11/04/2022 [facility] Diagnostic Imaging Department [address] [place] [address] Patient: TSERING MORENO Brian /Age/Sex: 1960 - 59 - F Unit#: [id number] Location/Status: [facility]A/[facility] CLI Mnemonic/Ordering Site: [facility] Ordering Physician: JONI STEWARD MD John Screening Digital - 06/29/19 - 1550 History: Bilateral breast cancer screening. Technique: Bilateral digital mammography. Conventional CC and MLOprojections with tomosynthesis MLO views and computer aided detection. Findings: Comparison: [facility] 06/17/2018, dating back to 09/26/2007. Breast tissue is mostly fatty replaced (category a density) bilaterally.There are benign calcifications bilaterally. There is no suspicious group of microcalcification, no suspicious mass, architectural distortion orsuspicious asymmetry. Impression: No evidence of malignancy. BIRADS category 2, benign findings, 3342F 96313, 87695 Note: Patient information entered into a reminder system with a targetdue date for the next mammogram; PQRI II 7025F Dictating Physician: MOISE HUERTA MD Electronically Signed by: MOISE HUERTA MD Dic Date/Time: 06/29/19 164 Sign date/Time: 06/29/191649 Joni Steward MD IMG BI PROCEDURES Final Result from Last 3 Months or Most Recently Relevant to Health Maintenance Additional Health Concerns Infection Onset Date Last Indicated ESBL 05/28/2025 05/28/2025 Insurance [facility] Care Teams Verse Writer Relationship Specialty Start Date End Date Ze Mann MD [address] [facility] [address] [place], [place] PCP - General Pediatrics 01/23/13
--- OUTSIDE RECORDS SUMMARY | 2025-09-21 13:38 | XMS_ITS | Patient Health Record ---
Author Organization Filemon Steward III, MD Address [address] [place] [address] Care Team Providers Care Teletypesetter Monitor Name Role Phone Dr. Filemon Steward III [...] ff Reviewed date:11/25/2024 08:40:28 PM Interpretation: Performing Lab:[facility], [address] [place] [phone] Notes/Report: White Blood Count 3.1 4.8-10.8 X10*3/uL [...] NRBC Abs Auto 0.000 0.0-0.012 X10*3/uL Comprehensive [place]. Panel Fa st Reviewed date:11/25/2024 08:40:28 PM Interpretation: Performing Lab:[facility], [address] [place] [phone] Notes/Report: Sodium 143 135-145 mmol/L Potassium 4.5 [...] Panel Reviewed date:11/25/2024 08:40:28 PM Interpretation: Performing Lab:[address] [address] Notes/Report: Triglycerides 80 <150 mg/dL Desirable Triglyceride: [...] Thyroxine) Reviewed date:11/25/2024 08:40:28 PM Interpretation: Performing Lab:[address] [address] Notes/Report: Free T4 (Free Thyroxine) 0.90 0.71-1.85 ng/dL Thyroid Stimulating Hormone Reviewed date:11/25/2024 08:40:28 PM Interpretation: Performing Lab:[address] [address] Notes/Report: Thyroid Stimulating Hormone 0.81 0.32-4.0 uIU/mL TSH 3rd Generation ([facility]) Phenytoin Dilantin Reviewed date:11/25/2024 08:40:28 PM Interpretation: Performing Lab:[address] [address] Notes/Report: Phenytoin Dilantin 21.2 10.0-20.0 ug/mL Valproate Reviewed date:11/25/2024 08:40:28 PM Interpretation: Performing Lab:[facility], [address] [place] [address] Notes/Report: Valproate 49.0 50.0-100.0 mcg/mL XR DEXA axial skeleton Reviewed date:05/24/2025 03:48:10 PM Interpretation: Performing Lab: Notes/Report: [facility]'s [address] [place] [address] Mammography Report Signed Patient: Tsering Moreno MR#: [id number] 2 : 1960 Acct:[id number] Age/Sex: 65 / F ADM Date: 03/29/25 Loc: HO.MAMMO Attending Dr: Filemon Steward MD Ordering Physician: Filemon Steward MD Results: Date of Service: 03/29/25 Follow Up: Procedure(s): XR DEXA axial skeleton Accession Number(s): [id number] cc: Filemon Steward MD EXAMINATION: DXA BONE DENSITY AXIAL HISTORY: Z78.0 MENOPAUSAL STATE TECHNIQUE: [employer] Dual energy absorptiometry (DEXA) of the lumbar [...] is a trademark of the [employer] [place] for Metabolic Bone Disease, a World Health Organization (WHO) Collaborating Center. Electronically signed by: Filemon Heller MD 03/29/2025 02:25 PM EDT RP Dictated By: Filemon Heller MD Signed By: <Electronically signed by Filemon Heller MD in OV> 03/29/25 1425 DD/ 1400 TD/TT: 03/29/25 1416 Yard Laborer: [facility] [address] [place] [address] Mammography Report Signed Patient: Augustine Moreno MR#: [id number] 2 : 1960 Acct:[id number] Age/Sex: 65 / F ADM Date: 03/29/25 Loc: HO.MAMMO Attending Dr: Filemon Steward MD Ordering Physician: Filemon Steward MD Results: Date of Service: 03/29/25 Follow Up: Procedure(s): XR DEX A axial skeleton Accession Number(s): [id number] cc: Filemon Steward MD EXAMINATION: DXA BON E DENSITY AXIAL HISTORY: Z78.0 MENOPAUSAL STATE TECHNIQUE: [employer] Dual energy absorptiometry (DEXA) of the lumbar [...] of the [employer] [place] [employer] Metabolic Bone Disease, a World Health Organization (WHO) Collaborating Center. Electronically mirza d by: Filemon Heller MD 03/29/2025 02:25 PM EDT Dictated By: Filemon Heller MD Signed By: <Electronically signed by Filemon Heller MD in OV> 03/29/25 1425 DD/ 1400 TD/TT: 03/29/25 1416 Yard Laborer: Complete Blood Count Auto Di ff Reviewed date:05/24/2025 03:48:10 PM Interpretation: Performing Lab:[facility], [address] [place] [phone] Notes/Report: White Blood Count 5.2 4.8-10.8 X10*3/uL [...] Panel Reviewed date:05/24/2025 03:48:10 PM Interpretation: Performing Lab:[facility], [address] [place] [phone] Notes/Report: Sodium 141 135-145 mmol/L Potassium 4.1 [...] Free/Unbound Reviewed date:05/24/2025 03:48:10 PM Interpretation: Performing Lab:[facility], [address] [place] [phone] Notes/Report: Phenytoin, Free/Unbound 1.0 1.0-2.0 mg/L THIS TEST WAS PERFORMED AT: [facility] [address] [place] [phone] MARCELINO FERRER MD MM tomosynthesis screening B I Reviewed date:08/11/2025 08:29:10 PM Interpretation: Performing Lab: Notes/Report: [facility] [address] [place] [address] Mammography Report Signed Patient: Tsering Moreno MR#: [id number] 2 : 1960 Acct:[id number] Age/Sex: 65 / F ADM Date: 08/09/25 Loc: HO.MAMMO Attending Dr: Filemon Steward MD Ordering Physician: Filemon Steward MD Results: 1Negativ e Date of Service: 08/09/25 Follow Up: 1 Year From [facility] Mammogram Procedure(s): MM tomosynthesis screening BI Accession Number(s): [id number] cc: Filemon Steward MD Reason For Exam: SCREENING EXAMINATION: MM SCREENING DIGITAL BREAST TOMOSYNTHESIS, BILATERAL CLINICAL INFORMATION: Screening. Asymptomatic. COMPARISON: Comparison made to multiple prior, most recent August 05, 2024, and most remote December 07, 2016. TECHNIQUE: Digital breast tomosynthesis is performed in mediolateral oblique and craniocaudal views along with computer-aided detection (CAD). Synthesized 2D images are generated from the tomosynthesis. FINDINGS: BREAST COMPOSITION: There are scattered areas of fibroglandular density. BILATERAL BREASTS: No significant masses, suspicious calcifications or other abnormalities are seen in either breast. MM/MM tomosynthesis screening BI IMPRESSION: BILATERAL BREASTS: Negative, no mammographic evidence of malignancy. Normal interval follow-up is recommended in 12 months. ASSESSMENT: BI-RADS: Category 1: Negative RECOMMENDATION: Routine annual mammography screening. FOLLOW-UP: 1 year F/U This examination should not preclude the clinical evaluation of a suspicious palpable abnormality. This patient's information was entered into a reminder system with a target due date for their next mammogram. Electronically signed by: Christina Bhatti MD 08/10/2025 07:56 PM EDT RP Dictated By: Christina Bhatti MD Signed By: <Electronically signed by Christina Bhatti MD in OV> 08/10/251955 DD/ 0956 TD/TT: 08/09/25 1003 Yard Laborer: [place] [facility] [address] [place] [address] Mammography Report Signed Patient: Augustine Moreno MR#: [id number] 2 : 1960 Acct:[id number] Age/Sex: 65 / F ADM Date: 08/09/25 Loc: HO.MAMMO Attending Dr: Filemon Steward MD Ordering Physician: Filemon Steward MD Results: 1Negativ e Date of Service: 08/09/25 Follow Up: 1 Year From [facility] Mammogram Procedure(s): MM tomosynthesis screening BI Accession Number(s): [id number] cc: Filemon Steward MD Reason For Exam: SCREENING EXAMINATION: MM SCREENING DIGITAL BREAST TOMOSYNTHESIS, BILATERAL CLINICAL INFORMATION: Screening. Asymptomatic. COMPARISON: Comparis on made to multiple prior, most recent August 05, 2024, and most remote December 07, 2016. TECHNIQUE: Digital breast tomosynthesis is performed in mediolateral oblique and craniocaudal views along with computer-aided detection (CAD). Synthesized 2D image s are generated from the tomosynthesis. FINDINGS: BREAST COMPOSITION: There are scattered areas of fibroglandular density. BILATERAL BREASTS: N o significant masses, suspicious calcifications or other abnormalities are seen in either breast. MM/MM tomosynthesis screening BI IMPRESSION: BILATERAL BREASTS: Negative, no mammographic evidence of malignancy. Normal interval follow-up is recommended in 12 months. ASSESSMENT: BI-RADS: Category 1: Negative RECOMMENDATION: Routine annual mammography screening. FOLLOW-UP: 1 year F/U This examination samira uld not preclude the clinical evaluation of a suspicious palpable abnormality. This patient's information was entered into a reminder system with a target due date for their next mammogram. Electronically mirza d by: Christina Bhatti MD 08/10/2025 07:56 PM EDT RP Workstation: [employer] Dictated By: Christina Bhatti MD Signed By: <Electronically signed by Christina Bhatti MD in OV> 08/10/251955 DD/ TD/TT: 08/09/25 1003 Yard Laborer: Complete Blood Count Auto Di ff (Not yet reviewed by provider) Interpretation: Performing Lab:[facility], [address] [place] [phone] Notes/Report: White Blood Count 3.7 4.8-10.8 X10*3/uL Red Blood Count 4.12 4.20-5.50 X10*6/uL Hemoglobin 13.2 12.0-16.0 g/dl Hematocrit 40.1 37.0-47.0 % Mean Corpuscular Volume 97.3 80.0-98.0 fL Mean Corpuscular Hemoglobin 32.0 27.0-33.0 pg Mean Corpuscular HGB Conc 32.9 31.0-35.0 g/dl Red Cell Distribution Width 12.9 11.0-16.0 % Platelet Count 179 160-400 X10*3/uL Mean Platelet Volume 10.8 9.4-12.3 fL Neutrophils Percent Auto 41.5 45-73 % Imm Gran Pct Auto 0.3 0.0-0.4 % Lymphocytes Percent Auto 37.4 20-40 % Monocytes Percent Auto 12.7 2-11 % Eosinophils Percent Auto 7.3 0-4 % Basophils Percent Auto 0.8 0-2 % NRBC Pct Auto 0.0 0.0-0.2 /100WBC Neutrophils Absolute Auto 1.5 2.0-8.3 x10*3/u L Imm Gran Abs Auto 0.01 0.00-0.03 X10*3/uL Lymphocytes Absolute Auto 1.4 1.2-4.9 X10*3/u L Monocytes Absolute Auto 0.5 0.1-1.2 X10*3/uL Eosinophils Absolute Auto 0.3 0.0-0.4 X10*3/u L Basophils Absolute Auto 0.0 0.0-0.2 X10*3/uL NRBC Abs Auto 0.000 0.0-0.012 X10*3/uL Reason For Referral No Information Medications Medication [...] 3 and > Unknown 09/19/2014 Adminis tered COVID-19 Moderna SPIKEVAX Unknown 10/15/2023 Administer ed SHINGRIX Unknown 08/18/2025 Administered Social History Tobacco Use: Social History Observation [...] W/U Status Risk Notes Problem Sleep apnea (12515533) Sleep apnea, unspecified (G47.30) Active confirmed She continues t o use his CPAP although she finds it uncomfortable.. Problem 026854797 GERD without esophagitis (K21.9) Active confirmed Occasional heartburn is well-controlled with her current regimen and no changes necessary. Problem 682690872 Obesity (BMI 30-39.9) (E66.9) Active confirmed Her body mass index is 38.. We have reviewed her diet and nutrition. We made a plan to lose weight at a rate of one half of a pound per week through a diet restricted in calories fat and sodium combined with regular physical activity. Problem 0201163 Herpes zoster without complication (B02.9) Active confirmed A herpetic infection is resolving and the pain is less. Finished the medication and then follow-up. SShe will continue to avoid women and unvaccinated people. Problem 53505064 Leukopenia, unspecified type (D72.819) Active confirmed Comprehensive blood work will be done periodically in the white count will be assessed. No treatment is currently necessary. Problem 120548039 History of endometrial cancer (Z85.42) Active confirmed There is no sign of recurrent endometrial cancer today. Problem 202655495 Pure hypercholestero lemia (E78.00) Active confirmed Her cholester ol level is 229. All are in 8 weeks. No change in her regimen was made today. Problem Essential hypertension (09184363) Hypertension, unspecified type (I10) Active confirmed Her blood pressure is currently stable and no change in her regimen was necessary. Problem Hypothyroidism (99970409) Hypothyroidism, unspecified type (E03.9) Active confirmed Her thyroid function tests are normal and she is euthyroid. No change in her regimen was made. Problem 0641014602709461 Arthritis of left knee (M17.12) Active confirmed She will continue on her current regimen without change. There is no contraindication to ibuprofen or naproxen. Problem 45510137991876103 Bilateral carpal tunnel syndrome (G56.03) Active confirmed This discomfort has resolved and she will be observed at this time. 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 Problem 212028444 Acute folliculitis (L73.9) Active confirmed This is [...] Date Provider Diagnosis Filemon Steward III, MD [address] [place] [address] [place] [address] 02/22/2025 Filemon Steward Hypothyroidism, unsp ecified type E03.9 ; Nonintractable generalized idiopathic epilepsy without status epilepticus G40.309 ; Postmenopausal Z78.0 ; Encounter for screening for osteoporosis Z13.820 ; Pure hypercholesterolemia E78.00 ; Bilateral carpal tunnel syndrome G56.03 ; Arthritis of left knee M17.12 ; History of endometrial cancer Z85.42 ; GERD without esophagitis K21.9 and Sleep apnea, unspecified G47.30 Filemon Steward III, MD [address] [place] [address] [place] [address] 05/14/2025 Filemon Steward Acute folliculitis L 73.9 ; Hypothyroidism, unspecified type E03.9 ; Nonintractable generalized idiopathic epilepsy without status epilepticus G40.309 ; Bilateral carpal tunnel syndrome G56.03 ; Arthritis of left knee M17.12 ; Leukopenia, unspecified type D72.819 ; GERD without esophagitis K21.9 ; History of endometrial cancer Z85.42 and Obesity (BMI 30-39.9) E66.9 Filemon Steward III, MD [address] [place] [address] [place] [address] 05/15/2025 Filemon Steward Hypothyroidism, unsp ecified type E03.9 ; Herpes zoster without complication B02.9 ; Hypertension, unspecified type I10 ; Nonintractable generalized idiopathic epilepsy without status epilepticus G40.309 ; Arthritis of left knee M17.12 ; GERD without esophagitis K21.9 ; Sleep apnea, unspecified G47.30 and Obesity (BMI 30-39.9) E66.9 Filemon Steward III, MD [address] [place] [address] [place] [address] 05/16/2025 Filemon Steward Hypothyroidism, unsp ecified type E03.9 ; Herpes zoster without complication B02.9 ; Hypertension, unspecified type I10 ; Arthritis of left knee M17.12 ; Bilateral carpal tunnel syndrome G56.03 and Nonintractable generalized idiopathic epilepsy without status epilepticus G40.309 Filemon Steward III, MD [address] [place] [address] [place] [address] 05/24/2025 Filemon Steward Hypothyroidism, unsp ecified type E03.9 ; Herpes zoster without complication B02.9 ; Hypertension, unspecified type I10 ; Nonintractable generalized idiopathic epilepsy without status epilepticus G40.309 ; Leukopenia, unspecified type D72.819 and Obesity (BMI 30-39.9) E66.9 Filemon Steward III, MD [address] [place] [address] [place] [address] 11/23/2024 Filemon Steward III, MD [address] [place] [address] [place] [address] 05/15/2025 Filemon Steward III, MD [address] [place] [address] [place] [address] 05/16/2025 Filemon Steward III, MD [address] [place] [address] [place] [address] 05/16/2025 Filemon Steward III, MD [address] [place] [address] [place] [address] 05/17/2025 Filemon Steward Assessments Encounter Date Diagnosis [...] MAMMOGRAM DIGITAL BILATERAL SCREEN 06/14 Echocardiogram 05/23/2019 Complete Blood Count Auto Diff Lipid Panel 03/09/2022 Lipid Panel 07/27/2024 Lipid Panel 05/24/2025 Free T4 (Free Thyroxine) 07/27/2024 Free T4 (Free Thyroxine) 05/24/2025 Phenytoin Dilantin 03/09/2022 Phenytoin Dilantin 07/27/2024 Phenytoin, Free/Unbound 02/22/2025 Next Appt Details Provider Name:Filemon Steward , 09/25/2025 09:00:00 AM, [address] [place] [address] [place], [place], [address], Provider Name:Filemon Steward , 02/28/2026 09:30:00 AM, [address] [place], [place], [address], Insurance Providers Payer Name Payer Address Payer Phone Subscriber Number Group Number Insured Name Patient Relationship to Insured Coverage Start Date Coverage End Date [facility] [address] [place] [address] [phone] [id number] TSERING MORENO Self - patient is the [...] environmental allergies Surgical History Surgery Date(Month/Year) Colonoscopy [facility] 08/2022 colonoscopy, [facility], Dr. Filemon Shepherd, no findings 2016 colonoscopy, [facility], Dr. Filemon Shepherd, no findings 2008 FREDY/BSO Dr. Renae Gee, endometrial c ancer 2016 cholecystectomy 1985
--- OUTSIDE RECORDS SUMMARY | 2025-09-21 13:38 | XMS_ITS | Patient Health Record ---
Author Organization [facility] Address [address] [place] [address] Care Team Providers Care Surgical Services Assistant Name Role Phone Filemon Steward MD Primary Care Provider Unavailab Filemon Cruz Unavailable [phone] Allergies Allergen (clinical drug ingredient) Drug/Non Drug [...] Status Risk Notes Problem Colon cancer screening (276660413) Colon cancer screening (Z12.11) Active confirmed Problem Screening for malignant neoplasm of colon (958986247) Encounter for screening for malignant neoplasm of colon (Z12.11) Active confirmed Problem Screening for malignant neoplasm of rectum (972111531) Encounter for screening for malignant neoplasm of rectum (Z12.12) Active confirmed Problem Preprocedural examination (851903544066939) Preprocedural examination (Z01.818) Active confirmed Problem Family History of Cancer of Colon (Situation) (582074320) Family history of colon cancer (Z80.0) Active confirmed Problem Diverticulosis of sigmoid colon (790485562) Diverticulosis of sigmoid colon (K57.30) Active confirmed Plan Of Treatment Pending Test Test Name Order Date Pathology 09/11/2022 Future Test Test Name Order Date COLONOSCOPY 11/17/2016 COLONOSCOPY 07/15/2022 Insurance Providers Payer Name Payer Address Payer Phone Subscriber Number Group Number Insured Name Patient Relationship to Insured Coverage Start Date Coverage End Date [facility] [address] [place] [address] [id number] TSERING MORENO Self - patient is the insured Medical (General) History Medical History History ICD Code 7-14-2008 colonoscopy--no polyps, small internal hemorrhoids Denies OK,DM,CVA,Lung disease,renal dise ase Hypothyroidism Seizure disorder Endometrial carcinoma stage one-hysterec mike as below--2015 Negative colonoscopy in 03/2017 Surgical History Surgery Date(Month/Year) Cholecystectomy FREDY 03/2016
--- OUTSIDE RECORDS SUMMARY | 2025-09-21 13:39 | XMS_ITS | Patient Health Record ---
Author [facility] Address [address] [address] Care Team Providers Care Receptionist Airline Lounge Name Role Phone Filemon Steward MD Primary Care Provider UnavailArtur Moreira Unavailable [phone] Allergies Allergen (clinical drug ingredient) Drug/Non Drug [...] Treatment Pending Test Test Name Order Date 04886- Debride <25 sq cm 06/03/2021 88295 I&D ABSCESS- SIMPLE,SINGLE 021 Insurance Providers Payer Name Payer Address Payer Phone Subscriber Number Group Number Insured Name Patient Relationship to Insured Coverage Start Date Coverage End Date [facility] [id number] [address] [address] [place] [address] [id number] Nikolay Moreno Spouse - patient is the spouse of the insured Medical (General) History Medical History History ICD Code Back,Hip,and Knee pain Broken bones Cancer Epilepsy Gall bladder problems High blood pressure thyroid Measles Mumps Chicken pox Surgical History Surgery Date(Month/Year) gall bladder 12/1984 hysterectomy 03/2016
--- OUTSIDE RECORDS SUMMARY | 2025-09-21 13:39 | XMS_ITS | Encounter Summary ---
Author Organization [employer] Address [address] [place] [address] Care Team Providers Care Development Advisor Name Role Phone Ze Mann MD Primary Care Provider Encounter Details Date Type Department Care Team (Late st Contact Info) Description 05/29/2025 Lab Requisition [facility] - Main Lab [address] [place] [phone] Saba Mercer, G[place] [address] [facility] [address] [place] [address] Dysuria Social History Tobacco Use Types Packs/Day [...] oxytoca ESBL(A) ALIYA 06/01/2025 8:25 AM EDT [facility]) [facility] Comment: THIS ORGANISM IS [...] Escherichia coli(A) ALIYA 06/01/2025 8:25 AM EDT [facility] Comment: The organism value for this result has been updated. These results have been appended to the previously preliminary verified report. Other Urine specimen from urethra / Unknown 05/28/2025 05/29/2025 9:45 AM EDT Narrative [facility] - 06/01/2025 8:25 AM EDT [...] MICROBIOLOGY - GENERAL ORDER LICHA Final Result [facility] ([facility]) [facility] [address] [place] [address], documented in this encounter Visit Diagnoses Diagnosis Dysuria documented in this encounter Additional Health Concerns Infection Onset Date Last Indicated Resolved Time ESBL 05/28/2025 05/28/2025 documented as of this encounter Care Teams Development Advisor Relationship Specialty Start Date End Date Ze Mann MD [address] PCP - General Pediatrics 01/23/13 documented as of this encounter
[2025-09-21 13:52] LABS: Alanine Aminotransferase 38 U/L (0-31); Albumin Level 4.4 g/dL (3.5-5.0); Alkaline Phosphatase 61 U/L (39-117); Anion Gap 11 (12-20); Aspartate Amino Transferase 29 U/L (5-31); Blood Urea Nitrogen 16 mg/dL (9-16); Calcium 8.8 mg/dL (8.4-10.2); Carbon Dioxide 30 mmol/L (22-29); Chloride 105 mmol/L (96-108); Cholesterol 205 mg/dL (<200); Estimated Glomerular Filt Rate > 60; HDL Cholesterol 84 mg/dL (>40); Potassium 4.5 mmol/L (3.3-5.1); Sodium 141 mmol/L (135-145); Total Protein 6.8 g/dL (6.5-8.0); Triglycerides 63 mg/dL (<150)
[2025-09-21 14:11] LABS: Free T4 (Free Thyroxine) 0.86 ng/dL (0.71-1.85); Thyroid Stimulating Hormone 1.57 uIU/mL (0.32-4.0)
== END 2025-09-21 11:15 | disposition home or self-care (01) ==
LOC: HO.HMGCLDS 11:14
PROVIDERS: PCP Internal Medicine Medical Oncology; Visit Provider Internal Medicine Medical Oncology
DX: I10 Essential (primary) hypertension (principal); G40.309 Generalized idiopathic epilepsy and epileptic syndromes, not intractable, without status epilepticus; D72.819 Decreased white blood cell count, unspecified; E66.9 Obesity, unspecified; E03.9 Hypothyroidism, unspecified; B02.9 Zoster without complications
CPT/HCPCS: 36415; 80053; 80061; 80185; 84439; 84443; 85025